=== PATIENT | female | born 1985 | race American Indian/Alaskan Native ===

== ENCOUNTER 2016-09-20 13:03 | Emergency (ER) | payer MEDICAID ==
[2016-09-20] MEDS ORDERED: CATAPRES PO ONE (13:31)
--- NOTE | 2016-09-20 13:33 | Emergency Department Report ---
Entered by GLADIS RIZO, acting as scribe for SHAKIRA MTZ PA. Chief Complaint: High BP Stated Complaint: ELEVATED BP Time Seen by Provider: 09/20/16 13:24 - HPI History of Present Illness: Patient presents to the ED c/o elevated blood pressure that began today. Pt states that her PCP suggested she come to the ED, because her blood pressure was elevated to 179/130. Reports dizziness, light headache, mid-chest pain. Denies nausea and vomiting. In triage, the pt's blood pressure is 168/116. - ROS Review of Systems: All system are negative unless stated in HPI above. - Exam Vital Signs: Vital Signs 09/20/16 13:18 Temperature 98.3 F Pulse Rate 109 H Respiratory 18 Rate Blood Pressure 168/116 O2 Sat by Pulse 100 Oximetry Physical Exam: General: well nourished, well developed, nontoxic in appearance, in no acute distress Cardiovascular: S1/S2 tachycardic at 109bpm, regular rhythm. No murmur Neurological: GCS 15, no facial drooping, normal gait, A&O x 3 MSE screening note: Focused history and physical exam performed. Due to findings the following was ordered: ED Medical Decision Making - Medical Decision Making Medical decision making: Patient seen by provider in triage area. Appropriate protocol activated and patient to main ED to be seen by provider Clonidine 0.2 mg by mouth given ED Disposition for MSE Condition: Stable This documentation as recorded by the scribe,GLADIS RIZO,accurately reflects the service I personally performed and the decisions made by me,SHAKIRA MTZ PA.
[2016-09-20 14:19] LABS: Basophils % (Auto) 1.7 % (0.0-1.8); Eosinophils % (Auto) 1.6 % (0.0-4.3); Hematocrit 39.6 % (30.3-42.9); Hemoglobin 13.2 gm/dl (10.1-14.3); Mean Corpuscular HGB Conc 33 % (30-34); Mean Corpuscular Hemoglobin 30 pg (28-32); Mean Corpuscular Volume 89 fl (79-97); Platelet Count 379 K/mm3 (140-440); Red Blood Count 4.46 M/mm3 (3.65-5.03); Red Cell Distribution Width 13.9 % (13.2-15.2); White Blood Count 7.3 K/mm3 (4.5-11.0)
[2016-09-20 14:28] LABS: INR 0.99 (0.87-1.13)
[2016-09-20 14:29] LABS: Partial Thromboplastin Time 29.9 Sec. (24.2-36.6)
[2016-09-20 14:33] LABS: Creatine Kinase MB 1.6 ng/mL (0.0-4.0)
[2016-09-20 14:34] LABS: Anion Gap 18 mmol/L; BUN/Creatinine Ratio 14.28; Blood Urea Nitrogen 10 mg/dL (7-17); Carbon Dioxide 23 mmol/L (22-30); Chloride 102.9 mmol/L (98-107); Creatine Kinase 150 units/L (30-135); Glucose 108 mg/dL (65-100); Potassium 4.1 mmol/L (3.6-5.0); Sodium 140 mmol/L (137-145)
--- NOTE | 2016-09-20 15:03 | Cat Scan Report ---
CT HEAD WITHOUT CONTRAST: HISTORY: Headache, dizziness, hypertension. Serial contiguous axial images were obtained through the cranium. Intravenous contrast material was not administered. The ventricles are normal in size and appearance. There is no mass effect or midline shift. No areas of abnormally increased or decreased attenuation are seen. No mass lesion is seen. There is subtle cortical volume loss in the left parietal region. The etiology of this is unclear. This may represent a chronic ischemic insult. This may have been in utero. There is moderate mucosal thickening throughout the ethmoid and sphenoid sinuses. IMPRESSION: Cortical volume loss in the left parietal lobe which appears chronic. Previous ischemic insult? In utero insult? No acute process is appreciated. Moderate to severe chronic sinus disease.
[2016-09-20 15:48] LABS: Bacteria,Urine 1+ /HPF (Negative); Bilirubin,Urine NEG (Negative); Blood,Urine NEG (Negative); Ketones,Urine TR mg/dL (Negative); Leukocyte Esterase,Urine LG (Negative); Mucus,Urine 2+ /HPF; Nitrite,Urine NEG (Negative); Urobilinogen,Urine < 2.0 mg/dL (<2.0)
[2016-09-20] MEDS ORDERED: NORCO 5/325 PO ONE (19:07)
[2016-09-20] MEDS ORDERED: ZITHROMAX PO ONE (19:07)
[2016-09-20] MEDS ORDERED: REGLAN PO ONE (19:08)
--- NOTE | 2016-09-20 19:12 | Emergency Department Report ---
HPI - General Chief Complaint: High BP Time Seen by Provider: 09/20/16 13:26 - HPI HPI: The patient is a 31-year-old female who presents for evaluation of headache and chest pain. The patient reports headache for the past 2 days, achy in quality, bilateral, bandlike, worse in the frontal and maxillary areas, 10/10 in severity , constant since onset, associated with moderate to severe dizziness elicited with standing and resolved with lying down and rest. She also reports sharp right-sided chest pain, 8/10 in severity, present for the past one day, exacerbated with right arm movement. ED Past Medical Hx - Past Medical History Hx Hypertension: Yes (post- pre-eclampsia; now on Procardia) Hx Congestive Heart Failure: No Hx Diabetes: No Hx Deep Vein Thrombosis: No Hx Renal Disease: No Hx Sickle Cell Disease: No Hx Seizures: Yes (as a child) Hx Asthma: No Hx COPD: No Hx HIV: No Additional medical history: Vaginal delivery 03-03-14 - Social History Smoking Status: Never Smoker Substance Use Type: None - Medications Home Medications: Home Medications Medication Instructions Recorded Confirmed Last Taken Type NIFEdipine XL [Procardia Xl] 30 mg PO QDAY #60 tablet 04/15/15 09/20/16 Rx Acetaminophen/Codeine [Tylenol #3] 1 tab PO Q6H PRN #10 tab 09/20/16 Unknown Rx Azithromycin [Zithromax Z-ANNIE] 250 mg PO QDAY #6 tablet 09/20/16 Unknown Rx Hydrochlorothiazide [HCTZ] 25 mg PO QDAY 09/20/16 09/20/16 09/20/16 History ED Review of Systems ROS: Stated complaint: ELEVATED BP Other details as noted in HPI Constitutional: denies: fever; reports dizziness ENT: denies: throat or neck pain Respiratory: denies: cough, shortness of breath Cardiovascular: reports chest pain Endocrine: denies unexplained weight loss or gain Gastrointestinal: denies: abdominal pain, nausea Genitourinary: denies: dysuria Musculoskeletal: denies: leg swelling Skin: denies: rash Neurological: reports: headache Hematological/Lymphatic: denies: easy bleeding or easy bruising Psych: denies sadness or hopelessness Physical Exam - Physical Exam Vital Signs: Vital Signs 09/20/16 09/20/16 09/20/16 13:18 13:34 16:54 Temperature 98.3 F 98.4 F Pulse Rate 109 H 109 H 87 Respiratory 18 17 Rate Blood Pressure 168/116 168/116 Blood Pressure 121/77 [Left] O2 Sat by Pulse 100 97 Oximetry 09/20/16 18:00 Temperature 98.1 F Pulse Rate 82 Respiratory 17 Rate Blood Pressure Blood Pressure 128/80 [Left] O2 Sat by Pulse 100 Oximetry Physical Exam: General: well-nourished, well-developed, no acute distress Head: Normocephalic, atraumatic Eyes: normal sclera, EOMI, PERRL, no vertical, rotary, or horizontal nystagmus ENT: Mucous membranes are pink and moist Neck: trachea midline, neck supple, No neck stiffness, no cervical adenopathy Respiratory: Breath sounds equal bilaterally, no wheezing, rales, or rhonchi Cardio: S1 and S2 present, no murmurs, rubs, gallops, capillary refill is brisk Abdomen: Normoactive bowel sounds, soft abdomen, no rigidity, no guarding or rebound tenderness Chest WALL/Back: No tenderness to palpation of the chest wall, no CVA tenderness with percussion Musc: No pitting edema Skin: No rash Neuro: Alert oriented 3, no facial drooping, normal speech, CN2 through 12 grossly intact, no sensation or motor deficit in the arms or legs, reflexes 2+ symmetric on DTR testing, no coordination deficit with finger to nose testing, Romberg negative, no abnormal gait with ventilation Psych: Normal affect ED Course Vital Signs 09/20/16 09/20/16 09/20/16 13:18 13:34 16:54 Temperature 98.3 F 98.4 F Pulse Rate 109 H 109 H 87 Respiratory 18 17 Rate Blood Pressure 168/116 168/116 Blood Pressure 121/77 [Left] O2 Sat by Pulse 100 97 Oximetry 09/20/16 18:00 Temperature 98.1 F Pulse Rate 82 Respiratory 17 Rate Blood Pressure Blood Pressure 128/80 [Left] O2 Sat by Pulse 100 Oximetry ED Medical Decision Making - Lab Data Result diagrams: 09/20/16 13:46 09/20/16 13:46 - Medical Decision Making The patient was seen and examined by myself. The patient is placed on a monitor tech and continuous pulse ox. On initial evaluation, the patient was found to be in no distress. EKG was negative for findings suggestive of acute cardiac infarct. Labs and imaging are obtained. The patient was given a tablet of clonidine for her elevated blood pressure, [place] for pain. Lab results are grossly unremarkable. CT scan the head reveals sinusitis. The patient given a tablet of azithromycin for treatment of sinusitis. Lab results were non-concerning including levels of troponin, WBC, hemoglobin, hematocrit, electrolytes, renal function. The patient was reevaluated and reported that their symptoms were markedly improved. As the patient has a ABRAHAM risk score less than 2, and a well's score less than 2, the patient is at low risk of ACS or pulmonary emboli etiology of their symptoms. The patient is stable for discharge with outpatient follow-up. The patient is given follow-up and return instructions. The patient expressed understanding and agreed with the plan. The patient is discharged in stable condition. Critical care attestation.: If time is entered above; I have spent that time in minutes in the direct care of this critically ill patient, excluding procedure time. ED Disposition Clinical Impression: Acute chest pain, Hypertensive urgency Acute sinusitis Qualifiers: Sinusitis location: unspecified location Recurrence: non-recurrent Qualified Code(s): J01.90 - Acute sinusitis, unspecified Disposition: DISCHARGED TO HOME OR SELFCARE Is pt being admited?: No Does the pt Need Aspirin: No Condition: Stable Instructions: Chest Pain (ED), Sinusitis (ED), Hypertension (ED) Prescriptions: Acetaminophen/Codeine [Tylenol #3] 1 tab PO Q6H PRN #10 tab PRN Reason: Pain Azithromycin [Zithromax Z-ANNIE] 250 mg PO QDAY #6 tablet Referrals: PRIMARY CARE, [Primary Care Provider] - 3-5 Days Forms: Accompanied Note Time of Disposition: 19:08
[2016-09-20 22:59] VITALS: BP 121/82
== END 2016-09-20 22:59 | disposition home or self-care (01) ==
LOC: ED 13:03
DX: J01.90 Acute sinusitis, unspecified (principal); R07.9 Chest pain, unspecified; I10 Essential (primary) hypertension
CPT/HCPCS: 36415; 70450; 80048; 81001; 82550; 82553; 84484; 84703; 85025; 85610; 85730; 93005; 93010

== ENCOUNTER 2017-02-25 18:56 | Emergency (ER) | payer OTHER ==
--- NOTE | 2017-02-26 03:06 | Emergency Department Report ---
ED ENT HPI - General Chief complaint: Sore Throat Stated complaint: SORE THROAT HARD TO SWALLOW Time Seen by Provider: 02/26/17 02:58 Source: patient Mode of arrival: Ambulatory Limitations: No Limitations - History of Present Illness Initial comments: pt is 31 y/o aaf with hx asthma who presents for sorethroat and fever x 1 week symptoms include dysphagia and fever 102.7 tmax oral at home pt is tolerating po intake, there is no shortness of breath no n/v no headache no dizziness. complaint: sore throat Onset/Timin -: week(s) Location: throat Severity: moderate Severity scale (0 -10): 5 Quality: burning, aching, sharp Consistency: intermittent Improves with: other (hot liquids ) Worsens with: swallowing Associated Symptoms: fever, pain with swallowing, sore throat - Related Data Home Medications Medication Instructions Recorded Confirmed Last Taken Hydrochlorothiazide [HCTZ] 25 mg PO QDAY 09/20/16 09/20/16 09/20/16 Previous Rx's Medication Instructions Recorded Last Taken Type NIFEdipine XL [Procardia Xl] 30 mg PO QDAY #60 tablet 04/15/15 09/20/16 Rx Acetaminophen/Codeine [Tylenol #3] 1 tab PO Q6H PRN #10 tab 09/20/16 Unknown Rx Azithromycin [Zithromax Z-ANNIE] 250 mg PO QDAY #6 tablet 09/20/16 Unknown Rx Benzocaine/Menth/Cetylpyrd 8 each MM QID PRN #3 packet 02/26/17 Unknown Rx [Cepacol X Strength] Ibuprofen [Motrin 800 MG tab] 800 mg PO Q8HR PRN #30 tablet 02/26/17 Unknown Rx Penicillin Vk [Veetids TAB] 250 mg PO TID #30 tablet 02/26/17 Unknown Rx Allergies Allergy/AdvReac Type Severity Reaction Status Date / Time No Known Allergies Allergy Verified 03/14/15 10:02 ED Dental HPI - General Chief complaint: Sore Throat Stated complaint: SORE THROAT HARD TO SWALLOW Time Seen by Provider: 02/26/17 02:58 Source: patient Mode of arrival: Ambulatory Limitations: No Limitations - Related Data Home Medications Medication Instructions Recorded Confirmed Last Taken Hydrochlorothiazide [HCTZ] 25 mg PO QDAY 09/20/16 09/20/16 09/20/16 Previous Rx's Medication Instructions Recorded Last Taken Type NIFEdipine XL [Procardia Xl] 30 mg PO QDAY #60 tablet 04/15/15 09/20/16 Rx Acetaminophen/Codeine [Tylenol #3] 1 tab PO Q6H PRN #10 tab 09/20/16 Unknown Rx Azithromycin [Zithromax Z-ANNIE] 250 mg PO QDAY #6 tablet 09/20/16 Unknown Rx Benzocaine/Menth/Cetylpyrd 8 each MM QID PRN #3 packet 02/26/17 Unknown Rx [Cepacol X Strength] Ibuprofen [Motrin 800 MG tab] 800 mg PO Q8HR PRN #30 tablet 02/26/17 Unknown Rx Penicillin Vk [Veetids TAB] 250 mg PO TID #30 tablet 02/26/17 Unknown Rx Allergies Allergy/AdvReac Type Severity Reaction Status Date / Time No Known Allergies Allergy Verified 03/14/15 10:02 ED Review of Systems ROS: Stated complaint: SORE THROAT HARD TO SWALLOW Other details as noted in HPI Constitutional: denies: chills, fever Eyes: denies: eye pain, eye discharge, vision change ENT: throat pain Respiratory: denies: cough, shortness of breath, wheezing Cardiovascular: denies: chest pain, palpitations Endocrine: no symptoms reported Gastrointestinal: denies: abdominal pain, nausea, diarrhea Genitourinary: denies: urgency, dysuria, discharge Musculoskeletal: denies: back pain, joint swelling, arthralgia Skin: denies: rash, lesions Neurological: denies: headache, weakness, paresthesias Psychiatric: denies: anxiety, depression Hematological/Lymphatic: denies: easy bleeding, easy bruising ED Past Medical Hx - Past Medical History Previous Medical History?: Yes Hx Hypertension: Yes (post- pre-eclampsia; now on Procardia) Hx Congestive Heart Failure: No Hx Diabetes: No Hx Deep Vein Thrombosis: No Hx Renal Disease: No Hx Sickle Cell Disease: No Hx Seizures: Yes (as a child) Hx Asthma: No Hx COPD: No Hx HIV: No Additional medical history: Vaginal delivery 03-03-14 - Surgical History Past Surgical History?: No - Social History Smoking Status: Never Smoker Substance Use Type: None - Medications Home Medications: Home Medications Medication Instructions Recorded Confirmed Last Taken Type NIFEdipine XL [Procardia Xl] 30 mg PO QDAY #60 tablet 04/15/15 09/20/1609/20/ 17 Rx Acetaminophen/Codeine [Tylenol #3] 1 tab PO Q6H PRN #10 tab 09/20/16 Unknown Rx Azithromycin [Zithromax Z-ANNIE] 250 mg PO QDAY #6 tablet 09/20/16 Unknown Rx Hydrochlorothiazide [HCTZ] 25 mg PO QDAY 09/20/16 09/20/16 09/20/16 History Benzocaine/Menth/Cetylpyrd 8 each MM QID PRN #3 packet 02/26/17 Unknown Rx [Cepacol X Strength] Ibuprofen [Motrin 800 MG tab] 800 mg PO Q8HR PRN #30 tablet 02/26/17 Unknown Rx Penicillin Vk [Veetids TAB] 250 mg PO TID #30 tablet 02/26/17 Unknown Rx ED Physical Exam - General Limitations: No Limitations General appearance: alert, in no apparent distress - Head Head exam: Present: atraumatic, normocephalic, normal inspection - Eye Eye exam: Present: normal appearance, PERRL, EOMI Pupils: Present: normal accommodation - ENT ENT exam: Present: mucous membranes moist - Expanded ENT Exam Expanded TM/Canal exam: Erythema: Left TM Mouth exam: Present: normal external inspection, tongue normal. Absent: tongue elevation Throat exam: Positive: tonsillar erythema, tonsillomegaly, tonsillar exudate. Negative: R peritonsillar mass - Neck Neck exam: Present: normal inspection, full ROM, lymphadenopathy. Absent: thyromegaly - Respiratory Respiratory exam: Present: normal lung sounds bilaterally. Absent: respiratory distress, wheezes, rales, rhonchi, stridor, chest wall tenderness - Cardiovascular Cardiovascular Exam: Present: regular rate, normal rhythm. Absent: systolic murmur, diastolic murmur, rubs, gallop - GI/Abdominal GI/Abdominal exam: Present: soft, normal bowel sounds. Absent: distended, tenderness, guarding, rebound, rigid, organomegaly, mass, bruit, pulsatile mass , hernia - Rectal Rectal exam: Present: deferred - Extremities Exam Extremities exam: Present: normal inspection, full ROM, normal capillary refill. Absent: tenderness, pedal edema, joint swelling, calf tenderness - Back Exam Back exam: Present: normal inspection - Neurological Exam Neurological exam: Present: alert, oriented X3 - Psychiatric Psychiatric exam: Present: normal affect, normal mood - Skin Skin exam: Present: warm, dry, intact, normal color. Absent: rash ED Course Vital Signs 02/25/17 20:17 Temperature 98.6 F Pulse Rate 98 H Respiratory 20 Rate Blood Pressure 162/107 O2 Sat by Pulse 100 Oximetry ED Medical Decision Making - Medical Decision Making pt is 31 y/o aaf with hx asthma who presents for sorethroat and fever x 1 week symptoms include dysphagia and fever 102.7 tmax oral at home pt is tolerating po intake, there is no shortness of breath no n/v no headache no dizziness. exam : pt appears ill , ent: tms left tm erythema mild, nose: no obstruction no polyps , pharynx: moderate erythema bilat tonsilar erythema edema white exudate no lesion no focal abscess uvula midline no stridor lungs clear bilat, plan: tx of pharyngitis. pt will follow up with primary care doctor in 3 days or return to emergency if symptoms worsen. pt verbalized agreement and understanding of same. Critical care attestation.: If time is entered above; I have spent that time in minutes in the direct care of this critically ill patient, excluding procedure time. ED Disposition Clinical Impression: Pharyngitis Qualifiers: Pharyngitis/tonsillitis etiology: unspecified etiology Qualified Code(s): J02.9 - Acute pharyngitis, unspecified Disposition: - TO HOME OR SELFCARE Is pt being admited?: No Does the pt Need Aspirin: No Condition: Good Instructions: Pharyngitis (ED) Prescriptions: Benzocaine/Menth/Cetylpyrd [Cepacol X Strength] 8 each MM QID PRN #3 packet PRN Reason: throat pain Ibuprofen [Motrin 800 MG tab] 800 mg PO Q8HR PRN #30 tablet PRN Reason: Pain Penicillin Vk [Veetids TAB] 250 mg PO TID #30 tablet Referrals: THOM GALLO MD [Primary Care Provider] - 3-5 Days Forms: Work/School Release Form(ED) Time of Disposition: 03:13
[2017-02-26 03:48] VITALS: BP 157/106
== END 2017-02-26 03:48 | disposition home or self-care (01) ==
LOC: ED 18:56
DX: J02.9 Acute pharyngitis, unspecified (principal)
CPT/HCPCS: 99282

== ENCOUNTER 2019-02-13 07:44 | Emergency (ER) | payer OTHER ==
[2019-02-13] MEDS ORDERED: NACL 0.9% 1000 ML 1,000 ML IV ONE ×2 (09:15→10:13)
[2019-02-13] MEDS ORDERED: ZOFRAN IV ONE ×2 (09:15→10:14)
--- NOTE | 2019-02-13 09:16 | Emergency Department Report ---
HPI - General Chief Complaint: Nausea/Vomiting/Diarrhea Time Seen by Provider: 02/13/19 09:14 - HPI HPI: 33 yo AA female, , LMP 7-29, here w n/v. She is known to [facility]. . Hx of gestational DM and preeclampsia. Vomiting on arrival to ER She has seen obgyn this preg. no vag bleeding or discharge ED Past Medical Hx - Past Medical History Hx Hypertension: Yes (post- pre-eclampsia; now on Procardia) Hx Congestive Heart Failure: No Hx Diabetes: No Hx Deep Vein Thrombosis: No Hx Renal Disease: No Hx Sickle Cell Disease: No Hx Seizures: Yes (as a child) Hx Asthma: No Hx COPD: No Hx HIV: No Additional medical history: Vaginal delivery 03-03-14 - Surgical History Hx Cholecystectomy: Yes - Family History Family history: no significant - Social History Smoking Status: Never Smoker Substance Use Type: None - Medications Home Medications: Home Medications Medication Instructions Recorded Confirmed Last Taken Type Nitrofurantoin [place]/M-Cryst 100 mg PO Q12HR #10 capsule 02/13/19 Unknown Rx [Macrobid CAP] Ondansetron [Zofran Odt] 4 mg PO Q8HR PRN #10 tab.rapdis 02/13/19 Unknown Rx ED Review of Systems ROS: Stated complaint: VOMIT/7WKS /DIZZY Other details as noted in HPI Comment: All other systems reviewed and negative Physical Exam - Physical Exam Vital Signs: Vital Signs 02/13/19 08:05 Temperature 99.0 F Pulse Rate 82 Respiratory 20 Rate Blood Pressure 136/95 [Right] O2 Sat by Pulse 100 Oximetry Physical Exam: alert and oriented x 3 vomiting no abd tenderness no cva tenderness s1s2 lungs cta no edema or JVD ED Course Vital Signs 02/13/19 08:05 Temperature 99.0 F Pulse Rate 82 Respiratory 20 Rate Blood Pressure 136/95 [Right] O2 Sat by Pulse 100 Oximetry - Reevaluation(s) Reevaluation #1: 02/13/19 14:[address] DIPTI CORADO [place] WITH OFFICE FOLLOW UP ED Medical Decision Making - Lab Data Result diagrams: 02/13/19 09:33 02/13/19 09:33 - Radiology Data Radiology results: report reviewed, image reviewed - Medical Decision Making Labs 09/17/19 09/17/19 09/17/19 09:33 09:33 10:24 WBC 8.7 RBC 4.43 Hgb 13.3 Hct 40.0 MCV 90 MCH 30 MCHC 33 RDW 13.4 Plt Count 332 Sodium 139 Potassium 3.6 Chloride 102.2 Carbon Dioxide 24 Anion Gap 16 BUN 9 Creatinine 0.7 Estimated GFR > 60 BUN/Creatinine Ratio 13 Glucose 106 H Calcium 9.1 Total Bilirubin 0.50 AST 14 ALT 11 Alkaline Phosphatase 50 Total Protein 7.5 Albumin 4.4 Albumin/Globulin Ratio 1.4 Lipase 41 Urine Color [place] Urine Turbidity Cloudy Urine pH 6.0 Ur Specific [place] 1.032 H Urine Protein 100 mg/dl Urine Glucose (UA) Neg Urine Ketones 80 Urine Blood Neg Urine Nitrite Neg Urine Bilirubin Neg Urine Urobilinogen 4.0 Ur Leukocyte Esterase Lg Urine WBC (Auto) 3.0 Urine RBC (Auto) 4.0 U Epithel Cells (Auto) 18.0 H Urine Bacteria (Auto) 1+ Urine Mucus 3+ Vital Signs 02/13/19 02/13/19 02/13/19 08:05 10:15 14:30 Temperature 99.0 F 98.2 F Pulse Rate 82 69 92 H Respiratory 20 20 16 Rate Blood Pressure 113/83 126/87 [Left] Blood Pressure 136/95 [Right] O2 Sat by Pulse 100 Oximetry VSS NON TOXIC FLUIDS/ANTIEMETICS IN ER UA NOTED US NOTED OBGYN PHONED- OK FOR DC ON MACROBID AND WILL FOLLOW UP IN THE OFFICE IN AM ON DC PT TAKING PO AND HAVING NO VOMITING. - Differential Diagnosis N/V OF PREG; RO UTI; RO AB Critical care attestation.: If time is entered above; I have spent that time in minutes in the direct care of this critically ill patient, excluding procedure time. ED Disposition Clinical Impression: , Nausea and vomiting in , Ovarian cyst Disposition: DC-01 TO HOME OR SELFCARE Is pt being admited?: No Does the pt Need Aspirin: No Condition: Stable Additional Instructions: CALL DR CARSON OFFICE IN AM SHE KNOWS YOU WERE HERE TODAY AND WILL EXPECT THE CALL TELL THE NURSE SHE WANTED YOU TO FOLLOW UP Prescriptions: Nitrofurantoin [place]/M-Cryst [Macrobid CAP] 100 mg PO Q12HR #10 capsule Ondansetron [Zofran Odt] 4 mg PO Q8HR PRN #10 tab.rapdis PRN Reason: Vomiting Referrals: EMIGDIO GOMEZ MD [Staff Physician] - 3-5 Days Time of Disposition: 14:08
[2019-02-13 09:44] LABS: Hemoglobin 13.3 gm/dl (10.1-14.3); Mean Corpuscular HGB Conc 33 % (30-34); Mean Corpuscular Volume 90 fl (79-97); Platelet Count 332 K/mm3 (140-440); Red Blood Count 4.43 M/mm3 (3.65-5.03); Red Cell Distribution Width 13.4 % (13.2-15.2)
[2019-02-13 10:08] LABS: Alanine Aminotransferase 11 units/L (7-56); Albumin 4.4 g/dL (3.9-5); BUN/Creatinine Ratio 13; Blood Urea Nitrogen 9 mg/dL (7-17); Calcium 9.1 mg/dL (8.4-10.2); Hemolysis Index 8
[2019-02-13 10:37] LABS: Bacteria,Urine 1+ /HPF (Negative); Bilirubin,Urine NEG (Negative); Blood,Urine NEG (Negative); Color,Urine Amber (Yellow); Mucus,Urine 3+ /HPF
[2019-02-13] MEDS ORDERED: ROCEPHIN/NS 1 GM/50 ML 1 GM/50 ML BAG IV ONE (10:59)
[2019-02-13] MEDS ORDERED: REGLAN IV ONE (11:59)
[2019-02-13] MEDS ORDERED: TYLENOL PO ONE (12:00)
--- NOTE | 2019-02-13 13:37 | Ultrasound Report ---
FIRSTTRIME[facility] OBSTETRIC ULTRASOUND HISTORY: Abdominal pain, hyperemesis for 2 weeks COMPARISON: None. TECHNIQUE: Routine transabdominal OB ultrasound performed. FINDINGS: Uterus: Mildly enlarged measuring 9.7 x 5.6 x 6.4 cm. Gestational Sac: Well-defined oval shape and intrauterine in location. Yolk Sac: Normal in appearance. Fetus/Embryo: [place]-rump length of 0.47 cm, corresponding to an estimated gestational age of 6 week 1 day. Embryonic/ anatomy is too small for evaluation. Embryonic/ cardiac activity: 130bpm Placenta: Too small for evaluation. Amniotic fluid volume: Subjectively appropriate for gestational age. Ovaries: The right ovary is normal in size and appearance with normal blood flow, measuring 2.8 x 1. 3 x 2.3 cm. The left ovary is normal in size and appearance with normal blood flow, measuring 3.2 x 2.3 x 2.5 cm. A 2.1 cm left ovarian cyst is identified. Additional findings: None. IMPRESSION Early live intrauterine . 2.1 cm left ovarian cyst. No acute abnormality is detected. Signer Name: Sebas Deleon Jr, MD Signed: 02/13/2019 1:32 PM Workstation Name: [id number]
[2019-02-13 14:32] VITALS: BP 126/87
== END 2019-02-13 14:35 | disposition home or self-care (01) ==
LOC: ED 07:44
DX: O34.81 Maternal care for other abnormalities of pelvic organs, first trimester (principal); N83.209 Unspecified ovarian cyst, unspecified side; O16.1 Unspecified maternal hypertension, first trimester; Z3A.01 Less than 8 weeks gestation of pregnancy; Z90.49 Acquired absence of other specified parts of digestive tract; Z79.899 Other long term (current) drug therapy
CPT/HCPCS: 36415; 76801; 80053; 81001; 83690; 85027; 96361; 96365; 96375; 96376; 99284; J0696; J2405; J2765; J7030

== ENCOUNTER 2019-02-22 10:28 | Inpatient (IN) | payer OTHER ==
[2019-02-22] MEDS ORDERED: ONDANSETRON 4 MG/2 ML INJ IV PRN (10:30)
--- NOTE | 2019-02-22 10:54 | History and Physical Report ---
History of Present Illness Date of examination: 02/22/19 Chief complaint: nausea and vomiting History of present illness: Pt is a 33 year old -[place] female LMP 12/25/18 PATRICIA 10/01/19 by LMP c/w 8 wk sono at 8 w3d who presents with two weeks of worsening nausea and daily vomiting. She reports inability to tolerate liquids or solids for the past few days. Her medical history is significant for chronic pancreatitis and chronic hypertension. She initiated her care in the office today, and she had a viability ultrasound as well. Past History Past Medical History: hypertension, pancreatitis (chronic ), GERD Past Surgical History: 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 (04/14/15) [employer] History: herpes Social history: - Obstetrical History Expected Date of Delivery: 10/01/19 Actual Gestation: 8 Week(s) 3 Day(s) : 3 Para: 2 Hx # Term Pregnancies: 1 Number of Pregnancies: 1 Spontaneous Abortions: 0 Induced : 0 Number of Living Children: 2 Medications and Allergies Allergies Allergy/AdvReac Type Severity Reaction Status Date / Time No Known Allergies Allergy Verified 03/14/15 10:02 Home Medications Medication Instructions Recorded Confirmed Last Taken Type Nitrofurantoin [place]/M-Cryst 100 mg PO Q12HR #10 capsule 02/13/19 Unknown Rx [Macrobid CAP] Ondansetron [Zofran Odt] 4 mg PO Q8HR PRN #10 tab.rapdis 02/13/19 Unknown Rx Active Meds: Active Medications Dextrose/Lactated Ringer's (D5lr) 1,000 mls @ 500 mls/hr IV DIRECT ASPEN Stop: 02/23/19 12:59 Dextrose/Lactated Ringer's (D5lr) 1,000 mls @ 150 mls/hr IV DIRECT ASPEN Metoclopramide HCl (Reglan) 10 mg IV Q6H ASPEN Multivitamins/Iron/Calcium ( Vitamin) 1 each PO QDAY ASPEN Ondansetron HCl (Zofran) 4 mg IV Q6H PRN PRN Reason: N/V unrelieved by Reglan Promethazine HCl (Phenergan) 25 mg [place] Q6H ASPEN Review of Systems All systems: negative Gastrointestinal: nausea (per HPI), vomiting (per HPI ) - Physical Exam Breasts: Positive: deferred Abdomen: Positive: soft Extremities: Positive: normal - Obstetrical FHR: auscultation normal (FHTs 164 bpm today on in-office ultrasound ) Results Result Diagrams: 02/22/19 12:14 02/22/19 12:14 All other labs normal. Assessment and Plan A: IUP at 8w3d Hyperemesis H/o chronic pancreatitis Chronic HTN P: Admit to antepartum service for observation Baseline labs and urinalysis IV hydration IV antiemetics Closely monitor clinical status
[2019-02-22 12:38] LABS: Basophils # (Auto) 0.1 K/mm3 (0.0-0.1); Basophils % (Auto) 0.9 % (0.0-1.8); Eosinophils # (Auto) 0.1 K/mm3 (0.0-0.4); Eosinophils % (Auto) 0.6 % (0.0-4.3); Hematocrit 38.7 % (30.3-42.9); Hemoglobin 12.9 gm/dl (10.1-14.3); Lymphocytes # (Auto) 3.4 K/mm3 (1.2-5.4); Lymphocytes % (Auto) 38.8 % (13.4-35.0); Mean Corpuscular HGB Conc 33 % (30-34); Mean Corpuscular Volume 90 fl (79-97); Monocytes # (Auto) 0.8 K/mm3 (0.0-0.8); Monocytes % (Auto) 8.6 % (0.0-7.3); Platelet Count 347 K/mm3 (140-440); Red Blood Count 4.33 M/mm3 (3.65-5.03); Red Cell Distribution Width 13.3 % (13.2-15.2)
[2019-02-22 13:10] LABS: Bacteria,Urine 1+ /HPF (Negative); Bilirubin,Urine NEG (Negative); Blood,Urine NEG (Negative); Color,Urine Amber (Yellow); Mucus,Urine 3+ /HPF
[2019-02-22] MEDS: D5W/LACTATED RINGERS 1,000 ML IV SCH ×4 (13:10→23:40)
[2019-02-22] MEDS: METOCLOPRAMIDE 10 MG/2 ML INJ IV SCH ×3 (13:18→23:23)
[2019-02-22] MEDS: PROMETHAZINE 25 MG RECT SUPP PR SCH ×3 (13:19→23:24)
[2019-02-22 13:39] LABS: BUN/Creatinine Ratio 10; Blood Urea Nitrogen 6 mg/dL (7-17); Calcium 9.1 mg/dL (8.4-10.2); Hemolysis Index 67
[2019-02-22 13:55] LABS: Hepatitis C Virus Antibody Non-Reactive (NonReactive)
[2019-02-22] MEDS: cefTRIAXone/NS 1 GM/50 ML 1 GM/50 ML BAG IV SCH (13:56)
[2019-02-22 14:48] LABS: Hepatitis B Surface Antigen Non-Reactive (Negative)
[2019-02-22] MEDS ORDERED: MORPHINE 2 MG/1 ML INJ IV ONE (21:57)
[2019-02-23] MEDS: PROMETHAZINE 25 MG RECT SUPP PR SCH (05:34)
[2019-02-23] MEDS: METOCLOPRAMIDE 10 MG/2 ML INJ IV SCH ×4 (05:34→23:58)
[2019-02-23] MEDS: D5W/LACTATED RINGERS 1,000 ML IV SCH ×2 (07:09→17:22)
--- NOTE | 2019-02-23 08:17 | Progress Note ---
Assessment and Plan A/P A: IUP at 8w4d Hyperemesis H/o chronic pancreatitis Chronic HTN UTI P: Admit to antepartum service for observation Baseline labs and urinalysis IV hydration IV antiemetics Closely monitor clinical status Subjective - Subjective Date of service: 02/23/19 Principal diagnosis: hyperemesis gravidarum Patient reports: no new complaints Objective - Vital Signs Vital Signs: Vital Signs - 12hr 02/22/19 02/22/19 02/22/19 22:00 22:30 23:00 Temperature Pulse Rate Pulse Rate [ 80 Right Radial] Respiratory 18 18 18 Rate Blood Pressure O2 Sat by Pulse Oximetry 02/22/19 02/23/19 23:35 04:36 Temperature 98.4 F 98.9 F Pulse Rate 80 91 H Pulse Rate [ Right Radial] Respiratory 20 20 Rate Blood Pressure 120/77 112/71 O2 Sat by Pulse 96 98 Oximetry - Exam Breasts: normal Cardiovascular: Regular rate, Normal S1 Lungs: Clear to auscultation, Normal air movement Abdomen: Present: normal appearance, soft, normal bowel sounds. Absent: distention, tenderness, guarding Vulva: both: normal Uterus: Present: normal, firm FHR: auscultation normal Extremities: normal Deep Tendon Reflex Grade: Normal +2 - Labs Labs: Abnormal Labs 02/22/19 02/22/19 02/22/19 12:14 12:14 12:50 Lymph % (Auto) 38.8 H [place] % (Auto) 8.6 H Carbon Dioxide 19 L BUN 6 L Creatinine 0.6 L Urine pH 8.0 H Ur Specific [place] 1.032 H Laboratory Results - last 24 hr 02/22/19 02/22/19 02/22/19 12:14 12:14 12:14 WBC 8.8 RBC 4.33 Hgb 12.9 Hct 38.7 MCV 90 MCH 30 MCHC 33 RDW 13.3 Plt Count 347 Lymph % (Auto) 38.8 H [place] % (Auto) 8.6 H Eos % (Auto) 0.6 Baso % (Auto) 0.9 Lymph # 3.4 [place] # 0.8 Eos # 0.1 Baso # 0.1 Seg Neutrophils % 51.1 Seg Neutrophils # 4.5 Sodium Potassium Chloride Carbon Dioxide Anion Gap BUN Creatinine Estimated GFR BUN/Creatinine Ratio Glucose Calcium Amylase 122 Lipase 51 TSH 0.344 Urine Color Urine Turbidity Urine pH Ur Specific [place] Urine Protein Urine Glucose (UA) Urine Ketones Urine Blood Urine Nitrite Urine Bilirubin Urine Urobilinogen Ur Leukocyte Esterase Urine WBC (Auto) Urine RBC (Auto) U Epithel Cells (Auto) Urine Bacteria (Auto) Urine Mucus Hepatitis A IgM Ab Hep Bs Antigen Hep B Core IgM Ab Hepatitis C Antibody 02/22/19 02/22/19 02/22/19 12:14 12:14 12:50 WBC RBC Hgb Hct MCV MCH MCHC RDW Plt Count Lymph % (Auto) [place] % (Auto) Eos % (Auto) Baso % (Auto) Lymph # [place] # Eos # Baso # Seg Neutrophils % Seg Neutrophils # Sodium 141 Potassium 3.7 Chloride 105.1 Carbon Dioxide 19 L Anion Gap 21 BUN 6 L Creatinine 0.6 L Estimated GFR > 60 BUN/Creatinine Ratio 10 Glucose 78 Calcium 9.1 Amylase Lipase TSH Urine Color [place] Urine Turbidity Slightly-cloudy Urine pH 8.0 H Ur Specific [place] 1.032 H Urine Protein 100 mg/dl Urine Glucose (UA) Neg Urine Ketones 20 Urine Blood Neg Urine Nitrite Neg Urine Bilirubin Neg Urine Urobilinogen 4.0 Ur Leukocyte Esterase Sm Urine WBC (Auto) 1.0 Urine RBC (Auto) 2.0 U Epithel Cells (Auto) 8.0 Urine Bacteria (Auto) 1+ Urine Mucus 3+ Hepatitis A IgM Ab Non-reactive Hep Bs Antigen Non-reactive Hep B Core IgM Ab Non-reactive Hepatitis C Antibody Non-reactive 02/22/19 02/23/19 12:50 00:24 WBC RBC Hgb Hct MCV MCH MCHC RDW Plt Count Lymph % (Auto) [place] % (Auto) Eos % (Auto) Baso % (Auto) Lymph # [place] # Eos # Baso # Seg Neutrophils % Seg Neutrophils # Sodium Potassium Chloride Carbon Dioxide Anion Gap BUN Creatinine Estimated GFR BUN/Creatinine Ratio Glucose Calcium Amylase Lipase TSH Urine Color Urine Turbidity Urine pH Ur Specific [place] Urine Protein Urine Glucose (UA) Urine Ketones 20 Tr Urine Blood Urine Nitrite Urine Bilirubin Urine Urobilinogen Ur Leukocyte Esterase Urine WBC (Auto) Urine RBC (Auto) U Epithel Cells (Auto) Urine Bacteria (Auto) Urine Mucus Hepatitis A IgM Ab Hep Bs Antigen Hep B Core IgM Ab Hepatitis C Antibody
[2019-02-23] MEDS: SCOPOLAMINE TRANSDERMAL PATCH 72 HR TD SCH (10:12)
[2019-02-23] MEDS: ONDANSETRON 4 MG/2 ML INJ IV SCH ×2 (10:13→16:17)
[2019-02-23] MEDS: cefTRIAXone/NS 1 GM/50 ML 1 GM/50 ML BAG IV SCH (10:14)
[2019-02-23] MEDS: MORPHINE 2 MG/1 ML INJ IV PRN ×2 (12:05→18:21)
[2019-02-24] MEDS: MORPHINE 2 MG/1 ML INJ IV PRN ×5 (00:09→21:38)
[2019-02-24] MEDS: ONDANSETRON 4 MG/2 ML INJ IV SCH ×4 (00:10→21:37)
[2019-02-24] MEDS: D5W/LACTATED RINGERS 1,000 ML IV SCH ×2 (00:13→08:20)
[2019-02-24] MEDS: METOCLOPRAMIDE 10 MG/2 ML INJ IV SCH ×3 (06:41→17:53)
[2019-02-24] MEDS: cefTRIAXone/NS 1 GM/50 ML 1 GM/50 ML BAG IV SCH (10:04)
--- NOTE | 2019-02-24 12:34 | Progress Note ---
Assessment and Plan - Patient Problems (1) Nausea and vomiting in Current Visit: No Status: Acute Plan to address problem: continue supportive care add hydrocortisone to regimen Subjective - Subjective Date of service: 02/24/19 Principal diagnosis: hyperemesis gravidarum Interval history: Patient has not had any significant improvement in her symptoms. Only attempting sips and chips without much success. Patient reports: no new complaints Objective - Vital Signs Vital Signs: Vital Signs - 12hr 02/24/19 02/24/19 02/24/19 00:52 05:57 07:58 Temperature 98.5 F 99.1 F 98.9 F Pulse Rate 62 79 62 Respiratory 18 18 18 Rate Blood Pressure 107/63 110/68 114/69 O2 Sat by Pulse 100 100 100 Oximetry 02/24/19 11:23 Temperature Pulse Rate Respiratory 18 Rate Blood Pressure O2 Sat by Pulse Oximetry - Labs Labs: Abnormal Labs 02/22/19 02/22/19 02/22/19 12:14 12:14 12:50 Lymph % (Auto) 38.8 H [place] % (Auto) 8.6 H Carbon Dioxide 19 L BUN 6 L Creatinine 0.6 L Urine pH 8.0 H Ur Specific [place] 1.032 H Laboratory Results - last 24 hr 02/24/19 01:30 Urine Ketones Neg
[2019-02-24] MEDS: HYDROCORTISONE SOD SUCC 100 MG/2 ML VIAL IV SCH ×2 (14:11→21:37)
[2019-02-25] MEDS: METOCLOPRAMIDE 10 MG/2 ML INJ IV SCH ×4 (01:38→22:53)
[2019-02-25] MEDS: D5W/LACTATED RINGERS 1,000 ML IV SCH ×3 (01:39→22:53)
[2019-02-25] MEDS: MORPHINE 2 MG/1 ML INJ IV PRN ×5 (01:39→22:52)
[2019-02-25] MEDS: ONDANSETRON 4 MG/2 ML INJ IV SCH ×4 (04:30→23:59)
[2019-02-25] MEDS: HYDROCORTISONE SOD SUCC 100 MG/2 ML VIAL IV SCH ×3 (07:36→23:59)
[2019-02-25] MEDS: PRENATAL VIT27-FE FUMARATE-FOLIC ACID VIT TAB PO SCH (10:40)
[2019-02-25] MEDS: cefTRIAXone/NS 1 GM/50 ML 1 GM/50 ML BAG IV SCH (10:43)
--- NOTE | 2019-02-25 14:34 | Progress Note ---
Assessment and Plan - Patient Problems (1) Nausea and vomiting in Current Visit: No Status: Acute Plan to address problem: will attempt the use of Ensure today nutrition consult placed for possible PPN patient states not having nutrition for approximately 3 weeks (2) Leg pain Current Visit: Yes Status: Acute Plan to address problem: will perform doppler to rule out DVT Subjective - Subjective Date of service: 02/25/19 Principal diagnosis: hyperemesis gravidarum Interval history: Patient has not had any significant improvement in her symptoms. New complaint of pain in her legs. States the right leg is worse than the left. Patient is having a doppler study today. SCDs placed. Patient reports: new complaints (bilateral leg pain) Objective - Vital Signs Vital Signs: Vital Signs - 12hr 02/25/19 02/25/19 02/25/19 05:50 07:24 12:20 Temperature 98.4 F 98.9 F 98.6 F Pulse Rate 65 70 61 Respiratory 18 18 18 Rate Blood Pressure 120/72 124/70 138/75 O2 Sat by Pulse 100 100 100 Oximetry - Labs Labs: Abnormal Labs 02/22/19 02/22/19 02/22/19 12:14 12:14 12:50 Lymph % (Auto) 38.8 H [place] % (Auto) 8.6 H Carbon Dioxide 19 L BUN 6 L Creatinine 0.6 L Urine pH 8.0 H Ur Specific [place] 1.032 H Laboratory Results - last 24 hr 02/25/19 06:00 Urine Ketones Neg
--- NOTE | 2019-02-25 16:57 | Vascular Lab Report ---
DUPLEX DOPPLER LOWER EXTREMITY VEINS, BILATERAL INDICATION: Bilateral lower extremity pain for 3 weeks. TECHNIQUE: Duplex doppler imaging was performed through the veins of both lower extremities using venous devante mary and other maneuvers. COMPARISON: None available. FINDINGS: Right Common femoral vein: Negative. Right Superficial femoral vein: Negative. Right Popliteal vein: Negative. Right Calf veins: There is a small rounded echogenic focus in the right posterior tibial vein measuri ng approximately 2 mm. This may represent minimal chronic thrombus. Left Common femoral vein: Negative. Left Superficial femoral vein: Negative. Left Popliteal vein: Negative. Left Calf veins: Negative. Additional findings: There is no evidence of a popliteal cyst or other abnormality. IMPRESSION: Possible very minimal chronic appearing thrombus in the right posterior tibial vein. No e vidence of acute DVT in either lower extremity. Signer Name: Humble Delaney MD Signed: 02/25/2019 4:53 PM Workstation Name: [id number]
[2019-02-26] MEDS: MORPHINE 2 MG/1 ML INJ IV PRN ×5 (05:05→23:32)
[2019-02-26] MEDS: METOCLOPRAMIDE 10 MG/2 ML INJ IV SCH ×3 (05:05→23:32)
[2019-02-26] MEDS: ONDANSETRON 4 MG/2 ML INJ IV SCH ×4 (06:00→21:00)
[2019-02-26] MEDS: cefTRIAXone/NS 1 GM/50 ML 1 GM/50 ML BAG IV SCH ×2 (08:21→12:33)
[2019-02-26] MEDS: SCOPOLAMINE TRANSDERMAL PATCH 72 HR TD SCH (09:00)
[2019-02-26] MEDS: HYDROCORTISONE SOD SUCC 100 MG/2 ML VIAL IV SCH ×2 (09:37→17:53)
[2019-02-26 09:44] LABS: Alanine Aminotransferase 39 units/L (7-56); Albumin 4.1 g/dL (3.9-5); BUN/Creatinine Ratio 7; Blood Urea Nitrogen 4 mg/dL (7-17); Calcium 9.1 mg/dL (8.4-10.2); Hemolysis Index 29
[2019-02-26] MEDS ORDERED: ENOXAPARIN 40 MG/0.4 ML INJ SUB-Q ONE ×2 (10:00→14:00)
[2019-02-26] MEDS: PRENATAL VIT27-FE FUMARATE-FOLIC ACID VIT TAB PO SCH (10:00)
--- NOTE | 2019-02-26 13:47 | Progress Note ---
Assessment and Plan A/P A: IUP at 9w2d Hyperemesis H/o chronic pancreatitis Chronic HTN UTI small clot in leg P: Referral to med consult for blood clot- placed on lovenox 40mg sq QD IV hydration IV antiemetics Await nurtiotion consult Referral to M Subjective - Subjective Date of service: 02/26/19 Principal diagnosis: hyperemesis gravidarum Patient reports: new complaints (bilateral leg pain) Objective - Vital Signs Vital Signs: Vital Signs - 12hr 02/26/19 02/26/19 04:43 07:45 Temperature 98.5 F 99.0 F Pulse Rate 59 L 54 L Respiratory 20 18 Rate Blood Pressure 118/74 128/83 O2 Sat by Pulse 97 100 Oximetry - Exam Breasts: normal Cardiovascular: Regular rate, Normal S1 Lungs: Clear to auscultation, Normal air movement Abdomen: Present: normal appearance, soft, normal bowel sounds. Absent: distention, tenderness Uterus: Present: normal. Absent: bogginess, tenderness - Labs Labs: Abnormal Labs 02/22/19 02/22/19 02/22/19 12:14 12:14 12:50 Lymph % (Auto) 38.8 H [place] % (Auto) 8.6 H Potassium Carbon Dioxide 19 L BUN 6 L Creatinine 0.6 L Glucose Urine pH 8.0 H Ur Specific [place] 1.032 H 02/26/19 09:06 Lymph % (Auto) [place] % (Auto) Potassium 3.4 L Carbon Dioxide BUN 4 L Creatinine 0.6 L Glucose 108 H Urine pH Ur Specific [place] Laboratory Results - last 24 hr 02/25/19 02/26/19 22:48 09:06 Sodium 139 Potassium 3.4 L Chloride 100.2 Carbon Dioxide 23 Anion Gap 19 BUN 4 L Creatinine 0.6 L Estimated GFR > 60 BUN/Creatinine Ratio 7 Glucose 108 H Calcium 9.1 Phosphorus 3.60 Magnesium 1.80 Total Bilirubin 0.30 AST 26 ALT 39 Alkaline Phosphatase 44 Total Protein 7.2 Albumin 4.1 Albumin/Globulin Ratio 1.3 Urine Ketones 20
--- NOTE | 2019-02-26 14:19 | Consultation ---
History of Present Illness - Reason for Consult Consult date: 02/26/19 Medical management Requesting physician: LG MORALES - History of Present Illness Was asked to evaluate possible DVT in RLE.patient has pain and tenderness around Rt ankle for about 6 months.No trauma.No SOB.Slight swelling and tenderness present around rt ankle.No fever or chills. Past History Past Medical History: No medical history Past Surgical History: No surgical history Social history: Family history: no significant family history Medications and Allergies Allergies Allergy/AdvReac Type Severity Reaction Status Date / Time No Known Allergies Allergy Verified 03/14/15 10:02 Home Medications Medication Instructions Recorded Confirmed Last Taken Type Nitrofurantoin [place]/M-Cryst 100 mg PO Q12HR #10 capsule 02/13/19 02/26/19 Unknown Rx [Macrobid CAP] Ondansetron [Zofran Odt] 4 mg PO Q8HR PRN #10 tab.rapdis 02/13/19 02/26/19 Unknown Rx Active Meds: Active Medications Hydrocortisone Sodium Succinate (Solu-Cortef) 100 mg IV Q8HR PENDING SALE TO [facility] Last Admin: 02/26/19 09:37 Dose: 100 mg Documented by: Dextrose/Lactated Ringer's ([email or web address]) 1,000 mls @ 150 mls/hr IV DIRECT ASPEN Stop: 02/26/19 22:00 Last Admin: 02/25/19 22:53 Dose: 150 mls/hr Documented by: Ceftriaxone Sodium (Rocephin/Ns 1 Gm/50 Ml) 1 gm in 50 mls @ 100 mls/hr IV Q24HR PENDING SALE TO [facility]; Protocol Last Admin: 02/26/19 12:33 Dose: Not Given Documented by: Amino Acids/Electrolytes/Dextrose (Tpn Adult) 2,016 mls @ 84 mls/hr IV DAILY@1999 PENDING SALE TO [facility]; Protocol Stop: 02/27/19 19:59 Metoclopramide HCl (Reglan) 10 mg IV Q6H PENDING SALE TO [facility] Last Admin: 02/26/19 05:05 Dose: 10 mg Documented by: Morphine Sulfate (Morphine) 2 mg IV Q4H PRN PRN Reason: Pain, Moderate (4-6) Last Admin: 02/26/19 13:34 Dose: 2 mg Documented by: Multivitamins/Iron/Calcium ( Vitamin) 1 each PO QDAY PENDING SALE TO [facility] Last Admin: 02/26/19 10:00 Dose: Not Given Documented by: Ondansetron HCl (Zofran) 4 mg IV Q6H PENDING SALE TO [facility] Last Admin: 02/26/19 13:04 Dose: Not Given Documented by: Scopolamine (Transderm-Scop) 1 each TD Q3D PENDING SALE TO [facility] Last Admin: 02/23/19 10:12 Dose: 1 each Documented by: Review of Systems All systems: negative Exam - Constitutional Vitals: Temp Pulse Resp BP Pulse Ox 98.4 F 55 L 18 135/85 97 02/26/19 13:47 02/26/19 12:53 02/26/19 12:53 02/26/19 12:53 02/26/19 12:53 General appearance: Present: no acute distress, well-nourished - EENT Eyes: Present: PERRL ENT: hearing intact, clear oral mucosa - Neck Neck: Present: supple, normal ROM - Respiratory Respiratory effort: normal Respiratory: bilateral: CTA - Cardiovascular Heart rate: 78 Rhythm: regular Heart Sounds: Present: S1 & S2. Absent: rub, click - Extremities Extremities: no ischemia, pulses intact, pulses symmetrical, No edema Extremity abnormal: tenderness (Rt LE just above ankle posteriorly.Slight swelling present) Peripheral Pulses: within normal limits - Abdominal General gastrointestinal: Present: soft, non-tender, non-distended, normal bowel sounds Female genitourinary: Present: normal - Rectal Rectal Exam: deferred - Integumentary Integumentary: Present: clear, warm, dry - Musculoskeletal Musculoskeletal: gait normal, strength equal bilaterally - Psychiatric Psychiatric: appropriate mood/affect, intact judgment & insight - Neurologic Neurologic: CNII-XII intact, moves all extremities - Allied Health Allied health notes reviewed: nursing, case management Results - Labs CBC & Chem 7: 02/22/19 12:14 02/26/19 09:06 Labs: Abnormal lab results 02/26/19 Range/Units 09:06 Potassium 3.4 L (3.6-5.0) mmol/L BUN 4 L (7-17) mg/dL Creatinine 0.6 L (0.7-1.2) mg/dL Glucose 108 H (65-100) mg/dL Duplex venous scan RLE Right Calf veins: There is a small rounded echogenic focus in the right pos terior tibial vein measuring approximately 2 mm. This may represent minimal chronic thrombus. Left Common femoral vein: Negative. Left Superficial femoral vein: Negative. Left Popliteal vein: Negative. Left Calf veins: Negative. Additional findings: There is no evidence of a popliteal cyst or other abnormality. IMPRESSION: Possible very minimal chronic appearing thrombus in the right posterior tibial vein. No evidence of acute DVT in either lower extremity. Signer Name: Humble Delaney MD Signed: 02/25/2019 4:53 PM Assessment and Plan - Patient Problems (1) DVT (deep venous thrombosis) Current Visit: Yes Status: Chronic Qualifiers: DVT location: lower extremity Plan to address problem: Very small thrombus Incidental finding no treatment F/u with perinatology and periodic exams Chronic DVT resolving. Given -- no anticoagulation till is over. Patient is cleared to go home from medical stand point. F/u with perinatologist.As outpatient.
[2019-02-26] MEDS ORDERED: TOTAL PARENTERAL NUTRITION 2,016 ML IV SCH (20:00)
[2019-02-27] MEDS: HYDROCORTISONE SOD SUCC 100 MG/2 ML VIAL IV SCH ×3 (01:42→17:28)
[2019-02-27] MEDS: ONDANSETRON 4 MG/2 ML INJ IV SCH ×3 (01:42→20:13)
[2019-02-27] MEDS: METOCLOPRAMIDE 10 MG/2 ML INJ IV SCH ×4 (05:30→23:20)
[2019-02-27] MEDS: MORPHINE 2 MG/1 ML INJ IV PRN ×4 (05:30→23:20)
--- NOTE | 2019-02-27 06:10 | Progress Note ---
Assessment and Plan A/P A: IUP at 9w3d Hyperemesis H/o chronic pancreatitis Chronic HTN UTI small clot in leg P: Appreciate consult from IM_ no recommnedations of chronic small incidental blood clot IV hydration IV antiemetics Await nutrition consult Referral to [facility] Subjective - Subjective Date of service: 02/27/19 Principal diagnosis: hyperemesis gravidarum, incidental blood clot Patient reports: new complaints (bilateral leg pain), no vaginal bleeding Objective - Vital Signs Vital Signs: Vital Signs - 12hr 02/26/19 02/26/19 02/26/19 19:54 23:25 23:32 Temperature 98.4 F 98.2 F Pulse Rate 54 L 56 L Respiratory 20 20 18 Rate Blood Pressure 151/87 146/89 O2 Sat by Pulse 100 100 Oximetry 02/27/19 02/27/19 02/27/19 00:02 04:09 05:30 Temperature 98.2 F Pulse Rate 49 L Respiratory 18 20 18 Rate Blood Pressure 147/81 O2 Sat by Pulse 98 Oximetry - Exam Breasts: normal Cardiovascular: Regular rate, Normal S1 Lungs: Clear to auscultation, Normal air movement Abdomen: Present: soft, normal bowel sounds. Absent: distention, tenderness, guarding Vulva: both: normal Uterus: Present: normal, firm, fundal height below umbilicus. Absent: bogginess, tenderness FHR: auscultation normal - Labs Labs: Abnormal Labs 02/22/19 02/22/19 02/22/19 12:14 12:14 12:50 Lymph % (Auto) 38.8 H [place] % (Auto) 8.6 H Potassium Carbon Dioxide 19 L BUN 6 L Creatinine 0.6 L Glucose Urine pH 8.0 H Ur Specific [place] 1.032 H 02/26/19 09:06 Lymph % (Auto) [place] % (Auto) Potassium 3.4 L Carbon Dioxide BUN 4 L Creatinine 0.6 L Glucose 108 H Urine pH Ur Specific [place] Laboratory Results - last 24 hr 02/26/19 09:06 Sodium 139 Potassium 3.4 L Chloride 100.2 Carbon Dioxide 23 Anion Gap 19 BUN 4 L Creatinine 0.6 L Estimated GFR > 60 BUN/Creatinine Ratio 7 Glucose 108 H Calcium 9.1 Phosphorus 3.60 Magnesium 1.80 Total Bilirubin 0.30 AST 26 ALT 39 Alkaline Phosphatase 44 Total Protein 7.2 Albumin 4.1 Albumin/Globulin Ratio 1.3
[2019-02-27 06:45] LABS: BUN/Creatinine Ratio 10; Blood Urea Nitrogen 6 mg/dL (7-17); Calcium 8.6 mg/dL (8.4-10.2); Hemolysis Index 6
[2019-02-27] MEDS: PRENATAL VIT27-FE FUMARATE-FOLIC ACID VIT TAB PO SCH (10:00)
[2019-02-27] MEDS: cefTRIAXone/NS 1 GM/50 ML 1 GM/50 ML BAG IV SCH (10:27)
--- NOTE | 2019-02-27 14:12 | Progress Note ---
Assessment and Plan Assessment and plan: Superficial thrombosis No evidence of DVT ?if there is possibility of progression considering risk factors, ie patient is Recommend Hematology consult. HyperEmesis Continue TPN Further management per [employer] [employer] Please reconsult if needed Recommend outpatient follow up with [employer] History Interval history: Patient seen and examined, still on TPN due to vomiting and inability to keep food down. Hospitalist Physical - Physical exam Narrative exam: General appearance: Present: no acute distress, well-nourished - EENT Eyes: Present: PERRL ENT: hearing intact, clear oral mucosa - Neck Neck: Present: supple, normal ROM - Respiratory Respiratory effort: normal Respiratory: bilateral: CTA - Cardiovascular Heart rate: 78 Rhythm: regular Heart Sounds: Present: S1 & S2. Absent: rub, click - Extremities Extremities: no ischemia, pulses intact, pulses symmetrical, No edema Peripheral Pulses: within normal limits - Abdominal General gastrointestinal: Present: soft, non-tender, non-distended, normal bowel sounds Female genitourinary: Present: normal - Integumentary Integumentary: Present: clear, warm, dry - Musculoskeletal Musculoskeletal: gait normal, strength equal bilaterally - Psychiatric Psychiatric: appropriate mood/affect, intact judgment & insight - Neurologic Neurologic: CNII-XII intact, moves all extremities - Allied Health Allied health notes reviewed: nursing, case management - Constitutional Vitals: Temp Pulse Resp BP Pulse Ox 98.5 F 50 L 20 128/75 98 02/27/19 09:20 02/27/19 09:20 02/27/19 09:20 02/27/19 09:20 02/27/19 04:09 General appearance: Present: no acute distress, well-nourished Results - Labs CBC & Chem 7: 02/22/19 12:14 02/28/19 03:25 Labs: Laboratory Last Values WBC 8.8 K/mm3 (4.5-11.0) 02/22/19 12:14 RBC 4.33 M/mm3 (3.65-5.03) 02/22/19 12:14 Hgb 12.9 gm/dl (10.1-14.3) 02/22/19 12:14 Hct 38.7 % (30.3-42.9) 02/22/19 12:14 MCV 90 fl (79-97) 02/22/19 12:14 MCH 30 pg (28-32) 02/22/19 12:14 MCHC 33 % (30-34) 02/22/19 12:14 RDW 13.3 % (13.2-15.2) 02/22/19 12:14 Plt Count 347 K/mm3 (140-440) 02/22/19 12:14 Lymph % (Auto) 38.8 % (13.4-35.0) H 02/22/19 12:14 [place] % (Auto) 8.6 % (0.0-7.3) H 02/22/19 12:14 Eos % (Auto) 0.6 % (0.0-4.3) 02/22/19 12:14 Baso % (Auto) 0.9 % (0.0-1.8) 02/22/19 12:14 Lymph # 3.4 K/mm3 (1.2-5.4) 02/22/19 12:14 [place] # 0.8 K/mm3 (0.0-0.8) 02/22/19 12:14 Eos # 0.1 K/mm3 (0.0-0.4) 02/22/19 12:14 Baso # 0.1 K/mm3 (0.0-0.1) 02/22/19 12:14 Seg Neutrophils % 51.1 % (40.0-70.0) 02/22/19 12:14 Seg Neutrophils # 4.5 K/mm3 (1.8-7.7) 02/22/19 12:14 Sodium 136 mmol/L (137-145) L 02/27/19 05:43 Potassium 3.6 mmol/L (3.6-5.0) 02/27/19 05:43 Chloride 98.6 mmol/L (98-107) 02/27/19 05:43 Carbon Dioxide 27 mmol/L (22-30) 02/27/19 05:43 Anion Gap 14 mmol/L 02/27/19 05:43 BUN 6 mg/dL (7-17) L 02/27/19 05:43 Creatinine 0.6 mg/dL (0.7-1.2) L 02/27/19 05:43 Estimated GFR > 60 ml/min 02/27/19 05:43 BUN/Creatinine Ratio 10 % 02/27/19 05:43 Glucose 139 mg/dL (65-100) H 02/27/19 05:43 Calcium 8.6 mg/dL (8.4-10.2) 02/27/19 05:43 Phosphorus 2.70 mg/dL (2.5-4.5) D 02/27/19 05:43 Magnesium 2.00 mg/dL (1.7-2.3) 02/27/19 05:43 Total Bilirubin 0.30 mg/dL (0.1-1.2) 02/26/19 09:06 AST 26 units/L (5-40) 02/26/19 09:06 ALT 39 units/L (7-56) 02/26/19 09:06 Alkaline Phosphatase 44 units/L (35-129) 02/26/19 09:06 Total Protein 7.2 g/dL (6.3-8.2) 02/26/19 09:06 Albumin 4.1 g/dL (3.9-5) 02/26/19 09:06 Albumin/Globulin Ratio 1.3 % 02/26/19 09:06 Amylase 122 units/L (27-131) 02/22/19 12:14 Lipase 51 units/L (13-60) 02/22/19 12:14 TSH 0.344 mlU/mL (0.270-4.200) 02/22/19 12:14 Urine Color [place] (Yellow) 02/22/19 12:50 Urine Turbidity Slightly-cloudy (Clear) 02/22/19 12:50 Urine pH 8.0 (5.0-7.0) H 02/22/19 12:50 Ur Specific [place] 1.032 (1.003-1.030) H 02/22/19 12:50 Urine Protein 100 mg/dl mg/dL (Negative) 02/22/19 12:50 Urine Glucose (UA) Neg mg/dL (Negative) 02/22/19 12:50 Urine Ketones 20 mg/dL (Negative) 02/25/19 22:48 Urine Blood Neg (Negative) 02/22/19 12:50 Urine Nitrite Neg (Negative) 02/22/19 12:50 Urine Bilirubin Neg (Negative) 02/22/19 12:50 Urine Urobilinogen 4.0 mg/dL (<2.0) 02/22/19 12:50 Ur Leukocyte Esterase Sm (Negative) 02/22/19 12:50 Urine WBC (Auto) 1.0 /HPF (0.0-6.0) 02/22/19 12:50 Urine RBC (Auto) 2.0 /HPF (0.0-6.0) 02/22/19 12:50 U Epithel Cells (Auto) 8.0 /HPF (0-13.0) 02/22/19 12:50 Urine Bacteria (Auto) 1+ /HPF (Negative) 02/22/19 12:50 Urine Mucus 3+ /HPF 02/22/19 12:50 Hepatitis A IgM Ab Non-reactive (NonReactive) 02/22/19 12:14 Hep Bs Antigen Non-reactive (Negative) 02/22/19 12:14 Hep B Core IgM Ab Non-reactive (NonReactive) 02/22/19 12:14 Hepatitis C Antibody Non-reactive (NonReactive) 02/22/19 12:14 Active Medications - Current Medications Current Medications: Generic Name Dose Route Start Last Admin [facility] Reason Stop Dose Admin Hydrocortisone Sodium Succinate 100 mg 02/24/19 14:00 02/27/19 10:27 Solu-Cortef IV 100 mg Q8HR ASPEN Administration Ceftriaxone Sodium 1 gm in 50 mls @ 100 mls/hr 02/22/19 13:00 02/27/19 10:27 Rocephin/Ns 1 Gm/50 Ml IV 100 mls/hr Q24HR ASPEN Administration Protocol Amino Acids/Electrolytes/Dextrose 2,016 mls @ 84 mls/hr 02/26/19 20:00 02/26/19 20:02 Tpn Adult IV 02/27/19 19:59 84 mls/hr DAILY@1999 ASPEN Administration Protocol Amino Acids/Electrolytes/Dextrose 2,016 mls @ 84 mls/hr 02/27/19 20:00 Tpn Adult IV 02/28/19 19:59 DAILY@1999 [facility] Protocol Metoclopramide HCl 10 mg 02/24/19 18:00 02/27/19 10:27 Reglan IV 10 mg Q6H ASPEN Administration Morphine Sulfate 2 mg 02/23/19 08:46 02/27/19 10:31 Morphine IV 2 mg Q4H PRN Administration Pain, Moderate (4-6) Multivitamins/Iron/Calcium 1 each 02/23/19 10:00 02/26/19 10:00 Vitamin PO Not Given QDAY ASPEN Ondansetron HCl 4 mg 02/24/19 15:00 02/27/19 01:42 Zofran IV 4 mg Q6H ASPEN Administration Scopolamine 1 each 02/23/19 09:00 02/26/19 09:00 Transderm-Scop TD 1 each Q3D ASPEN Administration Nutrition/Malnutrition Assess - Dietary Evaluation Nutrition/Malnutrition Findings: Nutrition Notes Start: 02/23/19 13:19 Freq: Status: Active Protocol: Document 02/27/19 09:08 DW (Rec: 02/27/19 09:44 DW [id number]) Co-Sign 02/27/19 09:08 LM Nutrition Notes Initial or Follow up Reassessment Current Diagnosis Hypertension Other Pertinent Diagnosis Hx pancreatitis, UTI, Hypemesis gravidarum, 8 weeks gestation Current Diet PPN at 84mL/hr and Cl Liq Labs/Tests Na 136 Glu 139 Pertinent Medications Solu-Cortef Height 5 ft 4 in Weight 90.775 kg Elizabeth Body Weight (kg) 54.54 BMI 34.3 Subjective/Other Information Pt stated N/V continues and she has not been able to tolerate Cl Liq diet. Pt stated that she is willing to try Ensure Clear as ONS was noted at bedside. Pt stated that she had TPN with her last child d/t gallblader issues. Pt also stated that MD informed her about inserting CVC. Burn Absent Trauma Absent GI Symptoms Nausea,Vomiting Current % PO Poor (25-49%) Minimum of two criteria Yes #2 Nutrition Diagnosis Malnutrition Diagnosis Progress(for reassessment Continues documentation) #1 Nutrition Diagnosis Inadequate oral intake Diagnosis Progress(for reassessment Continues documentation) Is patient on ventilator? No Is Patient Ambulatory and/or Out of Bed Yes REE-([facility]-ambulatory/OOB) [ [id number] [id number]] Calculation Used for Recommendations [facility] Additional Notes Protein: 80g (1.1g/kg/day AdBW 73 kg) Fluid: 35-40 ml/kg of pregravid wt 102 kg Nutrition Intervention Change Diet Order: Continue PPN and Cl Liq Nutrition Support: PPN at 84 mL/hr 3.7% Protein 6% Dextrose 0% Lipids 190 mEq Na 90 mEq K 10 mEq Mg 10 mEq Ca 20 mmol Phos Thiamin Trace Element Package Kcal 691 Protein (gm) 75 Carbohydrates (gm) 115 Fat (gm) 0 Fluid (mL) 2,016 Add Supplement/Snack (indicate name/kcal Ensure Clear once daily /protein ) ordered by MD Provides kCal: 240 Provides Protein (gm) 8 Goal #1 Meet energy and protein needs as best as possible Anticipated Discharge Needs: unable to determine at this time Follow-Up By: 02/28/19 Additional Comments F/U for BMP, mag, phos F/U PPN and Cl Liq tolerance
[2019-02-27] MEDS ORDERED: TOTAL PARENTERAL NUTRITION 2,016 ML IV SCH (20:00)
[2019-02-28] MEDS: HYDROCORTISONE SOD SUCC 100 MG/2 ML VIAL IV SCH ×2 (01:21→10:01)
[2019-02-28 04:28] LABS: BUN/Creatinine Ratio 18; Blood Urea Nitrogen 9 mg/dL (7-17); Calcium 8.7 mg/dL (8.4-10.2); Hemolysis Index 3
[2019-02-28] MEDS: METOCLOPRAMIDE 10 MG/2 ML INJ IV SCH ×2 (05:27→18:35)
[2019-02-28] MEDS: MORPHINE 2 MG/1 ML INJ IV PRN ×3 (05:28→16:01)
[2019-02-28] MEDS: ONDANSETRON 4 MG/2 ML INJ IV SCH ×3 (06:55→20:35)
--- NOTE | 2019-02-28 07:44 | Event Note ---
Date: 02/28/19 [id number]
[2019-02-28] MEDS: PRENATAL VIT27-FE FUMARATE-FOLIC ACID VIT TAB PO SCH (10:00)
[2019-02-28] MEDS: cefTRIAXone/NS 1 GM/50 ML 1 GM/50 ML BAG IV SCH (10:01)
--- NOTE | 2019-02-28 13:11 | Progress Note ---
Assessment and Plan - Patient Problems (1) Nausea and vomiting in Current Visit: No Status: Inactive Plan to address problem: not clinically improved consult placed for placement of central line patient will require outpatient TPN (2) Leg pain Current Visit: Yes Status: Acute Subjective - Subjective Date of service: 02/28/19 Principal diagnosis: hyperemesis gravidarum, incidental blood clot Interval history: Patient attempted Ensure and juice without success. Patient will require a central line for TPN. Consult placed. Patient reports: no new complaints (bilateral leg pain), no vaginal bleeding Objective - Vital Signs Vital Signs: Vital Signs - 12hr 02/28/19 02/28/19 05:40 09:03 Temperature 98.4 F 98.4 F Pulse Rate 56 L 60 Respiratory 20 20 Rate Blood Pressure 125/77 Blood Pressure 136/86 [Right] O2 Sat by Pulse 97 Oximetry - Labs Labs: Abnormal Labs 02/22/19 02/22/19 02/22/19 12:14 12:14 12:50 Lymph % (Auto) 38.8 H [place] % (Auto) 8.6 H Sodium Potassium Chloride Carbon Dioxide 19 L BUN 6 L Creatinine 0.6 L Glucose POC Glucose Urine pH 8.0 H Ur Specific [place] 1.032 H 02/26/19 02/27/19 02/27/19 09:06 05:43 20:47 Lymph % (Auto) [place] % (Auto) Sodium 136 L Potassium 3.4 L Chloride Carbon Dioxide BUN 4 L 6 L Creatinine 0.6 L 0.6 L Glucose 108 H 139 H POC Glucose 128 H Urine pH Ur Specific [place] 02/28/19 02/28/19 02/28/19 03:25 05:41 12:53 Lymph % (Auto) [place] % (Auto) Sodium 136 L Potassium Chloride 97.2 L Carbon Dioxide BUN Creatinine 0.5 L Glucose 139 H POC Glucose 142 H 111 H Urine pH Ur Specific [place] Laboratory Results - last 24 hr 02/27/19 02/27/19 02/28/19 20:47 23:36 03:25 Sodium 136 L Potassium 3.6 Chloride 97.2 L Carbon Dioxide 26 Anion Gap 16 BUN 9 Creatinine 0.5 L Estimated GFR > 60 BUN/Creatinine Ratio 18 Glucose 139 H POC Glucose 128 H Calcium 8.7 Phosphorus 2.70 Magnesium 2.20 Urine Ketones Neg 02/28/19 02/28/19 05:41 12:53 Sodium Potassium Chloride Carbon Dioxide Anion Gap BUN Creatinine Estimated GFR BUN/Creatinine Ratio Glucose POC Glucose 142 H 111 H Calcium Phosphorus Magnesium Urine Ketones
--- NOTE | 2019-02-28 13:16 | Progress Note ---
Hospitalist Physical - Constitutional Vitals: Temp Pulse Resp BP Pulse Ox 98.4 F 60 20 136/86 97 02/28/19 09:03 02/28/19 09:03 02/28/19 09:03 02/28/19 09:03 02/28/19 05:40 General appearance: Present: no acute distress, well-nourished Results - Labs CBC & Chem 7: 02/22/19 12:14 02/28/19 03:25 Labs: Laboratory Last Values WBC 8.8 K/mm3 (4.5-11.0) 02/22/19 12:14 RBC 4.33 M/mm3 (3.65-5.03) 02/22/19 12:14 Hgb 12.9 gm/dl (10.1-14.3) 02/22/19 12:14 Hct 38.7 % (30.3-42.9) 02/22/19 12:14 MCV 90 fl (79-97) 02/22/19 12:14 MCH 30 pg (28-32) 02/22/19 12:14 MCHC 33 % (30-34) 02/22/19 12:14 RDW 13.3 % (13.2-15.2) 02/22/19 12:14 Plt Count 347 K/mm3 (140-440) 02/22/19 12:14 Lymph % (Auto) 38.8 % (13.4-35.0) H 02/22/19 12:14 [place] % (Auto) 8.6 % (0.0-7.3) H 02/22/19 12:14 Eos % (Auto) 0.6 % (0.0-4.3) 02/22/19 12:14 Baso % (Auto) 0.9 % (0.0-1.8) 02/22/19 12:14 Lymph # 3.4 K/mm3 (1.2-5.4) 02/22/19 12:14 [place] # 0.8 K/mm3 (0.0-0.8) 02/22/19 12:14 Eos # 0.1 K/mm3 (0.0-0.4) 02/22/19 12:14 Baso # 0.1 K/mm3 (0.0-0.1) 02/22/19 12:14 Seg Neutrophils % 51.1 % (40.0-70.0) 02/22/19 12:14 Seg Neutrophils # 4.5 K/mm3 (1.8-7.7) 02/22/19 12:14 Sodium 136 mmol/L (137-145) L 02/28/19 03:25 Potassium 3.6 mmol/L (3.6-5.0) 02/28/19 03:25 Chloride 97.2 mmol/L (98-107) L 02/28/19 03:25 Carbon Dioxide 26 mmol/L (22-30) 02/28/19 03:25 Anion Gap 16 mmol/L 02/28/19 03:25 BUN 9 mg/dL (7-17) 02/28/19 03:25 Creatinine 0.5 mg/dL (0.7-1.2) L 02/28/19 03:25 Estimated GFR > 60 ml/min 02/28/19 03:25 BUN/Creatinine Ratio 18 % 02/28/19 03:25 Glucose 139 mg/dL (65-100) H 02/28/19 03:25 POC Glucose 111 (70-105) H 02/28/19 12:53 Calcium 8.7 mg/dL (8.4-10.2) 02/28/19 03:25 Phosphorus 2.70 mg/dL (2.5-4.5) 02/28/19 03:25 Magnesium 2.20 mg/dL (1.7-2.3) 02/28/19 03:25 Total Bilirubin 0.30 mg/dL (0.1-1.2) 02/26/19 09:06 AST 26 units/L (5-40) 02/26/19 09:06 ALT 39 units/L (7-56) 02/26/19 09:06 Alkaline Phosphatase 44 units/L (35-129) 02/26/19 09:06 Total Protein 7.2 g/dL (6.3-8.2) 02/26/19 09:06 Albumin 4.1 g/dL (3.9-5) 02/26/19 09:06 Albumin/Globulin Ratio 1.3 % 02/26/19 09:06 Amylase 122 units/L (27-131) 02/22/19 12:14 Lipase 51 units/L (13-60) 02/22/19 12:14 TSH 0.344 mlU/mL (0.270-4.200) 02/22/19 12:14 Urine Color [place] (Yellow) 02/22/19 12:50 Urine Turbidity Slightly-cloudy (Clear) 02/22/19 12:50 Urine pH 8.0 (5.0-7.0) H 02/22/19 12:50 Ur Specific [place] 1.032 (1.003-1.030) H 02/22/19 12:50 Urine Protein 100 mg/dl mg/dL (Negative) 02/22/19 12:50 Urine Glucose (UA) Neg mg/dL (Negative) 02/22/19 12:50 Urine Ketones Neg mg/dL (Negative) 02/27/19 23:36 Urine Blood Neg (Negative) 02/22/19 12:50 Urine Nitrite Neg (Negative) 02/22/19 12:50 Urine Bilirubin Neg (Negative) 02/22/19 12:50 Urine Urobilinogen 4.0 mg/dL (<2.0) 02/22/19 12:50 Ur Leukocyte Esterase Sm (Negative) 02/22/19 12:50 Urine WBC (Auto) 1.0 /HPF (0.0-6.0) 02/22/19 12:50 Urine RBC (Auto) 2.0 /HPF (0.0-6.0) 02/22/19 12:50 U Epithel Cells (Auto) 8.0 /HPF (0-13.0) 02/22/19 12:50 Urine Bacteria (Auto) 1+ /HPF (Negative) 02/22/19 12:50 Urine Mucus 3+ /HPF 02/22/19 12:50 Hepatitis A IgM Ab Non-reactive (NonReactive) 02/22/19 12:14 Hep Bs Antigen Non-reactive (Negative) 02/22/19 12:14 Hep B Core IgM Ab Non-reactive (NonReactive) 02/22/19 12:14 Hepatitis C Antibody Non-reactive (NonReactive) 02/22/19 12:14 Active Medications - Current Medications Current Medications: Generic Name Dose Route Start Last Admin Trade Name Freq PRN Reason Stop Dose Admin Amino Acids/Electrolytes/Dextrose 2,016 mls @ 84 mls/hr 02/27/19 20:00 02/27/19 20:14 Tpn Adult IV 02/28/19 19:59 84 mls/hr DAILY@2000 ASPEN Administration Protocol Metoclopramide HCl 10 mg 02/24/19 18:00 02/28/19 05:27 Reglan IV 10 mg Q6H [facility]EN Administration Morphine Sulfate 2 mg 02/23/19 08:46 02/28/19 10:12 Morphine IV 2 mg Q4H PRN Administration Pain, Moderate (4-6) Multivitamins/Iron/Calcium 1 each 02/23/19 10:00 02/27/19 10:00 Vitamin PO Not Given QDAY ASEPN Ondansetron HCl 4 mg 02/24/19 15:00 02/28/19 06:55 Zofran IV 4 mg Q6H [facility]EN Administration Scopolamine 1 each 02/23/19 09:00 02/26/19 09:00 Transderm-Scop TD 1 each Q3D [facility]EN Administration Nutrition/Malnutrition Assess - Dietary Evaluation Nutrition/Malnutrition Findings: Nutrition Notes Start: 02/23/19 13:19 Freq: Status: Active Protocol: Document 02/28/19 11:04 DW (Rec: 02/28/19 11:39 DW [id number]) Co-Sign 02/28/19 11:04 LM Nutrition Notes Initial or Follow up Reassessment Current Diagnosis Hypertension Other Pertinent Diagnosis Hx pancreatitis, UTI, Hypemesis gravidarum, 8 weeks gestation Current Diet PPN at 84mL/hr and Cl Liq Labs/Tests Cl 97.2 Na 136 Glu 139 Pertinent Medications Solu-Cortef Height 5 ft 4 in Weight 89.358 kg [place] Body Weight (kg) 54.54 BMI 33.7 Subjective/Other Information Per nurse pt has not been tolerating diet and MD suggested pt not drink ONS. Pharmacy Affairs Assistant informed nurse that CVC should be placed for pt to meet kcal/PRO needs. Noted MD consult for CVC placement Burn Absent Trauma Absent GI Symptoms Nausea,Vomiting Current % PO Poor (25-49%) Minimum of two criteria Yes #2 Nutrition Diagnosis Malnutrition Diagnosis Progress(for reassessment Continues documentation) #1 Nutrition Diagnosis Inadequate oral intake Diagnosis Progress(for reassessment Continues documentation) Is patient on ventilator? No Is Patient Ambulatory and/or Out of Bed Yes REE-([place]-St. Jeor-ambulatory/OOB) [ 2064. NUTR.[id number]] Calculation Used for Recommendations [place]-St Jeor Additional Notes Protein: 80g (1.1g/kg/day AdBW 73 kg) Fluid: 35-40 ml/kg of pregravid wt 102 kg Nutrition Intervention Change Diet Order: Continue PPN and Cl Liq Nutrition Support: PPN at 84 mL/hr 3.7% Protein 5.7% Dextrose 50 g Lipids 190 mEq Na 90 mEq K 10 mEq Mg 10 mEq Ca 20 mmol Phos Multivitamin Thiamin Kcal 1,191 Protein (gm) 75 Carbohydrates (gm) 115 Fat (gm) 50 Fluid (mL) 2,266 Add Supplement/Snack (indicate name/kcal d/c ONS /protein ) Goal #1 Meet energy and protein needs as best as possible Anticipated Discharge Needs: unable to determine at this time Follow-Up By: 03/01/19 Additional Comments F/U for BMP, Mag, Phos F/U CVC placement
[2019-02-28] MEDS ORDERED: TOTAL PARENTERAL NUTRITION 2,016 ML IV SCH (20:00)
[2019-02-28] MEDS ORDERED: FAT EMULSIONS 20% 250 ML IV SCH (20:00)
[2019-03-01] MEDS: METOCLOPRAMIDE 10 MG/2 ML INJ IV SCH ×4 (00:11→18:03)
[2019-03-01] MEDS: MORPHINE 2 MG/1 ML INJ IV PRN ×3 (00:11→18:02)
[2019-03-01 04:42] LABS: BUN/Creatinine Ratio 19; Blood Urea Nitrogen 13 mg/dL (7-17); Calcium 8.7 mg/dL (8.4-10.2); Hemolysis Index 32
[2019-03-01] MEDS: ONDANSETRON 4 MG/2 ML INJ IV SCH ×3 (05:29→20:24)
--- NOTE | 2019-03-01 16:50 | Progress Note ---
Assessment and Plan A/P A: IUP at 9w 5d Hyperemesis H/o chronic pancreatitis Chronic HTN UTI small clot in leg P: Appreciate consult from IM_ no recommnedations of chronic small incidental blood clot IV hydration IV antiemetics TPN outpatient Referral to [facility] - still awaiting since 02/26 -another call placed this af ternoon GI consult for irretractable nausea and vomiting Subjective - Subjective Date of service: 03/01/19 Principal diagnosis: hyperemesis gravidarum, incidental blood clot Patient reports: no new complaints (bilateral leg pain), no vaginal bleeding Objective - Vital Signs Vital Signs: Vital Signs - 12hr 03/01/19 03/01/19 07:18 11:34 Temperature 98.3 F 98.4 F Pulse Rate 62 82 Respiratory 16 20 Rate Blood Pressure 121/77 122/86 O2 Sat by Pulse 98 99 Oximetry - Exam Breasts: normal Cardiovascular: Regular rate, Normal S1 Lungs: Clear to auscultation, Normal air movement Abdomen: Present: normal appearance, soft, normal bowel sounds. Absent: distention, tenderness, guarding Uterus: Present: normal, firm. Absent: bogginess, tenderness - Labs Labs: Abnormal Labs 02/22/19 02/22/19 02/22/19 12:14 12:14 12:50 Lymph % (Auto) 38.8 H [place] % (Auto) 8.6 H Sodium Potassium Chloride Carbon Dioxide 19 L BUN 6 L Creatinine 0.6 L Glucose POC Glucose Urine pH 8.0 H Ur Specific [place] 1.032 H 02/26/19 02/27/19 02/27/19 09:06 05:43 20:47 Lymph % (Auto) [place] % (Auto) Sodium 136 L Potassium 3.4 L Chloride Carbon Dioxide BUN 4 L 6 L Creatinine 0.6 L 0.6 L Glucose 108 H 139 H POC Glucose 128 H Urine pH Ur Specific [place] 02/28/19 02/28/19 02/28/19 03:25 05:41 12:53 Lymph % (Auto) [place] % (Auto) Sodium 136 L Potassium Chloride 97.2 L Carbon Dioxide BUN Creatinine 0.5 L Glucose 139 H POC Glucose 142 H 111 H Urine pH Ur Specific [place] 02/28/19 03/01/19 03/01/19 18:18 00:30 04:00 Lymph % (Auto) [place] % (Auto) Sodium Potassium 3.5 L Chloride Carbon Dioxide BUN Creatinine Glucose 139 H POC Glucose 135 H 136 H Urine pH Ur Specific [place] 03/01/19 06:12 Lymph % (Auto) [place] % (Auto) Sodium Potassium Chloride Carbon Dioxide BUN Creatinine Glucose POC Glucose 133 H Urine pH Ur Specific [place] Laboratory Results - last 24 hr 02/28/19 03/01/19 03/01/19 18:18 00:30 04:00 Sodium 138 Potassium 3.5 L Chloride 101.0 Carbon Dioxide 26 Anion Gap 15 BUN 13 Creatinine 0.7 Estimated GFR > 60 BUN/Creatinine Ratio 19 Glucose 139 H POC Glucose 135 H 136 H Calcium 8.7 Phosphorus 3.50 D Magnesium 2.30 Urine Ketones 03/01/19 03/01/19 03/01/19 06:12 06:20 13:25 Sodium Potassium Chloride Carbon Dioxide Anion Gap BUN Creatinine Estimated GFR BUN/Creatinine Ratio Glucose POC Glucose 133 H 94 Calcium Phosphorus Magnesium Urine Ketones Neg
[2019-03-01] MEDS: SCOPOLAMINE TRANSDERMAL PATCH 72 HR TD SCH (18:45)
[2019-03-01] MEDS ORDERED: TOTAL PARENTERAL NUTRITION 2,016 ML IV SCH (20:00)
--- NOTE | 2019-03-01 20:31 | Consultation ---
REFERRING PHYSICIANS: Dr. Mckenzie/Dr. Spears. REASON FOR CONSULTATION: Right below knee chronic DVT. HISTORY OF PRESENT ILLNESS: I saw the patient, a 33-year-old -[place] female in the medical floor. The patient is 3. The patient is about 8 weeks . She came to the hospital because of vomiting, not able to tolerate liquids or solids. She also has history of chronic pancreatitis, hypertension. During this admission, the patient underwent leg DVT because of tenderness around the right ankle and was found to have chronic posterior tibial DVT on the right side measuring about 2 mm. I have been asked to evaluate the patient. At this time, no headache, no visual disturbances, no ear discharge. History of nausea, vomiting, inability to eat. The patient is . No hematemesis, no hematochezia. Ankle swelling history was present. ALLERGIES: None. MEDICATIONS: Includes metoclopramide, multivitamin. PHYSICAL EXAMINATION: VITAL SIGNS: Temperature 98, pulse 60, respirations 20, BP 136/86. HEENT: No pallor, no icterus. NECK: No neck lymph nodes. HEART: S1, S2. LUNGS: Clear to auscultation. ABDOMEN: Soft. EXTREMITIES: Pedal edema present. NEUROLOGIC: Alert, awake. LABORATORY DATA: White cell 8, hemoglobin 12, MCV 90, platelet 347. Potassium 3.6, creatinine 0.5, calcium 8.7. RADIOLOGY: Chronic history of ____ DVT on the right side. ASSESSMENT: 1. Chronic deep vein thrombosis. As it is below knee and chronic, the risk of embolic phenomena is low. We will not anticoagulate the patient especially if there is a possibility of this has been chronic. I will follow the patient in the clinic setting and look into repeat Radiology after a few weeks. 2. Admitted with nausea, vomiting secondary to . 3. and immobilization may have a role in her deep vein thrombosis. 4. History of pancreatitis. 5. History of hypertension. PLAN: I will follow the patient during inpatient stay. JOB# [id number] NM/NTS
[2019-03-02] MEDS: METOCLOPRAMIDE 10 MG/2 ML INJ IV SCH ×3 (00:19→12:31)
[2019-03-02] MEDS: MORPHINE 2 MG/1 ML INJ IV PRN ×3 (00:31→12:31)
[2019-03-02] MEDS: ONDANSETRON 4 MG/2 ML INJ IV SCH ×2 (04:09→20:28)
[2019-03-02 04:33] LABS: BUN/Creatinine Ratio 20; Blood Urea Nitrogen 14 mg/dL (7-17); Calcium 8.6 mg/dL (8.4-10.2); Hemolysis Index 9
--- NOTE | 2019-03-02 08:46 | Progress Note ---
Assessment and Plan A: IUP at 9w4d Intractable Nausea and Vomiting Suspected Hyperemesis on TPN H/o chronic pancreatitis Gestational Diabetes Chronic HTN P: All consultants appreciated MFM and GI consults today Hemoglobin A1C Repeat sono for FHTs Closely monitor clinical status Subjective - Subjective Date of service: 03/02/19 Principal diagnosis: hyperemesis gravidarum, incidental blood clot Interval history: Pt continues to be unable to tolerate PO intake. No obstetric complaints. Patient reports: no new complaints (bilateral leg pain), no loss of fluid, no vaginal bleeding, no contractions Objective - Vital Signs Vital Signs: Vital Signs - 12hr 03/01/19 03/02/19 03/02/19 23:30 00:31 01:01 Temperature 98.6 F Pulse Rate 71 Respiratory 16 18 18 Rate Blood Pressure 118/67 [Right] 03/02/19 03/02/19 03/02/19 04:00 06:03 06:33 Temperature 98.4 F Pulse Rate 66 Respiratory 18 18 18 Rate Blood Pressure 120/78 [Right] - Exam Breasts: deferred Cardiovascular: Regular rate Lungs: Clear to auscultation Abdomen: Present: soft (obese ) Extremities: normal - Labs Labs: Abnormal Labs 02/22/19 02/22/19 02/22/19 12:14 12:14 12:50 Lymph % (Auto) 38.8 H [place] % (Auto) 8.6 H Sodium Potassium Chloride Carbon Dioxide 19 L BUN 6 L Creatinine 0.6 L Glucose POC Glucose Phosphorus Magnesium Urine pH 8.0 H Ur Specific [place] 1.032 H 02/26/19 02/27/19 02/27/19 09:06 05:43 20:47 Lymph % (Auto) [place] % (Auto) Sodium 136 L Potassium 3.4 L Chloride Carbon Dioxide BUN 4 L 6 L Creatinine 0.6 L 0.6 L Glucose 108 H 139 H POC Glucose 128 H Phosphorus Magnesium Urine pH Ur Specific [place] 02/28/19 02/28/19 02/28/19 03:25 05:41 12:53 Lymph % (Auto) [place] % (Auto) Sodium 136 L Potassium Chloride 97.2 L Carbon Dioxide BUN Creatinine 0.5 L Glucose 139 H POC Glucose 142 H 111 H Phosphorus Magnesium Urine pH Ur Specific [place] 02/28/19 03/01/19 03/01/19 18:18 00:30 04:00 Lymph % (Auto) [place] % (Auto) Sodium Potassium 3.5 L Chloride Carbon Dioxide BUN Creatinine Glucose 139 H POC Glucose 135 H 136 H Phosphorus Magnesium Urine pH Ur Specific [place] 03/01/19 03/02/19 03/02/19 06:12 00:32 03:21 Lymph % (Auto) [place] % (Auto) Sodium Potassium Chloride Carbon Dioxide BUN Creatinine Glucose 116 H POC Glucose 133 H 110 H Phosphorus 4.70 H D Magnesium 2.40 H Urine pH Ur Specific [place] 03/02/19 06:25 Lymph % (Auto) [place] % (Auto) Sodium Potassium Chloride Carbon Dioxide BUN Creatinine Glucose POC Glucose 121 H Phosphorus Magnesium Urine pH Ur Specific [place] Laboratory Results - last 24 hr 03/01/19 03/01/19 03/02/19 13:25 18:24 00:32 Sodium Potassium Chloride Carbon Dioxide Anion Gap BUN Creatinine Estimated GFR BUN/Creatinine Ratio Glucose POC Glucose 94 78 110 H Calcium Phosphorus Magnesium Triglycerides 03/02/19 03/02/19 03:21 06:25 Sodium 142 Potassium 3.8 Chloride 105.1 Carbon Dioxide 25 Anion Gap 16 BUN 14 Creatinine 0.7 Estimated GFR > 60 BUN/Creatinine Ratio 20 Glucose 116 H POC Glucose 121 H Calcium 8.6 Phosphorus 4.70 H D Magnesium 2.40 H Triglycerides 96
--- NOTE | 2019-03-02 08:52 | Consultation ---
History of Present Illness Consult date: 03/02/19 Requesting physician: LG MORALES History of present illness: APA/MFM 33 y/o AA LMP 12/25/18 PATRICIA 10/01/19 by LMP c/w 8 wk sono at 8 w3d EGA Now at 9 4/7 weeks Reports N/V over past month not amenable to multiple antiemetics - unable to keep food and liquids down Denies Fever chills, diarrhea constipation dysuria Weight upon admission 198# and now at 195# Denies H/O Hyperemesis with 2 prior pregnancies ?? H/O Chronic pancreatitis Suspect H/O DM - early diabetic screen Pos ( H/O GDM with both prior preg and FH of DM) In house Reglan, Phenergan , Zofran without much relief Steroids were given 02/24 to 02/28 without improvement Now on TPN over past 3 to 4 days Nutrition on board - to get GI Consult C/O pain right calf over past few weeks Lower Leg Dopplers - Poss very minimal chronic appearing thrombus in right posterior tibial vein - No evidence of acute DVT On Lovenox Hem had evaluated H/O CHTN ?? on metropolol 50 but was discontinued - denies CHANCE's [place] or RUQ Pain OB History 2013 - Induced Vag Del for GDM (diet controlled) at 39 weeks F 6'9" 2014 Induced Vag Del for "GB" ( GDM on tablets) at 35 weeks M 5'6" STD - HSV NKA Surg GB Med - CHTN . ? Chronic pancreatitis , ? Gerd Denies C/D/D Back no CVA Abd min tender ( due to N/V) no rebound or guarding Ext Right leg sl tender - neg homans Vag deferred who presents with two weeks of worsening nausea and daily vomiting. She reports inability to tolerate liquids or solids for the past few days. Her medical history is significant for chronic pancreatitis and chronic hypertension. She initiated her care in the office today, and she had a viability ultrasound as well. Past History Past Medical History: hypertension, pancreatitis (chronic ), GERD Past Surgical History: 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 (04/14/15) [employer] History: herpes Social history: Past History Past Medical History: hypertension, pancreatitis (chronic ), GERD Past Surgical History: 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 (04/14/15) [employer] F[employer]ER History: herpes - Obstetrical History : 3 Medications and Allergies Allergies Allergy/AdvReac Type Severity Reaction Status Date / Time No Known Allergies Allergy Verified 03/14/15 10:02 Home Medications Medication Instructions Recorded Confirmed Last Taken Type Nitrofurantoin Holmes/M-Cryst 100 mg PO Q12HR #10 capsule 02/13/19 02/26/19 Unknown Rx [Macrobid CAP] Ondansetron [Zofran Odt] 4 mg PO Q8HR PRN #10 tab.rapdis 02/13/19 02/26/19 U nknown Rx Active Meds: Active Medications Enoxaparin Sodium (Lovenox) 40 mg SUB-Q ONCE ONE Stop: 03/02/19 20:01 Amino Acids/Electrolytes/Dextrose (Tpn Adult) 2,016 mls @ 84 mls/hr IV DAILY@1999 ASPEN; Protocol Stop: 03/02/19 19:59 Last Admin: 03/01/19 20:10 Dose: 84 mls/hr Documented by: Metoclopramide HCl (Reglan) 10 mg IV Q6H [facility] Last Admin: 03/02/19 06:03 Dose: 10 mg Documented by: Morphine Sulfate (Morphine) 2 mg IV Q4H PRN PRN Reason: Pain, Moderate (4-6) Last Admin: 03/02/19 06:03 Dose: 2 mg Documented by: Multivitamins/Iron/Calcium ( Vitamin) 1 each PO QDAY [facility] Last Admin: 02/28/19 10:00 Dose: Not Given Documented by: Ondansetron HCl (Zofran) 4 mg IV Q6H [facility] Last Admin: 03/02/19 04:09 Dose: Not Given Documented by: Scopolamine (Transderm-Scop) 1 each TD Q3D [facility] Last Admin: 03/01/19 18:45 Dose: 1 each Documented by: - Vital Signs Vital signs: Vital Signs Temp Pulse Resp BP Pulse Ox 98.9 F 77 18 140/86 99 02/22/19 12:40 02/22/19 12:40 02/22/19 12:40 02/22/19 12:40 02/22/19 12:40 Temp Pulse Resp BP Pulse Ox 98.4 F 66 18 120/78 100 03/02/19 04:00 03/02/19 04:00 03/02/19 06:33 03/02/19 04:00 03/01/19 16:48 Results Result Diagrams: 02/22/19 12:14 03/02/19 03:21 Abnormal lab results 03/02/19 03/02/19 03/02/19 Range/Units 00:32 03:21 06:25 Glucose 116 H (65-100) mg/dL POC Glucose 110 H 121 H (70-105) Phosphorus 4.70 H D (2.5-4.5) mg/dL Magnesium 2.40 H (1.7-2.3) mg/dL All other labs normal. Assessment and Plan Impression 1. [place] IUP at 9 4/7 weeks 2. Hyperemesis - with Weight Loss 3. CHTN - not on meds ( they were dc'd per patient ) 4. H/O chronic pancreatitis per ob notes 5. Suspect Pregest DM 6. Right lower leg Pain - Doppler - Minimal chronic appearing thrombus 7. Obesity Recommendations: 1. GI consult 2. Labs would obtain HbA1c, Fructosamine , 24 Hour urine for Prot and CC if not done 3. Labs - Would obtain H Pylori - Ask GI - I believe this is culture from stool but now breath Niko now used 4. Accuchecks fasting and 2 PP's once on ADA diet 5. Nutrition consult - Currently on TPN 6. Diabetic consult due to suspect pregest DM 7. US to check viability - ( has not been done since admission ) 8. Lovenox prophylaxis 40 q day 9. Would Call optum (social service to assist) Prob candidate for Zofran pump once discharged 10. Would consider Steroids after 10 weeks ( ? already received - see above )
--- NOTE | 2019-03-02 13:46 | Gastroenterology Consultation ---
History of Present Illness - Reason for Consult Consult date: 03/02/19 nausea/vomiting Requesting physician: LUIS RESENDEZ - History of Present Illness This is a 33 yo female 8 week admitted for intractable nausea/vomiting. She reports having nausea and vomiting since around 4 weeks of her . She cannot keep any liquids down. She had epigastric pain associated with nausea/vomiting. If she is not eating, she feels ok without any pain or nausea. Reports heartburn as well. No prior h/o GI issues prior to . No diarrhea, blood in the stool, or melena She has h/o biliary dyskinea diagnosis with abnormal HIDA scan during her last in 2014 and had 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. Medication list reviewed. Past History Past Medical History: No medical history Past Surgical History: No surgical history Social history: Family history: no significant family history Medications and Allergies Allergies Allergy/AdvReac Type Severity Reaction Status Date / Time No Known Allergies Allergy Verified 03/14/15 10:02 Home Medications Medication Instructions Recorded Confirmed Last Taken Type Nitrofurantoin Fleming/M-Cryst 100 mg PO Q12HR #10 capsule 02/13/19 02/26/19 Unknown Rx [Macrobid CAP] Ondansetron [Zofran Odt] 4 mg PO Q8HR PRN #10 tab.rapdis 02/13/19 02/26/19 Unknown Rx Active Meds: Active Medications Enoxaparin Sodium (Lovenox) 40 mg SUB-Q ONCE ONE Stop: 03/02/19 20:01 Amino Acids/Electrolytes/Dextrose (Tpn Adult) 2,016 mls @ 84 mls/hr IV DAILY@1999 [facility]; Protocol Stop: 03/02/19 19:59 Last Admin: 03/01/19 20:10 Dose: 84 mls/hr Documented by: Fat Emulsion Intravenous (Intralipid 20%) 250 mls @ 21 mls/hr IV DAILY@1999 [facility] Stop: 03/03/19 08:00 Amino Acids/Electrolytes/Dextrose (Tpn Adult) 2,016 mls @ 84 mls/hr IV DAILY@1999 [facility]; Protocol Stop: 03/03/19 19:59 Metoclopramide HCl (Reglan) 10 mg IV Q6H [facility] Last Admin: 03/02/19 12:31 Dose: 10 mg Documented by: Morphine Sulfate (Morphine) 2 mg IV Q4H PRN PRN Reason: Pain, Moderate (4-6) Last Admin: 03/02/19 12:31 Dose: 2 mg Documented by: Multivitamins/Iron/Calcium ( Vitamin) 1 each PO QDAY [facility] Last Admin: 02/28/19 10:00 Dose: Not Given Documented by: Ondansetron HCl (Zofran) 4 mg IV Q6H [facility] Last Admin: 03/02/19 04:09 Dose: Not Given Documented by: Scopolamine (Transderm-Scop) 1 each TD Q3D [facility] Last Admin: 03/01/19 18:45 Dose: 1 each Documented by: Review of Systems - Review of Systems All systems: negative Constitutional: no weight loss, no weight gain Cardiovascular: no chest pain Respiratory: no cough, no shortness of breath Gastrointestinal: abdominal pain, nausea, vomiting, no diarrhea, no constipation, no change in bowel habits, no hematemesis, no coffee ground emesis Allergic/Immunologic: no wheezing Exam - Constitutional Vital Signs: Temp Pulse Resp BP Pulse Ox 99.2 F 74 14 109/70 100 03/02/19 11:43 03/02/19 11:43 03/02/19 11:43 03/02/19 11:43 03/02/19 11:43 General appearance: no acute distress - EENT Eyes: EOM intact ENT: hearing intact - Neck Neck: supple - Respiratory Respiratory effort: normal - Cardiovascular Rhythm: regular Heart Sounds: Present: S1 & S2 - Gastrointestinal General gastrointestinal: Present: soft, non-tender, non-distended, normal bowel sounds - Integumentary Integumentary: Present: clear, warm - Neurologic Neurological: alert and oriented x3 - Labs CBC & Chem 7: 02/22/19 12:14 03/02/19 03:21 Lab Results: Laboratory Results - last 24 hr 03/01/19 03/02/19 03/02/19 18:24 00:32 03:21 Sodium 142 Potassium 3.8 Chloride 105.1 Carbon Dioxide 25 Anion Gap 16 BUN 14 Creatinine 0.7 Estimated GFR > 60 BUN/Creatinine Ratio 20 Glucose 116 H POC Glucose 78 110 H Hemoglobin A1c Calcium 8.6 Phosphorus 4.70 H D Magnesium 2.40 H Triglycerides 96 03/02/19 03/02/19 06:25 08:50 Sodium Potassium Chloride Carbon Dioxide Anion Gap BUN Creatinine Estimated GFR BUN/Creatinine Ratio Glucose POC Glucose 121 H Hemoglobin A1c 6.3 H Calcium Phosphorus Magnesium Triglycerides Assessment and Plan # Intractable nausea/vomiting # H/o CCK for abnormal HIDA scan and biliary dyskinesia. - likely 2/2 related hyperemesis. - normal liver enzymes. - currently on PPN Rec - continue with supportive care - antiemetics with zofran and reglan prn. - start protonix for GERD. - start vitamin b6. - will check RUQ US to rule out any biliary etiology. - will follow.
--- NOTE | 2019-03-02 15:25 | Ultrasound Report ---
ULTRASOUND OB LIMITED HISTORY: Nausea and vomiting, checking viability. TECHNIQUE: Transabdominal ultrasound. FINDINGS: A single transabdominal ultrasound images presented demonstrating an intrauterine with hear t rate measuring 171 bpm. IMPRESSION: Viable intrauterine . Signer Name: Sebas Deleon Jr, MD Signed: 03/02/2019 3:21 PM Workstation Name: [id number]
--- NOTE | 2019-03-02 15:26 | Ultrasound Report ---
LIMITED RUQ ABDOMINAL ULTRASOUND INDICATION: abdominal pain, nausea/vomiting, RUQ US. COMPARISON: No relevant prior imaging study available. FINDINGS: Pancreas: Visualized portions show no significant abnormality. Abdominal Aorta: No significant abnormality. IVC: No significant abnormality. Liver: The liver measures 13.8 cm in length. No significant abnormality. Normal hepatopedal blood fl ow in the main portal vein. Gallbladder: No significant abnormality. Bile ducts: No significant abnormality. Common bile duct measures 2.6 mm. Right kidney: No significant abnormality visualized.. Free fluid: None. Additional Findings: None. IMPRESSION: Normal exam. Signer Name: Sebas Deleon Jr, MD Signed: 03/02/2019 3:21 PM Workstation Name: [id number]
[2019-03-02] MEDS ORDERED: FAT EMULSIONS 20% 250 ML IV SCH (20:00)
[2019-03-02] MEDS ORDERED: ENOXAPARIN 40 MG/0.4 ML INJ SUB-Q ONE (20:00)
[2019-03-02] MEDS ORDERED: TOTAL PARENTERAL NUTRITION 2,016 ML IV SCH ×2 (20:00)
[2019-03-02] MEDS: PANTOPRAZOLE 40 MG TAB PO SCH (20:37)
[2019-03-03] MEDS: MORPHINE 2 MG/1 ML INJ IV PRN ×2 (00:16→16:41)
[2019-03-03] MEDS: METOCLOPRAMIDE 10 MG/2 ML INJ IV SCH ×4 (00:17→18:40)
[2019-03-03 07:00] LABS: BUN/Creatinine Ratio 18; Blood Urea Nitrogen 11 mg/dL (7-17); Calcium 8.3 mg/dL (8.4-10.2); Hemolysis Index 44
[2019-03-03] MEDS: PANTOPRAZOLE 40 MG TAB PO SCH (10:14)
[2019-03-03] MEDS: ONDANSETRON 4 MG/2 ML INJ IV SCH ×3 (10:14→22:03)
[2019-03-03] MEDS: PRENATAL VIT27-FE FUMARATE-FOLIC ACID VIT TAB PO SCH (10:18)
--- NOTE | 2019-03-03 13:32 | Progress Note ---
Assessment and Plan A: IUP at 9w5d Intractable Nausea and Vomiting Suspected Hyperemesis on TPN H/o chronic pancreatitis Gestational Diabetes Chronic HTN GERD H/o blood clot on Lovenox prophylaxis P: Continue current management. All senior consultant feedback much appreciated. Subjective - Subjective Date of service: 03/03/19 Principal diagnosis: hyperemesis gravidarum, incidental blood clot Interval history: Pt tolerated 1 spoonful of jello and her PO Protonix. Pt without obstetric complaints. Patient reports: no new complaints (bilateral leg pain), no loss of fluid, no va ginal bleeding, no contractions Objective - Vital Signs Vital Signs: Vital Signs - 12hr 03/03/19 03/03/19 03/03/19 04:34 07:43 12:52 Temperature 98.7 F 98.6 F 97.9 F Pulse Rate 60 65 73 Respiratory 20 20 20 Rate Blood Pressure 124/84 122/77 Blood Pressure 123/68 [Right] O2 Sat by Pulse 98 98 100 Oximetry - Exam Breasts: deferred Cardiovascular: Regular rate Lungs: Clear to auscultation Abdomen: Present: soft (obese4) Extremities: normal - Labs Labs: Abnormal Labs 02/22/19 02/22/19 02/22/19 12:14 12:14 12:50 Lymph % (Auto) 38.8 H [place] % (Auto) 8.6 H Sodium Potassium Chloride Carbon Dioxide 19 L BUN 6 L Creatinine 0.6 L Glucose POC Glucose Hemoglobin A1c Calcium Phosphorus Magnesium Urine pH 8.0 H Ur Specific [place] 1.032 H 02/26/19 02/27/19 02/27/19 09:06 05:43 20:47 Lymph % (Auto) [place] % (Auto) Sodium 136 L Potassium 3.4 L Chloride Carbon Dioxide BUN 4 L 6 L Creatinine 0.6 L 0.6 L Glucose 108 H 139 H POC Glucose 128 H Hemoglobin A1c Calcium Phosphorus Magnesium Urine pH Ur Specific [place] 02/28/19 02/28/19 02/28/19 03:25 05:41 12:53 Lymph % (Auto) [place] % (Auto) Sodium 136 L Potassium Chloride 97.2 L Carbon Dioxide BUN Creatinine 0.5 L Glucose 139 H POC Glucose 142 H 111 H Hemoglobin A1c Calcium Phosphorus Magnesium Urine pH Ur Specific [place] 02/28/19 03/01/19 03/01/19 18:18 00:30 04:00 Lymph % (Auto) [place] % (Auto) Sodium Potassium 3.5 L Chloride Carbon Dioxide BUN Creatinine Glucose 139 H POC Glucose 135 H 136 H Hemoglobin A1c Calcium Phosphorus Magnesium Urine pH Ur Specific [place] 03/01/19 03/02/19 03/02/19 06:12 00:32 03:21 Lymph % (Auto) [place] % (Auto) Sodium Potassium Chloride Carbon Dioxide BUN Creatinine Glucose 116 H POC Glucose 133 H 110 H Hemoglobin A1c Calcium Phosphorus 4.70 H D Magnesium 2.40 H Urine pH Ur Specific [place] 03/02/19 03/02/19 03/03/19 06:25 08:50 00:36 Lymph % (Auto) [place] % (Auto) Sodium Potassium Chloride Carbon Dioxide BUN Creatinine Glucose POC Glucose 121 H 136 H Hemoglobin A1c 6.3 H Calcium Phosphorus Magnesium Urine pH Ur Specific [place] 03/03/19 03/03/19 03/03/19 03:57 06:05 13:25 Lymph % (Auto) [place] % (Auto) Sodium Potassium Chloride Carbon Dioxide BUN Creatinine 0.6 L Glucose 115 H POC Glucose 135 H 111 H Hemoglobin A1c Calcium 8.3 L Phosphorus Magnesium Urine pH Ur Specific [place] Laboratory Results - last 24 hr 03/02/19 03/02/19 03/03/19 12:50 17:52 00:36 Sodium Potassium Chloride Carbon Dioxide Anion Gap BUN Creatinine Estimated GFR BUN/Creatinine Ratio Glucose POC Glucose 91 91 136 H Calcium Phosphorus Magnesium 03/03/19 03/03/19 03/03/19 03:57 06:05 13:25 Sodium 138 Potassium 3.9 Chloride 102.9 Carbon Dioxide 22 Anion Gap 17 BUN 11 Creatinine 0.6 L Estimated GFR > 60 BUN/Creatinine Ratio 18 Glucose 115 H POC Glucose 135 H 111 H Calcium 8.3 L Phosphorus 3.20 D Magnesium 2.10
--- NOTE | 2019-03-03 14:20 | Gastroenterology Progress Note ---
Assessment and Plan GI: pt 8 wk with intractable nausea, vomiting - ultrasound benign - suspect hyperemesis - no plans to scope - continue conservative management - if no improvement on emds would consider d/c on TPN - no changes, will follow Subjective Date of service: 03/03/19 Principal diagnosis: hyperemesis gravidarum, incidental blood clot Interval history: - reports nausea, vomiting only slightly improved Objective - Constitutional Vitals: Temp Pulse Resp BP Pulse Ox 97.9 F 73 20 122/77 100 03/03/19 12:52 03/03/19 12:52 03/03/19 12:52 03/03/19 12:52 03/03/19 12:52 General appearance: no acute distress - EENT Eyes: PERRL - Respiratory Respiratory: bilateral: CTA - Cardiovascular Rhythm: regular Heart Sounds: Present: S1 & S2 - Gastrointestinal General gastrointestinal: Present: soft, non-tender - Labs CBC & Chem 7: 02/22/19 12:14 03/03/19 03:57 Labs: Laboratory Results - last 24 hr 03/02/19 03/03/19 03/03/19 17:52 00:36 03:57 Sodium 138 Potassium 3.9 Chloride 102.9 Carbon Dioxide 22 Anion Gap 17 BUN 11 Creatinine 0.6 L Estimated GFR > 60 BUN/Creatinine Ratio 18 Glucose 115 H POC Glucose 91 136 H Calcium 8.3 L Phosphorus 3.20 D Magnesium 2.10 03/03/19 03/03/19 06:05 13:25 Sodium Potassium Chloride Carbon Dioxide Anion Gap BUN Creatinine Estimated GFR BUN/Creatinine Ratio Glucose POC Glucose 135 H 111 H Calcium Phosphorus Magnesium
[2019-03-03] MEDS ORDERED: TOTAL PARENTERAL NUTRITION 2,016 ML IV SCH (20:00)
[2019-03-03] MEDS: ENOXAPARIN 40 MG/0.4 ML INJ SUB-Q SCH (22:05)
[2019-03-04] MEDS: METOCLOPRAMIDE 10 MG/2 ML INJ IV SCH ×4 (00:17→18:35)
[2019-03-04] MEDS: ONDANSETRON 4 MG/2 ML INJ IV SCH ×4 (04:00→20:58)
[2019-03-04] MEDS: MORPHINE 2 MG/1 ML INJ IV PRN ×3 (04:00→20:59)
[2019-03-04 06:52] LABS: BUN/Creatinine Ratio 15; Blood Urea Nitrogen 9 mg/dL (7-17); C-Reactive Protein 1.5 mg/dL (0.00-1.30); Calcium 8.6 mg/dL (8.4-10.2); Hemolysis Index 2
--- NOTE | 2019-03-04 08:53 | Progress Note ---
Assessment and Plan A: IUP at 9w6d Intractable Nausea and Vomiting Suspected Hyperemesis on TPN H/o chronic pancreatitis Gestational Diabetes Chronic HTN GERD H/o blood clot on Lovenox prophylaxis P: Continue current management. All hospice consultant feedback much appreciated. Subjective - Subjective Date of service: 03/04/19 Principal diagnosis: hyperemesis gravidarum, incidental blood clot Interval history: Pt was not able to tolerate ice chips and apple juice yesterday. She is frustrated that she is not improving and is away from her family. Patient reports: no new complaints (bilateral leg pain), no loss of fluid, no vaginal bleeding, no contractions Objective - Vital Signs Vital Signs: Vital Signs - 12hr 03/03/19 03/03/19 03/04/19 22:00 23:23 04:26 Temperature 98.6 F 98.6 F Pulse Rate 58 L 68 Respiratory 20 20 Rate Respiratory 18 Rate [Bilateral Leg] Blood Pressure 106/60 103/56 O2 Sat by Pulse 98 96 Oximetry - Exam Breasts: deferred Cardiovascular: Regular rate Lungs: Clear to auscultation Abdomen: Present: soft (obese). Absent: tenderness Extremities: normal - Labs Labs: Abnormal Labs 02/22/19 02/22/19 02/22/19 12:14 12:14 12:50 Lymph % (Auto) 38.8 H [place] % (Auto) 8.6 H Sodium Potassium Chloride Carbon Dioxide 19 L BUN 6 L Creatinine 0.6 L Glucose POC Glucose Hemoglobin A1c Calcium Phosphorus Magnesium C-Reactive Protein Lipase Urine pH 8.0 H Ur Specific [place] 1.032 H 02/26/19 02/27/19 02/27/19 09:06 05:43 20:47 Lymph % (Auto) [place] % (Auto) Sodium 136 L Potassium 3.4 L Chloride Carbon Dioxide BUN 4 L 6 L Creatinine 0.6 L 0.6 L Glucose 108 H 139 H POC Glucose 128 H Hemoglobin A1c Calcium Phosphorus Magnesium C-Reactive Protein Lipase Urine pH Ur Specific [place] 02/28/19 02/28/19 02/28/19 03:25 05:41 12:53 Lymph % (Auto) [place] % (Auto) Sodium 136 L Potassium Chloride 97.2 L Carbon Dioxide BUN Creatinine 0.5 L Glucose 139 H POC Glucose 142 H 111 H Hemoglobin A1c Calcium Phosphorus Magnesium C-Reactive Protein Lipase Urine pH Ur Specific [place] 02/28/19 03/01/19 03/01/19 18:18 00:30 04:00 Lymph % (Auto) [place] % (Auto) Sodium Potassium 3.5 L Chloride Carbon Dioxide BUN Creatinine Glucose 139 H POC Glucose 135 H 136 H Hemoglobin A1c Calcium Phosphorus Magnesium C-Reactive Protein Lipase Urine pH Ur Specific [place] 03/01/19 03/02/19 03/02/19 06:12 00:32 03:21 Lymph % (Auto) [place] % (Auto) Sodium Potassium Chloride Carbon Dioxide BUN Creatinine Glucose 116 H POC Glucose 133 H 110 H Hemoglobin A1c Calcium Phosphorus 4.70 H D Magnesium 2.40 H C-Reactive Protein Lipase Urine pH Ur Specific [place] 03/02/19 03/02/19 03/03/19 06:25 08:50 00:36 Lymph % (Auto) [place] % (Auto) Sodium Potassium Chloride Carbon Dioxide BUN Creatinine Glucose POC Glucose 121 H 136 H Hemoglobin A1c 6.3 H Calcium Phosphorus Magnesium C-Reactive Protein Lipase Urine pH Ur Specific [place] 03/03/19 03/03/19 03/03/19 03:57 06:05 13:25 Lymph % (Auto) [place] % (Auto) Sodium Potassium Chloride Carbon Dioxide BUN Creatinine 0.6 L Glucose 115 H POC Glucose 135 H 111 H Hemoglobin A1c Calcium 8.3 L Phosphorus Magnesium C-Reactive Protein Lipase Urine pH Ur Specific [place] 03/03/19 03/04/19 03/04/19 18:20 00:23 05:42 Lymph % (Auto) [place] % (Auto) Sodium 134 L Potassium Chloride Carbon Dioxide 20 L BUN Creatinine 0.6 L Glucose 132 H POC Glucose 112 H 117 H Hemoglobin A1c Calcium Phosphorus Magnesium C-Reactive Protein Lipase Urine pH Ur Specific [place] 03/04/19 03/04/19 05:42 06:23 Lymph % (Auto) [place] % (Auto) Sodium Potassium Chloride Carbon Dioxide BUN Creatinine Glucose POC Glucose 126 H Hemoglobin A1c Calcium Phosphorus Magnesium C-Reactive Protein 1.50 H Lipase 69 H Urine pH Ur Specific [place] Laboratory Results - last 24 hr 03/03/19 03/03/19 03/04/19 13:25 18:20 00:23 Sodium Potassium Chloride Carbon Dioxide Anion Gap BUN Creatinine Estimated GFR BUN/Creatinine Ratio Glucose POC Glucose 111 H 112 H 117 H Calcium Phosphorus Magnesium C-Reactive Protein Lipase 03/04/19 03/04/19 03/04/19 05:42 05:42 06:23 Sodium 134 L Potassium 4.2 Chloride 101.4 Carbon Dioxide 20 L Anion Gap 17 BUN 9 Creatinine 0.6 L Estimated GFR > 60 BUN/Creatinine Ratio 15 Glucose 132 H POC Glucose 126 H Calcium 8.6 Phosphorus 3.10 Magnesium 1.90 C-Reactive Protein 1.50 H Lipase 69 H
[2019-03-04] MEDS: PRENATAL VIT27-FE FUMARATE-FOLIC ACID VIT TAB PO SCH (10:51)
[2019-03-04] MEDS: PANTOPRAZOLE 40 MG TAB PO SCH (10:51)
--- NOTE | 2019-03-04 17:16 | Gastroenterology Progress Note ---
Assessment and Plan GI: 9 wk female w/ intractable nausea w/ workup otherwise negative - suspect hyperemesis - continue current meds - from GI standpoint would tret conservative on TPN as outpt - no plans to scope at this time - will sign off, call if needed Subjective Date of service: 03/04/19 Principal diagnosis: hyperemesis gravidarum, incidental blood clot Interval history: - reports slight improvement in nausea but persist Objective - Constitutional Vitals: Temp Pulse Resp BP Pulse Ox 98.6 F 79 18 138/82 100 03/04/19 12:42 03/04/19 12:42 03/04/19 14:32 03/04/19 12:42 03/04/19 12:42 General appearance: no acute distress - EENT Eyes: PERRL - Respiratory Respiratory: bilateral: CTA - Cardiovascular Rhythm: regular Heart Sounds: Present: S1 & S2 - Gastrointestinal General gastrointestinal: Present: soft, non-tender, non-distended - Labs CBC & Chem 7: 02/22/19 12:14 03/04/19 05:42 Labs: Laboratory Results - last 24 hr 03/03/19 03/04/19 03/04/19 18:20 00:23 05:42 Sodium 134 L Potassium 4.2 Chloride 101.4 Carbon Dioxide 20 L Anion Gap 17 BUN 9 Creatinine 0.6 L Estimated GFR > 60 BUN/Creatinine Ratio 15 Glucose 132 H POC Glucose 112 H 117 H Calcium 8.6 Phosphorus 3.10 Magnesium 1.90 C-Reactive Protein Lipase 03/04/19 03/04/19 03/04/19 05:42 06:23 11:37 Sodium Potassium Chloride Carbon Dioxide Anion Gap BUN Creatinine Estimated GFR BUN/Creatinine Ratio Glucose POC Glucose 126 H 143 H Calcium Phosphorus Magnesium C-Reactive Protein 1.50 H Lipase 69 H 03/04/19 17:15 Sodium Potassium Chloride Carbon Dioxide Anion Gap BUN Creatinine Estimated GFR BUN/Creatinine Ratio Glucose POC Glucose 108 H Calcium Phosphorus Magnesium C-Reactive Protein Lipase
[2019-03-04] MEDS: SCOPOLAMINE TRANSDERMAL PATCH 72 HR TD SCH (18:36)
[2019-03-04] MEDS ORDERED: TOTAL PARENTERAL NUTRITION 2,016 ML IV SCH (20:00)
[2019-03-04] MEDS: ENOXAPARIN 40 MG/0.4 ML INJ SUB-Q SCH (21:00)
[2019-03-05] MEDS: METOCLOPRAMIDE 10 MG/2 ML INJ IV SCH ×4 (00:12→17:35)
[2019-03-05] MEDS: ONDANSETRON 4 MG/2 ML INJ IV SCH ×4 (05:14→21:02)
[2019-03-05 07:20] LABS: Alanine Aminotransferase 27 units/L (7-56); Albumin 3.2 g/dL (3.9-5); BUN/Creatinine Ratio 15; Blood Urea Nitrogen 9 mg/dL (7-17); Calcium 8.5 mg/dL (8.4-10.2); Hemolysis Index 24
--- NOTE | 2019-03-05 08:51 | Progress Note ---
Assessment and Plan A: IUP at 10 weeks 0 d Intractable Nausea and Vomiting Suspected Hyperemesis on TPN H/o chronic pancreatitis Gestational Diabetes Chronic HTN GERD H/o blood clot on Lovenox prophylaxis P: Continue current management. will consider outpatient basis for TPN today or tomorrow Subjective - Subjective Date of service: 03/05/19 Principal diagnosis: hyperemesis gravidarum, incidental blood clot Patient reports: no new complaints (bilateral leg pain), no loss of fluid, no vaginal bleeding, no contractions Objective - Vital Signs Vital Signs: Vital Signs - 12hr 03/04/19 03/04/19 03/04/19 20:59 21:29 22:00 Temperature Pulse Rate Pulse Rate [ 85 Right Radial] Respiratory 18 18 18 Rate Respiratory 18 Rate [Bilateral Leg] Blood Pressure O2 Sat by Pulse Oximetry 03/04/19 03/05/19 23:58 04:32 Temperature 98.6 F 98.9 F Pulse Rate 69 66 Pulse Rate [ Right Radial] Respiratory 18 18 Rate Respiratory Rate [Bilateral Leg] Blood Pressure 102/55 108/59 O2 Sat by Pulse 98 99 Oximetry - Exam Breasts: normal Cardiovascular: Regular rate, Normal S1 Lungs: Clear to auscultation, Normal air movement Abdomen: Present: normal appearance, soft, normal bowel sounds. Absent: distention, tenderness, guarding Vulva: both: normal Uterus: Present: normal, firm, fundal height below umbilicus. Absent: bogginess, tenderness - Labs Labs: Abnormal Labs 02/22/19 02/22/19 02/22/19 12:14 12:14 12:50 Lymph % (Auto) 38.8 H [place] % (Auto) 8.6 H Sodium Potassium Chloride Carbon Dioxide 19 L BUN 6 L Creatinine 0.6 L Glucose POC Glucose Hemoglobin A1c Calcium Phosphorus Magnesium C-Reactive Protein Total Protein Albumin Lipase Urine pH 8.0 H Ur Specific [place] 1.032 H 02/26/19 02/27/19 02/27/19 09:06 05:43 20:47 Lymph % (Auto) [place] % (Auto) Sodium 136 L Potassium 3.4 L Chloride Carbon Dioxide BUN 4 L 6 L Creatinine 0.6 L 0.6 L Glucose 108 H 139 H POC Glucose 128 H Hemoglobin A1c Calcium Phosphorus Magnesium C-Reactive Protein Total Protein Albumin Lipase Urine pH Ur Specific [place] 02/28/19 02/28/19 02/28/19 03:25 05:41 12:53 Lymph % (Auto) [place] % (Auto) Sodium 136 L Potassium Chloride 97.2 L Carbon Dioxide BUN Creatinine 0.5 L Glucose 139 H POC Glucose 142 H 111 H Hemoglobin A1c Calcium Phosphorus Magnesium C-Reactive Protein Total Protein Albumin Lipase Urine pH Ur Specific [place] 02/28/19 03/01/19 03/01/19 18:18 00:30 04:00 Lymph % (Auto) [place] % (Auto) Sodium Potassium 3.5 L Chloride Carbon Dioxide BUN Creatinine Glucose 139 H POC Glucose 135 H 136 H Hemoglobin A1c Calcium Phosphorus Magnesium C-Reactive Protein Total Protein Albumin Lipase Urine pH Ur Specific [place] 03/01/19 03/02/19 03/02/19 06:12 00:32 03:21 Lymph % (Auto) [place] % (Auto) Sodium Potassium Chloride Carbon Dioxide BUN Creatinine Glucose 116 H POC Glucose 133 H 110 H Hemoglobin A1c Calcium Phosphorus 4.70 H D Magnesium 2.40 H C-Reactive Protein Total Protein Albumin Lipase Urine pH Ur Specific [place] 03/02/19 03/02/19 03/03/19 06:25 08:50 00:36 Lymph % (Auto) [place] % (Auto) Sodium Potassium Chloride Carbon Dioxide BUN Creatinine Glucose POC Glucose 121 H 136 H Hemoglobin A1c 6.3 H Calcium Phosphorus Magnesium C-Reactive Protein Total Protein Albumin Lipase Urine pH Ur Specific [place] 03/03/19 03/03/19 03/03/19 03:57 06:05 13:25 Lymph % (Auto) [place] % (Auto) Sodium Potassium Chloride Carbon Dioxide BUN Creatinine 0.6 L Glucose 115 H POC Glucose 135 H 111 H Hemoglobin A1c Calcium 8.3 L Phosphorus Magnesium C-Reactive Protein Total Protein Albumin Lipase Urine pH Ur Specific [place] 03/03/19 03/04/19 03/04/19 18:20 00:23 05:42 Lymph % (Auto) [place] % (Auto) Sodium 134 L Potassium Chloride Carbon Dioxide 20 L BUN Creatinine 0.6 L Glucose 132 H POC Glucose 112 H 117 H Hemoglobin A1c Calcium Phosphorus Magnesium C-Reactive Protein Total Protein Albumin Lipase Urine pH Ur Specific [place] 03/04/19 03/04/19 03/04/19 05:42 06:23 11:37 Lymph % (Auto) [place] % (Auto) Sodium Potassium Chloride Carbon Dioxide BUN Creatinine Glucose POC Glucose 126 H 143 H Hemoglobin A1c Calcium Phosphorus Magnesium C-Reactive Protein 1.50 H Total Protein Albumin Lipase 69 H Urine pH Ur Specific [place] 03/04/19 03/05/19 03/05/19 17:15 00:26 05:35 Lymph % (Auto) [place] % (Auto) Sodium 135 L Potassium Chloride Carbon Dioxide BUN Creatinine 0.6 L Glucose 122 H POC Glucose 108 H 135 H Hemoglobin A1c Calcium Phosphorus Magnesium C-Reactive Protein Total Protein 5.9 L Albumin 3.2 L Lipase Urine pH Ur Specific [place] 03/05/19 05:58 Lymph % (Auto) [place] % (Auto) Sodium Potassium Chloride Carbon Dioxide BUN Creatinine Glucose POC Glucose 134 H Hemoglobin A1c Calcium Phosphorus Magnesium C-Reactive Protein Total Protein Albumin Lipase Urine pH Ur Specific [place] Laboratory Results - last 24 hr 03/04/19 03/04/19 03/05/19 11:37 17:15 00:26 Sodium Potassium Chloride Carbon Dioxide Anion Gap BUN Creatinine Estimated GFR BUN/Creatinine Ratio Glucose POC Glucose 143 H 108 H 135 H Calcium Phosphorus Magnesium Total Bilirubin AST ALT Alkaline Phosphatase Total Protein Albumin Albumin/Globulin Ratio 03/05/19 03/05/19 05:35 05:58 Sodium 135 L Potassium 4.3 Chloride 102.4 Carbon Dioxide 24 Anion Gap 13 BUN 9 Creatinine 0.6 L Estimated GFR > 60 BUN/Creatinine Ratio 15 Glucose 122 H POC Glucose 134 H Calcium 8.5 Phosphorus 3.80 D Magnesium 2.00 Total Bilirubin 0.40 AST 14 ALT 27 Alkaline Phosphatase 37 Total Protein 5.9 L Albumin 3.2 L Albumin/Globulin Ratio 1.2
[2019-03-05] MEDS: PANTOPRAZOLE 40 MG TAB PO SCH (09:12)
[2019-03-05] MEDS: PRENATAL VIT27-FE FUMARATE-FOLIC ACID VIT TAB PO SCH (10:58)
[2019-03-05] MEDS: MORPHINE 2 MG/1 ML INJ IV PRN ×2 (11:54→21:03)
--- NOTE | 2019-03-05 13:46 | Consultation ---
History of Present Illness Consult date: 03/05/19 Requesting physician: LG MORALES History of present illness: [facility]/MFM 03/05/19 33 y/o AA LMP 12/25/18 PATRICIA 10/01/19 by LMP c/w 8 wk sono at 8 w3d EGA Now at 10 0/7 weeks Reports N/V over past month not amenable to multiple antiemetics - unable to keep food and liquids down Denies Fever chills, diarrhea constipation dysuria Weight upon admission 198# on 03/02/19 -195#- and now on 03/05/19 196# (gained a pound) Denies H/O Hyperemesis with 2 prior pregnancies ?? H/O Chronic pancreatitis Suspect H/O DM - early diabetic screen Pos ( H/O GDM with both prior preg and FH of DM) In house Reglan, Phenergan , Zofran without much relief Steroids were given 02/24 to 02/28 without improvement Now on TPN over past over past week (since 02/26/19) now tolerating jello GI Following and considering Discharge on TPN RUQ US neg OB US Done 03/02/19 - Pos Viability C/O pain right calf over past few weeks - still pain come and goes - On Lovenox Lower Leg Dopplers - Poss very minimal chronic appearing thrombus in right posterior tibial vein - No evidence of acute DVT On Lovenox Hem had evaluated H/O CHTN ?? on metropolol 50 but was discontinued - denies CHANCE's [place] or RUQ Pain OB History 2013 - Induced Vag Del for GDM (diet controlled) at 39 weeks F 6'9" 2014 Induced Vag Del for "GB" ( GDM on tablets) at 35 weeks M 5'6" STD - HSV NKA Surg GB Med - CHTN . ? Chronic pancreatitis , ? 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 History: herpes Past History Past Medical History: hypertension, pancreatitis (chronic ), GERD Past Surgical History: 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 (04/14/15) [employer]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 History: herpes - Obstetrical History : 3 Medications and Allergies Allergies Allergy/AdvReac Type Severity Reaction Status Date / Time No Known Allergies Allergy Verified 03/14/15 10:02 Home Medications Medication Instructions Recorded Confirmed Last Taken Type Nitrofurantoin [place]/M-Cryst 100 mg PO Q12HR #10 capsule 02/13/19 02/26/19 Unknown Rx [Macrobid CAP] Ondansetron [Zofran Odt] 4 mg PO Q8HR PRN #10 tab.rapdis 02/13/19 02/26/19 Unknown Rx Active Meds: Active Medications Enoxaparin Sodium (Lovenox) 40 mg SUB-Q QDAY@2200 [facility] Last Admin: 03/04/19 21:00 Dose: 40 mg Documented by: Amino Acids/Electrolytes/Dextrose (Tpn Adult) 2,016 mls @ 84 mls/hr IV DAILY@2000 [facility]; Protocol Stop: 03/05/19 19:59 Last Admin: 03/04/19 21:08 Dose: 84 mls/hr Documented by: Metoclopramide HCl (Reglan) 10 mg IV Q6H [facility] Last Admin: 03/05/19 11:54 Dose: 10 mg Documented by: Morphine Sulfate (Morphine) 2 mg IV Q4H PRN PRN Reason: Pain, Moderate (4-6) Last Admin: 03/05/19 11:54 Dose: 2 mg Documented by: Multivitamins/Iron/Calcium ( Vitamin) 1 each PO QDAY [facility] Last Admin: 03/05/19 10:58 Dose: Not Given Documented by: Ondansetron HCl (Zofran) 4 mg IV Q6H [facility] Last Admin: 03/05/19 09:13 Dose: 4 mg Documented by: Pantoprazole Sodium (Protonix) 40 mg PO QDAY [facility] Last Admin: 03/05/19 09:12 Dose: 40 mg Documented by: Scopolamine (Transderm-Scop) 1 each TD Q3D [facility] Last Admin: 03/04/19 18:36 Dose: 1 each Documented by: - Vital Signs Vital signs: Vital Signs Temp Pulse Resp BP Pulse Ox 98.9 F 77 18 140/86 99 02/22/19 12:40 02/22/19 12:40 02/22/19 12:40 02/22/19 12:40 02/22/19 12:40 Temp Pulse Resp BP Pulse Ox 98.1 F 73 18 114/59 95 03/05/19 12:12 03/05/19 12:12 03/05/19 12:12 03/05/19 12:12 03/05/19 12:12 Results Result Diagrams: 02/22/19 12:14 03/05/19 05:35 Abnormal lab results 03/04/19 03/05/19 03/05/19 Range/Units 17:15 00:26 05:35 Sodium 135 L (137-145) mmol/L Creatinine 0.6 L (0.7-1.2) mg/dL Glucose 122 H (65-100) mg/dL POC Glucose 108 H 135 H (70-105) Total Protein 5.9 L (6.3-8.2) g/dL Albumin 3.2 L (3.9-5) g/dL 03/05/19 03/05/19 Range/Units 05:58 12:18 Sodium (137-145) mmol/L Creatinine (0.7-1.2) mg/dL Glucose (65-100) mg/dL POC Glucose 134 H 125 H (70-105) Total Protein (6.3-8.2) g/dL Albumin (3.9-5) g/dL All other labs normal. Assessment and Plan Assessment and Plan Impression 1. [place] IUP at 10 0/7 weeks 2. Hyperemesis - with Weight Loss (gained 1 pound since 10/4/19) 3. CHTN - not on meds ( they were dc'd per patient ) 4. H/O chronic pancreatitis per ob notes 5. Suspect Pregest DM 6. Right lower leg Pain - Doppler - Minimal chronic appearing thrombus 7. Obesity 8. GERD Recommendations: 1. GI consult appreciated 2. 24 Hour urine for Prot and CC if not done 3. Labs - Would obtain H Pylori - Ask GI - I believe this is culture from stool but now breath Niko now used 4. Accuchecks fasting and 2 PP's once on ADA diet 5. Nutrition consult - Currently on TPN 6. Diabetic consult due to suspect pregest DM 7. GI - Considering home on TPN - ( if patient not responding may also consider NG tube feedings ) 8. Lovenox prophylaxis 40 q day - if patient discharged please provide patient with script and instructions on how to self administer 9. Would Call [facility] (social service to assist) Prob candidate for Zofran pump once discharged and could assist her with TPN 10. Would consider Steroids after 10 weeks ( ? already received - see above )
[2019-03-05] MEDS ORDERED: TOTAL PARENTERAL NUTRITION 2,000 ML IV SCH (20:00)
[2019-03-05] MEDS ORDERED: FAT EMULSIONS 20% 250 ML IV SCH (20:00)
[2019-03-05] MEDS: ENOXAPARIN 40 MG/0.4 ML INJ SUB-Q SCH (21:02)
[2019-03-06] MEDS: METOCLOPRAMIDE 10 MG/2 ML INJ IV SCH ×4 (00:06→17:48)
[2019-03-06] MEDS: ONDANSETRON 4 MG/2 ML INJ IV SCH ×4 (02:32→20:16)
[2019-03-06] MEDS: MORPHINE 2 MG/1 ML INJ IV PRN (02:37)
[2019-03-06 08:14] LABS: BUN/Creatinine Ratio 15; Blood Urea Nitrogen 9 mg/dL (7-17); Calcium 8.8 mg/dL (8.4-10.2); Hemolysis Index 15
--- NOTE | 2019-03-06 08:47 | Progress Note ---
Assessment and Plan A: IUP at 10 weeks 1 d Intractable Nausea and Vomiting Suspected Hyperemesis on TPN H/o chronic pancreatitis Gestational Diabetes Chronic HTN GERD H/o blood clot on Lovenox prophylaxis P: Continue current management. will consider outpatient basis for TPN Appreciate MFM recommendations 24hr urine creatinine and protein H pylori testing appreciate GI consider d/c home after provisions of TPN and zofran pump and home health and completion of all recommendations Subjective - Subjective Date of service: 03/06/19 Principal diagnosis: hyperemesis gravidarum, incidental blood clot Patient reports: no new complaints (bilateral leg pain), no loss of fluid, no vaginal bleeding, no contractions Objective - Vital Signs Vital Signs: Vital Signs - 12hr 03/05/19 03/06/19 03/06/19 23:59 04:43 08:11 Temperature 98.0 F 98.5 F 98.0 F Pulse Rate 77 79 84 Respiratory 18 20 Rate Blood Pressure 116/59 106/61 105/70 O2 Sat by Pulse 97 93 97 Oximetry - Exam Breasts: normal Cardiovascular: Regular rate, Normal S1 Lungs: Clear to auscultation, Normal air movement Abdomen: Present: normal appearance, soft, normal bowel sounds. Absent: distention, tenderness, guarding Uterus: Present: normal, firm, fundal height below umbilicus. Absent: bogginess, tenderness Extremities: normal Deep Tendon Reflex Grade: Normal +2 - Labs Labs: Abnormal Labs 02/22/19 02/22/19 02/22/19 12:14 12:14 12:50 Lymph % (Auto) 38.8 H [place] % (Auto) 8.6 H Sodium Potassium Chloride Carbon Dioxide 19 L BUN 6 L Creatinine 0.6 L Glucose POC Glucose Hemoglobin A1c Calcium Phosphorus Magnesium C-Reactive Protein Total Protein Albumin Lipase Urine pH 8.0 H Ur Specific [place] 1.032 H 02/26/19 02/27/19 02/27/19 09:06 05:43 20:47 Lymph % (Auto) [place] % (Auto) Sodium 136 L Potassium 3.4 L Chloride Carbon Dioxide BUN 4 L 6 L Creatinine 0.6 L 0.6 L Glucose 108 H 139 H POC Glucose 128 H Hemoglobin A1c Calcium Phosphorus Magnesium C-Reactive Protein Total Protein Albumin Lipase Urine pH Ur Specific [place] 02/28/19 02/28/19 02/28/19 03:25 05:41 12:53 Lymph % (Auto) [place] % (Auto) Sodium 136 L Potassium Chloride 97.2 L Carbon Dioxide BUN Creatinine 0.5 L Glucose 139 H POC Glucose 142 H 111 H Hemoglobin A1c Calcium Phosphorus Magnesium C-Reactive Protein Total Protein Albumin Lipase Urine pH Ur Specific [place] 02/28/19 03/01/19 03/01/19 18:18 00:30 04:00 Lymph % (Auto) [place] % (Auto) Sodium Potassium 3.5 L Chloride Carbon Dioxide BUN Creatinine Glucose 139 H POC Glucose 135 H 136 H Hemoglobin A1c Calcium Phosphorus Magnesium C-Reactive Protein Total Protein Albumin Lipase Urine pH Ur Specific [place] 03/01/19 03/02/19 03/02/19 06:12 00:32 03:21 Lymph % (Auto) [place] % (Auto) Sodium Potassium Chloride Carbon Dioxide BUN Creatinine Glucose 116 H POC Glucose 133 H 110 H Hemoglobin A1c Calcium Phosphorus 4.70 H D Magnesium 2.40 H C-Reactive Protein Total Protein Albumin Lipase Urine pH Ur Specific [place] 03/02/19 03/02/19 03/03/19 06:25 08:50 00:36 Lymph % (Auto) [place] % (Auto) Sodium Potassium Chloride Carbon Dioxide BUN Creatinine Glucose POC Glucose 121 H 136 H Hemoglobin A1c 6.3 H Calcium Phosphorus Magnesium C-Reactive Protein Total Protein Albumin Lipase Urine pH Ur Specific [place] 03/03/19 03/03/19 03/03/19 03:57 06:05 13:25 Lymph % (Auto) [place] % (Auto) Sodium Potassium Chloride Carbon Dioxide BUN Creatinine 0.6 L Glucose 115 H POC Glucose 135 H 111 H Hemoglobin A1c Calcium 8.3 L Phosphorus Magnesium C-Reactive Protein Total Protein Albumin Lipase Urine pH Ur Specific [place] 03/03/19 03/04/19 03/04/19 18:20 00:23 05:42 Lymph % (Auto) [place] % (Auto) Sodium 134 L Potassium Chloride Carbon Dioxide 20 L BUN Creatinine 0.6 L Glucose 132 H POC Glucose 112 H 117 H Hemoglobin A1c Calcium Phosphorus Magnesium C-Reactive Protein Total Protein Albumin Lipase Urine pH Ur Specific [place] 03/04/19 03/04/19 03/04/19 05:42 06:23 11:37 Lymph % (Auto) [place] % (Auto) Sodium Potassium Chloride Carbon Dioxide BUN Creatinine Glucose POC Glucose 126 H 143 H Hemoglobin A1c Calcium Phosphorus Magnesium C-Reactive Protein 1.50 H Total Protein Albumin Lipase 69 H Urine pH Ur Specific [place] 03/04/19 03/05/19 03/05/19 17:15 00:26 05:35 Lymph % (Auto) [place] % (Auto) Sodium 135 L Potassium Chloride Carbon Dioxide BUN Creatinine 0.6 L Glucose 122 H POC Glucose 108 H 135 H Hemoglobin A1c Calcium Phosphorus Magnesium C-Reactive Protein Total Protein 5.9 L Albumin 3.2 L Lipase Urine pH Ur Specific [place] 03/05/19 03/05/19 03/05/19 05:58 12:18 17:57 Lymph % (Auto) [place] % (Auto) Sodium Potassium Chloride Carbon Dioxide BUN Creatinine Glucose POC Glucose 134 H 125 H 111 H Hemoglobin A1c Calcium Phosphorus Magnesium C-Reactive Protein Total Protein Albumin Lipase Urine pH Ur Specific [place] 03/06/19 03/06/19 03/06/19 00:15 00:17 06:07 Lymph % (Auto) [place] % (Auto) Sodium Potassium Chloride Carbon Dioxide BUN Creatinine Glucose POC Glucose 172 H 183 H 139 H Hemoglobin A1c Calcium Phosphorus Magnesium C-Reactive Protein Total Protein Albumin Lipase Urine pH Ur Specific [place] 03/06/19 07:21 Lymph % (Auto) [place] % (Auto) Sodium 134 L Potassium Chloride Carbon Dioxide BUN Creatinine 0.6 L Glucose 154 H POC Glucose Hemoglobin A1c Calcium Phosphorus Magnesium C-Reactive Protein Total Protein Albumin Lipase Urine pH Ur Specific [place] Laboratory Results - last 24 hr 03/05/19 03/05/19 03/06/19 12:18 17:57 00:15 Sodium Potassium Chloride Carbon Dioxide Anion Gap BUN Creatinine Estimated GFR BUN/Creatinine Ratio Glucose POC Glucose 125 H 111 H 172 H Calcium Phosphorus Magnesium 03/06/19 03/06/19 03/06/19 00:17 06:07 07:21 Sodium 134 L Potassium 4.7 Chloride 98.7 Carbon Dioxide 23 Anion Gap 17 BUN 9 Creatinine 0.6 L Estimated GFR > 60 BUN/Creatinine Ratio 15 Glucose 154 H POC Glucose 183 H 139 H Calcium 8.8 Phosphorus 4.00 Magnesium 2.10
[2019-03-06] MEDS: PANTOPRAZOLE 40 MG TAB PO SCH (09:58)
[2019-03-06] MEDS: PRENATAL VIT27-FE FUMARATE-FOLIC ACID VIT TAB PO SCH (12:19)
--- NOTE | 2019-03-06 12:53 | Progress Note ---
Assessment and Plan A- IUP at 10.1 weeks VSS, Afebrile 24 hour urine pending Minimal toleration of Jello- reports nausea after "two spoonfuls". Hyperemesis Gravidarum- TPN for nutrition, antiemetics for management, GI has signed off Right Lower Extremity DVT- managed on Lovenox, followed by Hematology CHTN- not currently medicated GDM- Accuchecks QACHS, HgbA1c 6.3 Chronic Pancreatitis- normal RUQ abdominal ultrasound GERD- managed on Protonix P- *Complete 24 hour urine *Document H. Pylori, if not performed *Accucheck QACHS, with sliding scale coverage *[facility] for Zofran pump and TPN assistance/care after discharge *Continue with clear liquid diet and advance as tolerated *Continue Lovenox for DVT management once discharged Thank you for involving [facility] in the care of your patient. With additional questions/concerns, please contact [facility] plate conditioner. Subjective - Subjective Date of service: 03/06/19 Principal diagnosis: hyperemesis gravidarum, incidental blood clot Patient reports: other (She reports slight improvements in nausea and vomiting. Admits to last episode of vomiting last night. Minimal toleration of jello "I can only take 2 spoonfuls before I start feeling nausea."), no new complaints (right leg tenderness/pain), no loss of fluid, no vaginal bleeding, no contractions Objective - Vital Signs Vital Signs: Vital Signs - 12hr 03/06/19 03/06/19 03/06/19 04:43 08:11 12:04 Temperature 98.5 F 98.0 F 98.5 F Pulse Rate 79 84 69 Respiratory 18 20 20 Rate Blood Pressure 106/61 105/70 101/58 O2 Sat by Pulse 93 97 99 Oximetry - Exam Breasts: deferred Cardiovascular: Regular rate, Normal S1, Normal S2 Lungs: Clear to auscultation, Normal air movement Abdomen: Present: normal appearance, soft, normal bowel sounds - Labs Labs: Abnormal Labs 02/22/19 02/22/19 02/22/19 12:14 12:14 12:50 Lymph % (Auto) 38.8 H [place] % (Auto) 8.6 H Sodium Potassium Chloride Carbon Dioxide 19 L BUN 6 L Creatinine 0.6 L Glucose POC Glucose Hemoglobin A1c Calcium Phosphorus Magnesium C-Reactive Protein Total Protein Albumin Lipase Urine pH 8.0 H Ur Specific [place] 1.032 H 02/26/19 02/27/19 02/27/19 09:06 05:43 20:47 Lymph % (Auto) [place] % (Auto) Sodium 136 L Potassium 3.4 L Chloride Carbon Dioxide BUN 4 L 6 L Creatinine 0.6 L 0.6 L Glucose 108 H 139 H POC Glucose 128 H Hemoglobin A1c Calcium Phosphorus Magnesium C-Reactive Protein Total Protein Albumin Lipase Urine pH Ur Specific [place] 02/28/19 02/28/19 02/28/19 03:25 05:41 12:53 Lymph % (Auto) [place] % (Auto) Sodium 136 L Potassium Chloride 97.2 L Carbon Dioxide BUN Creatinine 0.5 L Glucose 139 H POC Glucose 142 H 111 H Hemoglobin A1c Calcium Phosphorus Magnesium C-Reactive Protein Total Protein Albumin Lipase Urine pH Ur Specific [place] 02/28/19 03/01/19 03/01/19 18:18 00:30 04:00 Lymph % (Auto) [place] % (Auto) Sodium Potassium 3.5 L Chloride Carbon Dioxide BUN Creatinine Glucose 139 H POC Glucose 135 H 136 H Hemoglobin A1c Calcium Phosphorus Magnesium C-Reactive Protein Total Protein Albumin Lipase Urine pH Ur Specific [place] 03/01/19 03/02/19 03/02/19 06:12 00:32 03:21 Lymph % (Auto) [place] % (Auto) Sodium Potassium Chloride Carbon Dioxide BUN Creatinine Glucose 116 H POC Glucose 133 H 110 H Hemoglobin A1c Calcium Phosphorus 4.70 H D Magnesium 2.40 H C-Reactive Protein Total Protein Albumin Lipase Urine pH Ur Specific [place] 03/02/19 03/02/19 03/03/19 06:25 08:50 00:36 Lymph % (Auto) [place] % (Auto) Sodium Potassium Chloride Carbon Dioxide BUN Creatinine Glucose POC Glucose 121 H 136 H Hemoglobin A1c 6.3 H Calcium Phosphorus Magnesium C-Reactive Protein Total Protein Albumin Lipase Urine pH Ur Specific [place] 03/03/19 03/03/19 03/03/19 03:57 06:05 13:25 Lymph % (Auto) [place] % (Auto) Sodium Potassium Chloride Carbon Dioxide BUN Creatinine 0.6 L Glucose 115 H POC Glucose 135 H 111 H Hemoglobin A1c Calcium 8.3 L Phosphorus Magnesium C-Reactive Protein Total Protein Albumin Lipase Urine pH Ur Specific [place] 03/03/19 03/04/19 03/04/19 18:20 00:23 05:42 Lymph % (Auto) [place] % (Auto) Sodium 134 L Potassium Chloride Carbon Dioxide 20 L BUN Creatinine 0.6 L Glucose 132 H POC Glucose 112 H 117 H Hemoglobin A1c Calcium Phosphorus Magnesium C-Reactive Protein Total Protein Albumin Lipase Urine pH Ur Specific [place] 03/04/19 03/04/19 03/04/19 05:42 06:23 11:37 Lymph % (Auto) [place] % (Auto) Sodium Potassium Chloride Carbon Dioxide BUN Creatinine Glucose POC Glucose 126 H 143 H Hemoglobin A1c Calcium Phosphorus Magnesium C-Reactive Protein 1.50 H Total Protein Albumin Lipase 69 H Urine pH Ur Specific [place] 03/04/19 03/05/19 03/05/19 17:15 00:26 05:35 Lymph % (Auto) [place] % (Auto) Sodium 135 L Potassium Chloride Carbon Dioxide BUN Creatinine 0.6 L Glucose 122 H POC Glucose 108 H 135 H Hemoglobin A1c Calcium Phosphorus Magnesium C-Reactive Protein Total Protein 5.9 L Albumin 3.2 L Lipase Urine pH Ur Specific [place] 03/05/19 03/05/19 03/05/19 05:58 12:18 17:57 Lymph % (Auto) [place] % (Auto) Sodium Potassium Chloride Carbon Dioxide BUN Creatinine Glucose POC Glucose 134 H 125 H 111 H Hemoglobin A1c Calcium Phosphorus Magnesium C-Reactive Protein Total Protein Albumin Lipase Urine pH Ur Specific [place] 03/06/19 03/06/19 03/06/19 00:15 00:17 06:07 Lymph % (Auto) [place] % (Auto) Sodium Potassium Chloride Carbon Dioxide BUN Creatinine Glucose POC Glucose 172 H 183 H 139 H Hemoglobin A1c Calcium Phosphorus Magnesium C-Reactive Protein Total Protein Albumin Lipase Urine pH Ur Specific [place] 03/06/19 03/06/19 07:21 12:45 Lymph % (Auto) [place] % (Auto) Sodium 134 L Potassium Chloride Carbon Dioxide BUN Creatinine 0.6 L Glucose 154 H POC Glucose 138 H Hemoglobin A1c Calcium Phosphorus Magnesium C-Reactive Protein Total Protein Albumin Lipase Urine pH Ur Specific [place] Laboratory Results - last 24 hr 03/05/19 03/06/19 03/06/19 17:57 00:15 00:17 Sodium Potassium Chloride Carbon Dioxide Anion Gap BUN Creatinine Estimated GFR BUN/Creatinine Ratio Glucose POC Glucose 111 H 172 H 183 H Calcium Phosphorus Magnesium 03/06/19 03/06/19 03/06/19 06:07 07:21 12:45 Sodium 134 L Potassium 4.7 Chloride 98.7 Carbon Dioxide 23 Anion Gap 17 BUN 9 Creatinine 0.6 L Estimated GFR > 60 BUN/Creatinine Ratio 15 Glucose 154 H POC Glucose 139 H 138 H Calcium 8.8 Phosphorus 4.00 Magnesium 2.10
[2019-03-06] MEDS ORDERED: TOTAL PARENTERAL NUTRITION 2,000 ML IV SCH (20:00)
[2019-03-06] MEDS: ENOXAPARIN 40 MG/0.4 ML INJ SUB-Q SCH (21:53)
[2019-03-07] MEDS: METOCLOPRAMIDE 10 MG/2 ML INJ IV SCH ×4 (00:23→18:09)
[2019-03-07 04:51] LABS: BUN/Creatinine Ratio 17; Blood Urea Nitrogen 10 mg/dL (7-17); Calcium 8.9 mg/dL (8.4-10.2); Hemolysis Index 45
[2019-03-07] MEDS: ONDANSETRON 4 MG/2 ML INJ IV SCH ×4 (05:44→21:06)
--- NOTE | 2019-03-07 09:25 | Vascular Lab Report ---
DUPLEX DOPPLER LOWER EXTREMITY VEINS, RIGHT INDICATION: Right tibial vein DVT. TECHNIQUE: Duplex doppler imaging was performed through the veins of the right lower extremity using venous compression and other maneuvers. COMPARISON: 02/25/2019. FINDINGS: Right Common femoral vein: Negative. Right Superficial femoral vein: Negative. Right Popliteal vein: Negative. Right Calf veins: Negative. Additional findings: The previously described small echogenic focus in the right tibial vein is not d emonstrated on today's exam.. IMPRESSION: No sonographic evidence for DVT in the right lower extremity. Signer Name: Sebas Deleon Jr, MD Signed: 03/07/2019 9:21 AM Workstation Name: [id number]
[2019-03-07] MEDS: SCOPOLAMINE TRANSDERMAL PATCH 72 HR TD SCH (09:58)
[2019-03-07] MEDS: PANTOPRAZOLE 40 MG TAB PO SCH (09:58)
[2019-03-07] MEDS: PRENATAL VIT27-FE FUMARATE-FOLIC ACID VIT TAB PO SCH (09:59)
[2019-03-07 11:30] LABS: Creatinine 24 Hour,Urine 1.5 (0.8-2.8); Creatinine,Urine 89.4 mg/dL (0.1-20.0)
--- NOTE | 2019-03-07 13:31 | Discharge Summary ---
Providers - Providers Date of Admission: 02/26/19 17:56 Date of discharge: 03/08/19 Attending physician: LG MORALES 02/22/19 10:30 Consult to Dietitian/Nutrition [CONS] Routine Physician Instructions: Reason For Exam: Reason for Consult: hyper grav Reason for Consult: hyperemesis, 8 wks 02/25/19 14:35 Consult to Dietitian/Nutrition [CONS] Routine Physician Instructions: Reason For Exam: Reason for Consult: Write/Manage TPN/PPN 02/26/19 13:47 Consult to Physician [CONS] Urgent Comment: Consulting Provider: NOREEN BEAN Physician Instructions: Reason For Exam: hellen 02/26/19 13:49 Consult to Physician [CONS] Urgent Comment: Consulting Provider: UVALDO STEINBERG Physician Instructions: Reason For Exam: thrombus in tibia of lady 02/27/19 20:48 Consult to Physician [CONS] Routine Comment: Consulting Provider: ROSA MARIA HONG Physician Instructions: Reason For Exam: lower ext thrombosis 02/28/19 14:23 PICC Line Insertion [Consult to PICC Line RN] [CONS] Stat Reason For Exam: TPN feeding Type Line:: PICC 03/01/19 16:46 Consult to Physician [CONS] Urgent Comment: Consulting Provider: RAY HIGGINS Physician Instructions: Reason For Exam: unretractable nausea and vomiting Primary care physician: BRUNO STEVENS MD Hospitalization Reason for admission: other (nausea and vomiting, ) Procedure details: IV hydration Lower extremity dopplers Pelvic ultrasound Initiation of TPN Hospital course: This patient was admitted with intractable nausea vomiting. Upon admission she received IV hydration as well as IV antiemetics. Internal medicine, gastroenterology, and maternal medicine added recommendations for this patient's care. She was unable to tolerate oral intake and therefore was started on total parenteral nutrition. By 03/08/2019 the patient met discharge criteria as she was maintaining her weight with TPN and her home health provider was ready to assist her on an outpatient basis. The patient will follow-up in the office in 1 week. Condition at discharge: Stable Disposition: [id number] TO HOME OR SELFCARE - Discharge Diagnoses (1) Nausea and vomiting Status: Acute Qualifiers: Vomiting Intractability: unspecified (2) Status: Acute Qualifiers: Weeks of gestation: 10 weeks Qualified Code(s): Z3A.10 - 10 weeks gestation of (3) Obesity Status: Acute Qualifiers: Obesity type: unspecified obesity type Obesity classification: adult class 1 (BMI 30 - 34.9) Serious obesity comorbidity presence: unspecified whether serious comorbidity present Body mass index: BMI 33.0-33.9 Qualified Code(s): E66.9 - Obesity, unspecified; Z68.33 - Body mass index (BMI) 33.0-33.9, adult (4) Hyperemesis Status: Acute (5) On total parenteral nutrition Status: Acute (6) Gestational diabetes Status: Acute Qualifiers: Trimester: first trimester Qualified Code(s): O24.410 - Gestational diabetes mellitus in , diet controlled Plan - Discharge Medications Prescriptions: Enoxaparin [Lovenox] 40 mg SQ QDAY #30 syringe Pantoprazole [Protonix TAB] 40 mg PO QDAY #30 tablet - Provider Discharge Summary Activity: routine Diet: other (Advance diet as tolerated) Additional instructions: [] Smoking cessation referral if applicable(refer to patient education folder for contact #) [] Refer to [facility] Booklet Call your doctor immediately for: * Fever > 100.5 * Heavy vaginal bleeding ( >1 pad per hour) * Severe persistent headache * Shortness of breath * Reddened, hot, painful area to leg or breast * Drainage or odor from incision. * Keep incision clean and dry at all times and follow doctor's instructions regarding bathing/showering - Follow up plan Follow up: BRUNO STEVENS MD [Primary Care Provider] - 7 Days LG MORALES MD [Staff Physician] - 7 Days
[2019-03-07] MEDS ORDERED: FAT EMULSIONS 20% 250 ML IV SCH (20:00)
[2019-03-07] MEDS ORDERED: TOTAL PARENTERAL NUTRITION 2,000 ML IV SCH (20:00)
[2019-03-07] MEDS: ENOXAPARIN 40 MG/0.4 ML INJ SUB-Q SCH (21:06)
--- NOTE | 2019-03-07 21:27 | Event Note ---
Date: 03/07/19 Late entry. On-call MD contacted by [facility] with request to hold pt until tomorrow so she can receive her TPN overnight. They report that tomorrow (03/08/19) their services will be ready to assist the patient at home. Discharge held until tomorrow. Pt aware.
[2019-03-08] MEDS: METOCLOPRAMIDE 10 MG/2 ML INJ IV SCH ×2 (00:41→06:11)
--- NOTE | 2019-03-08 03:03 | Progress Note ---
Assessment and Plan A: IUP at 10w3d Severe Hyperemesis on TPN with plan for home health for outpatient TPN H/o chronic pancreatitis Gestational Diabetes Chronic HTN- no meds presently GERD H/o blood clot on Lovenox prophylaxis P: Plan to discharge pt today on TPN with follow up in [address] Tucker. Subjective - Subjective Date of service: 03/08/19 Principal diagnosis: hyperemesis gravidarum, incidental blood clot Interval history: Pt with no emesis overnight. Home health has been established for outpatient TPN and Zofran via PICC line. She has no new obstetric complaints. Patient reports: no new complaints (right leg tenderness/pain), no loss of fluid, no vaginal bleeding, no contractions Objective - Vital Signs Vital Signs: Vital Signs - 12hr 03/07/19 03/07/19 03/07/19 16:39 20:50 22:00 Temperature 98.5 F 98.6 F Pulse Rate 106 H 94 H Respiratory 16 20 18 Rate Blood Pressure 128/74 101/60 O2 Sat by Pulse 100 100 Oximetry 03/07/19 23:54 Temperature 98.2 F Pulse Rate 104 H Respiratory 20 Rate Blood Pressure 125/74 O2 Sat by Pulse 97 Oximetry - Exam Breasts: deferred Cardiovascular: Regular rate Lungs: Clear to auscultation Abdomen: Present: soft (obese) Extremities: normal - Labs Labs: Abnormal Labs 02/22/19 02/22/19 02/22/19 12:14 12:14 12:50 Lymph % (Auto) 38.8 H [place] % (Auto) 8.6 H Sodium Potassium Chloride Carbon Dioxide 19 L BUN 6 L Creatinine 0.6 L Glucose POC Glucose Hemoglobin A1c Calcium Phosphorus Magnesium C-Reactive Protein Total Protein Albumin Lipase Urine pH 8.0 H Ur Specific [place] 1.032 H Urine Creatinine 02/26/19 02/27/19 02/27/19 09:06 05:43 20:47 Lymph % (Auto) [place] % (Auto) Sodium 136 L Potassium 3.4 L Chloride Carbon Dioxide BUN 4 L 6 L Creatinine 0.6 L 0.6 L Glucose 108 H 139 H POC Glucose 128 H Hemoglobin A1c Calcium Phosphorus Magnesium C-Reactive Protein Total Protein Albumin Lipase Urine pH Ur Specific [place] Urine Creatinine 02/28/19 02/28/19 02/28/19 03:25 05:41 12:53 Lymph % (Auto) [place] % (Auto) Sodium 136 L Potassium Chloride 97.2 L Carbon Dioxide BUN Creatinine 0.5 L Glucose 139 H POC Glucose 142 H 111 H Hemoglobin A1c Calcium Phosphorus Magnesium C-Reactive Protein Total Protein Albumin Lipase Urine pH Ur Specific [place] Urine Creatinine 02/28/19 03/01/19 03/01/19 18:18 00:30 04:00 Lymph % (Auto) [place] % (Auto) Sodium Potassium 3.5 L Chloride Carbon Dioxide BUN Creatinine Glucose 139 H POC Glucose 135 H 136 H Hemoglobin A1c Calcium Phosphorus Magnesium C-Reactive Protein Total Protein Albumin Lipase Urine pH Ur Specific [place] Urine Creatinine 03/01/19 03/02/19 03/02/19 06:12 00:32 03:21 Lymph % (Auto) [place] % (Auto) Sodium Potassium Chloride Carbon Dioxide BUN Creatinine Glucose 116 H POC Glucose 133 H 110 H Hemoglobin A1c Calcium Phosphorus 4.70 H D Magnesium 2.40 H C-Reactive Protein Total Protein Albumin Lipase Urine pH Ur Specific [place] Urine Creatinine 03/02/19 03/02/19 03/03/19 06:25 08:50 00:36 Lymph % (Auto) [place] % (Auto) Sodium Potassium Chloride Carbon Dioxide BUN Creatinine Glucose POC Glucose 121 H 136 H Hemoglobin A1c 6.3 H Calcium Phosphorus Magnesium C-Reactive Protein Total Protein Albumin Lipase Urine pH Ur Specific [place] Urine Creatinine 03/03/19 03/03/19 03/03/19 03:57 06:05 13:25 Lymph % (Auto) [place] % (Auto) Sodium Potassium Chloride Carbon Dioxide BUN Creatinine 0.6 L Glucose 115 H POC Glucose 135 H 111 H Hemoglobin A1c Calcium 8.3 L Phosphorus Magnesium C-Reactive Protein Total Protein Albumin Lipase Urine pH Ur Specific [place] Urine Creatinine 03/03/19 03/04/19 03/04/19 18:20 00:23 05:42 Lymph % (Auto) [place] % (Auto) Sodium 134 L Potassium Chloride Carbon Dioxide 20 L BUN Creatinine 0.6 L Glucose 132 H POC Glucose 112 H 117 H Hemoglobin A1c Calcium Phosphorus Magnesium C-Reactive Protein Total Protein Albumin Lipase Urine pH Ur Specific [place] Urine Creatinine 03/04/19 03/04/19 03/04/19 05:42 06:23 11:37 Lymph % (Auto) [place] % (Auto) Sodium Potassium Chloride Carbon Dioxide BUN Creatinine Glucose POC Glucose 126 H 143 H Hemoglobin A1c Calcium Phosphorus Magnesium C-Reactive Protein 1.50 H Total Protein Albumin Lipase 69 H Urine pH Ur Specific [place] Urine Creatinine 03/04/19 03/05/19 03/05/19 17:15 00:26 05:35 Lymph % (Auto) [place] % (Auto) Sodium 135 L Potassium Chloride Carbon Dioxide BUN Creatinine 0.6 L Glucose 122 H POC Glucose 108 H 135 H Hemoglobin A1c Calcium Phosphorus Magnesium C-Reactive Protein Total Protein 5.9 L Albumin 3.2 L Lipase Urine pH Ur Specific [place] Urine Creatinine 03/05/19 03/05/19 03/05/19 05:58 12:18 17:57 Lymph % (Auto) [place] % (Auto) Sodium Potassium Chloride Carbon Dioxide BUN Creatinine Glucose POC Glucose 134 H 125 H 111 H Hemoglobin A1c Calcium Phosphorus Magnesium C-Reactive Protein Total Protein Albumin Lipase Urine pH Ur Specific [place] Urine Creatinine 03/06/19 03/06/19 03/06/19 00:15 00:17 06:07 Lymph % (Auto) [place] % (Auto) Sodium Potassium Chloride Carbon Dioxide BUN Creatinine Glucose POC Glucose 172 H 183 H 139 H Hemoglobin A1c Calcium Phosphorus Magnesium C-Reactive Protein Total Protein Albumin Lipase Urine pH Ur Specific [place] Urine Creatinine 03/06/19 03/06/19 03/06/19 07:21 09:05 12:45 Lymph % (Auto) [place] % (Auto) Sodium 134 L Potassium Chloride Carbon Dioxide BUN Creatinine 0.6 L Glucose 154 H POC Glucose 138 H Hemoglobin A1c Calcium Phosphorus Magnesium C-Reactive Protein Total Protein Albumin Lipase Urine pH Ur Specific [place] Urine Creatinine 89.4 H 03/07/19 03/07/19 03/07/19 00:35 04:12 06:14 Lymph % (Auto) [place] % (Auto) Sodium 135 L Potassium Chloride Carbon Dioxide BUN Creatinine 0.6 L Glucose 143 H POC Glucose 152 H 176 H Hemoglobin A1c Calcium Phosphorus Magnesium C-Reactive Protein Total Protein Albumin Lipase Urine pH Ur Specific [place] Urine Creatinine 03/07/19 03/08/19 03/08/19 12:48 00:54 03:00 Lymph % (Auto) [place] % (Auto) Sodium Potassium Chloride Carbon Dioxide BUN Creatinine Glucose POC Glucose 156 H 205 H 178 H Hemoglobin A1c Calcium Phosphorus Magnesium C-Reactive Protein Total Protein Albumin Lipase Urine pH Ur Specific [place] Urine Creatinine Laboratory Results - last 24 hr 03/06/19 03/07/19 03/07/19 09:05 04:12 06:14 Sodium 135 L Potassium 4.6 Chloride 101.4 Carbon Dioxide 25 Anion Gap 13 BUN 10 Creatinine 0.6 L Estimated GFR > 60 BUN/Creatinine Ratio 17 Glucose 143 H POC Glucose 176 H Calcium 8.9 Phosphorus 4.40 Magnesium 2.10 Urine Total Volume 1650 Urine Creatinine 89.4 H Ur Creatinine 24 Hour 1.5 Ur Total Protein 24 Hr 165.00 Urine Total Protein 10 03/07/19 03/07/19 03/08/19 12:48 18:44 00:54 Sodium Potassium Chloride Carbon Dioxide Anion Gap BUN Creatinine Estimated GFR BUN/Creatinine Ratio Glucose POC Glucose 156 H 74 205 H Calcium Phosphorus Magnesium Urine Total Volume Urine Creatinine Ur Creatinine 24 Hour Ur Total Protein 24 Hr Urine Total Protein 03/08/19 03:00 Sodium Potassium Chloride Carbon Dioxide Anion Gap BUN Creatinine Estimated GFR BUN/Creatinine Ratio Glucose POC Glucose 178 H Calcium Phosphorus Magnesium Urine Total Volume Urine Creatinine Ur Creatinine 24 Hour Ur Total Protein 24 Hr Urine Total Protein
[2019-03-08 04:51] LABS: BUN/Creatinine Ratio 17; Blood Urea Nitrogen 10 mg/dL (7-17); Calcium 8.6 mg/dL (8.4-10.2); Hemolysis Index 3
[2019-03-08] MEDS: ONDANSETRON 4 MG/2 ML INJ IV SCH (06:00)
--- NOTE | 2019-03-08 07:19 | Hem/Onc Progress Note ---
Assessment and Plan repeat leg doppler - no DVT first in sep - there was a question of DVT Hyperemesis - seen by GI HTN h/o pancreatitis as no DVT - Will sign off - Patient Problems (1) DVT (deep vein thrombosis) in Status: Acute Subjective Date of service: 03/08/19 Principal diagnosis: ? DVT Interval history: repeat dvt study negative Objective - Exam Narrative Exam: Pain - none General appearance - stable Performance status limited self care Eyes - no icterus ENT - no bleeding LNs cervical not palpable Neck - no LN Respiratory Normal Breath sounds - CTA anteriorly CVS S1 S2 + Extremities no edema General GI Soft - Rectal deferred female - deferred Skin warm Musculoskeletal moves limbs Neurologically - alert awake - Constitutional Vitals: Last Vital Signs Temp 98.2 F 03/08/19 04:37 Pulse 94 H 03/08/19 04:37 Resp 18 03/08/19 04:37 BP 111/57 03/08/19 04:37 Pulse Ox 100 03/08/19 04:37 - Labs Lab Results: Laboratory Results - last 24 hr 03/06/19 03/07/19 03/07/19 09:05 12:48 18:44 Sodium Potassium Chloride Carbon Dioxide Anion Gap BUN Creatinine Estimated GFR BUN/Creatinine Ratio Glucose POC Glucose 156 H 74 Calcium Phosphorus Magnesium Urine Total Volume 1650 Urine Creatinine 89.4 H Ur Creatinine 24 Hour 1.5 Ur Total Protein 24 Hr 165.00 Urine Total Protein 03/08/19 03/08/19 03/08/19 00:54 03:00 03:35 Sodium 133 L Potassium 3.8 Chloride 99.2 Carbon Dioxide 23 Anion Gap 15 BUN 10 Creatinine 0.6 L Estimated GFR > 60 BUN/Creatinine Ratio 17 Glucose 161 H POC Glucose 205 H 178 H Calcium 8.6 Phosphorus 2.90 D Magnesium 1.80 Urine Total Volume Urine Creatinine Ur Creatinine 24 Hour Ur Total Protein 24 Hr Urine Total Protein 03/08/19 03/08/19 06:24 06:30 Sodium Potassium Chloride Carbon Dioxide Anion Gap BUN Creatinine Estimated GFR BUN/Creatinine Ratio Glucose POC Glucose 231 H 234 H Calcium Phosphorus Magnesium Urine Total Volume Urine Creatinine Ur Creatinine 24 Hour Ur Total Protein 24 Hr Urine Total Protein Medications & Allergies - Medications Allergies/Adverse Reactions: Allergies No Known Allergies Allergy (Verified 03/14/15 10:02) Home Medications: Home Medications Medication Instructions Recorded Confirmed Last Taken Type Nitrofurantoin [place]/M-Cryst 100 mg PO Q12HR #10 capsule 02/13/19 02/26/19 Unknown Rx [Macrobid CAP] Ondansetron [Zofran Odt] 4 mg PO Q8HR PRN #10 tab.rapdis 02/13/19 02/26/19 Unknown Rx Enoxaparin [Lovenox] 40 mg SQ QDAY #30 syringe 03/07/19 Unknown Rx Pantoprazole [Protonix TAB] 40 mg PO QDAY #30 tablet 03/07/19 Unknown Rx Active Medications: Generic Name Dose Route Start Last Admin Trade Name Freq PRN Reason Stop Dose Admin Enoxaparin Sodium 40 mg 03/03/19 22:00 03/07/19 21:06 Lovenox SUB-Q 40 mg QDAY@2200 ASPEN Administration Amino Acids/Electrolytes/Dextrose 2,000 mls @ 0 mls/hr 03/07/19 20:00 03/07/19 20:08 Tpn Adult IV 03/08/19 08:01 100 mls/hr DAILY@1999 ASPEN Administration Protocol As Directed Fat Emulsion Intravenous 250 mls @ 21 mls/hr 03/07/19 20:00 03/07/19 20:04 Intralipid 20% IV 03/08/19 08:00 21 mls/hr DAILY@2000 ASPEN Administration Metoclopramide HCl 10 mg 02/24/19 18:00 03/08/19 06:11 Reglan IV 10 mg Q6H ASPEN Administration Multivitamins/Iron/Calcium 1 each 02/23/19 10:00 03/07/19 09:59 Vitamin PO Not Given QDAY ASPEN Ondansetron HCl 4 mg 02/24/19 15:00 03/08/19 06:00 Zofran IV Not Given Q6H ASPEN Pantoprazole Sodium 40 mg 03/02/19 20:00 03/07/19 09:58 Protonix PO 40 mg QDAY ASPEN Administration Scopolamine 1 each 02/23/19 09:00 03/07/19 09:58 Transderm-Scop TD 1 each Q3D ASPEN Administration
[2019-03-08 10:15] VITALS: BP 116/80
== END 2019-03-08 10:30 | disposition home health service (06) | DRG 781 ==
LOC: UNDOADMOB 10:28 → 3A 10:28 → OB 11:55 → OBSVTOIN 02-26 17:56
PROVIDERS: ADMIT Obstetrics & Gynecology; ATTEND Obstetrics & Gynecology
PROC: 02HV33Z Insertion of Infusion Device into Superior Vena Cava, Percutaneous Approach (ICD-10-PCS; principal; 2019-02-28)
PROC: 3E0436Z Introduction of Nutritional Substance into Central Vein, Percutaneous Approach (ICD-10-PCS; 2019-02-28)
DX: O21.0 Mild hyperemesis gravidarum (principal); K21.9 Gastro-esophageal reflux disease without esophagitis; O10.011 Pre-existing essential hypertension complicating pregnancy, first trimester; O99.611 Diseases of the digestive system complicating pregnancy, first trimester; O22.31 Deep phlebothrombosis in pregnancy, first trimester; I82.541 Chronic embolism and thrombosis of right tibial vein; O99.211 Obesity complicating pregnancy, first trimester; O23.41 Unspecified infection of urinary tract in pregnancy, first trimester; K86.1 Other chronic pancreatitis; Z3A.09 9 weeks gestation of pregnancy; Z90.49 Acquired absence of other specified parts of digestive tract; O24.410 Gestational diabetes mellitus in pregnancy, diet controlled
CPT/HCPCS: 36415; 76705; 76815; 80048; 80053; 80074; 81001; 82010; 82150; 82570; 82962; 83036; 83690; 83735; 84100; 84156; 84443; 84478; 85025; 86140; 93970; G0378; G0379; J0696; J1650; J1720; J2270; J2405; J2765; J7121

== ENCOUNTER 2019-03-17 16:08 | Inpatient (IN) | payer OTHER ==
--- NOTE | 2019-03-17 16:59 | Event Note ---
ED Screening Note Date of service: 03/17/19 Time: 16:53 ED Screening Note: This is a 33 y.o. F. that presents to the ER with hyperglycemia for 4-5 days. PMH of gestational diabetes & HTN Patient is 11 weeks gestation and diagnosed with hyperemesis gravidarum. Patient states she was discharged home with TPN and glucose remains elevated. This initial assessment/diagnostic orders/clinical plan/treatment(s) is/are subject to change based on patients health status, clinical progression and re- assessment by fellow clinical providers in the ED. Further treatment and workup at subsequent clinical providers discretion. Patient/guardian urged not to elope from the ED as their condition may be serious if not clinically assessed and managed. Initial orders include: Accucheck 128 Labs
[2019-03-17 17:36] LABS: Basophils % (Auto) 0.6 % (0.0-1.8); Eosinophils # (Auto) 0.1 K/mm3 (0.0-0.4); Eosinophils % (Auto) 1.3 % (0.0-4.3); Hematocrit 35.1 % (30.3-42.9); Lymphocytes # (Auto) 2.4 K/mm3 (1.2-5.4); Lymphocytes % (Auto) 27.7 % (13.4-35.0); Mean Corpuscular HGB Conc 34 % (30-34); Mean Corpuscular Volume 90 fl (79-97); Monocytes # (Auto) 0.5 K/mm3 (0.0-0.8); Platelet Count 315 K/mm3 (140-440); Red Blood Count 3.89 M/mm3 (3.65-5.03); Red Cell Distribution Width 14.2 % (13.2-15.2)
[2019-03-17 17:57] LABS: BUN/Creatinine Ratio 22; Blood Urea Nitrogen 11 mg/dL (7-17); Calcium 8.6 mg/dL (8.4-10.2); Hemolysis Index 90
--- NOTE | 2019-03-17 18:46 | Emergency Department Report ---
ED General Adult HPI - General Chief complaint: Hyperglycemia Stated complaint: 11 WEEKS /CANT KEEP NOTHING DOWN/SENT BY D Time Seen by Provider: 03/17/19 16:53 Source: patient Mode of arrival: Ambulatory Limitations: No Limitations - History of Present Illness Initial comments: Helga is a 33 yo female who is 11 weeks . She has history of gestational diabetes and hypertension. She presents with elevated blood sugar readings at home BG range from 200-279. She is taking home TPN at night from 8P to 8A due to severe nausea and 30 pound weight loss during the first trimester of her . Home health nurse contacted grill chef Dr. Couch. Dr. Couch recommended ED evaluation. She has mild right throbbing headache for the past 2 days. She denies fever, abdominal pain, chest pain, shortness of breath. She has LUE PICC line. She receives IV zofran g4h. She is also on Lovenox of RLE DVT. -: Gradual, days(s) (5) Consistency: constant Improves with: none Worsens with: none Associated Symptoms: headaches - Related Data Home Medications Medication Instructions Recorded Confirmed Last Taken Total Parenteral Nutrition [TPN 0 ml IV DAILY@199903/17/19 03/17/19 Unknown Adult] Previous Rx's Medication Instructions Recorded Last Taken Type Enoxaparin [Lovenox] 40 mg SQ QDAY #30 syringe 03/07/19 Unknown Rx Allergies Allergy/AdvReac Type Severity Reaction Status Date / Time No Known Allergies Allergy Verified 03/14/15 10:02 ED Review of Systems ROS: Stated complaint: 11 WEEKS /CANT KEEP NOTHING DOWN/SENT BY D Other details as noted in HPI Comment: All other systems reviewed and negative Constitutional: denies: fever, malaise Respiratory: denies: cough Cardiovascular: denies: chest pain Gastrointestinal: nausea. denies: abdominal pain Neurological: headache ED Past Medical Hx - Past Medical History Previous Medical History?: Yes Hx Hypertension: Yes Hx Congestive Heart Failure: No Hx Diabetes: Yes (gestational diabetes) Hx Deep Vein Thrombosis: No Hx Renal Disease: No Hx Sickle Cell Disease: No Hx Seizures: Yes (as a child) Hx Asthma: No Hx COPD: No Hx HIV: No Additional medical history: Vaginal delivery 03-03-14 - Surgical History Past Surgical History?: Yes Hx Pacemaker: No Hx Internal Defibrillator: No Hx Cholecystectomy: Yes - Family History Family history: hypertension - Social History Smoking Status: Never Smoker Substance Use Type: None - Medications Home Medications: Home Medications Medication Instructions Recorded Confirmed Last Taken Type Enoxaparin [Lovenox] 40 mg SQ QDAY #30 syringe 03/07/19 03/17/19 Unknown Rx Total Parenteral Nutrition [TPN 0 ml IV DAILY@199903/17/19 03/17/19 Unknown History Adult] ED Physical Exam - General Limitations: No Limitations General appearance: alert, in no apparent distress, other (appears well, appears comfortable) - Head Head exam: Present: atraumatic, normocephalic - Eye Eye exam: Present: normal appearance - ENT ENT exam: Present: mucous membranes moist - Neck Neck exam: Present: normal inspection, full ROM - Respiratory Respiratory exam: Present: normal lung sounds bilaterally. Absent: respiratory distress, wheezes, rales, rhonchi - Cardiovascular Cardiovascular Exam: Present: regular rate, normal rhythm, normal heart sounds. Absent: systolic murmur, diastolic murmur, rubs, gallop - GI/Abdominal GI/Abdominal exam: Present: soft, normal bowel sounds. Absent: distended, tenderness, guarding, rebound - Extremities Exam Extremities exam: Present: normal inspection - Back Exam Back exam: Present: normal inspection - Neurological Exam Neurological exam: Present: alert, oriented X3 - Psychiatric Psychiatric exam: Present: normal affect, normal mood - Skin Skin exam: Present: warm, dry, intact, normal color. Absent: rash ED Course Vital Signs 03/17/19 16:54 Temperature 99 F Pulse Rate 109 H Respiratory 16 Rate Blood Pressure 146/97 [Left] O2 Sat by Pulse 100 Oximetry ED Medical Decision Making - Lab Data Result diagrams: 03/17/19 17:06 03/17/19 17:06 - Medical Decision Making Kerri is currently 11 weeks . She is being treated with TPN for weight loss and severe hyperemesis gravidarum. She has elevated blood glucose readings at home. According to labs drawn in ED, Blood glucose ranged from 118- 128. Bicarbonate 20. Anion gap 18. IVF started in the ED. Dr. Couch will admit to mother baby for treatment of gestational diabetes Critical care attestation.: If time is entered above; I have spent that time in minutes in the direct care of this critically ill patient, excluding procedure time. ED Disposition Clinical Impression: Gestational diabetes, Hyperemesis, , On total parenteral nutrition Disposition: 09 OP ADMIT IP TO THIS HOSP Is pt being admited?: Yes Does the pt Need Aspirin: No Condition: Stable
[2019-03-17] MEDS ORDERED: NACL 0.9% 500 ML 500 ML IV ONE (18:47)
[2019-03-17] MEDS: NACL 0.9% 1000 ML 1,000 ML IV SCH (22:52)
[2019-03-17] MEDS: ZOFRAN IV PRN (23:30)
[2019-03-17] MEDS ORDERED: D50W (25GM) Syringe IV PRN (23:31)
[2019-03-18] MEDS: HumuLIN R SUB-Q SCH ×6 (02:09→21:19)
[2019-03-18 06:52] LABS: BUN/Creatinine Ratio 14; Blood Urea Nitrogen 7 mg/dL (7-17); Calcium 7.9 mg/dL (8.4-10.2); Hemolysis Index 0
[2019-03-18] MEDS: ZOFRAN IV PRN ×3 (08:34→20:57)
--- NOTE | 2019-03-18 08:40 | History and Physical Report ---
History of Present Illness Date of examination: 03/18/19 Date of admission: 03/17/19 18:48 Chief complaint: elevated Blood sugars at home reported by home nurse History of present illness: Helga is a 33 yo female who is 11 weeks . She has history of gestational diabetes and hypertension. She presents with elevated blood sugar readings at home BG range from 200-279. She is taking home TPN at night from 8P to 8A due to severe nausea and 30 pound weight loss during the first trimester of her . Home health nurse contacted sewer and drain technician . U am covering and recommended ED evaluation. She has mild right throbbing headache for the past 2 days. She denies fever, abdominal pain, chest pain, shortness of breath. Past History Past Medical History: no pertinent history, hypertension, diabetes Past Surgical History: no surgical history Social history: . denies: smoking, alcohol abuse, prescription drug abuse - Obstetrical History : 3 Medications and Allergies Allergies Allergy/AdvReac Type Severity Reaction Status Date / Time No Known Allergies Allergy Verified 03/14/15 10:02 Home Medications Medication Instructions Recorded Confirmed Last Taken Type Enoxaparin [Lovenox] 40 mg SQ QDAY #30 syringe 03/07/19 03/17/19 Unknown Rx Ondansetron [Zofran Oral Liq] 4 mg IV Q4HR 03/17/19 03/17/19 Unknown History Total Parenteral Nutrition [TPN 0 ml IV DAILY@199903/17/19 03/17/19 Unknown H istory Adult] Active Meds: Active Medications Dextrose (D50w (25gm) Syringe) 0 ml IV Q30MIN PRN PRN Reason: Hypoglycemia Sodium Chloride (Nacl 0.9% 1000 Ml) 1,000 mls @ 75 mls/hr IV DIRECT ASPEN Last Admin: 03/17/19 22:52 Dose: 75 mls/hr Documented by: Insulin Human Regular (Humulin R) 0 units SUB-Q Q4H ASPEN; Protocol Last Admin: 03/18/19 05:44 Dose: Not Given Documented by: Ondansetron HCl (Zofran) 8 mg IV Q6H PRN PRN Reason: Nausea Last Admin: 03/18/19 08:34 Dose: 8 mg Documented by: Review of Systems All systems: negative - Vital Signs Vital signs: Vital Signs Temp Pulse Resp BP Pulse Ox 99 F 109 H 16 146/97 100 03/17/19 16:54 03/17/19 16:54 03/17/19 16:54 03/17/19 16:54 03/17/19 16:54 Temp Pulse Resp BP Pulse Ox 98.0 F 93 H 20 115/75 96 03/18/19 04:42 03/18/19 04:42 03/18/19 04:42 03/18/19 04:42 03/18/19 04:42 - Physical Exam Breasts: Positive: normal Cardiovascular: Regular rate, Normal S1 Lungs: Positive: Clear to auscultation, Normal air movement Abdomen: Positive: normal appearance, soft, normal bowel sounds. Negative: distention, tenderness, guarding Genitourinary (Female): Positive: normal external genitalia, normal perenium Vagina: Positive: normal moisture Uterus: Positive: normal size Anus/Rectum: Positive: normal perianal skin Extremities: Positive: normal Deep Tendon Reflex Grade: Normal +2 Results Result Diagrams: 03/17/19 17:06 03/18/19 05:46 Abnormal lab results 03/17/19 03/17/19 03/18/19 Range/Units 16:22 17:06 00:00 Sodium 135 L (137-145) mmol/L Carbon Dioxide 20 L (22-30) mmol/L Creatinine 0.5 L (0.7-1.2) mg/dL Glucose 118 H (65-100) mg/dL POC Glucose 128 H 122 H (70-105) Calcium (8.4-10.2) mg/dL 03/18/19 03/18/19 03/18/19 Range/Units 04:00 05:46 08:36 Sodium 135 L (137-145) mmol/L Carbon Dioxide 21 L (22-30) mmol/L Creatinine 0.5 L (0.7-1.2) mg/dL Glucose 141 H (65-100) mg/dL POC Glucose 117 H 137 H (70-105) Calcium 7.9 L (8.4-10.2) mg/dL All other labs normal. Assessment and Plan A/P HD#1 for evaluation of elevated glucose 250s admitted for diabetic teaching, control of blood sugars mgt, consult with hospitalist Dr. GRIGSBY nutrition consult to continue TPN antiemetics given
--- NOTE | 2019-03-18 10:43 | Ultrasound Report ---
OB ultrasound FINDINGS: Single fetus is identified. Appropriate measurements reveal an MA of 11 weeks 3 days for an PATRICIA of 10/04/2019. This correlates with the clinical dates. heart rate is 166 bpm. The right ova ry is normal. Left ovary contains a 2.1 cm cyst. Cervix is closed measuring 3.6 cm. No hemorrhage or free fluid. No abnormality seen. Signer Name: Aba Rocha MD Signed: 03/18/2019 10:39 AM Workstation Name: [id number]
--- NOTE | 2019-03-18 10:48 | Consultation ---
DOCTOR REQUESTING THE CONSULT: Dr. Ngoc Couch. REASON FOR CONSULT: Management of gestational diabetes in a 11-week lady. HISTORY OF PRESENT ILLNESS: The patient is a 33-year-old female, who is in 11th week of , presenting with the elevated blood sugar running from about 200 to 279. The patient said that she usually have normal sugar level when she is not , but whenever she is , her sugar starts going up and the patient is having the symptoms of with vomiting and inability to keep anything down and as such, the patient was started on TPN and the patient said that since she started TPN about 2-3 weeks ago, that her blood sugar has been running high and she has lost about 30 pounds of weight during this first trimester of . There is no history of fever or chills. No history of chest pain, shortness of breath, nausea, or vomiting; however, patient has a headache going on for about 2 days. PAST MEDICAL HISTORY: Pertinent for hypertension and gestational diabetes mellitus. Also, the patient has past history of seizure as a child. PAST SURGICAL HISTORY: Pertinent for 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. FAMILY HISTORY: Pertinent for hypertension. SOCIAL HISTORY: The patient does not smoke, does not drink alcohol, and does not use illicit drug. MEDICATIONS: The patient is on total parenteral nutrition through the intravenous route. Also, the patient is on Lovenox 40 mg subcutaneous daily. ALLERGIES: There are no known drug allergy. REVIEW OF SYSTEMS: CONSTITUTIONAL: There is no fever, no chills, and no diaphoresis. HEENT: There is headache, but no sore throat. CARDIOVASCULAR SYSTEM: There is no chest pain or orthopnea. RESPIRATORY SYSTEM: There is no shortness of breath or cough. GASTROINTESTINAL SYSTEM: There is nausea and vomiting, but no abdominal pain, diarrhea, or constipation. NEUROLOGICAL SYSTEM: There is no numbness, no dizziness, and no altered mental status. MUSCULOSKELETAL SYSTEM: There is no joint pain or swelling. DERMATOLOGICAL SYSTEM: There is no skin rash or itching. GENITOURINARY SYSTEM: There is no dysuria, hematuria, or flank pain. Rest of system review is normal. PHYSICAL EXAMINATION: GENERAL: At the time of exam, the patient was found to be alert and oriented x 3 and not in acute distress. VITAL SIGNS: Shows temperature of 98.9 degrees Fahrenheit, pulse of 89, respiration 18, blood pressure of 153/99, and O2 sat of 100% on the room air. HEENT: Showed pupils to be equal, round, and reactive to light and accommodating. The extraocular muscles are intact. NECK: Supple with no JVD or carotid bruit. CARDIOVASCULAR SYSTEM: Show normal first and second heart sounds with no gallops or murmurs. RESPIRATORY SYSTEM: Show good air entry on both sides of the lungs with no abnormal breath sounds. GASTROINTESTINAL SYSTEM: Show abdomen to be enlarged, most likely due to with no organomegaly or rigidity. NEUROLOGIC: Shows no focal deficit. MUSCULOSKELETAL SYSTEM: Show no joint swelling or tenderness. DERMATOLOGICAL SYSTEM: Showing no skin rash. GENITOURINARY SYSTEM: Showing no costovertebral angle tenderness. PERTINENT LABORATORY AND IMAGING STUDIES: The patient has CBC done, which came back unremarkable. The patient's chemistry shows a slight decrease in sodium level of 135 with low CO2 of 20 and the unremarkable renal function test. The patient's blood glucose at this time is 118-128. Rest of chemistry is unremarkable. DIAGNOSIS: Hyperglycemia during , most likely gestational diabetes. PLAN OF CARE: The patient will be placed on Accu-Chek every 4 hours since she is unable to keep anything down and will have a sliding scale low-dose type covered with regular insulin. Also, the patient will have basic metabolic panel checked this morning and will continue her TPN and the Hospitalist group will follow. JOB# [id number] OCN/NTS
[2019-03-18] MEDS: PROTONIX PO SCH (11:25)
[2019-03-18] MEDS: NACL 0.9% 1000 ML 1,000 ML IV SCH (11:27)
--- NOTE | 2019-03-18 12:24 | Event Note ---
Date: 03/18/19 Pt seen and exAMINED BG much improved with SSI cont to provide supportive care
[2019-03-18] MEDS ORDERED: TPN ADULT 2,000 ML IV SCH (20:00)
[2019-03-18] MEDS: ENOXAPARIN SUB-Q SCH (22:04)
[2019-03-19] MEDS: HumuLIN R SUB-Q SCH ×5 (01:39→22:10)
[2019-03-19] MEDS: ZOFRAN IV PRN ×3 (04:43→22:13)
[2019-03-19 06:37] LABS: BUN/Creatinine Ratio 15; Blood Urea Nitrogen 9 mg/dL (7-17); Calcium 8.4 mg/dL (8.4-10.2); Hemolysis Index 0
--- NOTE | 2019-03-19 08:24 | Progress Note ---
Assessment and Plan A: IUP at 12w0d Hyperemsis on TPN GDM with hyperglycemia, values much improved on sliding scale insulin Bilateral calf pain, right greater than left; h/p chronic lower extremity clot, on prophylactic Lovenox Obesity P: Continue current care Nutrition consult Medicine consult Bilateral lower extremity dopplers Closely monitor clinical status Possible discharge tomorrow Subjective - Subjective Date of service: 03/19/19 Principal diagnosis: IUP at 12wks, Hyperemesis, GDM, Hyperglycemia Interval history: Pt without complaints. She tolerated aust[place] toast, mashed potatoes and meatballs yesterday. Glucose has been much improved from values reported at home. No obstetric complaints. Patient reports: no new complaints Objective - Vital Signs Vital Signs: Vital Signs - 12hr 03/19/19 03/19/19 00:27 04:20 Temperature 98.0 F 98.1 F Pulse Rate 88 82 Respiratory 20 18 Rate Blood Pressure 123/70 111/69 O2 Sat by Pulse 98 99 Oximetry - Exam Breasts: deferred Cardiovascular: Regular rate Lungs: Clear to auscultation Abdomen: Present: soft (obese) Extremities: other (soreness of both extremities (right greater than left) ) - Labs Labs: Abnormal Labs 03/17/19 03/17/19 03/18/19 16:22 17:06 00:00 Sodium 135 L Carbon Dioxide 20 L Creatinine 0.5 L Glucose 118 H POC Glucose 128 H 122 H Calcium 03/18/19 03/18/19 03/18/19 04:00 05:46 08:36 Sodium 135 L Carbon Dioxide 21 L Creatinine 0.5 L Glucose 141 H POC Glucose 117 H 137 H Calcium 7.9 L 03/18/19 03/18/19 03/19/19 17:25 21:19 01:39 Sodium Carbon Dioxide Creatinine Glucose POC Glucose 108 H 148 H 145 H Calcium 03/19/19 03/19/19 05:30 06:16 Sodium 134 L Carbon Dioxide 20 L Creatinine 0.6 L Glucose 139 H POC Glucose 151 H Calcium Laboratory Results - last 24 hr 03/18/19 03/18/19 03/18/19 08:36 10:35 12:31 Sodium Potassium Chloride Carbon Dioxide Anion Gap BUN Creatinine Estimated GFR BUN/Creatinine Ratio Glucose POC Glucose 137 H 104 Calcium Phosphorus 3.40 Magnesium 1.70 Total Bilirubin 0.40 03/18/19 03/18/19 03/19/19 17:25 21:19 01:39 Sodium Potassium Chloride Carbon Dioxide Anion Gap BUN Creatinine Estimated GFR BUN/Creatinine Ratio Glucose POC Glucose 108 H 148 H 145 H Calcium Phosphorus Magnesium Total Bilirubin 03/19/19 03/19/19 05:30 06:16 Sodium 134 L Potassium 4.0 Chloride 100.2 Carbon Dioxide 20 L Anion Gap 18 BUN 9 Creatinine 0.6 L Estimated GFR > 60 BUN/Creatinine Ratio 15 Glucose 139 H POC Glucose 151 H Calcium 8.4 Phosphorus 3.70 Magnesium 2.10 Total Bilirubin
[2019-03-19] MEDS: PROTONIX PO SCH (10:00)
[2019-03-19] MEDS ORDERED: CATHFLO IV ONE (11:00)
--- NOTE | 2019-03-19 12:20 | Vascular Lab Report ---
DUPLEX DOPPLER LOWER EXTREMITY VEINS, BILATERAL INDICATION: Bilateral leg pain, h/o chronic right clot, pregn. TECHNIQUE: Duplex doppler imaging was performed through the veins of both lower extremities using ve nous compression and other maneuvers. COMPARISON: No relevant prior imaging study available. FINDINGS: Right Common femoral vein: Negative. Right Superficial femoral vein: Negative. Right Popliteal vein: Negative. Right Calf veins: Negative. Left Common femoral vein: Negative. Left Superficial femoral vein: Negative. Left Popliteal vein: Negative. Left Calf veins: Negative. Additional findings: None.. IMPRESSION: No sonographic evidence for DVT in either lower extremity. Signer Name: Sebas Deleon Jr, MD Signed: 03/19/2019 12:16 PM Workstation Name: [id number]
[2019-03-19] MEDS ORDERED: TYLENOL PO PRN (13:11)
--- NOTE | 2019-03-19 15:42 | Progress Note ---
Assessment and Plan IUP at 12w0d - Management per primary Hyperemsis - unable to tolerate by mouth, placed on TPN by primary GDM with hyperglycemia, monitor blood glucose with sliding scale insulin Obesity, dietary indication - Continue supportive care and medical management, monitor blood glucose with sliding scale - will continue to follow along with you Subjective Date of service: 03/19/19 Principal diagnosis: IUP at 12wks, Hyperemesis, GDM, Hyperglycemia Interval history: Patient seen and examined. Medical records and medication list reviewed. No acute event overnight noted by the RN. Patient denies any chest pain or difficulty breathing. Patient is not tolerating diet very well. Discussed plan of care at bedside with patient. Objective - Exam Narrative Exam: GENERAL: well-developed and well-nourished -[place] female lying on bed appeared to be in no discomfort. HEENT: Normocephalic. Atraumatic. No conjunctival congestion or icterus. Patient has moist mucous membranes. NECK: Supple. Trachea midline. CHEST/LUNGS: Clear to auscultated bilaterally, breathing nonlabored. No wheezes crackles or rhonchi. HEART/CARDIOVASCULAR: Regular in rate and rhythm. S1 and S2 positive. ABDOMEN: Abdomen is soft, nontender. Patient has normal bowel sounds. SKIN: There is no rash. Warm and dry. NEURO: No focal motor deficit. Follows command. MUSCULOSKELETAL: No joint effusion or tenderness. EXTRIMITY: No edema, no cyanosis or clubbing. PSYCH: Cooperative. - Constitutional Vitals: Vital Signs - 12hr 03/19/19 03/19/19 03/19/19 04:20 08:13 12:16 Temperature 98.1 F 98.9 F 98.9 F Pulse Rate 82 94 H 96 H Respiratory 18 18 18 Rate Blood Pressure 111/69 120/79 136/88 O2 Sat by Pulse 99 97 100 Oximetry - Labs CBC & Chem 7: 03/17/19 17:06 03/20/19 03:53 Labs: Abnormal lab results 03/18/19 03/18/19 03/19/19 Range/Units 17:25 21:19 01:39 Sodium (137-145) mmol/L Carbon Dioxide (22-30) mmol/L Creatinine (0.7-1.2) mg/dL Glucose (65-100) mg/dL POC Glucose 108 H 148 H 145 H (70-105) 03/19/19 03/19/19 03/19/19 Range/Units 05:30 06:16 10:17 Sodium 134 L (137-145) mmol/L Carbon Dioxide 20 L (22-30) mmol/L Creatinine 0.6 L (0.7-1.2) mg/dL Glucose 139 H (65-100) mg/dL POC Glucose 151 H 108 H (70-105) 03/19/19 Range/Units 14:22 Sodium (137-145) mmol/L Carbon Dioxide (22-30) mmol/L Creatinine (0.7-1.2) mg/dL Glucose (65-100) mg/dL POC Glucose 152 H (70-105)
[2019-03-19] MEDS ORDERED: TPN ADULT 2,000 ML IV SCH (20:00)
[2019-03-19] MEDS: ENOXAPARIN SUB-Q SCH (22:13)
[2019-03-20] MEDS: HumuLIN R SUB-Q SCH ×3 (03:13→14:58)
[2019-03-20 04:59] LABS: BUN/Creatinine Ratio 18; Blood Urea Nitrogen 11 mg/dL (7-17); Calcium 8.3 mg/dL (8.4-10.2); Hemolysis Index 6
[2019-03-20] MEDS: ZOFRAN IV PRN ×2 (06:00→12:33)
--- NOTE | 2019-03-20 08:44 | Progress Note ---
Assessment and Plan A: IUP at 12w0d Hyperemsis on TPN GDM with hyperglycemia, values much improved on sliding scale insulin Bilateral calf pain, right greater than left; h/p chronic lower extremity clot, on prophylactic Lovenox Obesity P: Continue current care Nutrition consult Medicine consult Bilateral lower extremity dopplers Will consult with medicine for possible discharge home today Subjective - Subjective Date of service: 03/20/19 Principal diagnosis: IUP at 12wks, Hyperemesis, GDM, Hyperglycemia Interval history: Helga is a 33 yo female who is 11 weeks . She has history of gestational diabetes and hypertension. She presents with elevated blood sugar readings at home BG range from 200-279. She is taking home TPN at night from 8P to 8A due to severe nausea and 30 pound weight loss during the first trimester of her . Home health nurse contacted [facility] am angel[facility] and recommended ED evaluation. She has mild right throbbing headache for the past 2 days. She denies fever, abdominal pain, chest pain, shortness of breath. Patient reports: no new complaints, no loss of fluid, no vaginal bleeding, no contractions Objective - Vital Signs Vital Signs: Vital Signs - 12hr 03/20/19 03/20/19 01:16 05:21 Temperature 98.3 F 98.5 F Pulse Rate 82 Respiratory 20 20 Rate Blood Pressure 125/72 110/74 O2 Sat by Pulse 96 97 Oximetry - Exam Breasts: normal Cardiovascular: Regular rate, Normal S1 Lungs: Clear to auscultation, Normal air movement Abdomen: Present: normal appearance, soft, normal bowel sounds. Absent: distention, tenderness, guarding Vulva: both: normal Uterus: Present: normal, firm Extremities: normal - Labs Labs: Abnormal Labs 03/17/19 03/17/19 03/18/19 16:22 17:06 00:00 Sodium 135 L Carbon Dioxide 20 L Creatinine 0.5 L Glucose 118 H POC Glucose 128 H 122 H Calcium 03/18/19 03/18/19 03/18/19 04:00 05:46 08:36 Sodium 135 L Carbon Dioxide 21 L Creatinine 0.5 L Glucose 141 H POC Glucose 117 H 137 H Calcium 7.9 L 03/18/19 03/18/19 03/19/19 17:25 21:19 01:39 Sodium Carbon Dioxide Creatinine Glucose POC Glucose 108 H 148 H 145 H Calcium 03/19/19 03/19/19 03/19/19 05:30 06:16 10:17 Sodium 134 L Carbon Dioxide 20 L Creatinine 0.6 L Glucose 139 H POC Glucose 151 H 108 H Calcium 03/19/19 03/19/19 03/19/19 14:22 18:26 22:14 Sodium Carbon Dioxide Creatinine Glucose POC Glucose 152 H 127 H 143 H Calcium 03/20/19 03/20/19 03/20/19 02:28 03:53 06:09 Sodium 136 L Carbon Dioxide Creatinine 0.6 L Glucose 162 H POC Glucose 162 H 144 H Calcium 8.3 L Laboratory Results - last 24 hr 03/19/19 03/19/19 03/19/19 10:17 14:22 18:26 Sodium Potassium Chloride Carbon Dioxide Anion Gap BUN Creatinine Estimated GFR BUN/Creatinine Ratio Glucose POC Glucose 108 H 152 H 127 H Calcium Phosphorus Magnesium 03/19/19 03/20/19 03/20/19 22:14 02:28 03:53 Sodium 136 L Potassium 4.3 Chloride 101.7 Carbon Dioxide 22 Anion Gap 17 BUN 11 Creatinine 0.6 L Estimated GFR > 60 BUN/Creatinine Ratio 18 Glucose 162 H POC Glucose 143 H 162 H Calcium 8.3 L Phosphorus 3.90 Magnesium 1.90 03/20/19 06:09 Sodium Potassium Chloride Carbon Dioxide Anion Gap BUN Creatinine Estimated GFR BUN/Creatinine Ratio Glucose POC Glucose 144 H Calcium Phosphorus Magnesium
[2019-03-20] MEDS: PROTONIX PO SCH (10:15)
--- NOTE | 2019-03-20 10:18 | Progress Note ---
Assessment and Plan Assessment and plan: Hospitalist Signal Timer for gestational DM management IUP at 12w0d - Management per primary Hyperemsis - unable to tolerate by mouth, placed on TPN by primary GDM with hyperglycemia, monitor blood glucose with sliding scale insulin Obesity, dietary indication Disposition: ok to discharge from Internal Medicine Standpoint. I will write a script for Insulin SSI, education done. Her has Diabetes so she is fimilar with Insulin therapy. She would like Insulin pen. She should be checked accucheck q6 hrs while awake on TPN which is being monitored by [employer] Scripts and supplies orders signed and I left on the chart. Hospitalist Physical - Constitutional Vitals: Temp Pulse Resp BP Pulse Ox 98.5 F 82 20 110/74 97 03/20/19 05:21 03/20/19 05:21 03/20/19 05:21 03/20/19 05:21 03/20/19 05:21 Results - Labs CBC & Chem 7: 03/17/19 17:06 03/20/19 03:53 Labs: Laboratory Last Values WBC 8.6 K/mm3 (4.5-11.0) 03/17/19 17:06 RBC 3.89 M/mm3 (3.65-5.03) 03/17/19 17:06 Hgb 12.0 gm/dl (10.1-14.3) 03/17/19 17:06 Hct 35.1 % (30.3-42.9) 03/17/19 17:06 MCV 90 fl (79-97) 03/17/19 17:06 MCH 31 pg (28-32) 03/17/19 17:06 MCHC 34 % (30-34) 03/17/19 17:06 RDW 14.2 % (13.2-15.2) 03/17/19 17:06 Plt Count 315 K/mm3 (140-440) 03/17/19 17:06 Lymph % (Auto) 27.7 % (13.4-35.0) 03/17/19 17:06 Hall % (Auto) 6.0 % (0.0-7.3) 03/17/19 17:06 Eos % (Auto) 1.3 % (0.0-4.3) 03/17/19 17:06 Baso % (Auto) 0.6 % (0.0-1.8) 03/17/19 17:06 Lymph # 2.4 K/mm3 (1.2-5.4) 03/17/19 17:06 Hall # 0.5 K/mm3 (0.0-0.8) 03/17/19 17:06 Eos # 0.1 K/mm3 (0.0-0.4) 03/17/19 17:06 Baso # 0.0 K/mm3 (0.0-0.1) 03/17/19 17:06 Seg Neutrophils % 64.4 % (40.0-70.0) 03/17/19 17:06 Seg Neutrophils # 5.5 K/mm3 (1.8-7.7) 03/17/19 17:06 Sodium 136 mmol/L (137-145) L 03/20/19 03:53 Potassium 4.3 mmol/L (3.6-5.0) 03/20/19 03:53 Chloride 101.7 mmol/L (98-107) 03/20/19 03:53 Carbon Dioxide 22 mmol/L (22-30) 03/20/19 03:53 Anion Gap 17 mmol/L 03/20/19 03:53 BUN 11 mg/dL (7-17) 03/20/19 03:53 Creatinine 0.6 mg/dL (0.7-1.2) L 03/20/19 03:53 Estimated GFR > 60 ml/min 03/20/19 03:53 BUN/Creatinine Ratio 18 % 03/20/19 03:53 Glucose 162 mg/dL (65-100) H 03/20/19 03:53 POC Glucose 144 (70-105) H 03/20/19 06:09 Calcium 8.3 mg/dL (8.4-10.2) L 03/20/19 03:53 Phosphorus 3.90 mg/dL (2.5-4.5) 03/20/19 03:53 Magnesium 1.90 mg/dL (1.7-2.3) 03/20/19 03:53 Total Bilirubin 0.40 mg/dL (0.1-1.2) 03/18/19 10:35 Active Medications - Current Medications Current Medications: Generic Name Dose Route Start Last Admin Trade Name Freq PRN Reason Stop Dose Admin Acetaminophen 650 mg 03/19/19 13:11 03/19/19 16:05 Tylenol PO 650 mg Q6H PRN Administration Pain, Mild (1-3) Dextrose 0 ml 03/17/19 23:31 D50w (25gm) Syringe IV Q30MIN PRN Hypoglycemia Enoxaparin Sodium 40 mg 03/18/19 22:00 03/19/19 22:13 Lovenox SUB-Q 40 mg QDAY@2200 ASPEN Administration Insulin Human Regular 0 units 03/17/19 23:45 03/20/19 03:13 Humulin R SUB-Q 1 units Q4H ASPEN Administration Protocol Ondansetron HCl 8 mg 03/17/19 23:21 03/20/19 06:00 Zofran IV 8 mg Q6H PRN Administration Nausea Pantoprazole Sodium 40 mg 03/18/19 11:00 03/20/19 10:15 Protonix PO 40 mg QDAY ASPEN Administration Nutrition/Malnutrition Assess - Dietary Evaluation Nutrition/Malnutrition Findings: Nutrition Notes Start: 03/18/19 10:22 Freq: Status: Active Protocol: Document 03/19/19 15:17 RM (Rec: 03/19/19 15:27 RM [id number]) Nutrition Notes Initial or Follow up Reassessment Current Diagnosis Hypertension Other Pertinent Diagnosis 11 weeks , Gestational diabetes, Hyperemesis Current Diet Consistent CHO Labs/Tests Na 134 Mg 2.1 Pertinent Medications Zofran Height 5 ft 4 in Weight 90.8 kg [place] Body Weight (kg) 54.54 BMI 34.3 Subjective/Other Information CPN day 2. Pt stated that she ate 1/3 of her breakfast and lunch and 40 % of her dinner. Denied vomiting. Percent of energy/protein needs met: 76%/100% Burn Absent Trauma Absent Minimum of two criteria No #1 Nutrition Diagnosis Inadequate oral intake As Evidenced by Signs and Symptoms pt statement that she ate 1/3 of breakfast and lunch and 40% of dinner Diagnosis Progress(for reassessment Improved documentation) Is patient on ventilator? No Is Patient Ambulatory and/or Out of Bed Yes REE-([facility]-ambulatory/OOB) [ 2082.900 [id number]] Calculation Used for Recommendations [facility] Additional Notes Protein Needs: 80g (1.1g/kg 73 kg adjBW) Fluid Needs: 35-40 ml/kg of pregravidarum wt Nutrition Intervention Nutrition Support: Continue CPN at 100/180/100 from 8 pm to 8 am: 7.5% Dextrose, 190 mEq Na, 8 mEq Mg , MVI Kcal 830 Protein (gm) 80 Carbohydrates (gm) 150 Fat (gm) 0 Fluid (mL) 2,000 Fiber (gm) 0 Goal #1 Continue to meet at least 75% of calorie and protein needs via CPN and PO intake Anticipated Discharge Needs: Unable to determine at this time Follow-Up By: 03/20/19 Additional Comments Follow for labs in AM: BMP, Mg , Phos
[2019-03-20 13:00] VITALS: BP 123/88
== END 2019-03-20 16:56 | disposition home or self-care (01) | DRG 781 ==
LOC: ED 16:08 → OB 18:48
PROVIDERS: ADMIT Obstetrics & Gynecology; ATTEND Obstetrics & Gynecology
DX: O13.1 Gestational [pregnancy-induced] hypertension without significant proteinuria, first trimester (principal); O24.414 Gestational diabetes mellitus in pregnancy, insulin controlled; O99.211 Obesity complicating pregnancy, first trimester; M79.662 Pain in left lower leg; O26.891 Other specified pregnancy related conditions, first trimester; M79.661 Pain in right lower leg; O21.0 Mild hyperemesis gravidarum; Z3A.11 11 weeks gestation of pregnancy; Z82.49 Family history of ischemic heart disease and other diseases of the circulatory system
CPT/HCPCS: 36415; 76801; 80048; 82247; 82962; 83735; 84100; 85025; 93970; 96360; G0378; J1650; J1815; J2405; J2997; J7030; J7040

== ENCOUNTER 2019-03-28 10:19 | Emergency (ER) | payer OTHER ==
--- NOTE | 2019-03-28 13:38 | Emergency Department Report ---
ED General Adult HPI - General Chief complaint: Medical Clearance Stated complaint: PCC LINE BLEEDING Time Seen by Provider: 03/28/19 12:11 Source: patient Mode of arrival: Ambulatory Limitations: No Limitations - History of Present Illness Initial comments: Is a 33-year-old -[place] female who is presenting with some bleeding around her PICC line. Patient had the PICC line placed earlier this month and dressings were last changed on 1027 to . Patient states she is having some discomfort at the site of the PICC line and it was some bleeding on her dressing. Patient was told to come into the emergency department to have this assessed. Patient is on Lovenox at this time. - Related Data Home Medications Medication Instructions Recorded Confirmed Last Taken Ondansetron [Zofran Oral Liq] 4 mg IV Q4HR 03/17/19 03/17/19 Unknown Total Parenteral Nutrition [TPN 0 ml IV DAILY@199903/17/19 03/17/19 Unknown Adult] Previous Rx's Medication Instructions Recorded Last Taken Type Enoxaparin [Lovenox] 40 mg SQ QDAY #30 syringe 03/07/19 Unknown Rx Insulin Aspart [NovoLOG Flexpen] 1 dose SQ Q6H PRN #1 pen 03/20/19 Unknown Rx Allergies Allergy/AdvReac Type Severity Reaction Status Date / Time No Known Allergies Allergy Verified 03/14/15 10:02 ED Review of Systems ROS: Stated complaint: PCC LINE BLEEDING Other details as noted in HPI Comment: All other systems reviewed and negative ED Past Medical Hx - Past Medical History Previous Medical History?: Yes Hx Hypertension: Yes Hx Congestive Heart Failure: No Hx Diabetes: Yes (GDM) Hx Deep Vein Thrombosis: No Hx Renal Disease: No Hx Sickle Cell Disease: No Hx Seizures: Yes (as a child) Hx Asthma: No Hx COPD: No Hx HIV: No Additional medical history: Vaginal delivery 03-03-14 - Surgical History Past Surgical History?: Yes Hx Pacemaker: No Hx Internal Defibrillator: No Hx Cholecystectomy: Yes - Social History Smoking Status: Never Smoker Substance Use Type: None - Medications Home Medications: Home Medications Medication Instructions Recorded Confirmed Last Taken Type Enoxaparin [Lovenox] 40 mg SQ QDAY #30 syringe 03/07/19 03/17/19 Unknown Rx Ondansetron [Zofran Oral Liq] 4 mg IV Q4HR 03/17/19 03/17/19 Unknown History Total Parenteral Nutrition [TPN 0 ml IV DAILY@199903/17/19 03/17/19 Unknown History Adult] Insulin Aspart [NovoLOG Flexpen] 1 dose SQ Q6H PRN #1 pen 03/20/19 Unknown Rx ED Physical Exam - General Limitations: No Limitations General appearance: alert, in no apparent distress - Head Head exam: Present: atraumatic, normocephalic - Eye Eye exam: Present: normal appearance - ENT ENT exam: Present: mucous membranes moist - Neck Neck exam: Present: normal inspection - Respiratory Respiratory exam: Present: normal lung sounds bilaterally. Absent: respiratory distress - Cardiovascular Cardiovascular Exam: Present: regular rate, normal rhythm. Absent: systolic murmur, diastolic murmur, rubs, gallop - GI/Abdominal GI/Abdominal exam: Present: soft, normal bowel sounds - Extremities Exam Extremities exam: Present: normal inspection, other - Back Exam Back exam: Present: normal inspection - Neurological Exam Neurological exam: Present: alert, oriented X3 - Psychiatric Psychiatric exam: Present: normal affect, normal mood - Skin Skin exam: Present: warm, dry, intact, normal color. Absent: rash ED Course Vital Signs 03/28/19 10:22 Temperature 98.9 F Pulse Rate 91 H Respiratory 18 Rate Blood Pressure 141/97 O2 Sat by Pulse 100 Oximetry ED Medical Decision Making - Medical Decision Making Heart PICC line nurse came and assessed the patient. She stated that the weight of the patient's PICC line was positioned it was likely pulling at the insertion site. She did make some adjustments to the PICC line and she was able to flush all ports successfully. Patient be discharged home. Critical care attestation.: If time is entered above; I have spent that time in minutes in the direct care of this critically ill patient, excluding procedure time. ED Disposition Clinical Impression: Bleeding from PICC line Qualifiers: Encounter type: initial encounter Qualified Code(s): T82.838A - Hemorrhage due to vascular prosthetic devices, implants and grafts, initial encounter Disposition: TO HOME OR SELFCARE Is pt being admited?: No Does the pt Need Aspirin: No Condition: Stable Time of Disposition: 13:38
[2019-03-28 14:02] VITALS: BP 136/90
== END 2019-03-28 14:01 | disposition home or self-care (01) ==
LOC: ED 10:19
DX: T82.838A Hemorrhage due to vascular prosthetic devices, implants and grafts, initial encounter (principal); I10 Essential (primary) hypertension; E11.9 Type 2 diabetes mellitus without complications; Z90.49 Acquired absence of other specified parts of digestive tract; Z79.4 Long term (current) use of insulin; Z79.899 Other long term (current) drug therapy
CPT/HCPCS: 99282

== ENCOUNTER 2019-04-18 14:51 | Day surgery (SDC) | payer OTHER ==
[2019-04-18 16:04] VITALS: BP 121/77
== END 2019-04-18 16:17 | disposition home or self-care (01) ==
LOC: CATHLABREC 14:51 → EDSTATUS 15:30 → CATHLABREC 16:17
PROVIDERS: ATTEND Obstetrics & Gynecology
DX: T80.212A Local infection due to central venous catheter, initial encounter (principal); I10 Essential (primary) hypertension; K21.9 Gastro-esophageal reflux disease without esophagitis; E11.9 Type 2 diabetes mellitus without complications; E66.9 Obesity, unspecified; Z98.890 Other specified postprocedural states; Z90.49 Acquired absence of other specified parts of digestive tract; Z83.3 Family history of diabetes mellitus; Z68.35 Body mass index [BMI] 35.0-35.9, adult; Z79.899 Other long term (current) drug therapy; Z79.82 Long term (current) use of aspirin; Z82.49 Family history of ischemic heart disease and other diseases of the circulatory system; Y83.8 Other surgical procedures as the cause of abnormal reaction of the patient, or of later complication, without mention of misadventure at the time of the procedure; Y92.89 Other specified places as the place of occurrence of the external cause

== ENCOUNTER 2019-05-04 12:29 | Emergency (ER) | payer OTHER ==
--- NOTE | 2019-05-04 12:34 | Event Note ---
ED Screening Note ED Screening Note: right leg pain began a few days ago states she has right calf pain states she went to her maternal specialist today who recommended for her to have a BLE US pt is currently 19 weeks PMHx DVT in january 2019, is currently on lovenox 40mg once a daily, low dose aspirin This initial assessment/diagnostic orders/clinical plan/treatment(s) is/are subject to change based on patients health status, clinical progression and re- assessment by fellow clinical providers in the ED. Further treatment and workup at subsequent clinical providers discretion. Patient/guardian urged not to elope from the ED as their condition may be serious if not clinically assessed and managed. order: doppler US
[2019-05-04 12:39] VITALS: BP 144/95
--- NOTE | 2019-05-04 14:02 | Vascular Lab Report ---
DUPLEX DOPPLER LOWER EXTREMITY VEINS, BILATERAL INDICATION: hx of right DVT, c/o right leg pain. TECHNIQUE: Duplex doppler imaging was performed through the veins of both lower extremities using ve nous compression and other maneuvers. COMPARISON: 03/07/2019, 02/25/2019. FINDINGS: Right Common femoral vein: Negative. Right Superficial femoral vein: Negative. Right Popliteal vein: Negative. Right Calf veins: Negative. Left Common femoral vein: Negative. Left Superficial femoral vein: Negative. Left Popliteal vein: Negative. Left Calf veins: Negative. Additional findings: None.. IMPRESSION: No sonographic evidence for DVT in either lower extremity. Signer Name: Sebas Deleon Jr, MD Signed: 05/04/2019 1:57 PM Workstation Name: [id number]
--- NOTE | 2019-05-04 14:16 | Emergency Department Report ---
ED Lower Extremity HPI - General Chief Complaint: Extremity Injury, Lower Stated Complaint: RT LEG PAIN Time Seen by Provider: 05/04/19 12:33 Source: patient Mode of arrival: Ambulatory Limitations: No Limitations - History of Present Illness Initial Comments: Mrs. Martinez is a very pleasant 34-year-old female who is currently 19 weeks prenancy. This is her third . This has been complicated by hyperemesis gravidarum, -induced hypertension and DVT. She was diagnosed with a DVT in the right lower extremity in January. She is currently taking Lovenox and aspirin. For worsening pain in her right lower extremity, she was referred from her expert's office today. The recommendation was for bilateral lower extremity Doppler. She has calf pain posterior knee pain radiating up the right thigh. Moderate in severity. The pain has been intermittent since she was diagnosed in January with DVT. The pain has worsened over the last several days. Estimated due date September 30, 2020 MD Complaint: other (right leg pain posterior calf posterior knee radiating to the thigh history of DVT) -: Gradual, days(s) (3), month(s) (2) Injury: Thigh: Right, Leg: Right, Knee: Right Severity: moderate Improves With: nothing Worsens With: nothing Context: other (history of DVT) - Related Data Home Medications Medication Instructions Recorded Confirmed Last Taken Ondansetron [Zofran Oral Liq] 4 mg IV Q4HR 03/17/19 04/18/19 04/17/19 4 mg Aspirin EC [Halfprin EC] 81 mg PO DAILY 04/18/19 04/18/19 04/18/19 10:00 81 mg Enoxaparin [Lovenox] 40 mg SQ HS 04/18/19 04/18/19 04/17/19 40 mg Pantoprazole [Protonix TAB] 40 mg PO DAILY 04/18/19 04/18/19 04/17/19 40 mg glyBURIDE [Diabeta] 2.5 mg PO PRN PRN 04/18/19 04/18/19 04/12/19 2.5mg labetaloL [Labetalol 100mg TAB] 100 mg PO BID 04/18/19 04/18/19 04/18/19 10:00 100 mg Allergies Allergy/AdvReac Type Severity Reaction Status Date / Time No Known Allergies Allergy Verified 05/04/19 12:30 ED Review of Systems ROS: Stated complaint: RT LEG PAIN Other details as noted in HPI Comment: All other systems reviewed and negative Constitutional: denies: fever, malaise Respiratory: denies: cough, shortness of breath Cardiovascular: denies: chest pain Skin: denies: rash, lesions ED Past Medical Hx - Past Medical History Previous Medical History?: Yes Hx Hypertension: Yes Hx Congestive Heart Failure: No Hx Diabetes: Yes (GDM) Hx Deep Vein Thrombosis: No Hx GERD: Yes Hx Renal Disease: No Hx Sickle Cell Disease: No Hx Seizures: Yes (as a child) Hx Asthma: No Hx COPD: No Hx HIV: No Additional medical history: BLOOD CLOTS IN LEGS - Surgical History Hx Pacemaker: No Hx Internal Defibrillator: No Hx Cholecystectomy: Yes - Social History Smoking Status: Never Smoker Substance Use Type: None - Medications Home Medications: Home Medications Medication Instructions Recorded Confirmed Last Taken Type Ondansetron [Zofran Oral Liq] 4 mg IV Q4HR 03/17/19 04/18/19 04/17/19 History 4 mg Aspirin EC [Halfprin EC] 81 mg PO DAILY 04/18/19 04/18/19 04/18/19 10:00 History 81 mg Enoxaparin [Lovenox] 40 mg SQ HS 04/18/19 04/18/19 04/17/19 History 40 mg Pantoprazole [Protonix TAB] 40 mg PO DAILY 04/18/19 04/18/19 04/17/19 History 40 mg glyBURIDE [Diabeta] 2.5 mg PO PRN PRN 04/18/19 04/18/19 04/12/19 History 2.5mg labetaloL [Labetalol 100mg TAB] 100 mg PO BID 04/18/19 04/18/19 04/18/19 10:00 History 100 mg ED Physical Exam - General Limitations: No Limitations General appearance: alert, in no apparent distress - Head Head exam: Present: atraumatic, normocephalic - Eye Eye exam: Present: normal appearance - ENT ENT exam: Present: mucous membranes moist - Neck Neck exam: Present: normal inspection, full ROM - Respiratory Respiratory exam: Present: normal lung sounds bilaterally. Absent: respiratory distress, wheezes, rales, rhonchi - Cardiovascular Cardiovascular Exam: Present: regular rate, normal rhythm, normal heart sounds. Absent: systolic murmur, diastolic murmur, rubs, gallop - GI/Abdominal GI/Abdominal exam: Present: soft, normal bowel sounds. Absent: distended, tenderness, guarding, rebound - Extremities Exam Extremities exam: Present: normal inspection, full ROM, normal capillary refill. Absent: tenderness, pedal edema, joint swelling, calf tenderness - Back Exam Back exam: Present: normal inspection - Neurological Exam Neurological exam: Present: alert, oriented X3 - Psychiatric Psychiatric exam: Present: normal affect, normal mood - Skin Skin exam: Present: warm, dry, intact, normal color. Absent: rash ED Course Vital Signs 05/04/19 12:37 Temperature 98.7 F Pulse Rate 89 Respiratory 16 Rate Blood Pressure 144/95 O2 Sat by Pulse 100 Oximetry ED Lower Extremity MDM - Radiology Data Radiology results: report reviewed Bilateral duplex lower extremity ultrasound: No sonographic evidence for DVT in either lower extremity - Medical Decision Making Right lower extremity pain. Currently on anticoagulation. No evidence of DVT on duplex in either extremity. 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 Given reassurance. Recommended Tylenol heat ice for pain relief. Critical care attestation.: If time is entered above; I have spent that time in minutes in the direct care of this critically ill patient, excluding procedure time. ED Disposition Clinical Impression: Right leg pain, History of DVT (deep vein thrombosis), Second trimester Disposition: DC-01 TO HOME OR SELFCARE Is pt being admited?: No Does the pt Need Aspirin: No Condition: Stable Additional Instructions: Your ultrasound did not have signs of DVT in either leg. Please take your report to your high insurance risk analyst. Referrals: ROSA MARIA HONG MD [Staff Physician] - as needed
== END 2019-05-04 15:59 | disposition home or self-care (01) ==
LOC: ED 12:29
DX: O26.892 Other specified pregnancy related conditions, second trimester (principal); M79.604 Pain in right leg; O24.112 Pre-existing type 2 diabetes mellitus, in pregnancy, second trimester; O10.912 Unspecified pre-existing hypertension complicating pregnancy, second trimester; E11.9 Type 2 diabetes mellitus without complications; K21.9 Gastro-esophageal reflux disease without esophagitis; Z3A.19 19 weeks gestation of pregnancy
CPT/HCPCS: 93970; 99283

== ENCOUNTER 2019-09-07 11:43 | Inpatient (IN) | payer OTHER ==
[2019-09-07] MEDS ORDERED: ALBUTEROL 2.5 MG/3 ML NEBU IH ONE (14:58)
--- NOTE | 2019-09-07 15:22 | XRay Report ---
CHEST 1 VIEW INDICATION: SOB. COMPARISON: None FINDINGS: Support devices: None. Heart: Within normal limits. Lungs/Pleura: No acute air space or interstitial disease. Additional findings: None. IMPRESSION: 1. No acute findings. Signer Name: Diomedes Bedolla MD Signed: 09/07/2019 3:18 PM Workstation Name: [facility] [id number]
[2019-09-07] MEDS ORDERED: LACTATED RINGERS 1,000 ML IV ONE (16:15)
[2019-09-07 17:24] LABS: Hematocrit 32.5 % (30.3-42.9); Hemoglobin 10.6 gm/dl (10.1-14.3); Mean Corpuscular HGB Conc 33 % (30-34); Mean Corpuscular Volume 89 fl (79-97); Platelet Count 324 K/mm3 (140-440); Red Blood Count 3.66 M/mm3 (3.65-5.03); Red Cell Distribution Width 17.7 % (13.2-15.2)
[2019-09-07 17:50] LABS: Albumin 3.6 g/dL (3.9-5); BUN/Creatinine Ratio 16; Blood Urea Nitrogen 8 mg/dL (7-17); Calcium 8.9 mg/dL (8.4-10.2); Hemolysis Index 750
[2019-09-07 17:56] LABS: Alanine Aminotransferase 18 units/L (7-56)
[2019-09-07 19:18] LABS: Bacteria,Urine 1+ /HPF (Negative); Bilirubin,Urine NEG (Negative); Blood,Urine NEG (Negative); Calcium Oxalate Crystals,Urine 1+; Color,Urine Yellow (Yellow); Mucus,Urine FEW /HPF
[2019-09-07] MEDS ORDERED: TERBUTALINE 1 MG/1 ML INJ IVP PRN (20:26)
[2019-09-07] MEDS ORDERED: NALOXONE 0.4 MG/1 ML INJ IV PRN (20:26)
[2019-09-07] MEDS ORDERED: TERBUTALINE 1 MG/1 ML INJ SUB-Q PRN (20:26)
[2019-09-07] MEDS ORDERED: DINOPROSTONE 10 MG VAG SUPP VG ONE (20:26)
[2019-09-07] MEDS ORDERED: LIDOCAINE (2%) 20 MG/1 ML VIAL 20 ML MDV INFILTRATI ONE (20:26)
[2019-09-07] MEDS ORDERED: ePHEDrine SULFATE 50 MG/1 ML INJ IV PRN (20:26)
[2019-09-07] MEDS ORDERED: MINERAL OIL 30 ML ORAL LIQD PO PRN (20:26)
[2019-09-07] MEDS ORDERED: BUTORPHANOL 2 MG/1 ML INJ IV PRN ×2 (20:26)
[2019-09-07] MEDS ORDERED: ONDANSETRON 4 MG/2 ML INJ IV PRN (20:26)
[2019-09-07] MEDS ORDERED: fentaNYL 100 MCG/2 ML INJ IV PRN (20:26)
[2019-09-07] MEDS ORDERED: hydrALAZINE 20 MG/1 ML INJ IV PRN (20:28)
[2019-09-07] MEDS ORDERED: MAGNESIUM SULFATE 4 GM/100 ML BAG IV ONE (20:28)
[2019-09-07] MEDS ORDERED: CALCIUM GLUCONATE 1000 MG/10 ML INJ IV ONE (20:28)
--- NOTE | 2019-09-07 20:48 | History and Physical Report ---
History of Present Illness Date of examination: 09/07/19 Chief complaint: headache History of present illness: Pt is a 34 year old -[place] female PATRICIA 10/01/19 at 36w4d presents with persistent headache. She denies RUQ pain or blurry vision. She has had care at [facility] since 8 wks complicated by severe hyperemesis requiring TPN, obesity, gestational diabetes, obesity, chronic hypertension on Labetalol 200 mg BID, h/o chronic right lower extremity DVT with last dose of Lovenox 2 days ago, IUGR followed by MFM which resolved and overall plan for delivery between 37 and 39 wks per ACOG recommendations. Her GBS status is negative. 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 Family/Genetic History: hypertension Social history: no significant social history, - Obstetrical History Expected Date of Delivery: 10/01/19 Actual Gestation: 36 Week(s) 6 Day(s) : 3 Para: 2 Hx # Term Pregnancies: 1 Number of Pregnancies: 1 Spontaneous Abortions: 0 Induced : 0 Number of Living Children: 2 Medications and Allergies Allergies Allergy/AdvReac Type Severity Reaction Status Date / Time No Known Allergies Allergy Verified 05/04/19 12:30 Home Medications Medication Instructions Recorded Confirmed Last Taken Type Ondansetron [Zofran Oral Liq] 4 mg IV Q4HR 03/17/19 09/08/19 04/17/19 History 4 mg Aspirin EC [Halfprin EC] 81 mg PO DAILY 04/18/19 09/08/19 04/18/19 10:00 History 81 mg Enoxaparin [Lovenox] 40 mg SQ HS 04/18/19 09/08/19 04/17/19 History 40 mg Pantoprazole [Protonix TAB] 40 mg PO DAILY 04/18/19 09/08/19 04/17/19 History 40 mg glyBURIDE [Diabeta] 2.5 mg PO PRN PRN 04/18/19 09/08/19 04/12/19 History 2.5mg labetaloL [Labetalol 100mg TAB] 100 mg PO BID 04/18/19 09/08/19 09/07/19 History Active Meds: Active Medications Albuterol (Proventil) 2.5 mg IH TIDRT ASPEN Butorphanol Tartrate (Stadol) 1 mg IV Q2H PRN PRN Reason: Labor Pain Butorphanol Tartrate (Stadol) 2 mg IV Q2H PRN PRN Reason: Pain , Severe (7-10) Ephedrine Sulfate (Ephedrine Sulfate) 10 mg IV Q2M PRN PRN Reason: Hypotension Fentanyl (Sublimaze) 100 mcg IV Q2H PRN PRN Reason: Labor Pain Hydralazine HCl (Apresoline) 5 mg IV Q30MIN PRN PRN Reason: Hypertension Oxytocin/Sodium Chloride (Pitocin/Ns 20 Unit/1000ml Drip) 20 units in 1,000 mls @ 125 mls/hr IV DIRECT ASPEN Oxytocin/Sodium Chloride (Pitocin/Ns 30 Unit/500ml) 30 units in 500 mls @ 2 mls/hr IV TITR ASPEN; Protocol Lactated Ringer's (Lactated Ringers) 1,000 mls @ 125 mls/hr IV DIRECT ASPEN Lactated Ringer's (Lactated Ringers) 1,000 mls @ 125 mls/hr IV DIRECT ASPEN Magnesium Sulfate (Magnesium Sulfate 40gm/1000ml) 40 gm in 1,000 mls @ 50 mls/hr IV DIRECT ASPEN Labetalol HCl (Labetalol) 200 mg PO BID ASPEN Mineral Oil (Mineral Oil) 30 ml PO QHS PRN PRN Reason: Constipation Naloxone HCl (Naloxone) 0.1 mg IV Q2MIN PRN PRN Reason: Res Rate </= 8 or 02 SAT < 92% Ondansetron HCl (Zofran) 4 mg IV Q8H PRN PRN Reason: Nausea And Vomiting Terbutaline Sulfate (Brethine) 0.25 mg SUB-Q ONCE PRN PRN Reason: Hyperstimulation/Hypertonicity Terbutaline Sulfate (Brethine) 0.25 mg IVP ONCE PRN PRN Reason: Hyperstimulation/Hypertonicity Review of Systems All systems: negative - Vital Signs Vital signs: Vital Signs Pulse Pulse Ox 106 H 98 09/07/19 12:34 09/07/19 12:34 Temp Pulse Resp BP Pulse Ox 97.9 F 85 16 140/88 98 09/07/19 12:43 09/07/19 20:43 09/07/19 15:20 09/07/19 20:43 09/07/19 14:54 - Physical Exam Abdomen: Positive: soft (obese, gravid ) Uterus: Positive: enlarged (gravid) Results Result Diagrams: 09/08/19 14:41 09/08/19 14:41 Abnormal lab results 09/07/19 09/07/19 Range/Units 16:30 16:30 RDW 17.7 H (13.2-15.2) % Sodium 134 L (137-145) mmol/L Potassium 5.6 H (3.6-5.0) mmol/L Carbon Dioxide 19 L (22-30) mmol/L Creatinine 0.5 L (0.7-1.2) mg/dL AST 87 H (5-40) units/L Albumin 3.6 L (3.9-5) g/dL All other labs normal. Assessment and Plan A: IUP at 36w4d Chronic HTN with superimposed preeclampsia Gestational Diabetes GERD H/o chronic RLE DVT on Lovenox, last dose 2 days ago Obesity Genital Herpes GBS Negative P: Admit to labor and delivery Magnesium sulfate for seizure prophylaxis Begin induction of labor with cervidil Closely monitor maternal and status
[2019-09-07] MEDS ORDERED: OXYTOCIN 20 UNIT/1000ML DRIP 20 UNITS/1,000 ML BAG IV SCH (21:00)
[2019-09-07] MEDS ORDERED: LACTATED RINGERS 1,000 ML IV SCH (21:00)
[2019-09-07] MEDS ORDERED: OXYTOCIN DRIP 30 UNITS/500 ML BAG IV SCH (21:00)
[2019-09-07] MEDS: ALBUTEROL 2.5 MG/3 ML NEBU IH SCH (21:30)
[2019-09-07] MEDS: LACTATED RINGERS 1,000 ML IV SCH (21:57)
[2019-09-07] MEDS: MAGNESIUM SULFATE 40GM/1000ML 40 GM/1,000 ML BAG IV SCH (22:36)
[2019-09-07 22:37] LABS: Uric Acid 3.9 mg/dL (3.5-7.6)
[2019-09-08] MEDS ORDERED: ACETAMINOPHEN 325 MG TAB PO ONE (09:00)
[2019-09-08] MEDS: LACTATED RINGERS 1,000 ML IV SCH ×2 (09:05→18:39)
[2019-09-08] MEDS: ALBUTEROL 2.5 MG/3 ML NEBU IH SCH ×3 (09:12→23:40)
[2019-09-08] MEDS: FAMOTIDINE 20 MG/2 ML INJ IV SCH (11:09)
[2019-09-08] MEDS: miSOPROStol 25 MCG TAB VG PRN ×3 (11:09→19:17)
--- NOTE | 2019-09-08 14:18 | Progress Note ---
Assessment and Plan A: IUP at 36w5d Chronic HTN with superimposed preeclampsia Gestational Diabetes GERD H/o chronic RLE DVT on Lovenox, last dose 2 days ago Obesity Genital Herpes GBS Negative P: Continue induction of labor Subjective - Subjective Date of service: 09/08/19 Principal diagnosis: IUP at 36 wks, Chronic HTN with superimposed preeclampsia, GDM, Obesity, h/ Interval history: Pt s/p one dose of cervidil and received a dose of cytotec 25 mcg at 11 am. She reports painful contractions. Patient reports: no new complaints Objective - Vital Signs Vital Signs: Vital Signs - 12hr 09/08/19 09/08/19 09/08/19 02:15 02:17 02:22 Pulse Rate 90 88 Pulse Rate [ Bilateral] Respiratory 14 Rate Respiratory Rate [Bilateral ] Blood Pressure 124/61 128/65 O2 Sat by Pulse 99 99 Oximetry 09/08/19 09/08/19 09/08/19 02:27 02:32 02:34 Pulse Rate 89 92 H 83 Pulse Rate [ Bilateral] Respiratory Rate Respiratory Rate [Bilateral ] Blood Pressure 126/61 122/62 O2 Sat by Pulse 97 97 Oximetry 09/08/19 09/08/19 09/08/19 02:37 02:42 02:47 Pulse Rate 87 88 85 Pulse Rate [ Bilateral] Respiratory Rate Respiratory Rate [Bilateral ] Blood Pressure 122/63 131/72 129/72 O2 Sat by Pulse 98 98 98 Oximetry 09/08/19 09/08/19 09/08/19 02:52 02:57 03:02 Pulse Rate 91 H 88 83 Pulse Rate [ Bilateral] Respiratory Rate Respiratory Rate [Bilateral ] Blood Pressure 127/74 128/77 O2 Sat by Pulse 97 96 99 Oximetry 09/08/19 09/08/19 09/08/19 03:03 03:07 03:12 Pulse Rate 86 86 84 Pulse Rate [ Bilateral] Respiratory Rate Respiratory Rate [Bilateral ] Blood Pressure 133/65 116/58 O2 Sat by Pulse 98 99 Oximetry 09/08/19 09/08/19 09/08/19 03:13 03:17 03:22 Pulse Rate 85 91 H 95 H Pulse Rate [ Bilateral] Respiratory Rate Respiratory Rate [Bilateral ] Blood Pressure 125/61 125/60 124/60 O2 Sat by Pulse 98 98 Oximetry 09/08/19 09/08/19 09/08/19 03:27 03:31 03:32 Pulse Rate 97 H 103 H 96 H Pulse Rate [ Bilateral] Respiratory Rate Respiratory Rate [Bilateral ] Blood Pressure 125/61 126/65 O2 Sat by Pulse 98 93 98 Oximetry 09/08/19 09/08/19 09/08/19 03:37 03:39 03:42 Pulse Rate 99 H 85 92 H Pulse Rate [ Bilateral] Respiratory Rate Respiratory Rate [Bilateral ] Blood Pressure 120/64 O2 Sat by Pulse 98 98 Oximetry 09/08/19 09/08/19 09/08/19 03:43 03:47 03:52 Pulse Rate 94 H 97 H 93 H Pulse Rate [ Bilateral] Respiratory Rate Respiratory Rate [Bilateral ] Blood Pressure 118/63 119/63 123/65 O2 Sat by Pulse 98 98 Oximetry 09/08/19 09/08/19 09/08/19 03:57 04:02 04:07 Pulse Rate 89 85 88 Pulse Rate [ Bilateral] Respiratory Rate Respiratory Rate [Bilateral ] Blood Pressure O2 Sat by Pulse 99 99 98 Oximetry 09/08/19 09/08/19 09/08/19 04:12 04:17 04:22 Pulse Rate 88 91 H 87 Pulse Rate [ Bilateral] Respiratory Rate Respiratory Rate [Bilateral ] Blood Pressure O2 Sat by Pulse 99 100 99 Oximetry 09/08/19 09/08/19 09/08/19 04:27 04:32 04:37 Pulse Rate 96 H 93 H 86 Pulse Rate [ Bilateral] Respiratory Rate Respiratory Rate [Bilateral ] Blood Pressure O2 Sat by Pulse 100 100 100 Oximetry 09/08/19 09/08/19 09/08/19 04:42 04:47 04:52 Pulse Rate 88 86 94 H Pulse Rate [ Bilateral] Respiratory Rate Respiratory Rate [Bilateral ] Blood Pressure O2 Sat by Pulse 100 100 98 Oximetry 09/08/19 09/08/19 09/08/19 04:53 04:57 05:02 Pulse Rate 86 89 94 H Pulse Rate [ Bilateral] Respiratory Rate Respiratory Rate [Bilateral ] Blood Pressure 133/74 O2 Sat by Pulse 99 99 Oximetry 09/08/19 09/08/19 09/08/19 05:07 05:12 05:17 Pulse Rate 87 95 H 91 H Pulse Rate [ Bilateral] Respiratory Rate Respiratory Rate [Bilateral ] Blood Pressure O2 Sat by Pulse 99 99 98 Oximetry 09/08/19 09/08/19 09/08/19 05:22 05:27 05:32 Pulse Rate 89 95 H 84 Pulse Rate [ Bilateral] Respiratory Rate Respiratory Rate [Bilateral ] Blood Pressure O2 Sat by Pulse 99 97 98 Oximetry 09/08/19 09/08/19 09/08/19 05:37 05:42 05:47 Pulse Rate 85 86 89 Pulse Rate [ Bilateral] Respiratory Rate Respiratory Rate [Bilateral ] Blood Pressure O2 Sat by Pulse 98 98 98 Oximetry 09/08/19 09/08/19 09/08/19 05:52 05:53 05:57 Pulse Rate 90 91 H 86 Pulse Rate [ Bilateral] Respiratory Rate Respiratory Rate [Bilateral ] Blood Pressure 132/73 O2 Sat by Pulse 98 99 Oximetry 09/08/19 09/08/19 09/08/19 06:02 06:07 06:12 Pulse Rate 85 90 86 Pulse Rate [ Bilateral] Respiratory Rate Respiratory Rate [Bilateral ] Blood Pressure O2 Sat by Pulse 98 98 98 Oximetry 09/08/19 09/08/19 09/08/19 06:17 06:22 06:27 Pulse Rate 86 86 101 H Pulse Rate [ Bilateral] Respiratory Rate Respiratory Rate [Bilateral ] Blood Pressure O2 Sat by Pulse 99 99 98 Oximetry 09/08/19 09/08/19 09/08/19 06:32 06:37 06:42 Pulse Rate 86 89 92 H Pulse Rate [ Bilateral] Respiratory Rate Respiratory Rate [Bilateral ] Blood Pressure O2 Sat by Pulse 100 99 100 Oximetry 09/08/19 09/08/19 09/08/19 06:47 06:52 06:53 Pulse Rate 99 H 93 H 90 Pulse Rate [ Bilateral] Respiratory Rate Respiratory Rate [Bilateral ] Blood Pressure 131/89 O2 Sat by Pulse 99 99 Oximetry 09/08/19 09/08/19 09/08/19 06:57 07:02 07:07 Pulse Rate 89 88 93 H Pulse Rate [ Bilateral] Respiratory Rate Respiratory Rate [Bilateral ] Blood Pressure O2 Sat by Pulse 100 99 100 Oximetry 09/08/19 09/08/19 09/08/19 07:12 07:17 07:22 Pulse Rate 92 H 89 92 H Pulse Rate [ Bilateral] Respiratory Rate Respiratory Rate [Bilateral ] Blood Pressure O2 Sat by Pulse 99 100 99 Oximetry 09/08/19 09/08/19 09/08/19 07:27 07:32 07:37 Pulse Rate 95 H 93 H 92 H Pulse Rate [ Bilateral] Respiratory Rate Respiratory Rate [Bilateral ] Blood Pressure O2 Sat by Pulse 100 99 97 Oximetry 09/08/19 09/08/19 09/08/19 07:42 07:47 07:52 Pulse Rate 93 H 86 88 Pulse Rate [ Bilateral] Respiratory Rate Respiratory Rate [Bilateral ] Blood Pressure O2 Sat by Pulse 99 98 99 Oximetry 09/08/19 09/08/19 09/08/19 07:53 07:57 08:02 Pulse Rate 88 99 H 91 H Pulse Rate [ Bilateral] Respiratory Rate Respiratory Rate [Bilateral ] Blood Pressure 128/75 O2 Sat by Pulse 98 99 Oximetry 09/08/19 09/08/19 09/08/19 08:07 08:12 08:17 Pulse Rate 92 H 89 94 H Pulse Rate [ Bilateral] Respiratory Rate Respiratory Rate [Bilateral ] Blood Pressure O2 Sat by Pulse 99 99 100 Oximetry 09/08/19 09/08/19 09/08/19 08:22 08:27 08:32 Pulse Rate 89 91 H 92 H Pulse Rate [ Bilateral] Respiratory Rate Respiratory Rate [Bilateral ] Blood Pressure O2 Sat by Pulse 100 99 99 Oximetry 09/08/19 09/08/19 09/08/19 08:37 08:42 08:47 Pulse Rate 90 90 99 H Pulse Rate [ Bilateral] Respiratory Rate Respiratory Rate [Bilateral ] Blood Pressure O2 Sat by Pulse 98 100 97 Oximetry 09/08/19 09/08/19 09/08/19 08:52 08:53 08:57 Pulse Rate 89 97 H 98 H Pulse Rate [ Bilateral] Respiratory Rate Respiratory Rate [Bilateral ] Blood Pressure 139/82 O2 Sat by Pulse 99 100 Oximetry 09/08/19 09/08/19 09/08/19 09:02 09:07 09:08 Pulse Rate 95 H 95 H 93 H Pulse Rate [ Bilateral] Respiratory Rate Respiratory Rate [Bilateral ] Blood Pressure 143/75 O2 Sat by Pulse 99 99 Oximetry 09/08/19 09/08/19 09/08/19 09:09 09:12 09:14 Pulse Rate 89 95 H Pulse Rate [ 85 Bilateral] Respiratory Rate Respiratory 16 Rate [Bilateral ] Blood Pressure 143/75 O2 Sat by Pulse 99 Oximetry 09/08/19 09/08/19 09/08/19 09:17 09:22 09:27 Pulse Rate 95 H 98 H 98 H Pulse Rate [ Bilateral] Respiratory Rate Respiratory Rate [Bilateral ] Blood Pressure O2 Sat by Pulse 99 99 100 Oximetry 09/08/19 09/08/19 09/08/19 09:32 09:37 09:42 Pulse Rate 97 H 100 H 98 H Pulse Rate [ Bilateral] Respiratory Rate Respiratory Rate [Bilateral ] Blood Pressure O2 Sat by Pulse 99 99 99 Oximetry 09/08/19 09/08/19 09/08/19 09:47 09:52 09:54 Pulse Rate 105 H 97 H 100 H Pulse Rate [ Bilateral] Respiratory Rate Respiratory Rate [Bilateral ] Blood Pressure 130/80 O2 Sat by Pulse 99 99 Oximetry 09/08/19 09/08/19 09/08/19 09:57 10:01 10:02 Pulse Rate 98 H 105 H 102 H Pulse Rate [ Bilateral] Respiratory Rate Respiratory Rate [Bilateral ] Blood Pressure O2 Sat by Pulse 100 93 97 Oximetry 09/08/19 09/08/19 09/08/19 10:07 10:12 10:17 Pulse Rate 102 H 103 H 99 H Pulse Rate [ Bilateral] Respiratory Rate Respiratory Rate [Bilateral ] Blood Pressure O2 Sat by Pulse 99 98 100 Oximetry 09/08/19 09/08/19 09/08/19 10:22 10:27 10:32 Pulse Rate 99 H 88 90 Pulse Rate [ Bilateral] Respiratory Rate Respiratory Rate [Bilateral ] Blood Pressure O2 Sat by Pulse 99 99 100 Oximetry 09/08/19 09/08/19 09/08/19 10:37 10:42 10:47 Pulse Rate 98 H 97 H 92 H Pulse Rate [ Bilateral] Respiratory Rate Respiratory Rate [Bilateral ] Blood Pressure O2 Sat by Pulse 98 98 98 Oximetry 09/08/19 09/08/19 09/08/19 10:52 10:53 10:57 Pulse Rate 89 90 91 H Pulse Rate [ Bilateral] Respiratory Rate Respiratory Rate [Bilateral ] Blood Pressure 143/92 O2 Sat by Pulse 99 100 Oximetry 09/08/19 09/08/19 09/08/19 11:02 11:07 11:12 Pulse Rate 95 H 92 H 89 Pulse Rate [ Bilateral] Respiratory Rate Respiratory Rate [Bilateral ] Blood Pressure O2 Sat by Pulse 100 99 99 Oximetry 09/08/19 09/08/19 09/08/19 11:17 11:22 11:27 Pulse Rate 87 89 89 Pulse Rate [ Bilateral] Respiratory Rate Respiratory Rate [Bilateral ] Blood Pressure O2 Sat by Pulse 100 99 99 Oximetry 09/08/19 09/08/19 09/08/19 11:32 11:37 11:42 Pulse Rate 90 88 89 Pulse Rate [ Bilateral] Respiratory Rate Respiratory Rate [Bilateral ] Blood Pressure O2 Sat by Pulse 98 99 99 Oximetry 09/08/19 09/08/19 09/08/19 11:47 11:52 11:53 Pulse Rate 87 88 86 Pulse Rate [ Bilateral] Respiratory Rate Respiratory Rate [Bilateral ] Blood Pressure 142/87 O2 Sat by Pulse 100 100 Oximetry 09/08/19 09/08/19 09/08/19 11:57 12:02 12:07 Pulse Rate 85 88 88 Pulse Rate [ Bilateral] Respiratory Rate Respiratory Rate [Bilateral ] Blood Pressure O2 Sat by Pulse 100 98 99 Oximetry 09/08/19 09/08/19 09/08/19 12:12 12:17 12:22 Pulse Rate 88 95 H 95 H Pulse Rate [ Bilateral] Respiratory Rate Respiratory Rate [Bilateral ] Blood Pressure O2 Sat by Pulse 100 100 98 Oximetry 09/08/19 09/08/19 09/08/19 12:27 12:32 12:37 Pulse Rate 86 88 87 Pulse Rate [ Bilateral] Respiratory Rate Respiratory Rate [Bilateral ] Blood Pressure O2 Sat by Pulse 99 99 97 Oximetry 09/08/19 09/08/19 09/08/19 12:42 12:47 12:52 Pulse Rate 86 86 93 H Pulse Rate [ Bilateral] Respiratory Rate Respiratory Rate [Bilateral ] Blood Pressure O2 Sat by Pulse 99 100 98 Oximetry 09/08/19 09/08/19 09/08/19 12:53 12:57 13:02 Pulse Rate 88 87 88 Pulse Rate [ Bilateral] Respiratory Rate Respiratory Rate [Bilateral ] Blood Pressure 141/80 O2 Sat by Pulse 99 98 Oximetry 09/08/19 09/08/19 09/08/19 13:07 13:12 13:17 Pulse Rate 87 88 86 Pulse Rate [ Bilateral] Respiratory Rate Respiratory Rate [Bilateral ] Blood Pressure O2 Sat by Pulse 99 99 100 Oximetry 09/08/19 09/08/19 09/08/19 13:22 13:27 13:32 Pulse Rate 91 H 92 H 92 H Pulse Rate [ Bilateral] Respiratory Rate Respiratory Rate [Bilateral ] Blood Pressure O2 Sat by Pulse 100 100 100 Oximetry 09/08/19 09/08/19 09/08/19 13:37 13:42 13:47 Pulse Rate 89 91 H 96 H Pulse Rate [ Bilateral] Respiratory Rate Respiratory Rate [Bilateral ] Blood Pressure O2 Sat by Pulse 99 100 100 Oximetry 09/08/19 09/08/19 09/08/19 13:52 13:54 13:56 Pulse Rate 91 H 95 H 93 H Pulse Rate [ Bilateral] Respiratory Rate Respiratory Rate [Bilateral ] Blood Pressure 164/126 159/92 O2 Sat by Pulse 100 Oximetry 09/08/19 09/08/19 09/08/19 13:57 14:02 14:07 Pulse Rate 100 H 97 H 98 H Pulse Rate [ Bilateral] Respiratory Rate Respiratory Rate [Bilateral ] Blood Pressure O2 Sat by Pulse 98 99 99 Oximetry 09/08/19 14:12 Pulse Rate 102 H Pulse Rate [ Bilateral] Respiratory Rate Respiratory Rate [Bilateral ] Blood Pressure O2 Sat by Pulse 100 Oximetry - Exam Abdomen: Present: soft (gravid ) Uterus: Present: normal (gravid ) FHR: auscultation normal Cervical Dilatation: 1.5 Cervical Effacement Percentage: 70 station: -3 Uterine Contraction Pattern: Irregular Uterine Tone Measurement Phase: Resting Uterine Contraction Intensity: Moderate Extremities: normal - Labs Labs: Abnormal Labs 09/07/19 09/07/19 09/07/19 16:30 16:30 16:30 RDW 17.7 H Sodium 134 L Potassium 5.6 H Carbon Dioxide 19 L Creatinine 0.5 L AST 87 H Lactate Dehydrogenase 1084 H Albumin 3.6 L Laboratory Results - last 24 hr 09/07/19 09/07/19 09/07/19 16:30 16:30 16:30 WBC 8.2 RBC 3.66 Hgb 10.6 Hct 32.5 MCV 89 MCH 29 MCHC 33 RDW 17.7 H Plt Count 324 Sodium 134 L Potassium 5.6 H Chloride 104.6 Carbon Dioxide 19 L Anion Gap 16 BUN 8 Creatinine 0.5 L Estimated GFR > 60 BUN/Creatinine Ratio 16 Glucose 73 POC Glucose Uric Acid 3.9 Calcium 8.9 Total Bilirubin 0.30 AST 87 H ALT 18 Alkaline Phosphatase 71 Lactate Dehydrogenase 1084 H Total Protein 7.3 Albumin 3.6 L Albumin/Globulin Ratio 1.0 Urine Color Urine Turbidity Urine pH Ur Specific Butler Urine Protein Urine Glucose (UA) Urine Ketones Urine Blood Urine Nitrite Urine Bilirubin Urine Urobilinogen Ur Leukocyte Esterase Urine WBC (Auto) Urine RBC (Auto) U Epithel Cells (Auto) Urine Bacteria (Auto) Calcium Oxalate Crystal Urine Mucus Blood Type Antibody Screen 09/07/19 09/07/19 09/07/19 21:00 21:07 Unknown WBC RBC Hgb Hct MCV MCH MCHC RDW Plt Count Sodium Potassium Chloride Carbon Dioxide Anion Gap BUN Creatinine Estimated GFR BUN/Creatinine Ratio Glucose POC Glucose 73 Uric Acid Calcium Total Bilirubin AST ALT Alkaline Phosphatase Lactate Dehydrogenase Total Protein Albumin Albumin/Globulin Ratio Urine Color Yellow Urine Turbidity Clear Urine pH 5.0 Ur Specific Butler 1.026 Urine Protein 30 mg/dl Urine Glucose (UA) 50 Urine Ketones Neg Urine Blood Neg Urine Nitrite Neg Urine Bilirubin Neg Urine Urobilinogen 4.0 Ur Leukocyte Esterase Neg Urine WBC (Auto) 2.0 Urine RBC (Auto) 1.0 U Epithel Cells (Auto) 3.0 Urine Bacteria (Auto) 1+ Calcium Oxalate Crystal 1+ Urine Mucus Few Blood Type A POSITIVE Antibody Screen Negative 09/08/19 09:16 WBC RBC Hgb Hct MCV MCH MCHC RDW Plt Count Sodium Potassium Chloride Carbon Dioxide Anion Gap BUN Creatinine Estimated GFR BUN/Creatinine Ratio Glucose POC Glucose 105 Uric Acid Calcium Total Bilirubin AST ALT Alkaline Phosphatase Lactate Dehydrogenase Total Protein Albumin Albumin/Globulin Ratio Urine Color Urine Turbidity Urine pH Ur Specific Butler Urine Protein Urine Glucose (UA) Urine Ketones Urine Blood Urine Nitrite Urine Bilirubin Urine Urobilinogen Ur Leukocyte Esterase Urine WBC (Auto) Urine RBC (Auto) U Epithel Cells (Auto) Urine Bacteria (Auto) Calcium Oxalate Crystal Urine Mucus Blood Type Antibody Screen
[2019-09-08 15:07] LABS: Hematocrit 33.7 % (30.3-42.9); Hemoglobin 11.1 gm/dl (10.1-14.3); Mean Corpuscular HGB Conc 33 % (30-34); Mean Corpuscular Volume 89 fl (79-97); Platelet Count 309 K/mm3 (140-440); Red Blood Count 3.81 M/mm3 (3.65-5.03); Red Cell Distribution Width 17.8 % (13.2-15.2)
[2019-09-08 15:17] LABS: Partial Thromboplastin Time 25.9 Sec. (24.2-36.6)
[2019-09-08 15:21] LABS: Alanine Aminotransferase 9 units/L (7-56)
[2019-09-08] MEDS: MAGNESIUM SULFATE 40GM/1000ML 40 GM/1,000 ML BAG IV SCH (15:31)
[2019-09-09] MEDS: miSOPROStol 25 MCG TAB VG PRN (01:28)
[2019-09-09] MEDS: ALBUTEROL 2.5 MG/3 ML NEBU IH SCH ×2 (09:04→14:24)
--- NOTE | 2019-09-09 09:44 | Event Note ---
Date: 09/09/19 Pt uncomfortable with contractions. Category II tracing. SVE: /-2. AROM- scant clear fluid. Continue pitocin augmentation. Closely monitor clinical status.
[2019-09-09] MEDS ORDERED: NALOXONE 2 MG/2 ML INJ IV PRN (09:55)
[2019-09-09] MEDS ORDERED: ePHEDrine SULFATE 50 MG/1 ML INJ IV PRN (09:55)
[2019-09-09] MEDS ORDERED: fentaNYL-BUPIV 2 MCG/ML-0.125% 200 MCG/100 ML BAG EPIDURAL SCH (10:00)
--- NOTE | 2019-09-09 10:01 | Anesthesia Consultation ---
Anesthesia Consult and Med Hx Date of service: 09/09/19 - Airway Anesthetic Teeth Evaluation: Good ROM Head & Neck: Adequate Mental/Hyoid Distance: Adequate Mallampati Class: Class III Intubation Access Assessment: Probably Good - Pulmonary Exam CTA: Yes - Cardiac Exam Cardiac Exam: RRR - Pre-Operative Health Status ASA Pre-Surgery Classification: ASA3 Proposed Anesthetic Plan: Epidural - Pre-Anesthesia Comment Pre-Anesthesia Comments: PSH: Cholecystectomy - Pulmonary Hx Smoking: No Hx Asthma: No Hx Respiratory Symptoms: No SOB: No COPD: No Home Oxygen Therapy: No Hx Pneumonia: No Hx Sleep Apnea: No - Cardiovascular System Hx Hypertension: Yes Hx Coronary Artery Disease: No Hx Heart Attack/AMI: No Hx Angina: No Hx Percutaneous Transluminal Coronary Angioplasty (PTCA): No Hx Cardia Arrhythmia: No Hx Pacemaker: No Hx Internal Defibrillator: No Hx Valvular Heart Disease: No Hx Heart Murmur: No Hx Peripheral Vascular Disease: No - Central Nervous System Hx Neuromuscular Disorder: No Hx Seizures: Yes (as a child) CVA: No Hx Back Pain: No Hx Psychiatric Problems: No - Gastrointestinal Hx Ulcer: No Hx Gastroesophageal Reflux Disease: Yes (During ) - Endocrine Hx Renal Disease: No Hx End Stage Renal Disease: No Hx Cirrhosis: No Hx Liver Disease: No Hx Insulin Dependent Diabetes: No Hx Non-Insulin Dependent Diabetes: Yes (Gestational DM only) Hx Thyroid Disease: No Hx Hypothyroidism: No Hx Hyperthyroidism: No - Hematic Hx Anemia: No Hx Sickle Cell Disease: No - Other Systems Hx Alcohol Use: No Hx Substance Use: No Hx Cancer: No Hx Obesity: Yes
--- NOTE | 2019-09-09 10:02 | Progress Note ---
Labor Epidural - Labor Epidural Performed by:: ISIDRO HARDEN Procedure: Combined Spinal Epidural Patient is requesting combined spinal epidural for labor and pain. H&P, labs were reviewed. All questions and concerns were answered. Informed consent was obtained. Timeout performed. Patient in sitting position on side of bed. Sterile prep and drape was performed. [3] mL 1% lidocaine skin wheal at L [3]-L [4]. 18-gauge Touhy epidural needle advanced to [id number] using air technique, [5]. 27-gauge spinal needle advanced [clear positive free-flowing] CSF. spinal dose of [Precedex 10 mcg]. Epidural catheter advanced to [10] cm. [Negative] Aspiration, [negative] test dose. Sterile dressing applied. Patient tolerated procedure well.
[2019-09-09] MEDS ORDERED: DEXMEDETOMIDINE 200 MCG/2 ML VIAL IV ONE (10:12)
--- NOTE | 2019-09-09 11:11 | Procedure Note ---
OB Delivery Note - Delivery Date of Delivery: 09/09/19 Surgeon: LG MORALES Estimated blood loss: 200cc - Vaginal Delivery presentation: vertex Delivery position: OA Intrapartum events: PROM->1hr before delivery, precipitous labor- <3hr Delivery induction: cervidil Delivery augmentation: rupture of membranes, pitocin Delivery monitor: external FHT, external uterine Route of delivery: Delivery placenta: spontaneous Delivery cord: 3 umbilical vessels Episiotomy: none Delivery laceration: other (perineal abrasion- hemostatic without repair ) Anesthesia: none - A at 1 minute: 8 at 5 minutes: 9 Gender: Female (2350g (5lb 2.8 oz) @ 1033 am)
[2019-09-09] MEDS ORDERED: diphenhydrAMINE 25 MG CAP PO PRN (11:12)
[2019-09-09] MEDS ORDERED: HYDROcodone/ACETAMINOPHEN 5-325 MG TAB PO PRN (11:12)
[2019-09-09] MEDS ORDERED: MAGNESIUM HYDROXIDE (MOM) ORAL LIQD UDC PO PRN (11:12)
[2019-09-09] MEDS ORDERED: ACETAMINOPHEN 325 MG TAB PO PRN (11:12)
[2019-09-09] MEDS ORDERED: LANOLIN/ZINC/DIMETHICONE (LANSINOH) 7 GM TP PRN ×2 (11:12)
[2019-09-09] MEDS ORDERED: ONDANSETRON 4 MG/2 ML INJ IV PRN (11:12)
[2019-09-09] MEDS ORDERED: PROMETHAZINE 25 MG TAB PO PRN (11:12)
[2019-09-09] MEDS ORDERED: WITCH HAZEL/ GLYCERIN PAD TP PRN (11:12)
[2019-09-09] MEDS ORDERED: PROMETHAZINE 25 MG RECT SUPP PR PRN (11:12)
[2019-09-09] MEDS ORDERED: BENZOCAINE/MENTHOL 20/0.5% TOP SPRAY 56 GM TP PRN (11:12)
[2019-09-09] MEDS: MAGNESIUM SULFATE 40GM/1000ML 40 GM/1,000 ML BAG IV SCH (15:04)
[2019-09-09] MEDS: FERROUS SULFATE 325 MG TAB PO SCH (22:36)
[2019-09-09] MEDS: ENOXAPARIN 40 MG/0.4 ML INJ SUB-Q SCH (22:37)
[2019-09-09] MEDS: LACTATED RINGERS 1,000 ML IV SCH (22:39)
[2019-09-10 01:25] LABS: Hematocrit 33.2 % (30.3-42.9); Hemoglobin 10.9 gm/dl (10.1-14.3)
[2019-09-10] MEDS ORDERED: TETANUS,DIPH,PERTUSS(ACELL) VACCINE 0.5 ML SYRINGE IM ONE (06:00)
[2019-09-10] MEDS ORDERED: MEASLES, MUMPS & RUBELLA 12,500 UNIT/0.5 ML VACCINE SUB-Q ONE (06:00)
--- NOTE | 2019-09-10 07:45 | Progress Note ---
Assessment and Plan A/P ppd 1 S/P S/P MAG FOR pree routine PP care continue PP care Subjective - Subjective Date of service: 09/10/19 Principal diagnosis: IUP at 36 wks, Chronic HTN with superimposed preeclampsia, GDM, Obesity, h/ Patient reports: appetite normal, voiding normally, pain well controlled, flatus, ambulating normally : doing well Objective - Vital Signs Latest vital signs: Vital Signs Temp Pulse Pulse Resp Resp BP BP 09/10/19 07:42 91 H 09/10/19 07:38 94 H 09/10/19 07:37 89 09/10/19 07:32 86 09/10/19 07:28 85 146/92 09/10/19 07:27 88 09/10/19 07:22 83 09/10/19 07:18 84 09/10/19 07:17 83 09/10/19 07:12 84 09/10/19 07:07 84 09/10/19 07:02 86 09/10/19 06:57 87 09/10/19 06:52 85 09/10/19 06:47 90 09/10/19 06:42 92 H 09/10/19 06:37 93 H 09/10/19 06:32 91 H 09/10/19 06:27 92 H 09/10/19 06:22 89 09/10/19 06:17 88 09/10/19 06:16 96 H 09/10/19 06:12 57 L 09/10/19 05:57 99 H 09/10/19 05:56 95 H 09/10/19 05:53 98.1 F 82 18 139/90 09/10/19 05:51 95 H 09/10/19 05:47 82 139/90 09/10/19 05:46 82 09/10/19 05:41 81 09/10/19 05:36 81 09/10/19 05:31 81 09/10/19 05:26 81 09/10/19 05:21 82 09/10/19 05:16 81 09/10/19 05:11 78 09/10/19 05:06 77 09/10/19 05:01 80 09/10/19 04:56 87 09/10/19 04:51 87 09/10/19 04:46 80 09/10/19 04:41 93 H 09/10/19 04:36 78 09/10/19 04:31 78 09/10/19 04:26 78 09/10/19 04:21 81 09/10/19 04:16 81 09/10/19 04:11 84 09/10/19 04:06 85 09/10/19 04:04 85 146/86 09/10/19 04:01 93 H 09/10/19 04:00 98.3 F 92 H 18 146/86 09/10/19 03:56 96 H 09/10/19 03:51 88 09/10/19 03:46 87 09/10/19 03:41 84 09/10/19 03:36 89 09/10/19 03:31 97 H 09/10/19 03:26 91 H 09/10/19 03:25 97 H 09/10/19 03:21 88 09/10/19 03:16 85 09/10/19 03:11 94 H 09/10/19 03:06 86 09/10/19 03:01 85 09/10/19 02:59 94 H 09/10/19 02:56 81 09/10/19 02:51 80 09/10/19 02:49 92 H 09/10/19 02:46 85 09/10/19 02:41 84 09/10/19 02:40 91 H 09/10/19 02:35 83 09/10/19 02:30 81 09/10/19 02:25 89 09/10/19 02:20 89 09/10/19 02:15 95 H 09/10/19 02:14 93 H 18 145/84 145/84 09/10/19 02:10 91 H 09/10/19 02:05 89 09/10/19 02:00 89 09/10/19 01:55 90 09/10/19 01:50 101 H 09/10/19 01:45 94 H 09/10/19 01:44 93 H 137/80 09/10/19 01:40 96 H 09/10/19 01:35 98 H 09/10/19 01:30 98 H 09/10/19 01:25 95 H 09/10/19 01:20 95 H 09/10/19 01:15 92 H 09/10/19 01:14 88 145/86 09/10/19 01:10 94 H 09/10/19 01:05 92 H 09/10/19 01:00 90 09/10/19 00:55 92 H 09/10/19 00:50 92 H 09/10/19 00:45 92 H 09/10/19 00:44 91 H 129/99 09/10/19 00:40 86 09/10/19 00:35 92 H 09/10/19 00:30 94 H 09/10/19 00:25 92 H 09/10/19 00:20 93 H 09/10/19 00:15 87 09/10/19 00:14 97.7 F 88 18 126/73 126/73 09/10/19 00:10 88 09/10/19 00:05 97 H 09/10/19 00:00 98 H 09/09/19 23:57 88 130/71 09/09/19 23:55 92 H 09/09/19 23:50 94 H 09/09/19 23:45 92 H 09/09/19 23:44 93 H 147/76 09/09/19 23:40 90 09/09/19 23:35 95 H 09/09/19 23:30 91 H 09/09/19 23:25 89 09/09/19 23:20 88 09/09/19 23:15 86 09/09/19 23:14 83 128/85 09/09/19 23:10 93 H 09/09/19 23:05 79 09/09/19 23:00 90 09/09/19 22:55 97 H 09/09/19 22:50 88 09/09/19 22:45 85 09/09/19 22:44 83 142/86 09/09/19 22:40 84 09/09/19 22:37 81 149/90 09/09/19 22:36 83 149/90 09/09/19 22:35 84 09/09/19 22:30 93 H 09/09/19 22:25 86 09/09/19 22:23 93 H 09/09/19 22:20 85 09/09/19 22:15 91 H 09/09/19 22:10 92 H 09/09/19 22:05 90 09/09/19 22:00 91 H 09/09/19 21:59 98 H 09/09/19 21:55 91 H 09/09/19 21:50 94 H 09/09/19 21:45 94 H 09/09/19 21:40 95 H 09/09/19 21:35 95 H 09/09/19 21:30 108 H 09/09/19 21:25 114 H 09/09/19 21:20 100 H 09/09/19 21:15 103 H 09/09/19 21:10 100 H 09/09/19 21:05 99 H 09/09/19 21:00 102 H 09/09/19 20:55 95 H 09/09/19 20:50 96 H 09/09/19 20:45 93 H 09/09/19 20:44 106 H 135/78 09/09/19 20:40 93 H 09/09/19 20:35 95 H 09/09/19 20:30 92 H 09/09/19 20:28 18 09/09/19 20:25 93 H 09/09/19 20:20 93 H 09/09/19 20:15 96 H 09/09/19 20:14 93 H 128/60 09/09/19 20:10 97 H 09/09/19 20:05 99 H 09/09/19 20:03 103 H 09/09/19 20:00 100 H 09/09/19 19:55 100 H 09/09/19 19:50 103 H 09/09/19 19:45 97 H 09/09/19 19:44 96 H 139/92 09/09/19 19:40 97 H 09/09/19 19:35 102 H 09/09/19 19:30 103 H 09/09/19 19:25 100 H 09/09/19 19:20 98 H 09/09/19 19:16 97 H 136/82 09/09/19 19:15 97 H 09/09/19 19:10 98.1 F 94 H 09/09/19 19:05 104 H 09/09/19 19:00 94 H 18 09/09/19 18:58 113 H 09/09/19 18:55 101 H 09/09/19 18:50 100 H 09/09/19 18:45 96 H 09/09/19 18:40 104 H 09/09/19 18:38 107 H 04/12/20 18:35 107 H 09/09/19 18:30 103 H 09/09/19 18:25 103 H 09/09/19 18:22 97 H 09/09/19 18:20 115 H 09/09/19 18:15 102 H 09/09/19 18:14 98 H 141/85 09/09/19 18:10 101 H 09/09/19 18:05 102 H 09/09/19 18:00 98.0 F 102 H 09/09/19 17:55 103 H 09/09/19 17:50 99 H 09/09/19 17:45 94 H 09/09/19 17:40 95 H 09/09/19 17:35 99 H 09/09/19 17:30 125 H 09/09/19 17:26 100 H 09/09/19 17:25 100 H 09/09/19 17:20 100 H 09/09/19 17:15 111 H 09/09/19 17:10 111 H 09/09/19 17:05 103 H 09/09/19 17:00 108 H 09/09/19 16:55 99 H 09/09/19 16:53 106 H 09/09/19 16:50 95 H 09/09/19 16:45 100 H 09/09/19 16:40 98 H 09/09/19 16:35 97 H 09/09/19 16:30 94 H 09/09/19 16:25 94 H 09/09/19 16:20 99 H 09/09/19 16:15 97 H 09/09/19 16:10 95 H 09/09/19 16:05 96 H 09/09/19 16:00 95 H 09/09/19 15:56 103 H 09/09/19 15:55 100 H 09/09/19 15:50 98 H 09/09/19 15:45 99 H 09/09/19 15:40 96 H 09/09/19 15:36 92 H 144/93 09/09/19 15:35 93 H 09/09/19 15:32 101 H 09/09/19 15:30 98 H 15 09/09/19 15:25 99 H 09/09/19 15:20 103 H 09/09/19 15:17 106 H 09/09/19 15:15 95 H 09/09/19 15:10 101 H 09/09/19 15:05 94 H 09/09/19 15:00 94 H 09/09/19 14:55 98 H 09/09/19 14:50 94 H 09/09/19 14:45 97 H 09/09/19 14:40 92 H 09/09/19 14:35 95 H 09/09/19 14:33 103 H 09/09/19 14:30 92 H 09/09/19 14:25 93 H 09/09/19 14:20 91 H 09/09/19 14:15 89 09/09/19 14:10 92 H 09/09/19 14:05 88 09/09/19 14:00 100 H 09/09/19 13:55 87 09/09/19 13:50 91 H 133/97 09/09/19 13:45 97 H 09/09/19 13:40 96 H 09/09/19 13:35 109 H 09/09/19 13:30 98 H 16 09/09/19 13:28 104 H 09/09/19 13:25 91 H 09/09/19 13:20 104 H 09/09/19 13:15 103 H 09/09/19 13:10 102 H 09/09/19 13:05 97 H 09/09/19 13:00 103 H 09/09/19 12:55 97 H 09/09/19 12:50 98 H 09/09/19 12:45 101 H 09/09/19 12:40 95 H 09/09/19 12:37 96 H 09/09/19 12:35 94 H 09/09/19 12:30 98 H 09/09/19 12:25 91 H 09/09/19 12:20 98 H 09/09/19 12:15 92 H 09/09/19 12:11 100 H 09/09/19 12:10 95 H 09/09/19 12:05 93 H 09/09/19 12:00 96 H 09/09/19 11:55 88 09/09/19 11:50 89 09/09/19 11:49 95 H 09/09/19 11:45 90 09/09/19 11:44 85 09/09/19 11:40 86 09/09/19 11:35 94 H 09/09/19 11:31 78 147/90 09/09/19 11:30 79 16 09/09/19 11:23 97.9 F 09/09/19 11:00 86 149/95 09/09/19 10:47 92 H 09/09/19 10:42 92 H 09/09/19 10:38 90 159/91 09/09/19 10:37 89 09/09/19 10:32 100 H 136/95 09/09/19 10:27 97 H 09/09/19 10:22 96 H 09/09/19 10:19 100 H 09/09/19 10:17 104 H 09/09/19 10:13 110 H 09/09/19 10:12 109 H 09/09/19 10:07 100 H 09/09/19 10:02 106 H 09/09/19 09:57 97 H 09/09/19 09:53 88 143/86 09/09/19 09:52 89 09/09/19 09:47 100 H 09/09/19 09:42 101 H 09/09/19 09:37 90 09/09/19 09:32 93 H 09/09/19 09:27 94 H 09/09/19 09:22 94 H 09/09/19 09:17 94 H 09/09/19 09:14 100 H 09/09/19 09:12 95 H 09/09/19 09:07 88 09/09/19 09:02 89 09/09/19 08:57 92 H 09/09/19 08:53 85 136/85 09/09/19 08:52 88 09/09/19 08:50 90 09/09/19 08:47 86 09/09/19 08:44 88 09/09/19 08:42 91 H 09/09/19 08:37 88 09/09/19 08:32 91 H 09/09/19 08:27 94 H 09/09/19 08:22 91 H 09/09/19 08:17 92 H 09/09/19 08:12 93 H 09/09/19 08:07 90 09/09/19 08:02 89 09/09/19 08:00 92 H 15 09/09/19 07:57 92 H 09/09/19 07:54 92 H 130/75 09/09/19 07:52 89 09/09/19 07:47 92 H Pulse Ox 09/10/19 07:42 98 09/10/19 07:38 93 09/10/19 07:37 97 09/10/19 07:32 98 09/10/19 07:28 09/10/19 07:27 98 09/10/19 07:22 98 09/10/19 07:18 94 09/10/19 07:17 98 09/10/19 07:12 99 09/10/19 07:07 98 09/10/19 07:02 96 09/10/19 06:57 97 09/10/19 06:52 98 09/10/19 06:47 99 09/10/19 06:42 97 09/10/19 06:37 97 09/10/19 06:32 99 09/10/19 06:27 96 09/10/19 06:22 99 09/10/19 06:17 98 09/10/19 06:16 94 09/10/19 06:12 100 09/10/19 05:57 93 09/10/19 05:56 96 09/10/19 05:53 100 09/10/19 05:51 99 09/10/19 05:47 09/10/19 05:46 99 09/10/19 05:41 96 09/10/19 05:36 96 09/10/19 05:31 96 09/10/19 05:26 96 09/10/19 05:21 97 09/10/19 05:16 96 09/10/19 05:11 98 09/10/19 05:06 97 09/10/19 05:01 97 09/10/19 04:56 95 09/10/19 04:51 98 09/10/19 04:46 98 09/10/19 04:41 98 09/10/19 04:36 99 09/10/19 04:31 97 09/10/19 04:26 97 09/10/19 04:21 97 09/10/19 04:16 97 09/10/19 04:11 97 09/10/19 04:06 97 09/10/19 04:04 09/10/19 04:01 100 09/10/19 04:00 98 09/10/19 03:56 98 09/10/19 03:51 98 09/10/19 03:46 95 09/10/19 03:41 96 09/10/19 03:36 97 09/10/19 03:31 97 09/10/19 03:26 99 09/10/19 03:25 94 09/10/19 03:21 96 09/10/19 03:16 95 09/10/19 03:11 95 09/10/19 03:06 97 09/10/19 03:01 98 09/10/19 02:59 90 09/10/19 02:56 99 09/10/19 02:51 99 09/10/19 02:49 91 09/10/19 02:46 100 09/10/19 02:41 100 09/10/19 02:40 99 09/10/19 02:35 100 09/10/19 02:30 100 09/10/19 02:25 97 09/10/19 02:20 98 09/10/19 02:15 97 09/10/19 02:14 97 09/10/19 02:10 97 09/10/19 02:05 96 09/10/19 02:00 98 09/10/19 01:55 97 09/10/19 01:50 97 09/10/19 01:45 96 09/10/19 01:44 09/10/19 01:40 99 09/10/19 01:35 97 09/10/19 01:30 98 09/10/19 01:25 98 09/10/19 01:20 97 09/10/19 01:15 99 09/10/19 01:14 09/10/19 01:10 98 09/10/19 01:05 99 09/10/19 01:00 99 09/10/19 00:55 96 09/10/19 00:50 97 09/10/19 00:45 96 09/10/19 00:44 09/10/19 00:40 98 09/10/19 00:35 99 09/10/19 00:30 98 09/10/19 00:25 98 09/10/19 00:20 98 09/10/19 00:15 96 09/10/19 00:14 97 09/10/19 00:10 97 09/10/19 00:05 98 09/10/19 00:00 97 09/09/19 23:57 09/09/19 23:55 98 09/09/19 23:50 96 09/09/19 23:45 97 09/09/19 23:44 09/09/19 23:40 98 09/09/19 23:35 99 09/09/19 23:30 97 09/09/19 23:25 97 09/09/19 23:20 99 09/09/19 23:15 98 09/09/19 23:14 09/09/19 23:10 98 09/09/19 23:05 98 09/09/19 23:00 98 09/09/19 22:55 97 09/09/19 22:50 99 09/09/19 22:45 98 09/09/19 22:44 09/09/19 22:40 98 09/09/19 22:37 09/09/19 22:36 09/09/19 22:35 98 09/09/19 22:30 98 09/09/19 22:25 97 09/09/19 22:23 94 09/09/19 22:20 99 09/09/19 22:15 99 09/09/19 22:10 99 09/09/19 22:05 97 09/09/19 22:00 98 09/09/19 21:59 93 09/09/19 21:55 98 09/09/19 21:50 98 09/09/19 21:45 99 09/09/19 21:40 98 09/09/19 21:35 99 09/09/19 21:30 97 09/09/19 21:25 97 09/09/19 21:20 97 09/09/19 21:15 98 09/09/19 21:10 97 09/09/19 21:05 97 09/09/19 21:00 96 09/09/19 20:55 99 09/09/19 20:50 98 09/09/19 20:45 100 09/09/19 20:44 09/09/19 20:40 96 09/09/19 20:35 96 09/09/19 20:30 96 09/09/19 20:28 99 09/09/19 20:25 97 09/09/19 20:20 96 09/09/19 20:15 97 09/09/19 20:14 09/09/19 20:10 99 09/09/19 20:05 99 09/09/19 20:03 94 09/09/19 20:00 99 09/09/19 19:55 99 09/09/19 19:50 98 09/09/19 19:45 98 09/09/19 19:44 09/09/19 19:40 99 09/09/19 19:35 97 09/09/19 19:30 97 09/09/19 19:25 98 09/09/19 19:20 97 09/09/19 19:16 09/09/19 19:15 98 09/09/19 19:10 91 09/09/19 19:05 97 09/09/19 19:00 100 09/09/19 18:58 87 09/09/19 18:55 99 09/09/19 18:50 99 09/09/19 18:45 97 09/09/19 18:40 98 09/09/19 18:38 94 09/09/19 18:35 98 09/09/19 18:30 98 09/09/19 18:25 97 09/09/19 18:22 93 09/09/19 18:20 98 09/09/19 18:15 99 09/09/19 18:14 09/09/19 18:10 98 09/09/19 18:05 98 09/09/19 18:00 98 09/09/19 17:55 98 09/09/19 17:50 98 09/09/19 17:45 99 09/09/19 17:40 100 09/09/19 17:35 98 09/09/19 17:30 90 09/09/19 17:26 94 09/09/19 17:25 96 09/09/19 17:20 98 09/09/19 17:15 97 09/09/19 17:10 97 09/09/19 17:05 97 09/09/19 17:00 97 09/09/19 16:55 98 09/09/19 16:53 93 09/09/19 16:50 98 09/09/19 16:45 97 09/09/19 16:40 98 09/09/19 16:35 100 09/09/19 16:30 99 09/09/19 16:25 99 09/09/19 16:20 100 09/09/19 16:15 97 09/09/19 16:10 99 09/09/19 16:05 99 09/09/19 16:00 99 09/09/19 15:56 91 09/09/19 15:55 98 09/09/19 15:50 98 09/09/19 15:45 98 09/09/19 15:40 99 09/09/19 15:36 09/09/19 15:35 98 09/09/19 15:32 91 09/09/19 15:30 98 09/09/19 15:25 100 09/09/19 15:20 100 09/09/19 15:17 94 09/09/19 15:15 99 09/09/19 15:10 98 09/09/19 15:05 99 09/09/19 15:00 99 09/09/19 14:55 97 09/09/19 14:50 99 09/09/19 14:45 98 09/09/19 14:40 99 09/09/19 14:35 98 09/09/19 14:33 94 09/09/19 14:30 100 09/09/19 14:25 99 09/09/19 14:20 99 09/09/19 14:15 100 09/09/19 14:10 99 09/09/19 14:05 98 09/09/19 14:00 90 09/09/19 13:55 100 09/09/19 13:50 96 09/09/19 13:45 98 09/09/19 13:40 100 09/09/19 13:35 98 09/09/19 13:30 100 09/09/19 13:28 89 09/09/19 13:25 98 09/09/19 13:20 99 09/09/19 13:15 98 09/09/19 13:10 98 09/09/19 13:05 99 09/09/19 13:00 97 09/09/19 12:55 97 09/09/19 12:50 99 09/09/19 12:45 98 09/09/19 12:40 97 09/09/19 12:37 92 09/09/19 12:35 96 09/09/19 12:30 97 09/09/19 12:25 98 09/09/19 12:20 98 09/09/19 12:15 99 09/09/19 12:11 90 09/09/19 12:10 99 09/09/19 12:05 100 09/09/19 12:00 86 09/09/19 11:55 94 09/09/19 11:50 99 09/09/19 11:49 93 09/09/19 11:45 99 09/09/19 11:44 89 09/09/19 11:40 100 09/09/19 11:35 99 09/09/19 11:31 09/09/19 11:30 100 09/09/19 11:23 09/09/19 11:00 09/09/19 10:47 98 09/09/19 10:42 99 09/09/19 10:38 09/09/19 10:37 98 09/09/19 10:32 98 09/09/19 10:27 98 09/09/19 10:22 99 09/09/19 10:19 90 09/09/19 10:17 98 09/09/19 10:13 94 09/09/19 10:12 96 09/09/19 10:07 96 09/09/19 10:02 97 09/09/19 09:57 99 09/09/19 09:53 09/09/19 09:52 99 09/09/19 09:47 99 09/09/19 09:42 98 09/09/19 09:37 98 09/09/19 09:32 97 09/09/19 09:27 98 09/09/19 09:22 99 09/09/19 09:17 100 09/09/19 09:14 91 09/09/19 09:12 99 09/09/19 09:07 99 09/09/19 09:02 99 09/09/19 08:57 99 09/09/19 08:53 09/09/19 08:52 99 09/09/19 08:50 88 09/09/19 08:47 97 09/09/19 08:44 93 09/09/19 08:42 99 09/09/19 08:37 98 09/09/19 08:32 98 09/09/19 08:27 98 09/09/19 08:22 98 09/09/19 08:17 97 09/09/19 08:12 99 09/09/19 08:07 98 09/09/19 08:02 100 09/09/19 08:00 09/09/19 07:57 98 09/09/19 07:54 09/09/19 07:52 99 09/09/19 07:47 99 Intake and Output 09/09/19 09/09/19 09/10/19 15:59 23:59 07:59 Intake Total 1000 Output Total 045 [id number] Balance 200 -600 -2200 Intake: IV 1000 MAGNESIUM SULFATE 40GM/ 1000 1000ML 40 gm In 1,000 ml @ 2 GM/HR 50 mls/hr IV DIRECT ASPEN Rx#:[id number] Output: Urine 235 295 9160 Indwelling Catheter 278 [id number] Other: Total, Output Amount 250 300 300 Estimated Blood Loss 200 - Exam Breasts: Present: normal Cardiovascular: Present: Regular rate, Normal S1 Lungs: Present: Clear to auscultation, Normal air movement Abdomen: Present: normal appearance, soft, normal bowel sounds. Absent: distention, tenderness, guarding Vulva: both: normal Uterus: Present: normal, firm, fundal height below umbilicus. Absent: bogginess, tenderness Extremities: Present: normal Deep Tendon Reflex Grade: Normal +2 Incision: Present: normal, dry, intact - Labs Labs: Abnormal lab results 09/09/19 09/09/19 09/09/19 Range/Units 07:21 13:25 18:09 Magnesium 5.50 H 3.80 H 4.20 H (1.7-2.3) mg/dL 09/10/19 09/10/19 Range/Units 01:01 05:49 Magnesium 4.80 H 5.10 H (1.7-2.3) mg/dL
[2019-09-10] MEDS: FAMOTIDINE 20 MG/2 ML INJ IV SCH (09:29)
[2019-09-10] MEDS: FERROUS SULFATE 325 MG TAB PO SCH ×2 (09:29→22:07)
[2019-09-10] MEDS: ALBUTEROL 2.5 MG/3 ML NEBU IH SCH ×3 (09:51→16:56)
[2019-09-10] MEDS: ENOXAPARIN 40 MG/0.4 ML INJ SUB-Q SCH (22:06)
[2019-09-11] MEDS: IBUPROFEN 600 MG TAB PO SCH ×5 (00:09→17:58)
[2019-09-11] MEDS ORDERED: TETANUS,DIPH,PERTUSS(ACELL) VACCINE 0.5 ML SYRINGE IM ONE (06:00)
--- NOTE | 2019-09-11 08:35 | Progress Note ---
Assessment and Plan A/P ppd 2 S/P S/P MAG FOR pree on labetolol 200 bid will increase to 300 mg bid routine PP care GDM continue PP care Subjective - Subjective Date of service: 09/11/19 Principal diagnosis: IUP at 36 wks, Chronic HTN with superimposed preeclampsia, GDM, Obesity, h/ Patient reports: appetite normal, voiding normally, pain well controlled, flatus, ambulating normally [place]: doing well Objective - Vital Signs Latest vital signs: Vital Signs Temp Pulse Resp BP BP Pulse Ox 09/11/19 05:59 97.8 F 69 20 145/95 97 09/11/19 05:48 20 09/11/19 02:14 97.8 F 75 20 142/85 93 09/11/19 00:09 20 09/10/19 22:07 64 154/84 09/10/19 18:15 98.0 F 70 18 147/93 100 09/10/19 12:19 98.5 F 83 16 137/96 100 09/10/19 11:07 84 140/92 09/10/19 10:12 97 H 99 09/10/19 10:07 87 96 09/10/19 10:05 90 136/68 09/10/19 10:02 93 H 98 09/10/19 09:57 96 H 97 09/10/19 09:52 92 H 98 09/10/19 09:47 89 98 09/10/19 09:42 90 100 09/10/19 09:37 102 H 98 09/10/19 09:32 96 H 97 09/10/19 09:28 98 H 141/85 09/10/19 09:27 98 H 99 09/10/19 09:22 95 H 99 09/10/19 09:17 98 H 97 09/10/19 09:12 98 H 99 09/10/19 09:07 100 H 99 09/10/19 09:04 93 H 141/85 09/10/19 09:02 102 H 99 09/10/19 08:57 99 H 99 09/10/19 08:52 109 H 97 09/10/19 08:47 96 H 98 09/10/19 08:42 105 H 97 09/10/19 08:37 95 H 98 Intake and Output 09/10/19 09/11/19 09/11/19 23:59 07:59 15:59 Intake Total 120 360 Balance 120 360 Intake: Oral 120 Intake, Free Water 360 Other: Total, Intake Amount 120 # Voids Indwelling Catheter 2 2 - Exam Breasts: Present: normal Cardiovascular: Present: Regular rate, Normal S1 Lungs: Present: Clear to auscultation, Normal air movement Abdomen: Present: normal appearance, soft, normal bowel sounds. Absent: distention, tenderness, guarding Vulva: both: normal Uterus: Present: normal, firm, fundal height below umbilicus. Absent: bogginess, tenderness Extremities: Present: normal Deep Tendon Reflex Grade: Normal +2 Incision: Present: normal - Labs Labs: Abnormal lab results 09/10/19 Range/Units 12:22 Magnesium 4.00 H (1.7-2.3) mg/dL
[2019-09-11] MEDS: FAMOTIDINE 20 MG/2 ML INJ IV SCH (09:07)
[2019-09-11] MEDS: FERROUS SULFATE 325 MG TAB PO SCH ×2 (09:07→22:00)
[2019-09-11] MEDS: ALBUTEROL 2.5 MG/3 ML NEBU IH SCH ×2 (12:53→13:03)
[2019-09-11] MEDS ORDERED: ALBUTEROL 2.5 MG/3 ML NEBU IH PRN (13:02)
[2019-09-11] MEDS: NIFEdipine XL 60 MG TAB PO SCH (17:47)
[2019-09-11] MEDS: ENOXAPARIN 40 MG/0.4 ML INJ SUB-Q SCH (22:00)
[2019-09-12] MEDS: IBUPROFEN 600 MG TAB PO SCH ×2 (01:06→01:08)
--- NOTE | 2019-09-12 09:34 | Progress Note ---
Assessment and Plan - Patient Problems (1) Preeclampsia Current Visit: Yes Status: Acute Plan to address problem: Patient doing well Discharge home (2) DVT (deep vein thrombosis) in Current Visit: No Status: Acute Subjective - Subjective Date of service: 09/12/19 Principal diagnosis: IUP at 36 wks, Chronic HTN with superimposed preeclampsia, GDM, Obesity, h/ Interval history: Patient without complaints. She denies any significant pain. She denies any symptoms of preeclampsia. Patient reports: appetite normal, voiding normally, pain well controlled [place]: doing well Objective - Vital Signs Latest vital signs: Vital Signs Temp Pulse Resp BP BP Pulse Ox 09/12/19 05:23 98.9 F 88 18 112/60 96 09/12/19 02:06 18 09/12/19 01:08 85 133/85 09/12/19 01:06 18 09/12/19 00:38 127/80 09/11/19 22:05 133/85 09/11/19 20:37 97.9 F 95 H 20 123/84 98 09/11/19 16:32 98.3 F 57 L 18 148/71 99 09/11/19 16:23 157/95 09/11/19 13:30 98.2 F 76 18 156/90 99 - Exam Breasts: Present: deferred Cardiovascular: Present: Regular rate Abdomen: Present: normal appearance
--- NOTE | 2019-09-12 09:35 | Discharge Summary ---
Providers - Providers Date of Admission: 09/07/19 20:26 Date of discharge: 09/12/19 Attending physician: LG MORALES Primary care physician: LG MORALES Hospitalization Reason for admission: induction of labor Delivery: complications: none Discharge diagnosis: other (Preeclampsia) Hospital course: The patient was admitted for induction of labor secondary to preeclampsia. She underwent a spontaneous vaginal delivery and subsequently received magnesium . The remainder her course was uneventful. Condition at discharge: Good Disposition: [id number] TO HOME OR SELFCARE - Discharge Diagnoses (1) Preeclampsia Status: Acute (2) DVT (deep vein thrombosis) in Status: Acute Plan - Discharge Medications Prescriptions: Labetalol HCl [Labetalol 300mg TAB] 300 mg PO BID #60 tablet Ibuprofen [Motrin] 800 mg PO Q8HR PRN #60 tablet PRN Reason: Pain, Mild (1-3) HYDROcodone/APAP 5-325 [[place] 5/325] 1 each PO Q6HR PRN #20 tablet PRN Reason: Pain NIFEdipine XL [Procardia Xl] 60 mg PO QDAY #30 tablet - Provider Discharge Summary Activity: no sex for 6 weeks, no heavy lifting 4 weeks, no strenuous exercise Diet: routine Instructions: routine Additional instructions: [] Smoking cessation referral if applicable(refer to patient education folder for contact #) [] Refer to [facility] Booklet Call your doctor immediately for: * Fever > 100.5 * Heavy vaginal bleeding ( >1 pad per hour) * Severe persistent headache * Shortness of breath * Reddened, hot, painful area to leg or breast * Schedule blood pressure check in 2 weeks - Follow up plan
[2019-09-12] MEDS: FERROUS SULFATE 325 MG TAB PO SCH (10:09)
[2019-09-12] MEDS: NIFEdipine XL 60 MG TAB PO SCH (10:09)
[2019-09-12] MEDS: FAMOTIDINE 20 MG/2 ML INJ IV SCH (10:09)
[2019-09-12 10:11] VITALS: BP 133/73
== END 2019-09-12 11:39 | disposition home or self-care (01) | DRG 775 ==
LOC: TRG 11:43 → LD 20:17 → TRG 20:26 → LD 20:26 → OB 09-10 12:17
PROVIDERS: ADMIT Obstetrics & Gynecology; ATTEND Obstetrics & Gynecology
PROC: 10E0XZZ Delivery of Products of Conception, External Approach (ICD-10-PCS; principal; 2019-09-09)
DX: O24.429 Gestational diabetes mellitus in childbirth, unspecified control (principal); O99.213 Obesity complicating pregnancy, third trimester; Z86.718 Personal history of other venous thrombosis and embolism; Z3A.36 36 weeks gestation of pregnancy; Z37.0 Single live birth; O11.4 Pre-existing hypertension with pre-eclampsia, complicating childbirth; O36.5930 Maternal care for other known or suspected poor fetal growth, third trimester, not applicable or unspecified
CPT/HCPCS: 36415; 59200; 71045; 80053; 81001; 82565; 82962; 83615; 83735; 84450; 84460; 84550; 85014; 85018; 85027; 85610; 85730; 86850; 86900; 86901; 88307; 90471; 90715; 94640; G0378; J0360; J0595; J1650; J2405; J2590; J3475; J3490; J7120

== ENCOUNTER 2021-03-05 18:18 | Inpatient (IN) | payer OTHER ==
[2021-03-05] MEDS ORDERED: DOCUSATE SODIUM 100 MG CAP PO PRN (19:22)
[2021-03-05] MEDS ORDERED: ACETAMINOPHEN 325 MG TAB PO PRN (19:22)
[2021-03-05] MEDS ORDERED: SODIUM CHLORIDE NASAL SPRAY 44ML NS PRN (19:22)
--- NOTE | 2021-03-05 19:38 | History and Physical Report ---
History of Present Illness Date of examination: 03/05/21 Date of admission: 03/05/2021 Chief complaint: Sent from [facility] clinic History of present illness: Pt is a 35 year old PATRICIA 04/13/21 at 34w3d who presents from [facility] clinic for further evaluation of headaches not responsive to Tylenol, in the setting of a history of migraines and chronic hypertension on Labetalol 400 mg TID. She denies scotomata, blurry vision or RUQ pain. She also denies vaginal bleeding, leakage of fluid or contractions. She has had limited care at [facility] since 11 wks with lapse in care from 27 to 34 wks complicated by aforementioned chronic hypertension, gestational diabetes on Metformin 500 mg BID and 14 units NPH QHS, polyhydramnios, genital herpes without lesion or prodrome, h/o DVT and chronic right lower extremity edema on Lovenox 40 mg daily. Her GBS status is unknown. Past History Past Medical History: hypertension, migraines, GERD, other (Obesity) Past Surgical History: 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 [employer] History: herpes Family/Genetic History: diabetes, hypertension Social history: no significant social history, - Obstetrical History Expected Date of Delivery: 04/13/21 Actual Gestation: 34 Week(s) 4 Day(s) : 4 Para: 3 Hx # Term Pregnancies: 2 Number of Pregnancies: 1 Spontaneous Abortions: 0 Induced : 0 Number of Living Children: 3 Medications and Allergies Allergies Allergy/AdvReac Type Severity Reaction Status Date / Time No Known Allergies Allergy Verified 05/04/19 12:30 Home Medications Medication Instructions Recorded Confirmed Last Taken Type Ondansetron [Zofran Oral Liq] 4 mg IV Q4HR 03/17/19 09/08/19 04/17/19 History 4 mg Aspirin EC [Halfprin EC] 81 mg PO DAILY 04/18/19 09/08/19 04/18/19 10:00 History 81 mg Enoxaparin [Lovenox] 40 mg SQ HS 04/18/19 09/08/19 04/17/19 History 40 mg Pantoprazole [Protonix TAB] 40 mg PO DAILY 04/18/19 09/08/19 04/17/19 History 40 mg glyBURIDE [Diabeta] 2.5 mg PO PRN PRN 04/18/19 09/08/19 04/12/19 History 2.5mg labetaloL [Labetalol 100mg TAB] 100 mg PO BID 04/18/19 09/08/19 09/07/19 History HYDROcodone/APAP 5-325 [[place] 1 each PO Q6HR PRN #20 tablet 09/12/19 Unknown Rx 5/325] Ibuprofen [Motrin] 800 mg PO Q8HR PRN #60 tablet 09/12/19 Unknown Rx Labetalol HCl [Labetalol 300mg TAB] 300 mg PO BID #60 tablet 09/12/19 Unknown Rx NIFEdipine XL [Procardia Xl] 60 mg PO QDAY #30 tablet 09/12/19 Unknown Rx Active Meds: Active Medications Acetaminophen (Acetaminophen 325 Mg Tab) 650 mg PO Q4H PRN PRN Reason: Pain MILD(1-3)/Fever >100.5/CHANCE Acetaminophen/Butalbital/Caffeine (Butalb/Acetaminophen/Caffeine Tab) 2 tab PO Q4H PRN PRN Reason: Headache Docusate Sodium (Docusate Sodium 100 Mg Cap) 100 mg PO Q12H PRN PRN Reason: Constipation Enoxaparin Sodium (Enoxaparin 40 Mg/0.4 Ml Inj) 40 mg SUB-Q QDAY@2200 ASPEN; Protocol Lactated Ringer's (Lactated Ringers) 1,000 mls @ 125 mls/hr IV DIRECT ASPEN Insulin Human NPH (Insulin Nph, Human 100 Unit/1 Ml) 14 unit SUB-Q QHS [facility] Labetalol HCl (Labetalol 200 Mg Tab) 400 mg PO TID [facility] Multivitamins/Iron/Calcium ( [id number] Fumarate-Folic Acid Vit Tab) 1 each PO QDAY ASPEN Nifedipine (Nifedipine Xl 30 Mg Tab) 30 mg PO QDAY ASPEN Ondansetron HCl (Ondansetron 4 Mg/2 Ml Inj) 4 mg IV Q6H PRN PRN Reason: Nausea And Vomiting Sodium Chloride (Sodium Chloride Nasal [place] 44ml) 2 spray NS Q4H PRN PRN Reason: Congestion Review of Systems All systems: negative - Physical Exam Breasts: Positive: deferred Abdomen: Positive: soft (obese, gravid ). Negative: tenderness Uterus: Positive: enlarged (gravid ) Extremities: Positive: edema (trace ) - Obstetrical FHR: auscultation normal Uterine Contraction Monitor Mode: External Uterine Contraction Pattern: Absent Uterine Tone Measurement Phase: Resting Results Result Diagrams: 03/05/21 20:30 03/05/21 20:30 All other labs normal. Assessment and Plan A: IUP at 34w3d Chronic hypertension on Labetalol 400mg TID, evaluate for superimposed preeclampsia Gestational diabetes on Metformin 500 mg BID and 14 units NPH QHS H/o DVT and chronic right lower extremity edema on Lovenox 40 mg daily Morbid Obesity GERD Migraines Genital herpes without lesion or prodrome GBS status unknown P: Admit to antepartum service for observation Begin 24 hour urine collection Add Nifedipine XL 30 mg daily Continue Lovenox 40 mg daily Closely monitor maternal and status
[2021-03-05] MEDS: NIFEdipine XL 30 MG TAB PO SCH (20:35)
[2021-03-05 21:05] LABS: Bacteria,Urine 1+ /HPF (Negative); Bilirubin,Urine NEG (Negative); Blood,Urine NEG (Negative); Calcium Oxalate Crystals,Urine 3+; Color,Urine Yellow (Yellow); Mucus,Urine FEW /HPF; Protein,Urine <15 mg/dL mg/dL (Negative)
[2021-03-05 21:17] LABS: Basophils % (Auto) 0.4 % (0.0-1.8); Eosinophils # (Auto) 0.1 K/mm3 (0.0-0.4); Eosinophils % (Auto) 1.4 % (0.0-4.3); Hematocrit 33.6 % (30.3-42.9); Hemoglobin 11.5 gm/dl (10.1-14.3); Lymphocytes # (Auto) 2.7 K/mm3 (1.2-5.4); Lymphocytes % (Auto) 26.9 % (13.4-35.0); Mean Corpuscular HGB Conc 34 % (30-34); Mean Corpuscular Volume 91 fl (79-97); Monocytes # (Auto) 0.9 K/mm3 (0.0-0.8); Monocytes % (Auto) 9.1 % (0.0-7.3); Platelet Count 315 K/mm3 (140-440); Red Cell Distribution Width 13.7 % (13.2-15.2)
[2021-03-05 21:28] LABS: Alanine Aminotransferase 9 units/L (7-56); Uric Acid 3.7 mg/dL (3.5-7.6)
[2021-03-05] MEDS: ENOXAPARIN 40 MG/0.4 ML INJ SUB-Q SCH (22:20)
[2021-03-05] MEDS: INSULIN NPH, HUMAN 100 UNIT/1 ML SUB-Q SCH (22:25)
--- NOTE | 2021-03-06 08:09 | Progress Note ---
Assessment and Plan - Patient Problems (1) Chronic hypertension affecting Current Visit: Yes Status: Acute Plan to address problem: Patient is to complete 24-hour urine collection Glucose and blood pressures have been better controlled Will consider CT scan of the head Initiate Fioricet medication for headache (2) Headache Current Visit: Yes Status: Acute (3) Gestational diabetes Current Visit: No Status: Acute (4) DVT (deep venous thrombosis) Current Visit: No Status: Chronic Qualifiers: DVT location: lower extremity Subjective - Subjective Date of service: 03/06/21 Interval history: 35-year-old at 34 and 4 weeks who was admitted for antepartum admission secondary to chronic hypertension, gestational diabetes, and anticoagulation therapy with Lovenox. The patient reports persistent headache for the last 2 weeks which has had intermittent improvement with Tylenol. The patient was admitted for preeclampsia work-up. Patient reports: other (Headaches) Objective - Vital Signs Vital Signs: Vital Signs - 12hr 03/05/21 03/05/21 03/05/21 20:07 20:12 20:17 Pulse Rate 95 H 92 H 93 H Blood Pressure O2 Sat by Pulse 99 98 99 Oximetry 03/05/21 03/05/21 03/05/21 20:22 20:27 20:32 Pulse Rate 94 H 97 H 88 Blood Pressure O2 Sat by Pulse 100 100 99 Oximetry 03/05/21 03/05/21 03/05/21 20:35 20:37 20:42 Pulse Rate 107 H 99 H 99 H Blood Pressure O2 Sat by Pulse 89 99 100 Oximetry 03/05/21 03/05/21 03/05/21 20:47 20:52 20:57 Pulse Rate 92 H 99 H 93 H Blood Pressure O2 Sat by Pulse 100 98 99 Oximetry 03/05/21 03/05/21 03/05/21 21:02 21:07 21:12 Pulse Rate 97 H 95 H 88 Blood Pressure O2 Sat by Pulse 100 99 100 Oximetry 03/05/21 03/05/21 03/05/21 21:17 21:22 21:27 Pulse Rate 91 H 93 H 98 H Blood Pressure O2 Sat by Pulse 100 99 98 Oximetry 03/05/21 03/05/21 03/05/21 21:29 21:32 21:37 Pulse Rate 96 H 105 H 96 H Blood Pressure 140/80 O2 Sat by Pulse 99 100 Oximetry 03/05/21 03/05/21 03/05/21 21:42 21:47 21:52 Pulse Rate 101 H 103 H 100 H Blood Pressure O2 Sat by Pulse 99 100 99 Oximetry 03/05/21 03/05/21 03/05/21 21:57 21:59 22:12 Pulse Rate 98 H 100 H 97 H Blood Pressure 123/76 O2 Sat by Pulse 99 99 Oximetry 03/05/21 03/05/21 03/05/21 22:17 22:22 22:27 Pulse Rate 92 H 89 93 H Blood Pressure O2 Sat by Pulse 99 98 98 Oximetry 03/05/21 03/05/21 03/05/21 22:30 22:32 22:37 Pulse Rate 88 98 H 99 H Blood Pressure 140/90 O2 Sat by Pulse 98 99 Oximetry 03/05/21 03/05/21 03/05/21 22:42 22:47 22:52 Pulse Rate 96 H 96 H 89 Blood Pressure O2 Sat by Pulse 98 100 99 Oximetry 03/05/21 03/05/21 03/05/21 22:57 22:59 23:02 Pulse Rate 86 87 93 H Blood Pressure 136/71 O2 Sat by Pulse 100 100 Oximetry 03/05/21 03/05/21 03/05/21 23:07 23:12 23:17 Pulse Rate 92 H 95 H 94 H Blood Pressure O2 Sat by Pulse 100 100 100 Oximetry 03/05/21 03/05/21 03/05/21 23:22 23:27 23:29 Pulse Rate 94 H 95 H 97 H Blood Pressure 136/78 O2 Sat by Pulse 100 100 Oximetry 03/05/21 03/05/21 03/05/21 23:32 23:37 23:42 Pulse Rate 97 H 90 98 H Blood Pressure O2 Sat by Pulse 100 100 100 Oximetry 03/05/21 03/05/21 03/05/21 23:47 23:52 23:57 Pulse Rate 93 H 99 H 96 H Blood Pressure O2 Sat by Pulse 100 100 100 Oximetry 03/06/21 03/06/21 03/06/21 00:00 00:02 00:07 Pulse Rate 103 H 97 H 96 H Blood Pressure 140/83 O2 Sat by Pulse 100 99 Oximetry 03/06/21 03/06/21 03/06/21 00:12 00:28 00:33 Pulse Rate 98 H 95 H 92 H Blood Pressure O2 Sat by Pulse 100 99 100 Oximetry 03/06/21 03/06/21 03/06/21 00:38 00:43 00:48 Pulse Rate 92 H 92 H 90 Blood Pressure O2 Sat by Pulse 98 99 99 Oximetry 03/06/21 03/06/21 03/06/21 00:53 00:58 01:00 Pulse Rate 92 H 95 H 94 H Blood Pressure 153/94 O2 Sat by Pulse 98 99 Oximetry 03/06/21 03/06/21 03/06/21 01:03 01:08 01:13 Pulse Rate 95 H 89 92 H Blood Pressure O2 Sat by Pulse 100 100 100 Oximetry 03/06/21 03/06/21 03/06/21 01:18 01:23 01:28 Pulse Rate 95 H 83 82 Blood Pressure O2 Sat by Pulse 97 98 97 Oximetry 03/06/21 03/06/21 03/06/21 01:29 01:33 01:38 Pulse Rate 82 80 80 Blood Pressure 146/74 O2 Sat by Pulse 93 97 97 Oximetry 03/06/21 03/06/21 03/06/21 01:43 01:48 01:53 Pulse Rate 83 75 81 Blood Pressure O2 Sat by Pulse 97 96 97 Oximetry 03/06/21 03/06/21 03/06/21 01:58 01:59 02:03 Pulse Rate 81 78 80 Blood Pressure 156/76 O2 Sat by Pulse 98 100 Oximetry 03/06/21 03/06/21 03/06/21 02:08 02:13 02:18 Pulse Rate 81 80 82 Blood Pressure O2 Sat by Pulse 100 100 100 Oximetry 03/06/21 03/06/21 03/06/21 02:23 02:28 02:30 Pulse Rate 83 79 88 Blood Pressure 142/85 O2 Sat by Pulse 100 100 Oximetry 03/06/21 03/06/21 03/06/21 02:33 02:38 02:43 Pulse Rate 96 H 88 86 Blood Pressure O2 Sat by Pulse 100 100 100 Oximetry 03/06/21 03/06/21 03/06/21 02:48 02:53 02:58 Pulse Rate 82 85 88 Blood Pressure O2 Sat by Pulse 100 99 99 Oximetry 03/06/21 03/06/21 03/06/21 02:59 03:03 03:08 Pulse Rate 85 89 81 Blood Pressure 124/65 O2 Sat by Pulse 100 100 Oximetry 03/06/21 03/06/21 03/06/21 03:13 03:18 03:23 Pulse Rate 88 79 84 Blood Pressure O2 Sat by Pulse 100 100 99 Oximetry 03/06/21 03/06/21 03/06/21 03:28 03:29 03:33 Pulse Rate 83 88 87 Blood Pressure 109/60 O2 Sat by Pulse 99 99 Oximetry 03/06/21 03/06/21 03/06/21 03:38 03:43 03:55 Pulse Rate 87 83 90 Blood Pressure O2 Sat by Pulse 98 100 100 Oximetry 03/06/21 03/06/21 03/06/21 03:59 04:00 04:05 Pulse Rate 93 H 87 87 Blood Pressure 134/77 O2 Sat by Pulse 100 99 Oximetry 03/06/21 03/06/21 03/06/21 04:10 04:15 04:20 Pulse Rate 77 82 84 Blood Pressure O2 Sat by Pulse 100 100 96 Oximetry 03/06/21 03/06/21 03/06/21 04:25 04:29 04:30 Pulse Rate 82 82 85 Blood Pressure 108/57 O2 Sat by Pulse 100 100 Oximetry 03/06/21 03/06/21 03/06/21 04:35 04:40 04:45 Pulse Rate 76 78 82 Blood Pressure O2 Sat by Pulse 99 100 100 Oximetry 03/06/21 03/06/21 03/06/21 04:50 04:55 05:03 Pulse Rate 88 102 H 79 Blood Pressure O2 Sat by Pulse 99 100 100 Oximetry 03/06/21 03/06/21 03/06/21 05:08 05:13 05:18 Pulse Rate 81 78 77 Blood Pressure O2 Sat by Pulse 99 98 99 Oximetry 03/06/21 03/06/21 03/06/21 05:23 05:28 05:32 Pulse Rate 77 74 80 Blood Pressure 133/72 O2 Sat by Pulse 100 100 Oximetry 03/06/21 03/06/21 03/06/21 05:33 05:38 05:43 Pulse Rate 77 79 79 Blood Pressure O2 Sat by Pulse 100 100 100 Oximetry 03/06/21 03/06/21 03/06/21 05:48 05:53 05:58 Pulse Rate 78 84 82 Blood Pressure O2 Sat by Pulse 99 100 100 Oximetry 03/06/21 03/06/21 03/06/21 05:59 06:03 06:08 Pulse Rate 93 H 79 80 Blood Pressure 136/71 O2 Sat by Pulse 100 100 Oximetry 03/06/21 03/06/21 03/06/21 06:13 06:18 06:31 Pulse Rate 85 86 83 Blood Pressure O2 Sat by Pulse 100 99 99 Oximetry 03/06/21 03/06/21 03/06/21 06:36 06:41 06:46 Pulse Rate 84 83 76 Blood Pressure O2 Sat by Pulse 100 100 99 Oximetry 03/06/21 03/06/21 03/06/21 06:51 06:56 06:59 Pulse Rate 77 81 71 Blood Pressure 133/72 O2 Sat by Pulse 100 100 Oximetry 03/06/21 03/06/21 03/06/21 07:01 07:06 07:11 Pulse Rate 78 80 79 Blood Pressure O2 Sat by Pulse 98 99 100 Oximetry 03/06/21 03/06/21 03/06/21 07:16 07:21 07:26 Pulse Rate 78 79 80 Blood Pressure O2 Sat by Pulse 100 99 98 Oximetry 03/06/21 03/06/21 03/06/21 07:30 07:31 07:36 Pulse Rate 82 79 81 Blood Pressure 128/75 O2 Sat by Pulse 99 100 Oximetry 03/06/21 03/06/21 03/06/21 07:41 07:46 07:51 Pulse Rate 88 90 93 H Blood Pressure O2 Sat by Pulse 99 99 100 Oximetry 03/06/21 03/06/21 03/06/21 07:56 07:59 08:01 Pulse Rate 92 H 87 84 Blood Pressure 126/68 O2 Sat by Pulse 100 100 Oximetry - Labs Labs: Abnormal Labs 03/05/21 03/05/21 03/05/21 20:30 20:30 22:25 [place] % (Auto) 9.1 H [place] # (Auto) 0.9 H POC Glucose 111 H Urine WBC (Auto) 9.0 H U Epithel Cells (Auto) 28.0 H Laboratory Results - last 24 hr 03/05/21 03/05/21 03/05/21 20:19 20:30 20:30 WBC 9.9 RBC 3.70 Hgb 11.5 Hct 33.6 MCV 91 MCH 31 MCHC 34 RDW 13.7 Plt Count 315 Lymph % (Auto) 26.9 [place] % (Auto) 9.1 H Eos % (Auto) 1.4 Baso % (Auto) 0.4 Lymph # (Auto) 2.7 [place] # (Auto) 0.9 H Eos # (Auto) 0.1 Baso # (Auto) 0.0 Seg Neutrophils % 62.2 Seg Neutrophils # 6.2 Creatinine Estimated GFR POC Glucose 70 Uric Acid AST ALT Lactate Dehydrogenase Urine Color Yellow Urine Turbidity Cloudy Urine pH 6.0 Ur Specific [place] 1.020 Urine Protein <15 mg/dl Urine Glucose (UA) Neg Urine Ketones Neg Urine Blood Neg Urine Nitrite Neg Urine Bilirubin Neg Urine Urobilinogen 2.0 Ur Leukocyte Esterase Tr Urine WBC (Auto) 9.0 H Urine RBC (Auto) 7.0 U Epithel Cells (Auto) 28.0 H Urine Bacteria (Auto) 1+ Calcium Oxalate Crystal 3+ Urine Mucus Few Urine Yeast (Budding) 2+ Blood Type Antibody Screen 03/05/21 03/05/21 03/05/21 20:30 20:45 22:25 WBC RBC Hgb Hct MCV MCH MCHC RDW Plt Count Lymph % (Auto) [place] % (Auto) Eos % (Auto) Baso % (Auto) Lymph # (Auto) [place] # (Auto) Eos # (Auto) Baso # (Auto) Seg Neutrophils % Seg Neutrophils # Creatinine 0.6 Estimated GFR > 60 POC Glucose 111 H Uric Acid 3.7 AST 14 ALT 9 Lactate Dehydrogenase 172 Urine Color Urine Turbidity Urine pH Ur Specific [place] Urine Protein Urine Glucose (UA) Urine Ketones Urine Blood Urine Nitrite Urine Bilirubin Urine Urobilinogen Ur Leukocyte Esterase Urine WBC (Auto) Urine RBC (Auto) U Epithel Cells (Auto) Urine Bacteria (Auto) Calcium Oxalate Crystal Urine Mucus Urine Yeast (Budding) Blood Type A POSITIVE Antibody Screen Negative 03/06/21 06:22 WBC RBC Hgb Hct MCV MCH MCHC RDW Plt Count Lymph % (Auto) [place] % (Auto) Eos % (Auto) Baso % (Auto) Lymph # (Auto) [place] # (Auto) Eos # (Auto) Baso # (Auto) Seg Neutrophils % Seg Neutrophils # Creatinine Estimated GFR POC Glucose 89 Uric Acid AST ALT Lactate Dehydrogenase Urine Color Urine Turbidity Urine pH Ur Specific [place] Urine Protein Urine Glucose (UA) Urine Ketones Urine Blood Urine Nitrite Urine Bilirubin Urine Urobilinogen Ur Leukocyte Esterase Urine WBC (Auto) Urine RBC (Auto) U Epithel Cells (Auto) Urine Bacteria (Auto) Calcium Oxalate Crystal Urine Mucus Urine Yeast (Budding) Blood Type Antibody Screen
[2021-03-06] MEDS: BUTALB/ACETAMINOPHEN/CAFFEINE TAB PO PRN ×2 (08:54→14:33)
[2021-03-06] MEDS: metFORMIN 500 MG TAB PO SCH ×2 (09:22→17:14)
[2021-03-06] MEDS: PRENATAL VIT27-FE FUMARATE-FOLIC ACID VIT TAB PO SCH (10:51)
[2021-03-06] MEDS: NIFEdipine XL 30 MG TAB PO SCH (10:51)
[2021-03-06] MEDS: ONDANSETRON 4 MG/2 ML INJ IV PRN ×3 (12:04→22:18)
--- NOTE | 2021-03-06 12:04 | Cat Scan Report ---
CT head/brain wo con INDICATION: Chronic headache. TECHNIQUE: All CT scans at this location are performed using CT dose reduction for ALARA by means of automated e xposure control. COMPARISON: Prior head CT on 09/20/2016. FINDINGS: There is no evidence of hemorrhage, hydrocephalus, brain edema, or mass effect/mass lesion. 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 No new infarct is identified. The included paranasal sinuses and masto id air cells are clear. The orbits appear unremarkable. IMPRESSION: 1. No acute intracranial abnormality or adverse change from prior head CT. Signer Name: Jakub Desir MD Signed: 03/06/2021 12:00 PM Workstation Name: [email or web address]
--- NOTE | 2021-03-06 13:16 | Consultation ---
History of Present Illness Consult date: 03/06/21 Requesting physician: LG MORALES History of present illness: HPI 35 y/o PATRICIA 04/13/21 EGA at 34 4/7 weeks Sent in from [facility] 03/05/21 with CHANCE's past 2 weeks H/O CHTN AMA, MO, and DVT on Lovenox and GDM Reports CHANCE's -02/06 not helped with Tylenol BP's in office yesterday 144/97 but reported BP's at home " 150-170/100's" High BP since admission 159/97 at 8 pm 03/05/21 Now BP 140/82 and 132/79 C/O nausea and occ vomiting PIH labs AST/ALT at 14/9 Creat at .6 H/H at 11.5/33 Plt at 315 Spot UA Prot < 15 CT of brain - Neg BS Fasting 89 2 PPB - 112 Abd gravid obese no RUQ pain Ext NT tr edema DTR 2/4 no clonus Past History Past Medical History: hypertension, migraines, GERD, other (Obesity) Past Surgical History: 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: 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 Family/Genetic History: diabetes, hypertension - Obstetrical History : 4 Medications and Allergies Allergies Allergy/AdvReac Type Severity Reaction Status Date / Time No Known Allergies Allergy Verified 05/04/19 12:30 Home Medications Medication Instructions Recorded Confirmed Last Taken Type Ondansetron [Zofran Oral Liq] 4 mg IV Q4HR 03/17/19 09/08/19 04/17/19 History 4 mg Aspirin EC [Halfprin EC] 81 mg PO DAILY 04/18/19 09/08/19 04/18/19 10:00 History 81 mg Enoxaparin [Lovenox] 40 mg SQ HS 04/18/19 09/08/19 04/17/19 History 40 mg Pantoprazole [Protonix TAB] 40 mg PO DAILY 04/18/19 09/08/19 04/17/19 History 40 mg glyBURIDE [Diabeta] 2.5 mg PO PRN PRN 04/18/19 09/08/19 04/12/19 History 2.5mg labetaloL [Labetalol 100mg TAB] 100 mg PO BID 04/18/19 09/08/19 09/07/19 History HYDROcodone/APAP 5-325 [[place] 1 each PO Q6HR PRN #20 tablet 09/12/19 Unknown Rx 5/325] Ibuprofen [Motrin] 800 mg PO Q8HR PRN #60 tablet 09/12/19 Unknown Rx Labetalol HCl [Labetalol 300mg TAB] 300 mg PO BID #60 tablet 09/12/19 Unknown Rx NIFEdipine XL [Procardia Xl] 60 mg PO QDAY #30 tablet 09/12/19 Unknown Rx Active Meds: Active Medications Acetaminophen (Acetaminophen 325 Mg Tab) 650 mg PO Q4H PRN PRN Reason: Pain MILD(1-3)/Fever >100.5/CHANCE Last Admin: 03/06/21 00:27 Dose: 650 mg Documented by: Acetaminophen/Butalbital/Caffeine (Butalb/Acetaminophen/Caffeine Tab) 2 tab PO Q4H PRN PRN Reason: Headache Last Admin: 03/06/21 08:54 Dose: 2 tab Documented by: Docusate Sodium (Docusate Sodium 100 Mg Cap) 100 mg PO Q12H PRN PRN Reason: Constipation Enoxaparin Sodium (Enoxaparin 40 Mg/0.4 Ml Inj) 40 mg SUB-Q QDAY@2200 ASP[place]; Protocol Last Admin: 03/05/21 22:20 Dose: 40 mg Documented by: Lactated Ringer's (Lactated Ringers) 1,000 mls @ 125 mls/hr IV DIRECT [facility] Insulin Human NPH (Insulin Nph, Human 100 Unit/1 Ml) 14 unit SUB-Q QHS [facility] Last Admin: 03/05/21 22:25 Dose: 14 unit Documented by: Labetalol HCl (Labetalol 200 Mg Tab) 400 mg PO TID [facility] Last Admin: 03/06/21 08:51 Dose: 400 mg Documented by: Metformin HCl (Metformin 500 Mg Tab) 500 mg PO BIDDIAB [facility] Last Admin: 03/06/21 09:22 Dose: 500 mg Documented by: Multivitamins/Iron/Calcium ( [id number] Fumarate-Folic Acid Vit Tab) 1 each PO QDAY [facility] Last Admin: 03/06/21 10:51 Dose: 1 each Documented by: Nifedipine (Nifedipine Xl 30 Mg Tab) 30 mg PO QDAY [facility] Last Admin: 03/06/21 10:51 Dose: 30 mg Documented by: Ondansetron HCl (Ondansetron 4 Mg/2 Ml Inj) 4 mg IV Q6H PRN PRN Reason: Nausea And Vomiting Last Admin: 03/06/21 12:04 Dose: 4 mg Documented by: Sodium Chloride (Sodium Chloride Nasal [place] 44ml) 2 spray NS Q4H PRN PRN Reason: Congestion - Vital Signs Vital signs: Vital Signs Pulse Pulse Ox 95 H 94 03/05/21 19:52 03/05/21 19:52 Temp Pulse Resp BP Pulse Ox 98.6 F 88 12 140/82 100 03/06/21 11:35 03/06/21 13:08 03/05/21 19:57 03/06/21 12:44 03/06/21 13:08 Results Result Diagrams: 03/05/21 20:30 03/05/21 20:30 Abnormal lab results 03/05/21 03/05/21 03/05/21 Range/Units 20:30 20:30 22:25 [place] % (Auto) 9.1 H (0.0-7.3) % [place] # (Auto) 0.9 H (0.0-0.8) K/mm3 POC Glucose 111 H (70-105) mg/dL Urine WBC (Auto) 9.0 H (0.0-6.0) /HPF U Epithel Cells (Auto) 28.0 H (0-13.0) /HPF 03/06/21 Range/Units 10:45 [place] % (Auto) (0.0-7.3) % [place] # (Auto) (0.0-0.8) K/mm3 POC Glucose 112 H (70-105) mg/dL Urine WBC (Auto) (0.0-6.0) /HPF U Epithel Cells (Auto) (0-13.0) /HPF All other labs normal. Assessment and Plan Impression 1. [place] IUP at 34 4/7 weeks 2. CHTN with CHANCE's - R/O Superimposed Preeclampsia ( on Lovenox 400 TID and Procardia 30 q day ) 3. H/O DVT on Lovenox 4. GDM 5. AMA 6. HSV 7. H/O Preeclampsia with prior 2 pregnancies and delivered at 34 to 35 weeks Recommendations 1. If CHANCE's and scotoma persist would proceed with delivery - DC Lovenox 24 hours prior to induction and restart 6 hours after uncomplicated vag delivery or 12 hours after uncomplicated C/S 2. Consider neuro consult for CHANCE's 3. 24 Hour urine prot pending 4. Steroids for FLM 5. Continue Metformin 500 BID and 14 units NPH Insulin q hs 6. Valtrex 500 q day 7. If symptoms worsening would start Mg and deliver 8. Discussed with Dr. Ham
[2021-03-06] MEDS: FAMOTIDINE 20 MG/2 ML INJ IV SCH ×2 (13:57→22:22)
[2021-03-06] MEDS: BETAMET ACET/BETAMET NA PH 6 MG/ML INJ 5 ML MDV IM SCH (14:35)
[2021-03-06] MEDS: LACTATED RINGERS 1,000 ML IV SCH ×2 (15:13→22:37)
[2021-03-06] MEDS: INSULIN NPH, HUMAN 100 UNIT/1 ML SUB-Q SCH (22:23)
[2021-03-06] MEDS: ENOXAPARIN 40 MG/0.4 ML INJ SUB-Q SCH (22:25)
[2021-03-06] MEDS: oxyCODONE /ACETAMINOPHEN 5-325MG TAB PO PRN (22:32)
[2021-03-07] MEDS ORDERED: fentaNYL 100 MCG/2 ML INJ ONE (01:30)
[2021-03-07] MEDS: fentaNYL 100 MCG/2 ML INJ IV PRN ×2 (01:35→05:45)
[2021-03-07] MEDS ORDERED: MAGNESIUM SULFATE 4 GM/100 ML BAG IV ONE (08:00)
[2021-03-07] MEDS: ONDANSETRON 4 MG/2 ML INJ IV PRN ×2 (08:42→16:03)
[2021-03-07] MEDS: BUTALB/ACETAMINOPHEN/CAFFEINE TAB PO PRN (08:47)
[2021-03-07] MEDS: metFORMIN 500 MG TAB PO SCH ×2 (09:01→16:00)
[2021-03-07] MEDS: MAGNESIUM SULFATE 40GM/1000ML 40 GM/1,000 ML BAG IV SCH (10:28)
[2021-03-07] MEDS: NIFEdipine XL 30 MG TAB PO SCH (11:10)
[2021-03-07] MEDS: PRENATAL VIT27-FE FUMARATE-FOLIC ACID VIT TAB PO SCH (11:10)
[2021-03-07] MEDS: FAMOTIDINE 20 MG/2 ML INJ IV SCH (11:10)
[2021-03-07] MEDS: BETAMET ACET/BETAMET NA PH 6 MG/ML INJ 5 ML MDV IM SCH (14:28)
[2021-03-07] MEDS ORDERED: DINOPROSTONE 10 MG VAG SUPP VG ONE ×2 (22:36→23:00)
--- NOTE | 2021-03-07 22:37 | Progress Note ---
Assessment and Plan - Patient Problems (1) Chronic hypertension affecting Current Visit: Yes Status: Acute Plan to address problem: Continue Magnesium as directed Continue to monitor B/Ps Initiate Cervidil as ordered Pain meds as desired per orders Anticipate (2) Gestational diabetes Current Visit: No Status: Acute Qualifiers: Gestational diabetes mellitus control: oral hypoglycemic-controlled Plan to address problem: Hold Glucophage during induction Monitor blood glucose level q 6 hrs (3) DVT (deep vein thrombosis) in Current Visit: No Status: Acute Plan to address problem: Lovonox has been stopped >24hrs prior to initiation of IOL Resume Lovonox after delivery SCD hose until ambulatory (4) GBS screening not performed Current Visit: Yes Status: Acute Plan to address problem: Initiate GBS prophylaxis when in active labor or SROM Subjective - Subjective Date of service: 03/07/21 Principal diagnosis: CHTN/ Headaches Interval history: Pt is a 35 year old PATRICIA 04/13/21 at 34w3d who presents from [facility] clinic for further evaluation of headaches not responsive to Tylenol, in the setting of a history of migraines and chronic hypertension on Labetalol 400 mg TID. She denies scotomata, blurry vision or RUQ pain. She also denies vaginal bleeding, leakage of fluid or contractions. She has had limited care at [facility] since 11 wks with lapse in care from 27 to 34 wks complicated by aforementioned chronic hypertension, gestational diabetes on Metformin 500 mg BID and 14 units NPH QHS, polyhydramnios, genital herpes without lesion or prodrome, h/o DVT and chronic right lower extremity edema on Lovenox 40 mg daily. Her GBS status is unknown. Patient reports: movement normal, no new complaints, no loss of fluid, no vaginal bleeding, no contractions Objective - Vital Signs Vital Signs: Vital Signs - 12hr 03/07/21 03/07/21 03/07/21 10:40 10:44 10:45 Temperature Pulse Rate 92 H 92 H 93 H Respiratory Rate Blood Pressure 134/79 Blood Pressure [Left] O2 Sat by Pulse 100 99 Oximetry O2 Sat by Pulse Oximetry [ Throughout] 03/07/21 03/07/21 03/07/21 10:50 10:55 11:00 Temperature Pulse Rate 92 H 92 H 97 H Respiratory Rate Blood Pressure Blood Pressure [Left] O2 Sat by Pulse 98 98 99 Oximetry O2 Sat by Pulse Oximetry [ Throughout] 03/07/21 03/07/21 03/07/21 11:05 11:10 11:15 Temperature Pulse Rate 94 H 94 H 100 H Respiratory Rate Blood Pressure Blood Pressure [Left] O2 Sat by Pulse 99 99 99 Oximetry O2 Sat by Pulse Oximetry [ Throughout] 03/07/21 03/07/21 03/07/21 11:20 11:25 11:29 Temperature 97.7 F Pulse Rate 95 H 93 H Respiratory 19 Rate Blood Pressure Blood Pressure [Left] O2 Sat by Pulse 99 99 Oximetry O2 Sat by Pulse Oximetry [ Throughout] 03/07/21 03/07/21 03/07/21 11:30 11:35 11:40 Temperature Pulse Rate 93 H 90 90 Respiratory Rate Blood Pressure Blood Pressure [Left] O2 Sat by Pulse 99 99 99 Oximetry O2 Sat by Pulse Oximetry [ Throughout] 03/07/21 03/07/21 03/07/21 11:43 11:45 11:50 Temperature Pulse Rate 92 H 100 H 94 H Respiratory Rate Blood Pressure 138/82 Blood Pressure [Left] O2 Sat by Pulse 95 99 Oximetry O2 Sat by Pulse Oximetry [ Throughout] 03/07/21 03/07/21 03/07/21 11:55 12:00 12:05 Temperature Pulse Rate 92 H 96 H 96 H Respiratory Rate Blood Pressure Blood Pressure [Left] O2 Sat by Pulse 99 100 100 Oximetry O2 Sat by Pulse Oximetry [ Throughout] 03/07/21 03/07/21 03/07/21 12:10 12:15 12:20 Temperature Pulse Rate 88 89 89 Respiratory Rate Blood Pressure Blood Pressure [Left] O2 Sat by Pulse 100 97 97 Oximetry O2 Sat by Pulse Oximetry [ Throughout] 03/07/21 03/07/21 03/07/21 12:25 12:30 12:35 Temperature Pulse Rate 88 96 H 95 H Respiratory Rate Blood Pressure Blood Pressure [Left] O2 Sat by Pulse 99 100 99 Oximetry O2 Sat by Pulse Oximetry [ Throughout] 03/07/21 03/07/21 03/07/21 12:40 12:45 12:50 Temperature Pulse Rate 106 H 100 H 97 H Respiratory Rate Blood Pressure Blood Pressure [Left] O2 Sat by Pulse 100 99 100 Oximetry O2 Sat by Pulse Oximetry [ Throughout] 1003/07/21 03/07/21 12:54 12:55 13:00 Temperature 98.3 F Pulse Rate 92 H 86 95 H Respiratory 20 Rate Blood Pressure 132/75 Blood Pressure 132/75 [Left] O2 Sat by Pulse 82 L 100 100 Oximetry O2 Sat by Pulse Oximetry [ Throughout] 03/07/21 03/07/21 03/07/21 13:05 13:10 13:15 Temperature Pulse Rate 95 H 105 H 105 H Respiratory Rate Blood Pressure Blood Pressure [Left] O2 Sat by Pulse 100 99 99 Oximetry O2 Sat by Pulse Oximetry [ Throughout] 03/07/21 03/07/21 03/07/21 13:20 13:25 13:30 Temperature Pulse Rate 102 H 94 H 99 H Respiratory Rate Blood Pressure Blood Pressure [Left] O2 Sat by Pulse 98 99 99 Oximetry O2 Sat by Pulse Oximetry [ Throughout] 03/07/21 03/07/21 03/07/21 13:35 13:40 13:45 Temperature Pulse Rate 101 H 99 H 100 H Respiratory Rate Blood Pressure Blood Pressure [Left] O2 Sat by Pulse 100 99 99 Oximetry O2 Sat by Pulse Oximetry [ Throughout] 03/07/21 03/07/21 03/07/21 13:50 13:55 14:00 Temperature Pulse Rate 104 H 98 H 99 H Respiratory Rate Blood Pressure Blood Pressure [Left] O2 Sat by Pulse 98 100 99 Oximetry O2 Sat by Pulse Oximetry [ Throughout] 03/07/21 03/07/21 03/07/21 14:05 14:10 14:15 Temperature Pulse Rate 97 H 102 H 95 H Respiratory Rate Blood Pressure Blood Pressure [Left] O2 Sat by Pulse 99 98 99 Oximetry O2 Sat by Pulse Oximetry [ Throughout] 03/07/21 03/07/21 03/07/21 14:19 14:20 14:25 Temperature Pulse Rate 97 H 98 H 98 H Respiratory Rate Blood Pressure 146/86 Blood Pressure [Left] O2 Sat by Pulse 100 99 Oximetry O2 Sat by Pulse Oximetry [ Throughout] 03/07/21 03/07/21 03/07/21 14:30 14:35 14:40 Temperature Pulse Rate 95 H 96 H 94 H Respiratory Rate Blood Pressure Blood Pressure [Left] O2 Sat by Pulse 99 98 98 Oximetry O2 Sat by Pulse Oximetry [ Throughout] 03/07/21 03/07/21 03/07/21 14:44 14:45 14:50 Temperature Pulse Rate 96 H 94 H 92 H Respiratory Rate Blood Pressure 132/74 Blood Pressure [Left] O2 Sat by Pulse 98 97 Oximetry O2 Sat by Pulse Oximetry [ Throughout] 03/07/21 03/07/21 03/07/21 14:55 15:00 15:05 Temperature Pulse Rate 92 H 102 H 99 H Respiratory Rate Blood Pressure Blood Pressure [Left] O2 Sat by Pulse 96 96 98 Oximetry O2 Sat by Pulse Oximetry [ Throughout] 03/07/21 03/07/21 03/07/21 15:10 15:15 15:20 Temperature Pulse Rate 97 H 93 H 92 H Respiratory Rate Blood Pressure Blood Pressure [Left] O2 Sat by Pulse 96 96 97 Oximetry O2 Sat by Pulse Oximetry [ Throughout] 03/07/21 03/07/21 03/07/21 15:25 15:30 15:35 Temperature Pulse Rate 92 H 91 H 91 H Respiratory Rate Blood Pressure Blood Pressure [Left] O2 Sat by Pulse 97 97 98 Oximetry O2 Sat by Pulse Oximetry [ Throughout] 03/07/21 03/07/21 03/07/21 15:40 15:43 15:45 Temperature Pulse Rate 90 92 H 88 Respiratory Rate Blood Pressure 136/78 Blood Pressure [Left] O2 Sat by Pulse 98 97 Oximetry O2 Sat by Pulse Oximetry [ Throughout] 03/07/21 03/07/21 03/07/21 15:50 15:55 16:00 Temperature Pulse Rate 88 91 H 98 H Respiratory Rate Blood Pressure Blood Pressure [Left] O2 Sat by Pulse 99 98 100 Oximetry O2 Sat by Pulse Oximetry [ Throughout] 03/07/21 03/07/21 03/07/21 16:05 16:10 16:15 Temperature Pulse Rate 97 H 100 H 94 H Respiratory Rate Blood Pressure Blood Pressure [Left] O2 Sat by Pulse 100 99 100 Oximetry O2 Sat by Pulse Oximetry [ Throughout] 03/07/21 03/07/21 03/07/21 16:20 16:25 16:30 Temperature Pulse Rate 94 H 98 H 94 H Respiratory Rate Blood Pressure Blood Pressure [Left] O2 Sat by Pulse 100 100 100 Oximetry O2 Sat by Pulse Oximetry [ Throughout] 03/07/21 03/07/21 03/07/21 16:35 16:40 16:45 Temperature Pulse Rate 102 H 97 H 98 H Respiratory Rate Blood Pressure 168/84 Blood Pressure [Left] O2 Sat by Pulse 100 99 99 Oximetry O2 Sat by Pulse Oximetry [ Throughout] 03/07/21 03/07/21 03/07/21 16:50 16:53 16:55 Temperature Pulse Rate 103 H 97 H 96 H Respiratory Rate Blood Pressure 156/86 Blood Pressure [Left] O2 Sat by Pulse 98 100 Oximetry O2 Sat by Pulse Oximetry [ Throughout] 03/07/21 03/07/21 03/07/21 17:00 17:05 17:10 Temperature Pulse Rate 100 H 103 H 116 H Respiratory Rate Blood Pressure Blood Pressure [Left] O2 Sat by Pulse 97 98 100 Oximetry O2 Sat by Pulse Oximetry [ Throughout] 03/07/21 03/07/21 03/07/21 17:15 17:20 17:25 Temperature Pulse Rate 106 H 106 H 101 H Respiratory Rate Blood Pressure Blood Pressure [Left] O2 Sat by Pulse 99 100 99 Oximetry O2 Sat by Pulse Oximetry [ Throughout] 03/07/21 03/07/21 03/07/21 17:30 17:35 17:40 Temperature Pulse Rate 107 H 104 H 103 H Respiratory Rate Blood Pressure Blood Pressure [Left] O2 Sat by Pulse 98 100 98 Oximetry O2 Sat by Pulse Oximetry [ Throughout] 03/07/21 03/07/21 03/07/21 17:45 17:50 17:55 Temperature Pulse Rate 103 H 104 H 111 H Respiratory Rate Blood Pressure Blood Pressure [Left] O2 Sat by Pulse 97 98 99 Oximetry O2 Sat by Pulse Oximetry [ Throughout] 03/07/21 03/07/21 03/07/21 18:00 18:05 18:10 Temperature Pulse Rate 104 H 103 H 102 H Respiratory Rate Blood Pressure 133/77 Blood Pressure [Left] O2 Sat by Pulse 99 99 98 Oximetry O2 Sat by Pulse Oximetry [ Throughout] 03/07/21 03/07/21 03/07/21 18:12 18:15 18:20 Temperature 98.1 F Pulse Rate 98 H 98 H 98 H Respiratory 16 Rate Blood Pressure Blood Pressure 133/77 [Left] O2 Sat by Pulse 97 98 97 Oximetry O2 Sat by Pulse Oximetry [ Throughout] 03/07/21 03/07/21 03/07/21 18:25 18:30 18:35 Temperature Pulse Rate 100 H 101 H 102 H Respiratory Rate Blood Pressure Blood Pressure [Left] O2 Sat by Pulse 97 98 96 Oximetry O2 Sat by Pulse Oximetry [ Throughout] 03/07/21 03/07/21 03/07/21 18:40 18:43 18:45 Temperature Pulse Rate 104 H 99 H 100 H Respiratory Rate Blood Pressure 142/85 Blood Pressure [Left] O2 Sat by Pulse 96 96 Oximetry O2 Sat by Pulse Oximetry [ Throughout] 03/07/21 03/07/21 03/07/21 18:50 18:55 19:00 Temperature 98.1 F Pulse Rate 111 H 105 H 101 H Respiratory 18 Rate Blood Pressure Blood Pressure 143/85 [Left] O2 Sat by Pulse 96 99 100 Oximetry O2 Sat by Pulse 99 Oximetry [ Throughout] 03/07/21 03/07/21 03/07/21 19:05 19:10 19:15 Temperature Pulse Rate 116 H 107 H 113 H Respiratory Rate Blood Pressure Blood Pressure [Left] O2 Sat by Pulse 98 98 97 Oximetry O2 Sat by Pulse Oximetry [ Throughout] 03/07/21 03/07/21 03/07/21 19:20 19:25 19:30 Temperature Pulse Rate 101 H 101 H 102 H Respiratory Rate Blood Pressure Blood Pressure [Left] O2 Sat by Pulse 97 98 99 Oximetry O2 Sat by Pulse Oximetry [ Throughout] 03/07/21 03/07/21 03/07/21 19:35 19:40 19:44 Temperature Pulse Rate 100 H 103 H 104 H Respiratory Rate Blood Pressure 138/77 Blood Pressure [Left] O2 Sat by Pulse 98 97 Oximetry O2 Sat by Pulse Oximetry [ Throughout] 03/07/21 03/07/21 03/07/21 19:45 19:50 19:55 Temperature Pulse Rate 109 H 110 H 110 H Respiratory Rate Blood Pressure Blood Pressure [Left] O2 Sat by Pulse 98 98 98 Oximetry O2 Sat by Pulse Oximetry [ Throughout] 03/07/21 03/07/21 03/07/21 20:00 20:05 20:10 Temperature Pulse Rate 99 H 107 H 103 H Respiratory Rate Blood Pressure Blood Pressure [Left] O2 Sat by Pulse 98 97 99 Oximetry O2 Sat by Pulse Oximetry [ Throughout] 03/07/21 03/07/21 03/07/21 20:15 20:18 20:20 Temperature Pulse Rate 104 H 105 H 104 H Respiratory Rate Blood Pressure 138/77 Blood Pressure [Left] O2 Sat by Pulse 98 98 Oximetry O2 Sat by Pulse Oximetry [ Throughout] 03/07/21 03/07/21 03/07/21 20:25 20:30 20:35 Temperature Pulse Rate 99 H 107 H 105 H Respiratory Rate Blood Pressure Blood Pressure [Left] O2 Sat by Pulse 98 97 98 Oximetry O2 Sat by Pulse Oximetry [ Throughout] 03/07/21 03/07/21 03/07/21 20:40 20:43 20:45 Temperature Pulse Rate 102 H 97 H 99 H Respiratory Rate Blood Pressure 143/85 Blood Pressure [Left] O2 Sat by Pulse 97 97 Oximetry O2 Sat by Pulse Oximetry [ Throughout] 03/07/21 03/07/21 03/07/21 20:50 20:55 21:00 Temperature Pulse Rate 103 H 103 H 104 H Respiratory Rate Blood Pressure Blood Pressure [Left] O2 Sat by Pulse 96 96 96 Oximetry O2 Sat by Pulse Oximetry [ Throughout] 03/07/21 03/07/21 03/07/21 21:05 21:10 21:11 Temperature Pulse Rate 98 H 99 H 102 H Respiratory Rate Blood Pressure Blood Pressure [Left] O2 Sat by Pulse 98 98 94 Oximetry O2 Sat by Pulse Oximetry [ Throughout] 03/07/21 03/07/21 03/07/21 21:15 21:44 21:49 Temperature Pulse Rate 103 H 98 H Respiratory Rate Blood Pressure Blood Pressure [Left] O2 Sat by Pulse 97 90 98 Oximetry O2 Sat by Pulse Oximetry [ Throughout] 03/07/21 03/07/21 03/07/21 22:00 22:05 22:10 Temperature Pulse Rate 94 H 94 H 94 H Respiratory Rate Blood Pressure Blood Pressure [Left] O2 Sat by Pulse 99 99 99 Oximetry O2 Sat by Pulse Oximetry [ Throughout] 03/07/21 03/07/21 03/07/21 22:15 22:20 22:25 Temperature Pulse Rate 94 H 94 H 94 H Respiratory Rate Blood Pressure Blood Pressure [Left] O2 Sat by Pulse 98 97 98 Oximetry O2 Sat by Pulse Oximetry [ Throughout] 03/07/21 03/07/21 22:30 22:35 Temperature Pulse Rate 91 H 97 H Respiratory Rate Blood Pressure Blood Pressure [Left] O2 Sat by Pulse 98 97 Oximetry O2 Sat by Pulse Oximetry [ Throughout] - Exam Breasts: deferred Cardiovascular: Regular rate Lungs: Normal air movement Abdomen: Present: other (gravid) FHR: category 1 Uterine Contraction Monitor Mode: External Cervical Dilatation: 0 Cervical Effacement Percentage: 40 station: 0 Uterine Contraction Pattern: Absent Uterine Tone Measurement Phase: Resting Extremities: edema Deep Tendon Reflex Grade: Normal +2 - Labs Labs: Abnormal Labs 03/05/21 03/05/21 03/05/21 20:30 20:30 22:25 Menard % (Auto) 9.1 H Menard # (Auto) 0.9 H POC Glucose 111 H Magnesium Urine WBC (Auto) 9.0 H U Epithel Cells (Auto) 28.0 H Ur Total Protein 24 Hr 03/06/21 03/06/21 03/06/21 10:45 12:43 18:56 Menard % (Auto) Menard # (Auto) POC Glucose 112 H 150 H Magnesium Urine WBC (Auto) U Epithel Cells (Auto) Ur Total Protein 24 Hr 440.00 H 03/07/21 03/07/21 03/07/21 06:11 11:19 12:50 Menard % (Auto) Menard # (Auto) POC Glucose 108 H 121 H Magnesium 3.50 H Urine WBC (Auto) U Epithel Cells (Auto) Ur Total Protein 24 Hr 03/07/21 20:29 Menard % (Auto) Menard # (Auto) POC Glucose 164 H Magnesium Urine WBC (Auto) U Epithel Cells (Auto) Ur Total Protein 24 Hr Laboratory Results - last 24 hr 03/06/21 03/07/21 03/07/21 12:43 06:11 11:19 POC Glucose 108 H 121 H Magnesium Urine Total Volume 4000 Ur Total Protein 24 Hr 440.00 H Urine Total Protein 11 03/07/21 03/07/21 12:50 20:29 POC Glucose 164 H Magnesium 3.50 H Urine Total Volume Ur Total Protein 24 Hr Urine Total Protein
[2021-03-08] MEDS: LACTATED RINGERS 1,000 ML IV SCH ×2 (00:46→13:34)
[2021-03-08] MEDS: BUTALB/ACETAMINOPHEN/CAFFEINE TAB PO PRN (02:58)
[2021-03-08] MEDS: fentaNYL 100 MCG/2 ML INJ IV PRN ×2 (06:38→13:52)
[2021-03-08] MEDS: MAGNESIUM SULFATE 40GM/1000ML 40 GM/1,000 ML BAG IV SCH (09:27)
[2021-03-08] MEDS ORDERED: AMPICILLIN/NS 2 GM/100 ML 2 GM/100 ML BAG IV ONE (10:00)
[2021-03-08] MEDS: AMPICILLIN/NS 1 GM/50 ML 1 GM/50 ML BAG IV SCH ×3 (13:25→22:12)
[2021-03-08] MEDS ORDERED: miSOPROStol 25 MCG TAB PO PRN (13:50)
[2021-03-08] MEDS: OXYTOCIN DRIP 30 UNITS/500 ML BAG IV SCH (15:10)
[2021-03-08] MEDS ORDERED: hydrALAZINE 20 MG/1 ML INJ IV ONE (20:26)
--- NOTE | 2021-03-08 23:45 | Progress Note ---
Assessment and Plan - Patient Problems (1) Chronic hypertension affecting Current Visit: Yes Status: Acute Plan to address problem: Continue Magnesium as directed Continue to monitor B/Ps Cervidil removed May eat then initiate cyctotec if ctx pattern allows Pain meds as desired per orders Anticipate (2) Gestational diabetes Current Visit: No Status: Acute Qualifiers: Gestational diabetes mellitus control: oral hypoglycemic-controlled Plan to address problem: Hold Glucophage during induction Monitor blood glucose level q 6 hrs (3) DVT (deep vein thrombosis) in Current Visit: No Status: Acute Plan to address problem: Lovonox has been stopped >24hrs prior to initiation of IOL Resume Lovonox after delivery SCD hose until ambulatory (4) GBS screening not performed Current Visit: Yes Status: Acute Plan to address problem: Initiate GBS prophylaxis when in active labor or SROM Subjective - Subjective Date of service: 03/08/21 (1300) Principal diagnosis: CHTN/ Headaches Interval history: Pt is a 35 year old PATRICIA 04/13/21 at 34w3d who presents from [facility] clinic for further evaluation of headaches not responsive to Tylenol, in the setting of a history of migraines and chronic hypertension on Labetalol 400 mg TID. She denies scotomata, blurry vision or RUQ pain. She also denies vaginal bleeding, leakage of fluid or contractions. She has had limited care at [facility] since 11 wks with lapse in care from 27 to 34 wks complicated by aforementioned chronic hypertension, gestational diabetes on Metformin 500 mg BID and 14 units NPH QHS, polyhydramnios, genital herpes without lesion or prodrome, h/o DVT and chronic right lower extremity edema on Lovenox 40 mg daily. Her GBS status is unknown. Patient reports: movement normal, no new complaints, no loss of fluid, no vaginal bleeding, no contractions Objective - Vital Signs Vital Signs: Vital Signs - 12hr 03/08/21 03/08/21 03/08/21 11:42 11:47 11:52 Temperature Pulse Rate 86 94 H 93 H Blood Pressure O2 Sat by Pulse 99 99 99 Oximetry O2 Sat by Pulse Oximetry [ Throughout] 03/08/21 03/08/21 03/08/21 11:57 12:02 12:07 Temperature Pulse Rate 94 H 95 H 92 H Blood Pressure O2 Sat by Pulse 99 98 99 Oximetry O2 Sat by Pulse Oximetry [ Throughout] 03/08/21 03/08/21 03/08/21 12:12 12:17 12:22 Temperature Pulse Rate 103 H 99 H 105 H Blood Pressure O2 Sat by Pulse 98 99 99 Oximetry O2 Sat by Pulse Oximetry [ Throughout] 03/08/21 03/08/21 03/08/21 12:27 12:44 12:49 Temperature Pulse Rate 102 H 97 H 99 H Blood Pressure O2 Sat by Pulse 98 100 98 Oximetry O2 Sat by Pulse Oximetry [ Throughout] 03/08/21 03/08/21 03/08/21 12:54 12:59 13:04 Temperature Pulse Rate 98 H 99 H 96 H Blood Pressure 157/97 O2 Sat by Pulse 98 98 98 Oximetry O2 Sat by Pulse Oximetry [ Throughout] 03/08/21 03/08/21 03/08/21 13:09 13:14 13:15 Temperature Pulse Rate 95 H 97 H 97 H Blood Pressure 139/89 O2 Sat by Pulse 98 96 Oximetry O2 Sat by Pulse Oximetry [ Throughout] 03/08/21 03/08/21 03/08/21 13:19 13:24 13:25 Temperature Pulse Rate 97 H 102 H 98 H Blood Pressure 139/89 O2 Sat by Pulse 98 97 Oximetry O2 Sat by Pulse Oximetry [ Throughout] 03/08/21 03/08/21 03/08/21 13:29 13:34 13:39 Temperature Pulse Rate 101 H 99 H 103 H Blood Pressure 139/88 O2 Sat by Pulse 97 97 99 Oximetry O2 Sat by Pulse Oximetry [ Throughout] 03/08/21 03/08/21 03/08/21 13:44 13:49 13:54 Temperature Pulse Rate 104 H 101 H 99 H Blood Pressure O2 Sat by Pulse 97 99 97 Oximetry O2 Sat by Pulse Oximetry [ Throughout] 03/08/21 03/08/21 03/08/21 13:59 14:00 14:04 Temperature Pulse Rate 97 H 94 H 94 H Blood Pressure O2 Sat by Pulse 95 94 97 Oximetry O2 Sat by Pulse Oximetry [ Throughout] 03/08/21 03/08/21 03/08/21 14:09 14:13 14:14 Temperature Pulse Rate 94 H 93 H 89 Blood Pressure 142/87 O2 Sat by Pulse 98 94 Oximetry O2 Sat by Pulse Oximetry [ Throughout] 03/08/21 03/08/21 03/08/21 14:19 14:22 14:24 Temperature Pulse Rate 92 H 93 H 101 H Blood Pressure O2 Sat by Pulse 95 93 96 Oximetry O2 Sat by Pulse Oximetry [ Throughout] 03/08/21 03/08/21 03/08/21 14:27 14:29 14:30 Temperature Pulse Rate 91 H 97 H 98 H Blood Pressure 142/91 O2 Sat by Pulse 97 94 Oximetry O2 Sat by Pulse Oximetry [ Throughout] 03/08/21 03/08/21 03/08/21 14:34 14:39 14:42 Temperature Pulse Rate 90 93 H 88 Blood Pressure 148/91 O2 Sat by Pulse 97 96 Oximetry O2 Sat by Pulse Oximetry [ Throughout] 03/08/21 03/08/21 03/08/21 14:44 14:49 14:54 Temperature Pulse Rate 92 H 93 H 95 H Blood Pressure O2 Sat by Pulse 98 97 97 Oximetry O2 Sat by Pulse Oximetry [ Throughout] 03/08/21 03/08/21 03/08/21 14:57 14:58 14:59 Temperature Pulse Rate 93 H 87 95 H Blood Pressure 140/83 O2 Sat by Pulse 94 95 Oximetry O2 Sat by Pulse Oximetry [ Throughout] 03/08/21 03/08/21 03/08/21 15:00 15:04 15:09 Temperature Pulse Rate 92 H 89 Blood Pressure O2 Sat by Pulse 99 97 Oximetry O2 Sat by Pulse 98 Oximetry [ Throughout] 03/08/21 03/08/21 03/08/21 15:10 15:13 15:14 Temperature Pulse Rate 91 H 90 98 H Blood Pressure 138/77 O2 Sat by Pulse 94 95 Oximetry O2 Sat by Pulse Oximetry [ Throughout] 03/08/21 03/08/21 03/08/21 15:19 15:24 15:28 Temperature Pulse Rate 102 H 97 H 90 Blood Pressure 147/82 O2 Sat by Pulse 97 98 Oximetry O2 Sat by Pulse Oximetry [ Throughout] 03/08/21 03/08/21 03/08/21 15:29 15:34 15:39 Temperature Pulse Rate 94 H 99 H 92 H Blood Pressure O2 Sat by Pulse 98 98 97 Oximetry O2 Sat by Pulse Oximetry [ Throughout] 03/08/21 03/08/21 03/08/21 15:43 15:44 15:49 Temperature Pulse Rate 92 H 91 H 92 H Blood Pressure 126/74 O2 Sat by Pulse 95 95 Oximetry O2 Sat by Pulse Oximetry [ Throughout] 03/08/21 03/08/21 03/08/21 15:54 15:59 16:04 Temperature Pulse Rate 100 H 92 H 89 Blood Pressure O2 Sat by Pulse 98 97 96 Oximetry O2 Sat by Pulse Oximetry [ Throughout] 03/08/21 03/08/21 03/08/21 16:09 16:14 16:17 Temperature Pulse Rate 87 86 100 H Blood Pressure O2 Sat by Pulse 99 97 94 Oximetry O2 Sat by Pulse Oximetry [ Throughout] 03/08/21 03/08/21 03/08/21 16:19 16:24 16:58 Temperature Pulse Rate 89 97 H 88 Blood Pressure 136/79 O2 Sat by Pulse 98 97 Oximetry O2 Sat by Pulse Oximetry [ Throughout] 03/08/21 03/08/21 03/08/21 17:13 17:28 17:43 Temperature Pulse Rate 88 83 83 Blood Pressure 147/76 147/88 126/74 O2 Sat by Pulse Oximetry O2 Sat by Pulse Oximetry [ Throughout] 03/08/21 03/08/21 03/08/21 17:58 18:02 18:12 Temperature Pulse Rate 83 83 81 Blood Pressure 162/102 153/83 160/81 O2 Sat by Pulse Oximetry O2 Sat by Pulse Oximetry [ Throughout] 03/08/21 03/08/21 03/08/21 18:28 18:43 18:59 Temperature Pulse Rate 83 85 85 Blood Pressure 141/87 141/81 157/91 O2 Sat by Pulse Oximetry O2 Sat by Pulse Oximetry [ Throughout] 03/08/21 03/08/21 03/08/21 19:00 19:05 19:10 Temperature Pulse Rate 90 88 88 Blood Pressure O2 Sat by Pulse 99 97 98 Oximetry O2 Sat by Pulse Oximetry [ Throughout] 03/08/21 03/08/21 03/08/21 19:13 19:15 19:20 Temperature Pulse Rate 80 83 81 Blood Pressure 148/84 O2 Sat by Pulse 98 97 Oximetry O2 Sat by Pulse Oximetry [ Throughout] 03/08/21 03/08/21 03/08/21 19:25 19:28 19:30 Temperature Pulse Rate 82 82 82 Blood Pressure 137/74 O2 Sat by Pulse 97 98 Oximetry O2 Sat by Pulse Oximetry [ Throughout] 03/08/21 03/08/21 03/08/21 19:35 19:39 19:40 Temperature 98.2 F Pulse Rate 84 85 87 Blood Pressure 157/93 O2 Sat by Pulse 99 99 Oximetry O2 Sat by Pulse 99 Oximetry [ Throughout] 03/08/21 03/08/21 03/08/21 19:43 19:44 19:45 Temperature Pulse Rate 88 90 86 Blood Pressure 146/93 146/93 O2 Sat by Pulse 100 Oximetry O2 Sat by Pulse Oximetry [ Throughout] 03/08/21 03/08/21 03/08/21 19:50 19:55 19:57 Temperature Pulse Rate 87 92 H 87 Blood Pressure 164/94 O2 Sat by Pulse 100 97 Oximetry O2 Sat by Pulse Oximetry [ Throughout] 03/08/21 03/08/21 03/08/21 19:59 20:00 20:05 Temperature Pulse Rate 86 90 92 H Blood Pressure 166/97 O2 Sat by Pulse 99 99 Oximetry O2 Sat by Pulse Oximetry [ Throughout] 03/08/21 03/08/21 03/08/21 20:10 20:12 20:15 Temperature Pulse Rate 87 85 89 Blood Pressure 165/97 O2 Sat by Pulse 98 98 Oximetry O2 Sat by Pulse Oximetry [ Throughout] 03/08/21 03/08/21 03/08/21 20:20 20:25 20:27 Temperature Pulse Rate 90 87 84 Blood Pressure 155/92 O2 Sat by Pulse 96 96 Oximetry O2 Sat by Pulse Oximetry [ Throughout] 03/08/21 03/08/21 03/08/21 20:30 20:31 20:35 Temperature Pulse Rate 86 84 88 Blood Pressure 155/92 O2 Sat by Pulse 98 97 Oximetry O2 Sat by Pulse Oximetry [ Throughout] 03/08/21 03/08/21 03/08/21 20:40 20:44 20:45 Temperature Pulse Rate 86 86 93 H Blood Pressure 150/94 O2 Sat by Pulse 98 97 Oximetry O2 Sat by Pulse Oximetry [ Throughout] 03/08/21 03/08/21 03/08/21 20:50 20:55 20:57 Temperature Pulse Rate 87 94 H 89 Blood Pressure 149/92 O2 Sat by Pulse 97 98 Oximetry O2 Sat by Pulse Oximetry [ Throughout] 03/08/21 03/08/2121 21:00 21:05 21:10 Temperature Pulse Rate 87 89 89 Blood Pressure O2 Sat by Pulse 98 97 97 Oximetry O2 Sat by Pulse Oximetry [ Throughout] 03/08/21 03/08/21 03/08/21 21:13 21:14 21:15 Temperature Pulse Rate 99 H 89 90 Blood Pressure 142/84 O2 Sat by Pulse 94 97 Oximetry O2 Sat by Pulse Oximetry [ Throughout] 03/08/21 03/08/21 03/08/21 21:20 21:25 21:28 Temperature Pulse Rate 88 86 89 Blood Pressure 134/74 O2 Sat by Pulse 97 97 Oximetry O2 Sat by Pulse Oximetry [ Throughout] 03/08/21 03/08/21 03/08/21 21:30 21:35 21:40 Temperature Pulse Rate 89 89 87 Blood Pressure O2 Sat by Pulse 97 98 95 Oximetry O2 Sat by Pulse Oximetry [ Throughout] 03/08/21 03/08/21 03/08/21 21:41 21:42 21:45 Temperature Pulse Rate 86 90 91 H Blood Pressure 133/74 O2 Sat by Pulse 94 97 Oximetry O2 Sat by Pulse Oximetry [ Throughout] 03/08/21 03/08/21 03/08/21 21:50 21:53 21:55 Temperature Pulse Rate 90 84 85 Blood Pressure O2 Sat by Pulse 94 94 95 Oximetry O2 Sat by Pulse Oximetry [ Throughout] 03/08/21 03/08/21 03/08/21 21:57 21:59 22:00 Temperature Pulse Rate 85 86 85 Blood Pressure 122/71 O2 Sat by Pulse 94 95 Oximetry O2 Sat by Pulse Oximetry [ Throughout] 03/08/21 03/08/21 03/08/21 22:04 22:05 22:10 Temperature Pulse Rate 85 83 85 Blood Pressure O2 Sat by Pulse 94 93 94 Oximetry O2 Sat by Pulse Oximetry [ Throughout] 03/08/21 03/08/21 03/08/21 22:14 22:15 22:20 Temperature Pulse Rate 85 88 85 Blood Pressure 128/72 O2 Sat by Pulse 98 97 Oximetry O2 Sat by Pulse Oximetry [ Throughout] 03/08/21 03/08/21 03/08/21 22:25 22:27 22:30 Temperature Pulse Rate 85 87 85 Blood Pressure 130/70 O2 Sat by Pulse 97 96 Oximetry O2 Sat by Pulse Oximetry [ Throughout] 03/08/21 03/08/21 03/08/21 22:35 22:40 22:44 Temperature Pulse Rate 97 H 89 91 H Blood Pressure 127/70 O2 Sat by Pulse 97 98 Oximetry O2 Sat by Pulse Oximetry [ Throughout] 03/08/21 03/08/21 03/08/21 22:45 22:50 22:55 Temperature Pulse Rate 83 83 83 Blood Pressure O2 Sat by Pulse 98 96 98 Oximetry O2 Sat by Pulse Oximetry [ Throughout] 03/08/21 03/08/21 03/08/21 22:57 23:00 23:01 Temperature Pulse Rate 84 84 95 H Blood Pressure 123/67 O2 Sat by Pulse 98 94 Oximetry O2 Sat by Pulse Oximetry [ Throughout] 03/08/21 03/08/21 03/08/21 23:05 23:10 23:12 Temperature Pulse Rate 88 80 78 Blood Pressure 123/67 O2 Sat by Pulse 96 98 Oximetry O2 Sat by Pulse Oximetry [ Throughout] 03/08/21 03/08/21 03/08/21 23:15 23:20 23:25 Temperature Pulse Rate 82 81 81 Blood Pressure O2 Sat by Pulse 97 96 96 Oximetry O2 Sat by Pulse Oximetry [ Throughout] 03/08/21 03/08/21 03/08/21 23:26 23:30 23:35 Temperature Pulse Rate 80 87 77 Blood Pressure O2 Sat by Pulse 94 96 95 Oximetry O2 Sat by Pulse Oximetry [ Throughout] 03/08/21 23:37 Temperature Pulse Rate 78 Blood Pressure O2 Sat by Pulse 94 Oximetry O2 Sat by Pulse Oximetry [ Throughout] - Exam Breasts: deferred Cardiovascular: Regular rate Lungs: Normal air movement Cervical Dilatation: 1 (per RN) Cervical Effacement Percentage: 20 station: -3 Uterine Contraction Pattern: Irregular Uterine Tone Measurement Phase: Resting Uterine Contraction Intensity: Mild Extremities: edema - Labs Labs: Abnormal Labs 03/05/21 03/05/21 03/05/21 20:30 20:30 22:25 [place] % (Auto) 9.1 H [place] # (Auto) 0.9 H POC Glucose 111 H Magnesium Urine WBC (Auto) 9.0 H U Epithel Cells (Auto) 28.0 H Ur Total Protein 24 Hr 03/06/21 03/06/21 03/06/21 10:45 12:43 18:56 [place] % (Auto) [place] # (Auto) POC Glucose 112 H 150 H Magnesium Urine WBC (Auto) U Epithel Cells (Auto) Ur Total Protein 24 Hr 440.00 H 03/07/21 03/07/21 03/07/21 06:11 11:19 12:50 [place] % (Auto) [place] # (Auto) POC Glucose 108 H 121 H Magnesium 3.50 H Urine WBC (Auto) U Epithel Cells (Auto) Ur Total Protein 24 Hr 03/07/21 03/08/21 03/08/21 20:29 00:40 00:56 [place] % (Auto) [place] # (Auto) POC Glucose 164 H 134 H Magnesium 4.60 H Urine WBC (Auto) U Epithel Cells (Auto) Ur Total Protein 24 Hr 03/08/21 03/08/21 03/08/21 06:44 07:21 14:41 [place] % (Auto) [place] # (Auto) POC Glucose 123 H 117 H Magnesium 5.20 H Urine WBC (Auto) U Epithel Cells (Auto) Ur Total Protein 24 Hr 03/08/21 03/08/21 03/08/21 17:44 18:44 22:15 [place] % (Auto) [place] # (Auto) POC Glucose 119 H 116 H Magnesium 4.50 H Urine WBC (Auto) U Epithel Cells (Auto) Ur Total Protein 24 Hr Laboratory Results - last 24 hr 03/08/21 03/08/21 03/08/21 00:40 00:56 06:44 POC Glucose 134 H 123 H Magnesium 4.60 H 03/08/21 03/08/21 03/08/21 07:21 14:41 17:44 POC Glucose 117 H Magnesium 5.20 H 4.50 H 03/08/21 03/08/21 18:44 22:15 POC Glucose 119 H 116 H Magnesium
--- NOTE | 2021-03-08 23:49 | Event Note ---
Date: 03/08/21 (8557) Notified by RN that pt is eugene too frequently to initiate cyctotec. Orders given to initiate low-dose Pitocin as tolerated.
--- NOTE | 2021-03-09 00:19 | Progress Note ---
Assessment and Plan - Patient Problems (1) Chronic hypertension affecting Current Visit: Yes Status: Acute Plan to address problem: Continue Magnesium as directed Continue to monitor B/Ps Continue low-dose Pitocin as tolerated Pain meds as desired per orders Anticipate (2) Gestational diabetes Current Visit: No Status: Acute Qualifiers: Gestational diabetes mellitus control: oral hypoglycemic-controlled Plan to address problem: Hold Glucophage during induction Monitor blood glucose level q 6 hrs (3) DVT (deep vein thrombosis) in Current Visit: No Status: Acute Plan to address problem: Lovonox has been stopped >24hrs prior to initiation of IOL Resume Lovonox after delivery SCD hose until ambulatory (4) GBS screening not performed Current Visit: Yes Status: Acute Plan to address problem: Initiate GBS prophylaxis when in active labor or SROM Subjective - Subjective Date of service: 03/09/21 Principal diagnosis: CHTN/ Headaches Interval history: Pt is a 35 year old PATRICIA 04/13/21 at 34w3d who presents from [facility] clinic for further evaluation of headaches not responsive to Tylenol, in the setting of a history of migraines and chronic hypertension on Labetalol 400 mg TID. She denies scotomata, blurry vision or RUQ pain. She also denies vaginal bleeding, leakage of fluid or contractions. She has had limited care at [facility] since 11 wks with lapse in care from 27 to 34 wks complicated by aforementioned chronic hypertension, gestational diabetes on Metformin 500 mg BID and 14 units NPH QHS, polyhydramnios, genital herpes without lesion or prodrome, h/o DVT and chronic right lower extremity edema on Lovenox 40 mg daily. Her GBS status is unknown. Patient reports: movement normal, no new complaints, no loss of fluid, no vaginal bleeding, no contractions Objective - Vital Signs Vital Signs: Vital Signs - 12hr 03/08/21 03/08/21 03/08/21 12:17 12:22 12:27 Temperature Pulse Rate 99 H 105 H 102 H Blood Pressure O2 Sat by Pulse 99 99 98 Oximetry O2 Sat by Pulse Oximetry [ Throughout] 03/08/21 03/08/21 03/08/21 12:44 12:49 12:54 Temperature Pulse Rate 97 H 99 H 98 H Blood Pressure O2 Sat by Pulse 100 98 98 Oximetry O2 Sat by Pulse Oximetry [ Throughout] 03/08/21 03/08/21 03/08/21 12:59 13:04 13:09 Temperature Pulse Rate 99 H 96 H 95 H Blood Pressure 157/97 O2 Sat by Pulse 98 98 98 Oximetry O2 Sat by Pulse Oximetry [ Throughout] 03/08/21 03/08/21 03/08/21 13:14 13:15 13:19 Temperature Pulse Rate 97 H 97 H 97 H Blood Pressure 139/89 O2 Sat by Pulse 96 98 Oximetry O2 Sat by Pulse Oximetry [ Throughout] 03/08/21 03/08/21 03/08/21 13:24 13:25 13:29 Temperature Pulse Rate 102 H 98 H 101 H Blood Pressure 139/89 O2 Sat by Pulse 97 97 Oximetry O2 Sat by Pulse Oximetry [ Throughout] 03/08/21 03/08/21 03/08/21 13:34 13:39 13:44 Temperature Pulse Rate 99 H 103 H 104 H Blood Pressure 139/88 O2 Sat by Pulse 97 99 97 Oximetry O2 Sat by Pulse Oximetry [ Throughout] 03/08/21 03/08/21 03/08/21 13:49 13:54 13:59 Temperature Pulse Rate 101 H 99 H 97 H Blood Pressure O2 Sat by Pulse 99 97 95 Oximetry O2 Sat by Pulse Oximetry [ Throughout] 03/08/21 03/08/21 03/08/21 14:00 14:04 14:09 Temperature Pulse Rate 94 H 94 H 94 H Blood Pressure O2 Sat by Pulse 94 97 98 Oximetry O2 Sat by Pulse Oximetry [ Throughout] 03/08/21 03/08/21 03/08/21 14:13 14:14 14:19 Temperature Pulse Rate 93 H 89 92 H Blood Pressure 142/87 O2 Sat by Pulse 94 95 Oximetry O2 Sat by Pulse Oximetry [ Throughout] 03/08/21 03/08/21 03/08/21 14:22 14:24 14:27 Temperature Pulse Rate 93 H 101 H 91 H Blood Pressure 142/91 O2 Sat by Pulse 93 96 Oximetry O2 Sat by Pulse Oximetry [ Throughout] 03/08/21 03/08/21 03/08/21 14:29 14:30 14:34 Temperature Pulse Rate 97 H 98 H 90 Blood Pressure O2 Sat by Pulse 97 94 97 Oximetry O2 Sat by Pulse Oximetry [ Throughout] 03/08/21 03/08/2121 14:39 14:42 14:44 Temperature Pulse Rate 93 H 88 92 H Blood Pressure 148/91 O2 Sat by Pulse 96 98 Oximetry O2 Sat by Pulse Oximetry [ Throughout] 03/08/21 03/08/21 03/08/21 14:49 14:54 14:57 Temperature Pulse Rate 93 H 95 H 93 H Blood Pressure O2 Sat by Pulse 97 97 94 Oximetry O2 Sat by Pulse Oximetry [ Throughout] 03/08/21 03/08/21 03/08/21 14:58 14:59 15:00 Temperature Pulse Rate 87 95 H Blood Pressure 140/83 O2 Sat by Pulse 95 Oximetry O2 Sat by Pulse 98 Oximetry [ Throughout] 03/08/21 03/08/21 03/08/21 15:04 15:09 15:10 Temperature Pulse Rate 92 H 89 91 H Blood Pressure O2 Sat by Pulse 99 97 94 Oximetry O2 Sat by Pulse Oximetry [ Throughout] 03/08/21 03/08/21 03/08/21 15:13 15:14 15:19 Temperature Pulse Rate 90 98 H 102 H Blood Pressure 138/77 O2 Sat by Pulse 95 97 Oximetry O2 Sat by Pulse Oximetry [ Throughout] 03/08/21 03/08/21 03/08/21 15:24 15:28 15:29 Temperature Pulse Rate 97 H 90 94 H Blood Pressure 147/82 O2 Sat by Pulse 98 98 Oximetry O2 Sat by Pulse Oximetry [ Throughout] 03/08/21 03/08/21 03/08/21 15:34 15:39 15:43 Temperature Pulse Rate 99 H 92 H 92 H Blood Pressure 126/74 O2 Sat by Pulse 98 97 Oximetry O2 Sat by Pulse Oximetry [ Throughout] 03/08/21 03/08/21 03/08/21 15:44 15:49 15:54 Temperature Pulse Rate 91 H 92 H 100 H Blood Pressure O2 Sat by Pulse 95 95 98 Oximetry O2 Sat by Pulse Oximetry [ Throughout] 03/08/21 03/08/21 03/08/21 15:59 16:04 16:09 Temperature Pulse Rate 92 H 89 87 Blood Pressure O2 Sat by Pulse 97 96 99 Oximetry O2 Sat by Pulse Oximetry [ Throughout] 03/08/21 03/08/21 03/08/21 16:14 16:17 16:19 Temperature Pulse Rate 86 100 H 89 Blood Pressure O2 Sat by Pulse 97 94 98 Oximetry O2 Sat by Pulse Oximetry [ Throughout] 03/08/21 03/08/21 03/08/21 16:24 16:58 17:13 Temperature Pulse Rate 97 H 88 88 Blood Pressure 136/79 147/76 O2 Sat by Pulse 97 Oximetry O2 Sat by Pulse Oximetry [ Throughout] 03/08/21 03/08/21 03/08/21 17:28 17:43 17:58 Temperature Pulse Rate 83 83 83 Blood Pressure 147/88 126/74 162/102 O2 Sat by Pulse Oximetry O2 Sat by Pulse Oximetry [ Throughout] 03/08/21 03/08/21 03/08/21 18:02 18:12 18:28 Temperature Pulse Rate 83 81 83 Blood Pressure 153/83 160/81 141/87 O2 Sat by Pulse Oximetry O2 Sat by Pulse Oximetry [ Throughout] 03/08/21 03/08/21 03/08/21 18:43 18:59 19:00 Temperature Pulse Rate 85 85 90 Blood Pressure 141/81 157/91 O2 Sat by Pulse 99 Oximetry O2 Sat by Pulse Oximetry [ Throughout] 03/08/21 03/08/21 03/08/21 19:05 19:10 19:13 Temperature Pulse Rate 88 88 80 Blood Pressure 148/84 O2 Sat by Pulse 97 98 Oximetry O2 Sat by Pulse Oximetry [ Throughout] 03/08/21 03/08/21 03/08/21 19:15 19:20 19:25 Temperature Pulse Rate 83 81 82 Blood Pressure O2 Sat by Pulse 98 97 97 Oximetry O2 Sat by Pulse Oximetry [ Throughout] 03/08/21 03/08/21 03/08/21 19:28 19:30 19:35 Temperature Pulse Rate 82 82 84 Blood Pressure 137/74 O2 Sat by Pulse 98 99 Oximetry O2 Sat by Pulse Oximetry [ Throughout] 03/08/21 03/08/21 03/08/21 19:39 19:40 19:43 Temperature 98.2 F Pulse Rate 85 87 88 Blood Pressure 157/93 146/93 O2 Sat by Pulse 99 Oximetry O2 Sat by Pulse 99 Oximetry [ Throughout] 03/08/21 03/08/21 03/08/21 19:44 19:45 19:50 Temperature Pulse Rate 90 86 87 Blood Pressure 146/93 O2 Sat by Pulse 100 100 Oximetry O2 Sat by Pulse Oximetry [ Throughout] 03/08/21 03/08/21 03/08/21 19:55 19:57 19:59 Temperature Pulse Rate 92 H 87 86 Blood Pressure 164/94 166/97 O2 Sat by Pulse 97 Oximetry O2 Sat by Pulse Oximetry [ Throughout] 03/08/21 03/08/21 03/08/21 20:00 20:05 20:10 Temperature Pulse Rate 90 92 H 87 Blood Pressure O2 Sat by Pulse 99 99 98 Oximetry O2 Sat by Pulse Oximetry [ Throughout] 03/08/21 03/08/21 03/08/21 20:12 20:15 20:20 Temperature Pulse Rate 85 89 90 Blood Pressure 165/97 O2 Sat by Pulse 98 96 Oximetry O2 Sat by Pulse Oximetry [ Throughout] 03/08/21 03/08/21 03/08/21 20:25 20:27 20:30 Temperature Pulse Rate 87 84 86 Blood Pressure 155/92 O2 Sat by Pulse 96 98 Oximetry O2 Sat by Pulse Oximetry [ Throughout] 03/08/21 03/08/21 03/08/21 20:31 20:35 20:40 Temperature Pulse Rate 84 88 86 Blood Pressure 155/92 O2 Sat by Pulse 97 98 Oximetry O2 Sat by Pulse Oximetry [ Throughout] 03/08/21 03/08/21 03/08/21 20:44 20:45 20:50 Temperature Pulse Rate 86 93 H 87 Blood Pressure 150/94 O2 Sat by Pulse 97 97 Oximetry O2 Sat by Pulse Oximetry [ Throughout] 03/08/21 03/08/21 03/08/21 20:55 20:57 21:00 Temperature Pulse Rate 94 H 89 87 Blood Pressure 149/92 O2 Sat by Pulse 98 98 Oximetry O2 Sat by Pulse Oximetry [ Throughout] 03/08/21 03/08/21 03/08/21 21:05 21:10 21:13 Temperature Pulse Rate 89 89 99 H Blood Pressure O2 Sat by Pulse 97 97 94 Oximetry O2 Sat by Pulse Oximetry [ Throughout] 03/08/21 03/08/21 03/08/21 21:14 21:15 21:20 Temperature Pulse Rate 89 90 88 Blood Pressure 142/84 O2 Sat by Pulse 97 97 Oximetry O2 Sat by Pulse Oximetry [ Throughout] 03/08/21 03/08/21 03/08/21 21:25 21:28 21:30 Temperature Pulse Rate 86 89 89 Blood Pressure 134/74 O2 Sat by Pulse 97 97 Oximetry O2 Sat by Pulse Oximetry [ Throughout] 03/08/21 03/08/21 03/08/21 21:35 21:40 21:41 Temperature Pulse Rate 89 87 86 Blood Pressure O2 Sat by Pulse 98 95 94 Oximetry O2 Sat by Pulse Oximetry [ Throughout] 03/08/21 03/08/21 03/08/21 21:42 21:45 21:50 Temperature Pulse Rate 90 91 H 90 Blood Pressure 133/74 O2 Sat by Pulse 97 94 Oximetry O2 Sat by Pulse Oximetry [ Throughout] 03/08/21 03/08/21 03/08/21 21:53 21:55 21:57 Temperature Pulse Rate 84 85 85 Blood Pressure 122/71 O2 Sat by Pulse 94 95 Oximetry O2 Sat by Pulse Oximetry [ Throughout] 03/08/21 03/08/21 03/08/21 21:59 22:00 22:04 Temperature Pulse Rate 86 85 85 Blood Pressure O2 Sat by Pulse 94 95 94 Oximetry O2 Sat by Pulse Oximetry [ Throughout] 03/08/21 03/08/21 03/08/21 22:05 22:10 22:14 Temperature Pulse Rate 83 85 85 Blood Pressure 128/72 O2 Sat by Pulse 93 94 Oximetry O2 Sat by Pulse Oximetry [ Throughout] 03/08/21 03/08/21 03/08/21 22:15 22:20 22:25 Temperature Pulse Rate 88 85 85 Blood Pressure O2 Sat by Pulse 98 97 97 Oximetry O2 Sat by Pulse Oximetry [ Throughout] 03/08/21 03/08/21 03/08/21 22:27 22:30 22:35 Temperature Pulse Rate 87 85 97 H Blood Pressure 130/70 O2 Sat by Pulse 96 97 Oximetry O2 Sat by Pulse Oximetry [ Throughout] 03/08/21 03/08/21 03/08/21 22:40 22:44 22:45 Temperature Pulse Rate 89 91 H 83 Blood Pressure 127/70 O2 Sat by Pulse 98 98 Oximetry O2 Sat by Pulse Oximetry [ Throughout] 03/08/21 03/08/21 03/08/21 22:50 22:55 22:57 Temperature Pulse Rate 83 83 84 Blood Pressure 123/67 O2 Sat by Pulse 96 98 Oximetry O2 Sat by Pulse Oximetry [ Throughout] 1003/08/21 03/08/21 23:00 23:01 23:05 Temperature Pulse Rate 84 95 H 88 Blood Pressure O2 Sat by Pulse 98 94 96 Oximetry O2 Sat by Pulse Oximetry [ Throughout] 03/08/21 03/08/21 03/08/21 23:10 23:12 23:15 Temperature Pulse Rate 80 78 82 Blood Pressure 123/67 O2 Sat by Pulse 98 97 Oximetry O2 Sat by Pulse Oximetry [ Throughout] 03/08/21 03/08/21 03/08/21 23:20 23:25 23:26 Temperature Pulse Rate 81 81 80 Blood Pressure O2 Sat by Pulse 96 96 94 Oximetry O2 Sat by Pulse Oximetry [ Throughout] 03/08/21 03/08/21 03/08/21 23:30 23:35 23:37 Temperature Pulse Rate 87 77 78 Blood Pressure O2 Sat by Pulse 96 95 94 Oximetry O2 Sat by Pulse Oximetry [ Throughout] 03/08/21 03/08/21 03/08/21 23:40 23:42 23:45 Temperature Pulse Rate 78 77 78 Blood Pressure 125/70 O2 Sat by Pulse 95 95 Oximetry O2 Sat by Pulse Oximetry [ Throughout] 03/08/21 03/08/21 03/08/21 23:50 23:51 23:55 Temperature Pulse Rate 79 79 78 Blood Pressure O2 Sat by Pulse 96 94 95 Oximetry O2 Sat by Pulse Oximetry [ Throughout] 03/08/21 03/08/21 03/09/21 23:57 23:58 00:00 Temperature Pulse Rate 78 79 79 Blood Pressure 123/73 O2 Sat by Pulse 94 96 Oximetry O2 Sat by Pulse Oximetry [ Throughout] 03/09/21 03/09/21 00:05 00:10 Temperature Pulse Rate 85 94 H Blood Pressure O2 Sat by Pulse 100 99 Oximetry O2 Sat by Pulse Oximetry [ Throughout] - Exam Breasts: deferred Cardiovascular: Regular rate Lungs: Normal air movement FHR: category 1 Uterine Contraction Monitor Mode: External Cervical Dilatation: 0.5 Cervical Effacement Percentage: 40 (Pitocin @ 6 mu/min) station: -4 Uterine Contraction Duration: 4-6 Uterine Contraction Pattern: Irregular Uterine Tone Measurement Phase: Resting Uterine Contraction Intensity: Mild Extremities: edema - Labs Labs: Abnormal Labs 03/05/21 03/05/21 03/05/21 20:30 20:30 22:25 Tucker % (Auto) 9.1 H Tucker # (Auto) 0.9 H POC Glucose 111 H Magnesium Urine WBC (Auto) 9.0 H U Epithel Cells (Auto) 28.0 H Ur Total Protein 24 Hr 03/06/21 03/06/21 03/06/21 10:45 12:43 18:56 Tucker % (Auto) Tucker # (Auto) POC Glucose 112 H 150 H Magnesium Urine WBC (Auto) U Epithel Cells (Auto) Ur Total Protein 24 Hr 440.00 H 03/07/21 03/07/21 03/07/21 06:11 11:19 12:50 Tucker % (Auto) Tucker # (Auto) POC Glucose 108 H 121 H Magnesium 3.50 H Urine WBC (Auto) U Epithel Cells (Auto) Ur Total Protein 24 Hr 03/07/21 03/08/21 03/08/21 20:29 00:40 00:56 Tucker % (Auto) Tucker # (Auto) POC Glucose 164 H 134 H Magnesium 4.60 H Urine WBC (Auto) U Epithel Cells (Auto) Ur Total Protein 24 Hr 03/08/21 03/08/21 03/08/21 06:44 07:21 14:41 Tucker % (Auto) Tucker # (Auto) POC Glucose 123 H 117 H Magnesium 5.20 H Urine WBC (Auto) U Epithel Cells (Auto) Ur Total Protein 24 Hr 03/08/21 03/08/21 03/08/21 17:44 18:44 22:15 Tucker % (Auto) Tucker # (Auto) POC Glucose 119 H 116 H Magnesium 4.50 H Urine WBC (Auto) U Epithel Cells (Auto) Ur Total Protein 24 Hr Laboratory Results - last 24 hr 03/08/21 03/08/21 03/08/21 00:40 00:56 06:44 POC Glucose 134 H 123 H Magnesium 4.60 H 03/08/21 03/08/21 03/08/21 07:21 14:41 17:44 POC Glucose 117 H Magnesium 5.20 H 4.50 H 03/08/21 03/08/21 18:44 22:15 POC Glucose 119 H 116 H Magnesium
[2021-03-09] MEDS: AMPICILLIN/NS 1 GM/50 ML 1 GM/50 ML BAG IV SCH ×2 (02:29→06:24)
[2021-03-09] MEDS: LACTATED RINGERS 1,000 ML IV SCH ×2 (05:00→19:50)
[2021-03-09] MEDS: MAGNESIUM SULFATE 40GM/1000ML 40 GM/1,000 ML BAG IV SCH (05:00)
[2021-03-09] MEDS: BUTALB/ACETAMINOPHEN/CAFFEINE TAB PO PRN (07:44)
[2021-03-09] MEDS: ONDANSETRON 4 MG/2 ML INJ IV PRN (07:54)
[2021-03-09] MEDS: metFORMIN 500 MG TAB PO SCH (08:01)
[2021-03-09] MEDS ORDERED: DEXTROSE 50% IN WATER (25GM) 50 ML SYRINGE IV PRN (09:00)
--- NOTE | 2021-03-09 09:01 | Progress Note ---
Assessment and Plan A: IUP at 35w0d Chronic hypertension with superimposed preeclampsia on Labetalol 400mg TID and Procardia XL 30 mg daily, on Magnesium sulfate for seizure prophyalaxis Gestational diabetes on Metformin 500 mg BID and 14 units NPH QHS H/o DVT and chronic right lower extremity edema previously on Lovenox 40 mg daily; Lovenox held for 24 hours prior to induction Morbid Obesity GERD Migraines Genital herpes without lesion or prodrome; Valtrex suppression GBS status unknown- Ampicillin with SROM or active labor P: Continue induction of labor Subjective - Subjective Date of service: 03/09/21 Principal diagnosis: CHTN with superimposed preeclampsia Interval history: Pt minimally uncomfortable on low dose pitocin. Patient reports: movement normal, contractions, no new complaints, no loss of fluid, no vaginal bleeding Objective - Vital Signs Vital Signs: Vital Signs - 12hr 03/08/21 03/08/21 03/08/21 21:05 21:10 21:13 Pulse Rate 89 89 99 H Respiratory Rate Blood Pressure O2 Sat by Pulse 97 97 94 Oximetry 03/08/21 03/08/21 03/08/21 21:14 21:15 21:20 Pulse Rate 89 90 88 Respiratory Rate Blood Pressure 142/84 O2 Sat by Pulse 97 97 Oximetry 03/08/21 03/08/21 03/08/21 21:25 21:28 21:30 Pulse Rate 86 89 89 Respiratory 13 Rate Blood Pressure 134/74 O2 Sat by Pulse 97 99 Oximetry 03/08/21 03/08/21 03/08/21 21:35 21:40 21:41 Pulse Rate 89 87 86 Respiratory Rate Blood Pressure O2 Sat by Pulse 98 95 94 Oximetry 03/08/21 03/08/21 03/08/21 21:42 21:45 21:50 Pulse Rate 90 91 H 90 Respiratory Rate Blood Pressure 133/74 O2 Sat by Pulse 97 94 Oximetry 03/08/21 03/08/21 03/08/21 21:53 21:55 21:57 Pulse Rate 84 85 85 Respiratory Rate Blood Pressure 122/71 O2 Sat by Pulse 94 95 Oximetry 03/08/21 03/08/21 03/08/21 21:59 22:00 22:04 Pulse Rate 86 85 85 Respiratory Rate Blood Pressure O2 Sat by Pulse 94 95 94 Oximetry 03/08/21 03/08/21 03/08/21 22:05 22:10 22:14 Pulse Rate 83 85 85 Respiratory Rate Blood Pressure 128/72 O2 Sat by Pulse 93 94 Oximetry 03/08/21 03/08/21 03/08/21 22:15 22:20 22:25 Pulse Rate 88 85 85 Respiratory Rate Blood Pressure O2 Sat by Pulse 98 97 97 Oximetry 03/08/21 03/08/21 03/08/21 22:27 22:30 22:35 Pulse Rate 87 85 97 H Respiratory Rate Blood Pressure 130/70 O2 Sat by Pulse 96 97 Oximetry 03/08/21 03/08/21 03/08/21 22:40 22:44 22:45 Pulse Rate 89 91 H 83 Respiratory Rate Blood Pressure 127/70 O2 Sat by Pulse 98 98 Oximetry 03/08/21 03/08/21 03/08/21 22:50 22:55 22:57 Pulse Rate 83 83 84 Respiratory Rate Blood Pressure 123/67 O2 Sat by Pulse 96 98 Oximetry 03/08/21 03/08/21 03/08/21 23:00 23:01 23:05 Pulse Rate 84 95 H 88 Respiratory Rate Blood Pressure O2 Sat by Pulse 98 94 96 Oximetry 03/08/21 03/08/21 03/08/21 23:10 23:12 23:15 Pulse Rate 80 78 82 Respiratory Rate Blood Pressure 123/67 O2 Sat by Pulse 98 97 Oximetry 03/08/21 03/08/21 03/08/21 23:20 23:25 23:26 Pulse Rate 81 81 80 Respiratory Rate Blood Pressure O2 Sat by Pulse 96 96 94 Oximetry 03/08/21 03/08/21 03/08/21 23:30 23:35 23:37 Pulse Rate 87 77 78 Respiratory 12 Rate Blood Pressure O2 Sat by Pulse 97 95 94 Oximetry 03/08/21 03/08/21 03/08/21 23:40 23:42 23:45 Pulse Rate 78 77 78 Respiratory Rate Blood Pressure 125/70 O2 Sat by Pulse 95 95 Oximetry 03/08/21 03/08/21 03/08/21 23:50 23:51 23:55 Pulse Rate 79 79 78 Respiratory Rate Blood Pressure O2 Sat by Pulse 96 94 95 Oximetry 03/08/21 03/08/21 03/09/21 23:57 23:58 00:00 Pulse Rate 78 79 79 Respiratory Rate Blood Pressure 123/73 O2 Sat by Pulse 94 96 Oximetry 03/09/21 03/09/21 03/09/21 00:05 00:10 00:13 Pulse Rate 85 94 H 86 Respiratory Rate Blood Pressure 138/71 O2 Sat by Pulse 100 99 Oximetry 03/09/21 03/09/21 03/09/21 00:15 00:20 00:25 Pulse Rate 83 86 82 Respiratory Rate Blood Pressure O2 Sat by Pulse 100 98 97 Oximetry 03/09/21 03/09/21 03/09/21 00:27 00:30 00:35 Pulse Rate 83 80 87 Respiratory 12 Rate Blood Pressure 137/70 O2 Sat by Pulse 11 L 98 Oximetry 03/09/21 03/09/21 03/09/21 00:40 00:43 00:45 Pulse Rate 90 81 82 Respiratory Rate Blood Pressure 130/70 O2 Sat by Pulse 98 98 Oximetry 03/09/21 03/09/21 03/09/21 00:50 00:55 00:57 Pulse Rate 88 81 83 Respiratory Rate Blood Pressure 129/66 O2 Sat by Pulse 97 97 Oximetry 03/09/21 03/09/21 03/09/21 01:00 01:03 01:05 Pulse Rate 84 96 H 86 Respiratory Rate Blood Pressure O2 Sat by Pulse 98 94 97 Oximetry 03/09/21 03/09/21 03/09/21 01:10 01:12 01:15 Pulse Rate 85 82 82 Respiratory Rate Blood Pressure 131/72 O2 Sat by Pulse 96 94 Oximetry 03/09/21 03/09/21 03/09/21 01:20 01:25 01:29 Pulse Rate 80 88 85 Respiratory Rate Blood Pressure 104/56 O2 Sat by Pulse 95 97 Oximetry 03/09/21 03/09/21 03/09/21 01:30 01:35 01:38 Pulse Rate 82 79 88 Respiratory Rate Blood Pressure O2 Sat by Pulse 96 99 94 Oximetry 03/09/21 03/09/21 03/09/21 01:40 01:42 01:45 Pulse Rate 80 81 78 Respiratory Rate Blood Pressure 97/52 O2 Sat by Pulse 96 96 Oximetry 03/09/21 03/09/21 03/09/21 01:48 01:50 01:53 Pulse Rate 81 78 82 Respiratory Rate Blood Pressure O2 Sat by Pulse 93 96 94 Oximetry 03/09/21 03/09/21 03/09/21 01:55 01:57 02:00 Pulse Rate 82 76 89 Respiratory Rate Blood Pressure 102/56 O2 Sat by Pulse 96 99 Oximetry 03/09/21 03/09/21 03/09/21 02:05 02:10 02:13 Pulse Rate 81 86 81 Respiratory Rate Blood Pressure 119/58 O2 Sat by Pulse 99 100 Oximetry 03/09/21 03/09/21 03/09/21 02:15 02:20 02:25 Pulse Rate 85 78 84 Respiratory Rate Blood Pressure O2 Sat by Pulse 97 97 97 Oximetry 03/09/21 03/09/21 03/09/21 02:29 02:30 02:35 Pulse Rate 83 85 84 Respiratory 13 Rate Blood Pressure 117/85 O2 Sat by Pulse 97 99 Oximetry 03/09/21 03/09/21 03/09/21 02:40 02:42 02:45 Pulse Rate 86 80 84 Respiratory Rate Blood Pressure 128/65 O2 Sat by Pulse 98 96 Oximetry 03/09/21 03/09/21 03/09/21 02:50 02:55 02:57 Pulse Rate 82 82 83 Respiratory Rate Blood Pressure 129/73 O2 Sat by Pulse 96 96 Oximetry 03/09/21 03/09/21 03/09/21 02:58 03:00 03:05 Pulse Rate 83 83 82 Respiratory Rate Blood Pressure O2 Sat by Pulse 94 95 98 Oximetry 03/09/21 03/09/21 03/09/21 03:10 03:13 03:15 Pulse Rate 91 H 86 84 Respiratory Rate Blood Pressure 142/88 O2 Sat by Pulse 99 99 Oximetry 03/09/21 03/09/21 03/09/21 03:20 03:25 03:30 Pulse Rate 85 83 82 Respiratory Rate Blood Pressure O2 Sat by Pulse 97 97 97 Oximetry 03/09/21 03/09/21 03/09/21 03:35 03:40 03:45 Pulse Rate 94 H 88 89 Respiratory Rate Blood Pressure 137/74 O2 Sat by Pulse 96 97 97 Oximetry 03/09/21 03/09/21 03/09/21 03:50 03:55 04:00 Pulse Rate 92 H 87 89 Respiratory Rate Blood Pressure O2 Sat by Pulse 96 97 97 Oximetry 03/09/21 03/09/21 03/09/21 04:05 04:10 04:13 Pulse Rate 86 82 81 Respiratory Rate Blood Pressure 149/76 O2 Sat by Pulse 97 98 Oximetry 03/09/21 03/09/21 03/09/21 04:15 04:16 04:20 Pulse Rate 83 84 83 Respiratory Rate Blood Pressure O2 Sat by Pulse 95 94 94 Oximetry 03/09/21 03/09/21 03/09/21 04:25 04:28 04:30 Pulse Rate 81 78 86 Respiratory 12 Rate Blood Pressure O2 Sat by Pulse 93 93 97 Oximetry 03/09/21 03/09/21 03/09/21 04:34 04:35 04:40 Pulse Rate 81 78 82 Respiratory Rate Blood Pressure O2 Sat by Pulse 94 95 97 Oximetry 03/09/21 03/09/21 03/09/21 04:42 04:43 04:45 Pulse Rate 75 76 80 Respiratory Rate Blood Pressure 144/73 O2 Sat by Pulse 94 95 Oximetry 03/09/21 03/09/21 03/09/21 04:50 04:55 04:59 Pulse Rate 79 83 86 Respiratory Rate Blood Pressure O2 Sat by Pulse 94 96 94 Oximetry 03/09/21 03/09/21 03/09/21 05:00 05:05 05:10 Pulse Rate 81 94 H 81 Respiratory Rate Blood Pressure O2 Sat by Pulse 97 95 93 Oximetry 03/09/21 03/09/21 03/09/21 05:12 05:15 05:20 Pulse Rate 83 79 78 Respiratory Rate Blood Pressure 127/82 O2 Sat by Pulse 94 93 99 Oximetry 03/09/21 03/09/21 03/09/21 05:25 05:30 05:35 Pulse Rate 82 85 84 Respiratory Rate Blood Pressure O2 Sat by Pulse 97 97 97 Oximetry 03/09/21 03/09/21 03/09/21 05:40 05:41 05:44 Pulse Rate 84 84 79 Respiratory Rate Blood Pressure 128/73 O2 Sat by Pulse 97 94 Oximetry 03/09/21 03/09/21 03/09/21 05:45 05:47 05:50 Pulse Rate 80 80 81 Respiratory Rate Blood Pressure O2 Sat by Pulse 94 94 94 Oximetry 03/09/21 03/09/21 03/09/21 05:54 05:55 05:59 Pulse Rate 80 77 79 Respiratory Rate Blood Pressure O2 Sat by Pulse 94 94 94 Oximetry 03/09/21 03/09/21 03/09/21 06:00 06:05 06:10 Pulse Rate 81 81 79 Respiratory Rate Blood Pressure O2 Sat by Pulse 94 95 94 Oximetry 03/09/21 03/09/21 03/09/21 06:11 06:15 06:16 Pulse Rate 80 81 80 Respiratory Rate Blood Pressure 133/79 O2 Sat by Pulse 95 94 Oximetry 03/09/21 03/09/21 03/09/21 06:20 06:25 06:30 Pulse Rate 87 83 91 H Respiratory Rate Blood Pressure O2 Sat by Pulse 95 99 98 Oximetry 03/09/21 03/09/21 03/09/21 06:35 06:38 06:40 Pulse Rate 88 83 84 Respiratory Rate Blood Pressure O2 Sat by Pulse 96 94 96 Oximetry 03/09/21 03/09/21 03/09/21 06:41 06:45 06:50 Pulse Rate 87 86 Respiratory 11 L Rate Blood Pressure O2 Sat by Pulse 96 98 98 Oximetry 03/09/21 03/09/21 03/09/21 06:55 07:00 07:04 Pulse Rate 84 85 86 Respiratory Rate Blood Pressure 136/72 O2 Sat by Pulse 98 100 Oximetry 03/09/21 03/09/21 03/09/21 07:05 07:10 07:15 Pulse Rate 89 84 89 Respiratory Rate Blood Pressure O2 Sat by Pulse 100 100 98 Oximetry 03/09/21 03/09/21 03/09/21 07:20 07:25 07:30 Pulse Rate 91 H 88 87 Respiratory Rate Blood Pressure O2 Sat by Pulse 98 98 99 Oximetry 03/09/21 03/09/21 03/09/21 07:35 07:40 07:45 Pulse Rate 92 H 99 H 89 Respiratory Rate Blood Pressure 134/67 O2 Sat by Pulse 98 98 98 Oximetry 03/09/21 03/09/21 03/09/21 07:47 07:50 07:55 Pulse Rate 89 96 H 88 Respiratory Rate Blood Pressure 134/67 O2 Sat by Pulse 97 97 Oximetry 03/09/21 03/09/21 03/09/21 08:00 08:05 08:10 Pulse Rate 88 83 85 Respiratory Rate Blood Pressure O2 Sat by Pulse 98 99 97 Oximetry 03/09/21 03/09/21 03/09/21 08:15 08:20 08:25 Pulse Rate 87 85 84 Respiratory Rate Blood Pressure O2 Sat by Pulse 98 99 99 Oximetry 03/09/21 03/09/21 03/09/21 08:30 08:31 08:35 Pulse Rate 91 H 89 82 Respiratory Rate Blood Pressure O2 Sat by Pulse 99 94 99 Oximetry 03/09/21 03/09/21 03/09/21 08:40 08:45 08:50 Pulse Rate 84 89 89 Respiratory Rate Blood Pressure O2 Sat by Pulse 99 97 97 Oximetry 03/09/21 08:55 Pulse Rate 85 Respiratory Rate Blood Pressure O2 Sat by Pulse 97 Oximetry - Exam Breasts: deferred Abdomen: Present: soft (obese, gravid ) Uterus: Present: normal (gravid ) FHR: auscultation normal Uterine Contraction Monitor Mode: External Cervical Dilatation: 1 (loose 1 ) Cervical Effacement Percentage: 30 station: -3 Uterine Contraction Pattern: Irregular Uterine Tone Measurement Phase: Resting Uterine Contraction Intensity: Mild Extremities: edema (trace) - Labs Labs: Abnormal Labs 03/05/21 03/05/21 03/05/21 20:30 20:30 22:25 [place] % (Auto) 9.1 H [place] # (Auto) 0.9 H POC Glucose 111 H Magnesium Urine WBC (Auto) 9.0 H U Epithel Cells (Auto) 28.0 H Ur Total Protein 24 Hr 03/06/21 03/06/21 03/06/21 10:45 12:43 18:56 [place] % (Auto) [place] # (Auto) POC Glucose 112 H 150 H Magnesium Urine WBC (Auto) U Epithel Cells (Auto) Ur Total Protein 24 Hr 440.00 H 03/07/21 03/07/21 03/07/21 06:11 11:19 12:50 [place] % (Auto) [place] # (Auto) POC Glucose 108 H 121 H Magnesium 3.50 H Urine WBC (Auto) U Epithel Cells (Auto) Ur Total Protein 24 Hr 03/07/21 03/08/21 03/08/21 20:29 00:40 00:56 [place] % (Auto) [place] # (Auto) POC Glucose 164 H 134 H Magnesium 4.60 H Urine WBC (Auto) U Epithel Cells (Auto) Ur Total Protein 24 Hr 03/08/21 03/08/21 03/08/21 06:44 07:21 14:41 [place] % (Auto) [place] # (Auto) POC Glucose 123 H 117 H Magnesium 5.20 H Urine WBC (Auto) U Epithel Cells (Auto) Ur Total Protein 24 Hr 03/08/21 03/08/21 03/08/21 17:44 18:44 22:15 [place] % (Auto) [place] # (Auto) POC Glucose 119 H 116 H Magnesium 4.50 H Urine WBC (Auto) U Epithel Cells (Auto) Ur Total Protein 24 Hr 03/09/21 03/09/21 02:27 06:26 [place] % (Auto) [place] # (Auto) POC Glucose 115 H 108 H Magnesium Urine WBC (Auto) U Epithel Cells (Auto) Ur Total Protein 24 Hr Laboratory Results - last 24 hr 03/08/21 03/08/21 03/08/21 14:41 17:44 18:44 POC Glucose 117 H 119 H Magnesium 4.50 H 03/08/21 03/09/21 03/09/21 22:15 02:27 06:26 POC Glucose 116 H 115 H 108 H Magnesium
[2021-03-09] MEDS: NIFEdipine XL 30 MG TAB PO SCH (10:15)
[2021-03-09] MEDS: PRENATAL VIT27-FE FUMARATE-FOLIC ACID VIT TAB PO SCH (10:15)
[2021-03-09] MEDS: valACYclovir 500 MG TAB PO SCH ×2 (10:16→21:28)
[2021-03-09] MEDS: FAMOTIDINE 20 MG/2 ML INJ IV SCH ×2 (10:16→21:28)
[2021-03-09 10:51] LABS: Hematocrit 30.5 % (30.3-42.9); Hemoglobin 10.2 gm/dl (10.1-14.3); Mean Corpuscular HGB Conc 33 % (30-34); Mean Corpuscular Volume 93 fl (79-97); Platelet Count 287 K/mm3 (140-440); Red Blood Count 3.28 M/mm3 (3.65-5.03); Red Cell Distribution Width 13.9 % (13.2-15.2)
--- NOTE | 2021-03-09 13:49 | Event Note ---
Date: 03/09/21 Pt uncomfortable with contractions. SVE: /-3. Continue cervical ripening with pitocin. Closely monitor maternal and status.
[2021-03-09] MEDS: fentaNYL 100 MCG/2 ML INJ IV PRN ×2 (15:45→19:52)
[2021-03-09] MEDS: INSULIN REGULAR, HUMAN 100 UNITS/1 ML SUB-Q SCH (21:35)
[2021-03-10] MEDS: ONDANSETRON 4 MG/2 ML INJ IV PRN (00:48)
[2021-03-10] MEDS: OXYTOCIN DRIP 30 UNITS/500 ML BAG IV SCH (00:49)
[2021-03-10] MEDS: INSULIN REGULAR, HUMAN 100 UNITS/1 ML SUB-Q SCH ×4 (01:00→15:30)
[2021-03-10] MEDS: MAGNESIUM SULFATE 40GM/1000ML 40 GM/1,000 ML BAG IV SCH ×2 (01:02→14:35)
--- NOTE | 2021-03-10 07:04 | Progress Note ---
Assessment and Plan A: IUP at 35w1d Chronic hypertension with superimposed preeclampsia on Labetalol 400mg TID and Procardia XL 30 mg daily, on Magnesium sulfate for seizure prophyalaxis Gestational diabetes on Metformin 500 mg BID and 14 units NPH QHS H/o DVT and chronic right lower extremity edema previously on Lovenox 40 mg daily; Lovenox held for 24 hours prior to induction Morbid Obesity GERD Migraines Genital herpes without lesion or prodrome; Valtrex suppression GBS status unknown- Ampicillin with SROM or active labor P: Continue induction of labor Consider Cytotec cervical ripening if minimal change on Pitocin Subjective - Subjective Date of service: 03/10/21 Principal diagnosis: CHTN with superimposed preeclampsia Interval history: Patient reports cramping but no strong contractions. Patient reports: movement normal, contractions, no new complaints, no loss of fluid, no vaginal bleeding Objective - Vital Signs Vital Signs: Vital Signs - 12hr 03/09/21 03/09/21 03/09/21 19:05 19:09 19:10 Temperature 98.4 F Pulse Rate 89 88 Respiratory 20 Rate Blood Pressure O2 Sat by Pulse 97 98 98 Oximetry O2 Sat by Pulse 99 Oximetry [ Throughout] 03/09/21 03/09/21 03/09/21 19:15 19:18 19:20 Temperature Pulse Rate 80 81 85 Respiratory Rate Blood Pressure 148/90 O2 Sat by Pulse 98 96 Oximetry O2 Sat by Pulse Oximetry [ Throughout] 03/09/21 03/09/21 03/09/21 19:25 19:30 19:35 Temperature Pulse Rate 80 76 81 Respiratory Rate Blood Pressure O2 Sat by Pulse 99 98 99 Oximetry O2 Sat by Pulse Oximetry [ Throughout] 03/09/21 03/09/21 03/09/21 19:40 19:45 19:50 Temperature Pulse Rate 80 84 80 Respiratory Rate Blood Pressure O2 Sat by Pulse 99 99 98 Oximetry O2 Sat by Pulse Oximetry [ Throughout] 03/09/21 03/09/21 03/09/21 19:51 19:55 20:00 Temperature Pulse Rate 76 81 84 Respiratory Rate Blood Pressure 148/90 O2 Sat by Pulse 99 98 Oximetry O2 Sat by Pulse Oximetry [ Throughout] 03/09/21 03/09/21 03/09/21 20:05 20:10 20:15 Temperature Pulse Rate 79 85 76 Respiratory Rate Blood Pressure O2 Sat by Pulse 97 98 98 Oximetry O2 Sat by Pulse Oximetry [ Throughout] 03/09/21 03/09/21 03/09/21 20:18 20:20 20:25 Temperature Pulse Rate 71 70 70 Respiratory Rate Blood Pressure 126/80 O2 Sat by Pulse 97 97 Oximetry O2 Sat by Pulse Oximetry [ Throughout] 03/09/21 03/09/21 03/09/21 20:30 20:35 20:40 Temperature Pulse Rate 70 73 78 Respiratory Rate Blood Pressure O2 Sat by Pulse 96 97 96 Oximetry O2 Sat by Pulse Oximetry [ Throughout] 03/09/21 03/09/21 03/09/21 20:45 20:50 20:55 Temperature Pulse Rate 70 69 67 Respiratory Rate Blood Pressure 145/65 O2 Sat by Pulse 97 98 98 Oximetry O2 Sat by Pulse Oximetry [ Throughout] 03/09/21 03/09/21 03/09/21 21:00 21:05 21:10 Temperature Pulse Rate 77 69 69 Respiratory Rate Blood Pressure O2 Sat by Pulse 95 98 98 Oximetry O2 Sat by Pulse Oximetry [ Throughout] 03/09/21 03/09/21 03/09/21 21:15 21:20 21:21 Temperature Pulse Rate 69 83 74 Respiratory Rate Blood Pressure 160/69 O2 Sat by Pulse 98 99 Oximetry O2 Sat by Pulse Oximetry [ Throughout] 03/09/21 03/09/21 03/09/21 21:25 21:30 21:35 Temperature Pulse Rate 85 75 71 Respiratory Rate Blood Pressure O2 Sat by Pulse 99 100 99 Oximetry O2 Sat by Pulse Oximetry [ Throughout] 03/09/21 03/09/21 03/09/21 21:40 21:45 21:49 Temperature Pulse Rate 70 71 73 Respiratory Rate Blood Pressure 132/75 O2 Sat by Pulse 96 98 Oximetry O2 Sat by Pulse Oximetry [ Throughout] 03/09/21 03/09/21 03/09/21 21:50 21:55 22:00 Temperature Pulse Rate 73 74 73 Respiratory Rate Blood Pressure O2 Sat by Pulse 98 99 97 Oximetry O2 Sat by Pulse Oximetry [ Throughout] 03/09/21 03/09/21 03/09/21 22:05 22:10 22:15 Temperature Pulse Rate 81 83 74 Respiratory Rate Blood Pressure O2 Sat by Pulse 99 98 97 Oximetry O2 Sat by Pulse Oximetry [ Throughout] 03/09/21 03/09/21 03/09/21 22:19 22:20 22:25 Temperature Pulse Rate 77 73 76 Respiratory Rate Blood Pressure 134/80 O2 Sat by Pulse 97 97 Oximetry O2 Sat by Pulse Oximetry [ Throughout] 03/09/21 03/09/21 03/09/21 22:30 22:35 22:40 Temperature Pulse Rate 74 75 77 Respiratory Rate Blood Pressure O2 Sat by Pulse 97 97 97 Oximetry O2 Sat by Pulse Oximetry [ Throughout] 03/09/21 03/09/21 03/09/21 22:45 22:49 22:50 Temperature Pulse Rate 78 77 78 Respiratory Rate Blood Pressure 122/69 O2 Sat by Pulse 97 97 Oximetry O2 Sat by Pulse Oximetry [ Throughout] 03/09/21 03/09/21 03/09/21 22:55 23:00 23:05 Temperature Pulse Rate 86 73 74 Respiratory Rate Blood Pressure O2 Sat by Pulse 99 97 97 Oximetry O2 Sat by Pulse Oximetry [ Throughout] 03/09/21 03/09/21 03/09/21 23:10 23:15 23:19 Temperature Pulse Rate 72 73 87 Respiratory Rate Blood Pressure 143/80 O2 Sat by Pulse 98 99 Oximetry O2 Sat by Pulse Oximetry [ Throughout] 03/09/21 03/09/21 03/09/21 23:20 23:25 23:30 Temperature Pulse Rate 81 76 77 Respiratory Rate Blood Pressure O2 Sat by Pulse 99 98 98 Oximetry O2 Sat by Pulse Oximetry [ Throughout] 03/09/21 03/09/21 03/09/21 23:35 23:40 23:45 Temperature Pulse Rate 78 87 85 Respiratory Rate Blood Pressure O2 Sat by Pulse 99 98 99 Oximetry O2 Sat by Pulse Oximetry [ Throughout] 03/09/21 03/09/21 03/09/21 23:49 23:50 23:55 Temperature Pulse Rate 88 89 91 H Respiratory Rate Blood Pressure 147/86 O2 Sat by Pulse 99 99 Oximetry O2 Sat by Pulse Oximetry [ Throughout] 03/10/21 03/10/21 03/10/21 00:00 00:05 00:10 Temperature Pulse Rate 88 84 89 Respiratory Rate Blood Pressure O2 Sat by Pulse 99 98 99 Oximetry O2 Sat by Pulse Oximetry [ Throughout] 03/10/21 03/10/21 03/10/21 00:15 00:20 00:25 Temperature Pulse Rate 103 H 94 H 112 H Respiratory Rate Blood Pressure O2 Sat by Pulse 99 98 100 Oximetry O2 Sat by Pulse Oximetry [ Throughout] 03/10/21 03/10/21 03/10/21 00:30 00:35 00:37 Temperature Pulse Rate 89 91 H 85 Respiratory Rate Blood Pressure 139/74 O2 Sat by Pulse 98 100 Oximetry O2 Sat by Pulse Oximetry [ Throughout] 03/10/21 03/10/21 03/10/21 00:40 00:45 00:50 Temperature Pulse Rate 88 83 78 Respiratory Rate Blood Pressure O2 Sat by Pulse 99 98 97 Oximetry O2 Sat by Pulse Oximetry [ Throughout] 03/10/21 03/10/21 03/10/21 00:55 01:00 01:05 Temperature Pulse Rate 77 78 79 Respiratory Rate Blood Pressure O2 Sat by Pulse 98 97 98 Oximetry O2 Sat by Pulse Oximetry [ Throughout] 03/10/21 03/10/21 03/10/21 01:08 01:10 01:13 Temperature Pulse Rate 81 75 77 Respiratory Rate Blood Pressure 155/85 O2 Sat by Pulse 97 94 Oximetry O2 Sat by Pulse Oximetry [ Throughout] 03/10/21 03/10/21 03/10/21 01:15 01:19 01:20 Temperature Pulse Rate 77 75 89 Respiratory Rate Blood Pressure O2 Sat by Pulse 98 94 98 Oximetry O2 Sat by Pulse Oximetry [ Throughout] 03/10/21 03/10/21 03/10/21 01:25 01:30 01:35 Temperature Pulse Rate 80 80 74 Respiratory Rate Blood Pressure O2 Sat by Pulse 100 99 96 Oximetry O2 Sat by Pulse Oximetry [ Throughout] 03/10/21 03/10/21 03/10/21 01:38 01:40 01:44 Temperature Pulse Rate 73 74 75 Respiratory Rate Blood Pressure 164/89 O2 Sat by Pulse 98 94 Oximetry O2 Sat by Pulse Oximetry [ Throughout] 03/10/21 03/10/21 03/10/21 01:45 01:50 01:55 Temperature Pulse Rate 73 75 73 Respiratory Rate Blood Pressure O2 Sat by Pulse 96 97 97 Oximetry O2 Sat by Pulse Oximetry [ Throughout] 03/10/21 03/10/21 03/10/21 02:00 02:05 02:08 Temperature Pulse Rate 74 79 82 Respiratory Rate Blood Pressure 163/83 O2 Sat by Pulse 97 96 Oximetry O2 Sat by Pulse Oximetry [ Throughout] 03/10/21 03/10/21 03/10/21 02:10 02:15 02:20 Temperature Pulse Rate 83 86 83 Respiratory Rate Blood Pressure O2 Sat by Pulse 99 98 97 Oximetry O2 Sat by Pulse Oximetry [ Throughout] 03/10/21 03/10/21 03/10/21 02:25 02:30 02:32 Temperature Pulse Rate 79 78 81 Respiratory Rate Blood Pressure O2 Sat by Pulse 97 96 93 Oximetry O2 Sat by Pulse Oximetry [ Throughout] 03/10/21 03/10/21 03/10/21 02:35 02:38 02:40 Temperature Pulse Rate 76 75 77 Respiratory Rate Blood Pressure 161/94 O2 Sat by Pulse 96 96 Oximetry O2 Sat by Pulse Oximetry [ Throughout] 03/10/21 03/10/21 03/10/21 02:45 02:49 02:50 Temperature Pulse Rate 77 75 73 Respiratory Rate Blood Pressure 163/98 O2 Sat by Pulse 95 97 Oximetry O2 Sat by Pulse Oximetry [ Throughout] 03/10/21 03/10/21 03/10/21 02:51 02:53 02:55 Temperature Pulse Rate 72 74 76 Respiratory Rate Blood Pressure 144/74 O2 Sat by Pulse 93 95 Oximetry O2 Sat by Pulse Oximetry [ Throughout] 03/10/21 03/10/21 03/10/21 03:00 03:05 03:07 Temperature Pulse Rate 77 79 93 H Respiratory Rate Blood Pressure 147/81 O2 Sat by Pulse 96 96 Oximetry O2 Sat by Pulse Oximetry [ Throughout] 03/10/21 03/10/21 03/10/21 03:10 03:15 03:20 Temperature Pulse Rate 81 80 86 Respiratory Rate Blood Pressure O2 Sat by Pulse 95 96 96 Oximetry O2 Sat by Pulse Oximetry [ Throughout] 03/10/21 03/10/21 03/10/21 03:22 03:25 03:30 Temperature Pulse Rate 87 80 76 Respiratory Rate Blood Pressure O2 Sat by Pulse 93 96 96 Oximetry O2 Sat by Pulse Oximetry [ Throughout] 03/10/21 03/10/21 03/10/21 03:35 03:37 03:40 Temperature Pulse Rate 79 74 74 Respiratory Rate Blood Pressure 139/73 O2 Sat by Pulse 96 95 Oximetry O2 Sat by Pulse Oximetry [ Throughout] 03/10/21 03/10/21 03/10/21 03:45 03:50 03:55 Temperature Pulse Rate 76 75 88 Respiratory Rate Blood Pressure O2 Sat by Pulse 97 96 98 Oximetry O2 Sat by Pulse Oximetry [ Throughout] 03/10/21 03/10/21 03/10/21 04:00 04:05 04:07 Temperature Pulse Rate 86 80 80 Respiratory Rate Blood Pressure 153/86 O2 Sat by Pulse 97 98 Oximetry O2 Sat by Pulse Oximetry [ Throughout] 03/10/21 03/10/21 03/10/21 04:10 04:15 04:20 Temperature Pulse Rate 77 77 75 Respiratory Rate Blood Pressure O2 Sat by Pulse 96 97 95 Oximetry O2 Sat by Pulse Oximetry [ Throughout] 03/10/21 03/10/21 03/10/21 04:25 04:30 04:35 Temperature Pulse Rate 75 78 76 Respiratory Rate Blood Pressure O2 Sat by Pulse 98 96 97 Oximetry O2 Sat by Pulse Oximetry [ Throughout] 03/10/21 03/10/21 03/10/21 04:37 04:40 04:45 Temperature Pulse Rate 76 75 85 Respiratory Rate Blood Pressure 149/83 O2 Sat by Pulse 96 97 Oximetry O2 Sat by Pulse Oximetry [ Throughout] 03/10/21 03/10/21 03/10/21 04:50 04:55 05:00 Temperature Pulse Rate 82 79 75 Respiratory Rate Blood Pressure O2 Sat by Pulse 97 99 97 Oximetry O2 Sat by Pulse Oximetry [ Throughout] 03/10/21 03/10/21 03/10/21 05:05 05:08 05:10 Temperature Pulse Rate 80 75 79 Respiratory Rate Blood Pressure 135/76 O2 Sat by Pulse 99 98 Oximetry O2 Sat by Pulse Oximetry [ Throughout] 03/10/21 03/10/21 03/10/21 05:15 05:20 05:25 Temperature Pulse Rate 83 79 79 Respiratory Rate Blood Pressure O2 Sat by Pulse 98 97 99 Oximetry O2 Sat by Pulse Oximetry [ Throughout] 03/10/21 03/10/21 03/10/21 05:30 05:35 05:40 Temperature Pulse Rate 78 77 84 Respiratory Rate Blood Pressure O2 Sat by Pulse 98 98 98 Oximetry O2 Sat by Pulse Oximetry [ Throughout] 03/10/21 03/10/21 03/10/21 05:45 05:50 05:55 Temperature Pulse Rate 80 79 83 Respiratory Rate Blood Pressure O2 Sat by Pulse 100 97 97 Oximetry O2 Sat by Pulse Oximetry [ Throughout] 03/10/21 03/10/21 03/10/21 06:00 06:05 06:10 Temperature Pulse Rate 79 80 76 Respiratory Rate Blood Pressure O2 Sat by Pulse 99 96 97 Oximetry O2 Sat by Pulse Oximetry [ Throughout] 03/10/21 03/10/21 03/10/21 06:15 06:20 06:25 Temperature Pulse Rate 91 H 77 79 Respiratory Rate Blood Pressure O2 Sat by Pulse 97 97 97 Oximetry O2 Sat by Pulse Oximetry [ Throughout] 03/10/21 03/10/21 03/10/21 06:30 06:35 06:37 Temperature Pulse Rate 91 H 83 89 Respiratory Rate Blood Pressure 141/84 O2 Sat by Pulse 100 100 Oximetry O2 Sat by Pulse Oximetry [ Throughout] 03/10/21 03/10/21 03/10/21 06:38 06:40 06:45 Temperature Pulse Rate 90 91 H 92 H Respiratory Rate Blood Pressure O2 Sat by Pulse 93 98 100 Oximetry O2 Sat by Pulse Oximetry [ Throughout] 03/10/21 03/10/21 03/10/21 06:50 06:55 07:00 Temperature Pulse Rate 91 H 82 82 Respiratory Rate Blood Pressure O2 Sat by Pulse 99 99 98 Oximetry O2 Sat by Pulse Oximetry [ Throughout] - Exam Breasts: deferred Abdomen: Present: soft (obese, gravid ) Uterus: Present: normal (gravid ) FHR: auscultation normal Uterine Contraction Monitor Mode: External Cervical Dilatation: 2.5 Cervical Effacement Percentage: 50 station: -3 Uterine Contraction Pattern: Irregular Uterine Tone Measurement Phase: Resting Uterine Contraction Intensity: Mild Extremities: normal - Labs Labs: Abnormal Labs 03/05/21 03/05/21 03/05/21 20:30 20:30 22:25 RBC [place] % (Auto) 9.1 H [place] # (Auto) 0.9 H POC Glucose 111 H Magnesium Urine WBC (Auto) 9.0 H U Epithel Cells (Auto) 28.0 H Ur Total Protein 24 Hr 03/06/21 03/06/21 03/06/21 10:45 12:43 18:56 RBC [place] % (Auto) [place] # (Auto) POC Glucose 112 H 150 H Magnesium Urine WBC (Auto) U Epithel Cells (Auto) Ur Total Protein 24 Hr 440.00 H 03/07/21 03/07/21 03/07/21 06:11 11:19 12:50 RBC [place] % (Auto) [place] # (Auto) POC Glucose 108 H 121 H Magnesium 3.50 H Urine WBC (Auto) U Epithel Cells (Auto) Ur Total Protein 24 Hr 03/07/21 03/08/21 03/08/21 20:29 00:40 00:56 RBC [place] % (Auto) [place] # (Auto) POC Glucose 164 H 134 H Magnesium 4.60 H Urine WBC (Auto) U Epithel Cells (Auto) Ur Total Protein 24 Hr 03/08/21 03/08/21 03/08/21 06:44 07:21 14:41 RBC [place] % (Auto) [place] # (Auto) POC Glucose 123 H 117 H Magnesium 5.20 H Urine WBC (Auto) U Epithel Cells (Auto) Ur Total Protein 24 Hr 03/08/21 03/08/21 03/08/21 17:44 18:44 22:15 RBC [place] % (Auto) [place] # (Auto) POC Glucose 119 H 116 H Magnesium 4.50 H Urine WBC (Auto) U Epithel Cells (Auto) Ur Total Protein 24 Hr 03/09/21 03/09/21 03/09/21 02:27 06:26 09:47 RBC 3.28 L [place] % (Auto) [place] # (Auto) POC Glucose 115 H 108 H Magnesium Urine WBC (Auto) U Epithel Cells (Auto) Ur Total Protein 24 Hr 03/09/21 03/09/21 03/09/21 09:47 17:15 17:22 RBC [place] % (Auto) [place] # (Auto) POC Glucose 106 H Magnesium 5.30 H 5.10 H Urine WBC (Auto) U Epithel Cells (Auto) Ur Total Protein 24 Hr 03/09/21 03/10/21 22:57 04:24 RBC [place] % (Auto) [place] # (Auto) POC Glucose Magnesium 4.80 H 5.20 H Urine WBC (Auto) U Epithel Cells (Auto) Ur Total Protein 24 Hr Laboratory Results - last 24 hr 03/09/21 03/09/21 03/09/21 09:47 09:47 09:51 WBC 8.8 RBC 3.28 L Hgb 10.2 Hct 30.5 MCV 93 MCH 31 MCHC 33 RDW 13.9 Plt Count 287 POC Glucose Magnesium 5.30 H Blood Type A POSITIVE Antibody Screen Negative 03/09/21 03/09/21 03/09/21 10:24 15:24 17:15 WBC RBC Hgb Hct MCV MCH MCHC RDW Plt Count POC Glucose 81 89 Magnesium 5.10 H Blood Type Antibody Screen 03/09/21 03/09/21 03/09/21 17:22 21:26 22:57 WBC RBC Hgb Hct MCV MCH MCHC RDW Plt Count POC Glucose 106 H 90 Magnesium 4.80 H Blood Type Antibody Screen 03/10/21 03/10/21 03/10/21 01:23 04:24 05:06 WBC RBC Hgb Hct MCV MCH MCHC RDW Plt Count POC Glucose 102 90 Magnesium 5.20 H Blood Type Antibody Screen
[2021-03-10] MEDS ORDERED: WITCH HAZEL/ GLYCERIN PAD TP PRN (07:30)
[2021-03-10] MEDS: LACTATED RINGERS 1,000 ML IV SCH (08:37)
[2021-03-10] MEDS: fentaNYL 100 MCG/2 ML INJ IV PRN ×2 (08:52→22:30)
[2021-03-10] MEDS ORDERED: miSOPROStol 25 MCG TAB VG NR (10:45)
[2021-03-10] MEDS: valACYclovir 500 MG TAB PO SCH (10:53)
[2021-03-10] MEDS: PRENATAL VIT27-FE FUMARATE-FOLIC ACID VIT TAB PO SCH (10:53)
[2021-03-10] MEDS: NIFEdipine XL 30 MG TAB PO SCH (10:53)
[2021-03-10] MEDS: FAMOTIDINE 20 MG/2 ML INJ IV SCH (10:54)
[2021-03-10] MEDS ORDERED: miSOPROStol 25 MCG TAB VG ONE (16:00)
[2021-03-10] MEDS ORDERED: miSOPROStol 25 MCG TAB VG SCH (20:00)
[2021-03-11] MEDS ORDERED: LIDOCAINE (2%) 20 MG/1 ML VIAL 20 ML MDV INFILTRATI ONE (00:34)
[2021-03-11] MEDS ORDERED: MINERAL OIL 30 ML ORAL LIQD ONE (00:34)
[2021-03-11] MEDS ORDERED: OXYTOCIN 10 UNIT/1 ML INJ ONE (00:35)
--- NOTE | 2021-03-11 01:33 | Procedure Note ---
OB Delivery Note - Delivery Date of Delivery: 03/11/21 Surgeon: LG MORALES Estimated blood loss: other (400 mL) - Vaginal Delivery presentation: vertex Delivery position: OA Intrapartum events: precipitous labor- <3hr Delivery induction: other (Cervidil, Misoprostol, Oxytocin, AROM) Delivery monitor: external FHT, external uterine Route of delivery: Delivery placenta: spontaneous (tight, delivered through ) Delivery cord: nuchal cord Episiotomy: none Delivery laceration: 1st degree (hemostatic without repair ) Anesthesia: none Delivery comments: Pt had very little cervical change despite cervical ripening agents and remained 3 cm. She then precipitously changed to 7/-1/OW. She rapidly progressed to complete and delivered a viable female over intact perineum via with NICU staff in attendance. bulb suctioned at delivery and placed on maternal abdomen. Cord clamped and cut and handed to NICU staff. Cord blood collected. Placenta delivered spontaneously. Vagina and pernieum explored. First degree laceration noted to be hemostatic without repair. EBL 400 ML - A at 1 minute: 8 at 5 minutes: 8 Gender: Female (2400g (5lb 5oz) @ 0101 am)
[2021-03-11] MEDS: MAGNESIUM SULFATE 40GM/1000ML 40 GM/1,000 ML BAG IV SCH ×2 (01:39→20:08)
[2021-03-11] MEDS ORDERED: ONDANSETRON 4 MG/2 ML INJ IV PRN (01:48)
[2021-03-11] MEDS ORDERED: HYDROcodone/ACETAMINOPHEN 5-325 MG TAB PO PRN (01:48)
[2021-03-11] MEDS ORDERED: WITCH HAZEL/ GLYCERIN PAD TP PRN (01:48)
[2021-03-11] MEDS ORDERED: diphenhydrAMINE 25 MG CAP PO PRN (01:48)
[2021-03-11] MEDS ORDERED: PROMETHAZINE 25 MG RECT SUPP PR PRN (01:48)
[2021-03-11] MEDS ORDERED: PROMETHAZINE 25 MG TAB PO PRN (01:48)
[2021-03-11] MEDS ORDERED: LANOLIN/ZINC/DIMETHICONE (LANSINOH) 7 GM TP PRN ×2 (01:48)
[2021-03-11] MEDS ORDERED: BENZOCAINE/MENTHOL 20/0.5% TOP SPRAY 56 GM TP PRN (01:48)
[2021-03-11] MEDS ORDERED: MAGNESIUM HYDROXIDE (MOM) ORAL LIQD UDC PO PRN (01:48)
[2021-03-11] MEDS: LACTATED RINGERS 1,000 ML IV SCH ×2 (01:58→20:08)
[2021-03-11] MEDS: IBUPROFEN 600 MG TAB PO SCH ×4 (02:41→18:28)
--- NOTE | 2021-03-11 08:23 | Progress Note ---
Assessment and Plan - Patient Problems (1) Chronic hypertension affecting Current Visit: Yes Status: Acute Plan to address problem: Continue Magnesium as directed Continue to monitor B/Ps Transfer to M/B after Magnesium is completed (2) Gestational diabetes Current Visit: No Status: Acute Qualifiers: Gestational diabetes mellitus control: oral hypoglycemic-controlled Plan to address problem: Monitor blood glucose level q 6 hrs until return to regular scheduled meals (3) DVT (deep vein thrombosis) in Current Visit: No Status: Acute Plan to address problem: Resume Lovonox tonight at 2200 Continue SCD hose until ambulatory (4) Status post normal vaginal delivery Current Visit: Yes Status: Acute Plan to address problem: Continue routine PP orders Anticipate d/c home in 24 hrs if stable Subjective - Subjective Date of service: 03/11/21 Principal diagnosis: S/P ; CHTN with superimposed preeclampsia Interval history: Pt is a 35 year old PATRICIA 04/13/21 at 34w3d who presents from [facility] clinic for further evaluation of headaches not responsive to Tylenol, in the setting of a history of migraines and chronic hypertension on Labetalol 400 mg TID. She denies scotomata, blurry vision or RUQ pain. She also denies vaginal bleeding, leakage of fluid or contractions. She has had limited care at [facility] since 11 wks with lapse in care from 27 to 34 wks complicated by aforementioned chronic hypertension, gestational diabetes on Metformin 500 mg BID and 14 units NPH QHS, polyhydramnios, genital herpes without lesion or prodrome, h/o DVT and chronic right lower extremity edema on Lovenox 40 mg daily. Her GBS status is unknown. of viable female . Patient reports: pain well controlled, no voiding normally (ospina catheter in place secondary to Magniesum drip), no ambulating normally (bed rest with SCD hose while Magniesum infusing) : doing well, bottle feeding Objective - Vital Signs Latest vital signs: Vital Signs Temp Pulse Resp BP BP Pulse Ox Pulse Ox 03/11/21 08:14 79 100 03/11/21 08:09 83 99 03/11/21 08:05 79 153/80 03/11/21 08:04 81 100 03/11/21 08:01 75 153/80 03/11/21 07:59 98.3 F 77 18 153/80 99 03/11/21 07:54 79 99 03/11/21 07:49 78 99 03/11/21 07:44 82 148/73 99 03/11/21 07:39 82 99 03/11/21 07:34 85 100 03/11/21 07:29 78 100 03/11/21 07:24 85 99 03/11/21 07:19 81 99 03/11/21 07:14 83 99 03/11/21 07:03 79 100 03/11/21 06:58 82 99 03/11/21 06:53 86 98 03/11/21 06:48 81 99 03/11/21 06:44 79 153/82 03/11/21 06:43 80 98 03/11/21 06:38 88 99 03/11/21 06:33 87 100 03/11/21 06:28 88 100 03/11/21 06:23 79 100 03/11/21 06:18 86 99 03/11/21 06:14 80 153/85 03/11/21 06:13 81 99 03/11/21 05:36 77 96 03/11/21 05:31 77 97 03/11/21 05:26 76 97 03/11/21 05:21 81 96 03/11/21 05:16 78 96 03/11/21 05:14 95 H 136/85 03/11/21 05:11 81 96 03/11/21 05:06 83 98 03/11/21 05:01 84 99 03/11/21 04:56 90 97 03/11/21 04:51 90 96 03/11/21 04:46 83 96 03/11/21 04:44 88 132/76 03/11/21 04:41 83 96 03/11/21 04:36 88 96 03/11/21 04:31 89 99 03/11/21 04:26 91 H 98 03/11/21 04:21 88 99 03/11/21 04:16 86 100 03/11/21 04:14 90 144/71 03/11/21 04:11 91 H 98 03/11/21 04:06 96 H 98 03/11/21 03:20 92 H 94 03/11/21 03:19 86 95 03/11/21 03:14 84 135/67 96 03/11/21 03:12 85 94 03/11/21 03:09 85 95 03/11/21 03:06 87 94 03/11/21 03:04 85 95 03/11/21 02:59 84 95 03/11/21 02:54 84 97 03/11/21 02:49 86 95 03/11/21 02:44 87 138/62 97 03/11/21 02:39 86 95 03/11/21 02:34 87 97 03/11/21 02:29 88 98 03/11/21 02:24 90 97 03/11/21 02:19 91 H 98 03/11/21 02:14 97 H 131/80 98 03/11/21 02:09 98 H 98 03/11/21 02:04 98 H 98 03/11/21 01:59 93 H 99 03/11/21 01:54 95 H 97 03/11/21 01:49 94 H 98 03/11/21 01:44 95 H 97 03/11/21 01:43 94 H 140/68 03/11/21 01:39 101 H 136/67 98 03/11/21 01:34 98 H 98 03/11/21 01:29 101 H 98 03/11/21 01:24 103 H 99 03/11/21 01:19 104 H 100 03/11/21 01:14 104 H 139/74 98 03/11/21 01:09 82 89 03/11/21 01:02 93 H 148/73 03/11/21 00:44 97 H 131/62 03/11/21 00:34 101 H 140/95 03/11/21 00:28 110 H 171/96 03/11/21 00:14 90 98 03/11/21 00:09 103 H 98 03/11/21 00:05 93 H 85 03/11/21 00:04 90 99 03/11/21 00:00 92 H 94 03/10/21 23:59 94 H 98 03/10/21 23:54 90 100 03/10/21 23:49 95 H 97 03/10/21 23:47 90 91 03/10/21 23:44 92 H 152/102 99 03/10/21 23:39 92 H 99 03/10/21 23:34 85 99 03/10/21 23:29 79 99 03/10/21 23:24 78 99 03/10/21 23:19 79 97 03/10/21 23:14 76 131/99 99 03/10/21 23:09 86 95 03/10/21 23:04 75 96 03/10/21 22:59 74 99 03/10/21 22:54 73 98 03/10/21 22:49 85 98 03/10/21 22:48 78 158/81 03/10/21 22:44 82 98 03/10/21 22:39 73 97 03/10/21 22:34 78 100 03/10/21 22:29 83 100 03/10/21 22:24 82 100 03/10/21 22:19 73 100 03/10/21 22:14 75 99 03/10/21 22:09 75 100 03/10/21 22:04 79 98 03/10/21 22:00 98.1 F 18 03/10/21 21:59 78 100 03/10/21 21:54 85 99 03/10/21 21:49 77 98 03/10/21 21:45 76 150/74 03/10/21 21:44 75 97 03/10/21 21:39 81 99 03/10/21 21:34 82 98 03/10/21 21:29 86 98 03/10/21 21:24 82 99 03/10/21 21:19 86 154/85 99 03/10/21 21:15 93 H 187/108 03/10/21 21:14 85 99 03/10/21 21:09 82 100 03/10/21 21:04 89 100 03/10/21 20:59 86 162/92 100 03/10/21 20:54 89 99 03/10/21 20:49 84 99 03/10/21 20:44 84 162/90 94 03/10/21 20:39 82 98 03/10/21 20:34 93 H 99 03/10/21 20:29 87 98 03/10/21 20:24 83 99 03/10/21 20:19 92 H 99 03/10/21 20:14 80 151/88 98 03/10/21 20:09 84 98 03/10/21 20:04 82 97 03/10/21 19:59 83 98 03/10/21 19:54 83 99 03/10/21 19:49 86 100 10/12/21 19:44 87 98 03/10/21 19:41 83 151/78 03/10/21 19:39 82 98 03/10/21 19:34 84 98 03/10/21 19:32 99 03/10/21 19:30 98.7 F 03/10/21 19:29 88 97 03/10/21 19:24 89 100 03/10/21 19:21 79 160/82 03/10/21 19:19 83 98 03/10/21 19:14 81 98 03/10/21 19:11 73 86 03/10/21 19:10 77 173/90 03/10/21 19:09 77 100 03/10/21 19:04 87 98 03/10/21 18:59 82 99 03/10/21 18:54 89 99 03/10/21 18:49 85 99 03/10/21 18:44 83 98 03/10/21 18:39 81 99 03/10/21 18:38 81 155/91 03/10/21 18:34 85 98 03/10/21 18:29 80 97 03/10/21 18:24 90 98 03/10/21 18:19 81 98 03/10/21 18:14 80 95 03/10/21 18:09 84 98 03/10/21 18:07 85 132/65 03/10/21 18:04 80 99 03/10/21 17:59 81 99 03/10/21 17:54 81 98 03/10/21 17:49 86 96 03/10/21 17:44 82 99 03/10/21 17:39 81 100 03/10/21 17:37 84 147/81 03/10/21 17:34 80 99 03/10/21 17:29 79 98 03/10/21 17:24 82 99 03/10/21 17:19 84 100 03/10/21 17:14 84 99 03/10/21 17:09 79 100 03/10/21 17:08 81 150/80 03/10/21 17:04 79 99 03/10/21 16:59 81 99 03/10/21 16:54 77 99 03/10/21 16:49 84 98 03/10/21 16:44 81 97 03/10/21 16:39 79 97 03/10/21 16:37 80 141/76 03/10/21 16:34 79 97 03/10/21 16:29 78 96 03/10/21 16:24 78 97 03/10/21 16:19 80 98 03/10/21 16:14 82 97 03/10/21 16:09 81 97 03/10/21 16:08 81 147/78 03/10/21 16:04 82 97 03/10/21 15:59 79 99 03/10/21 15:54 78 97 03/10/21 15:51 60 89 03/10/21 15:49 86 100 03/10/21 15:44 86 99 03/10/21 15:39 82 150/78 03/10/21 15:07 70 147/78 03/10/21 14:56 77 156/83 03/10/21 14:26 81 100 03/10/21 14:24 86 92 03/10/21 14:21 83 99 03/10/21 14:16 80 99 03/10/21 14:11 72 98 03/10/21 14:09 84 94 03/10/21 14:06 76 99 03/10/21 13:25 83 100 03/10/21 13:20 83 100 03/10/21 13:15 81 99 03/10/21 13:10 89 97 03/10/21 13:05 80 98 03/10/21 13:00 78 99 03/10/21 12:55 81 100 03/10/21 12:50 85 99 03/10/21 12:45 81 99 03/10/21 12:40 81 100 03/10/21 12:38 80 155/96 03/10/21 12:35 88 100 03/10/21 12:30 87 100 03/10/21 12:25 89 99 03/10/21 12:20 83 98 03/10/21 12:15 86 98 03/10/21 12:10 85 97 03/10/21 12:07 82 150/82 03/10/21 12:05 84 98 03/10/21 12:00 83 100 03/10/21 11:55 76 99 03/10/21 11:50 74 98 03/10/21 11:45 80 97 03/10/21 11:40 75 98 03/10/21 11:38 75 151/77 03/10/21 11:35 75 98 03/10/21 11:30 78 98 03/10/21 11:25 78 98 03/10/21 11:20 80 97 03/10/21 11:15 78 98 03/10/21 11:10 77 98 03/10/21 11:07 77 141/78 03/10/21 11:05 79 99 03/10/21 11:00 84 100 03/10/21 10:55 87 99 03/10/21 10:50 72 100 03/10/21 10:45 75 96 03/10/21 10:40 74 95 03/10/21 10:37 77 139/80 03/10/21 10:35 73 97 03/10/21 10:30 77 100 03/10/21 10:25 79 94 03/10/21 10:20 72 98 03/10/21 10:15 73 99 03/10/21 10:11 73 94 03/10/21 10:10 81 95 03/10/21 10:07 75 149/84 03/10/21 10:05 73 96 03/10/21 10:00 70 97 03/10/21 09:55 70 96 03/10/21 09:50 68 96 03/10/21 09:45 78 96 03/10/21 09:40 71 96 03/10/21 09:37 67 136/85 03/10/21 09:35 71 97 03/10/21 09:30 70 96 03/10/21 09:25 69 96 03/10/21 09:20 74 97 03/10/21 09:15 78 98 03/10/21 09:10 73 97 03/10/21 09:08 75 148/85 03/10/21 09:05 83 98 03/10/21 09:01 77 94 03/10/21 09:00 76 95 03/10/21 08:55 86 98 03/10/21 08:50 83 98 03/10/21 08:45 79 98 03/10/21 08:40 79 98 03/10/21 08:37 82 146/82 03/10/21 08:35 79 99 03/10/21 08:30 81 99 03/10/21 08:25 85 99 03/10/21 08:20 84 99 Intake and Output 03/10/21 03/11/21 03/11/21 23:59 07:59 15:59 Intake Total 652.5 535.833 Output Total 1000 1000 Balance -347.5 -464.167 Intake: IV 652.5 535.833 Lactated Ringers 1,000 ml 652.5 @ 125 mls/hr IV DIRECT ASPEN Rx#:[id number] MAGNESIUM SULFATE 40GM/ 535.833 1000ML 40 gm In 1,000 ml @ 2 GM/HR 50 mls/hr IV DIRECT ASPEN Rx#:[id number] Output: Urine 1000 1000 Indwelling Catheter 1000 1000 Other: Total, Output Amount 1000 300 - Exam Breasts: Present: normal Cardiovascular: Present: Regular rate Lungs: Present: Normal air movement Abdomen: Present: soft Uterus: Present: firm, fundal height below umbilicus (U-1) Extremities: Present: edema Deep Tendon Reflex Grade: Normal +2 Incision: Present: other (1st degree laceration, healing as expected) - Labs Labs: Abnormal lab results 03/10/21 03/11/21 03/11/21 Range/Units 10:26 00:42 05:00 POC Glucose 151 H (70-105) mg/dL Magnesium 4.90 H 4.30 H (1.7-2.3) mg/dL 03/11/21 Range/Units 06:29 POC Glucose 124 H (70-105) mg/dL Magnesium (1.7-2.3) mg/dL
[2021-03-11] MEDS: PRENATAL VIT27-FE FUMARATE-FOLIC ACID VIT TAB PO SCH ×2 (08:32→09:55)
[2021-03-11] MEDS: NIFEdipine XL 30 MG TAB PO SCH ×2 (08:32→09:55)
[2021-03-11] MEDS: valACYclovir 500 MG TAB PO SCH (08:32)
[2021-03-11] MEDS: INSULIN REGULAR, HUMAN 100 UNITS/1 ML SUB-Q SCH ×8 (08:33→22:04)
[2021-03-11] MEDS: FAMOTIDINE 20 MG/2 ML INJ IV SCH ×4 (08:33→21:47)
[2021-03-11] MEDS: FERROUS SULFATE 325 MG TAB PO SCH ×2 (09:55→21:47)
[2021-03-11 16:30] LABS: Hematocrit 33.8 % (30.3-42.9); Hemoglobin 11.6 gm/dl (10.1-14.3)
[2021-03-11] MEDS ORDERED: ENOXAPARIN 40 MG/0.4 ML INJ SUB-Q SCH (22:00)
[2021-03-12] MEDS: IBUPROFEN 600 MG TAB PO SCH ×3 (01:04→11:53)
[2021-03-12] MEDS: INSULIN REGULAR, HUMAN 100 UNITS/1 ML SUB-Q SCH ×3 (01:05→09:49)
[2021-03-12] MEDS ORDERED: MEASLES, MUMPS & RUBELLA 12,500 UNIT/0.5 ML VACCINE SUB-Q ONE (01:48)
[2021-03-12] MEDS ORDERED: TETANUS,DIPH,PERTUSS(ACELL) VACCINE 0.5 ML SYRINGE IM ONE (06:00)
[2021-03-12] MEDS: oxyCODONE /ACETAMINOPHEN 5-325MG TAB PO PRN (08:13)
[2021-03-12] MEDS: FERROUS SULFATE 325 MG TAB PO SCH (09:58)
[2021-03-12] MEDS: PRENATAL VIT27-FE FUMARATE-FOLIC ACID VIT TAB PO SCH (09:58)
[2021-03-12] MEDS: FAMOTIDINE 20 MG/2 ML INJ IV SCH (09:59)
[2021-03-12] MEDS: NIFEdipine XL 30 MG TAB PO SCH (10:01)
--- NOTE | 2021-03-12 12:56 | Discharge Summary ---
Providers - Providers Date of Admission: 03/05/21 19:22 Date of discharge: 03/12/21 Attending physician: LG MORALES 03/06/21 08:14 Consult to Physician [CONS] Routine Comment: Consulting Provider: [facility] Physician Instructions: Reason For Exam: Chronic hypertension affecting 03/11/21 01:49 Consult to Drying Tunnel Operator [CONS] Routine Reason For Exam: assistance with , SNS Primary care physician: LG MORALES Hospitalization Reason for admission: induction of labor Delivery: Episiotomy: none Laceration: 1st degree (healing as expected) Other procedures: none complications: none Discharge diagnosis: delivery [place] baby: female Hospital course: Pt is a 35 year old PATRICIA 04/13/21 at 34w3d who presents from [facility] clinic for further evaluation of headaches not responsive to Tylenol, in the setting of a history of migraines and chronic hypertension on Labetalol 400 mg TID. She denies scotomata, blurry vision or RUQ pain. She also denies vaginal bleeding, leakage of fluid or contractions. She has had limited care at [facility] since 11 wks with lapse in care from 27 to 34 wks complicated by aforementioned chronic hypertension, gestational diabetes on Metformin 500 mg BID and 14 units NPH QHS, polyhydramnios, genital herpes without lesion or pr odrome, h/o DVT and chronic right lower extremity edema on Lovenox 40 mg daily. Her GBS status is unknown. of viable female infant. Condition at discharge: Stable Disposition: 01 HOME / SELF CARE / HOMELESS - Discharge Diagnoses (1) Chronic hypertension affecting Status: Acute (2) Gestational diabetes Status: Acute Qualifiers: Gestational diabetes mellitus control: oral hypoglycemic-controlled (3) DVT (deep vein thrombosis) in Status: Acute (4) Status post normal vaginal delivery Status: Acute Plan - Discharge Medications Prescriptions: labetaloL [Labetalol 200mg TAB] 400 mg PO TID 14 Days #42 tablet Ibuprofen [Motrin 600 MG tab] 600 mg PO Q8H 7 Days #21 tablet NIFEdipine XL [Procardia Xl] 30 mg PO QDAY 14 Days #14 tablet - Provider Discharge Summary Activity: routine, no sex for 6 weeks, no heavy lifting 4 weeks, no strenuous exercise Diet: other (Iron rich diet) Instructions: routine Additional instructions: [] Smoking cessation referral if applicable(refer to patient education folder for contact #) [] Refer to [facility] Booklet Call your doctor immediately for: * Fever > 100.5 * Heavy vaginal bleeding ( >1 pad per hour) * Severe persistent headache * Shortness of breath * Reddened, hot, painful area to leg or breast * Drainage or odor from incision. * Keep laceration site clean and dry at all times and follow doctor's instructions regarding bathing/showering * Return to office in 3 days for B/P check - Follow up plan Follow up: LG MORALES MD [Primary Care Provider] - 3 Days
[2021-03-12 18:23] VITALS: BP 156/89
== END 2021-03-12 19:00 | disposition home or self-care (01) | DRG 774 ==
LOC: LD 18:18 → TRG 18:18 → LD 18:19 → TRG 19:22 → OB 03-12 04:58
PROVIDERS: ADMIT Obstetrics & Gynecology; ATTEND Obstetrics & Gynecology
PROC: 10E0XZZ Delivery of Products of Conception, External Approach (ICD-10-PCS; principal; 2021-03-11)
PROC: 10907ZC Drainage of Amniotic Fluid, Therapeutic from Products of Conception, Via Natural or Artificial Opening (ICD-10-PCS; 2021-03-11)
PROC: 3E0P7VZ Introduction of Hormone into Female Reproductive, Via Natural or Artificial Opening (ICD-10-PCS; 2021-03-11)
PROC: 3E033VJ Introduction of Other Hormone into Peripheral Vein, Percutaneous Approach (ICD-10-PCS; 2021-03-11)
PROC: 3E0234Z Introduction of Serum, Toxoid and Vaccine into Muscle, Percutaneous Approach (ICD-10-PCS; 2021-03-12)
DX: O24.425 Gestational diabetes mellitus in childbirth, controlled by oral hypoglycemic drugs (principal); O98.32 Other infections with a predominantly sexual mode of transmission complicating childbirth; E66.01 Morbid (severe) obesity due to excess calories; Z3A.35 35 weeks gestation of pregnancy; Z86.718 Personal history of other venous thrombosis and embolism; Z79.01 Long term (current) use of anticoagulants; Z20.822 Contact with and (suspected) exposure to COVID-19; Z23 Encounter for immunization; O99.354 Diseases of the nervous system complicating childbirth; G43.909 Migraine, unspecified, not intractable, without status migrainosus; O10.92 Unspecified pre-existing hypertension complicating childbirth; O99.62 Diseases of the digestive system complicating childbirth; K21.9 Gastro-esophageal reflux disease without esophagitis; O99.214 Obesity complicating childbirth; O62.3 Precipitate labor; O69.81X0 Labor and delivery complicated by cord around neck, without compression, not applicable or unspecified; O70.0 First degree perineal laceration during delivery; A60.00 Herpesviral infection of urogenital system, unspecified
CPT/HCPCS: 36415; 59200; 70450; 81001; 82565; 82962; 83615; 83735; 84156; 84450; 84460; 84550; 85014; 85018; 85025; 85027; 86850; 86900; 86901; 87086; 88307; 99211; G0378; G0463; J0290; J0360; J0702; J1650; J1815; J2405; J2590; J3010; J3475; J7120; U0003